=== PATIENT | female | born 1955 | race Caucasian/White ===

== ENCOUNTER 2023-05-04 16:19 | Outpatient (OUT) | payer OTHER, SELFPAY ==
--- NOTE | 2023-05-04 | MM_ITS ---
Patient: JOSY GASCA Exam Date: 05/04/2023 : 1955 Gender:F Ordering : DR Ti Blackburn . Admission #: [id number] Family : Order #: [id number] CLICK HERE TO VIEW EXAM RADIOLOGY REPORT PROCEDURE: MM TOMOSYNTHESIS SCREENING BI COMPARISON: MG MAMM SCREEN 3D CRISTOFER CAD, 04/28/2022. MG MAMM SCREEN 3D CRISTOFER CAD, 04/23/2021. MG MAMM SCREEN CRISTOFER W CAD, 07/25/2019. MG MAMM CRISTOFER SCRN W CAD DIG, 03/08/2013. INDICATIONS: SCREENING Calculator Name NCI Breast Cancer Risk Assessment Tool 5 Year Breast Cancer Risk 3.70% Lifetime Breast Cancer Risk 13.60% Personal Breast Cancer No Personal Ovarian Cancer No Treatments None Family Cancers Sister with breast cancer at age 57; Mother with leukemia cancer at age 66; Father with bladder cancer at age 75. LOCATION: [facility] BREAST COMPOSITION: Heterogeneously dense,which may obscure small masses. FINDINGS: DIAGNOSTIC CATEGORY 1--NEGATIVE. RIGHT BREAST: No significant suspicious finding. No significant change has occurred. LEFT BREAST: No significant suspicious finding. No significant change has occurred. RECOMMENDATIONS: ROUTINE MAMMOGRAM AND CLINICAL EVALUATION IN 12 MONTHS. PLEASE NOTE: A NORMAL MAMMOGRAM DOES NOT EXCLUDE THE POSSIBILITY OF BREAST CANCER. A CLINICALLY SUSPICIOUS PALPABLE LUMP SHOULD BE BIOPSIED. Dictated by: Jose Conde M.D. on 05/05/2023 at 13:02 Approved by: Jose Conde M.D. on 05/05/2023 at 13:26
== END 2023-05-04 16:20 | disposition home or self-care (01) ==
LOC: MAMMO 16:20
PROVIDERS: PCP Family Medicine; Visit Provider Family Medicine
DX: Z12.31 Encounter for screening mammogram for malignant neoplasm of breast (principal); Z80.3 Family history of malignant neoplasm of breast; Z80.6 Family history of leukemia; Z80.52 Family history of malignant neoplasm of bladder
CPT/HCPCS: 77063; 77067

== ENCOUNTER 2023-09-10 06:37 | Outpatient (OUT) | payer OTHER, SELFPAY ==
[2023-09-10 06:49] LABS: Basophils Absolute Auto 0.1 10^3/uL (0.0-0.1); Basophils Percent Auto 1.2 % (0.2-2.0); Eosinophils Absolute Auto 0.1 10^3/uL (0.0-0.7); Eosinophils Percent Auto 2.5 % (0.9-7.0); Hematocrit 38.6 % (36.0-48.0); Hemoglobin 12.5 g/dL (12.0-16.0); Lymphocytes Absolute Auto 2.6 10^3/uL (1.2-3.8); Lymphocytes Percent Auto 44.9 % (20.5-60.0); Mean Corpuscular HGB Conc 32.4 g/dL (29.9-35.2); Mean Corpuscular Hemoglobin 28.2 pg (26.7-34.0); Mean Corpuscular Volume 87.1 fL (81.0-99.0); Mean Platelet Volume 8.3 fL (9.5-13.5); Monocytes Absolute Auto 0.5 10^3/uL (0.3-0.8); Monocytes Percent Auto 8.4 % (1.7-12.0); Neutrophils Absolute Auto 2.5 10^3/uL (1.4-6.5); Platelet Count 324 10^3/uL (150-450); Red Blood Count 4.43 10^6/uL (4.20-5.40); Red Cell Distribution Width 13.8 % (11.0-15.0); White Blood Count 5.7 10^3/uL (4.0-11.0)
[2023-09-10 07:44] LABS: Estimated Average Glucose 111 mg/dL; Glycohemoglobin A1C 5.5 % (4.5-6.2)
[2023-09-10 07:49] LABS: Alanine Aminotransferase 28 U/L (14-59); Albumin Level 3.6 g/dL (3.4-5.0); Alkaline Phosphatase 71 U/L (46-116); Anion Gap 11.7; Aspartate Amino Transferase 19 U/L (15-37); BUN Creatinine Ratio 21.6; Bilirubin Direct 0.1 mg/dL (0.0-0.2); Bilirubin Total 0.4 mg/dL (0.2-1.0); Calcium 9.4 mg/dL (8.5-10.1); Carbon Dioxide 31.4 mmol/L (21.0-32.0); Chloride 101 mmol/L (98-107); Chol HDL Ratio 1.9; Cholesterol 216 mg/dL (<=200); Estimated GFR (African America >60 (>=60); Estimated GFR (Non-African Ame >60 (>=60); Globulin 3.5 g/dL; Glucose 92 mg/dL (74-106); HDL Cholesterol 112 mg/dL (40-60); Potassium 4.1 mmol/L (3.5-5.1); Sodium 140 mmol/L (136-145); Thyroid Stimulating Hormone 2.841 uIU/mL (0.358-3.740); Total Protein 7.1 g/dL (6.4-8.2); Triglycerides 43 mg/dL (<=150); VLDL CHOLESTEROL 8.6 mg/dL
== END 2023-09-10 06:38 | disposition home or self-care (01) ==
LOC: LAB 06:37
PROVIDERS: PCP Family Medicine; Visit Provider Family Medicine
DX: Z00.00 Encounter for general adult medical examination without abnormal findings (principal)
CPT/HCPCS: 36415; 80048; 80061; 80076; 83036; 84443; 85025

== ENCOUNTER 2023-10-21 06:56 | Outpatient (OUT) | payer OTHER, SELFPAY ==
--- OUTSIDE RECORDS SUMMARY | 2023-10-21 06:59 | XMS_ITS | CCD ---
Author Name Unknown Address [address] [place] [address] Organization [facility] Care Team Providers Care Culinary Worker Name Role Phone ELI WRIGHT Primary Care Physician MELINDA, DR ALVARADO Admitting Unavailable ELTAHAWY, DR ALVARADO Attending Unavailable ELTAHAWY, DR ALVARADO Consulting Unavailable NADERER, DR ELI Pillai Primary Care Unavailable ZIEBER, DR JOSE Bergman Consulting Unavailable DEXTER, DR SHAHANA Grove Primary Care Unavailable NADERER, DR ELI Pillai Admitting Unavailable NADERER, DR ELI Pillai Attending Unavailable NADERER, DR ELI Pillai Consulting Unavailable ELTAHAWY, DR ALVARADO Attending Unavailable ELTAHAWY, DR ALVARADO Admitting Unavailable ELTAHAWY, DR ALVARADO Consulting Unavailable DEXTER, DR SHAHANA Grove Primary Care Unavailable NILL, DR CARCAMO Consulting Unavailable NILL, DR CARCAMO Admitting Unavailable NADERER, DR ELI Pillai Primary Care Unavailable NILL, DR CARCAMO Attending Unavailable JUNGERMANN, WYATT Consulting Unavailable PAT, SONIA Consulting Unavailable NILL, DR CARCAMO Admitting Unavailable NADERER, DR ELI Pillai Primary Care Unavailable NILL, DR CARCAMO Attending Unavailable NADERER, DR ELI Pillai Attending Unavailable NADERER, DR ELI Pillai Consulting Unavailable NADERER, DR ELI Pillai Primary Care Unavailable NADERER, DR ELI Pillai Admitting Unavailable NADERER PROVIDER, ELI Referring Unavailab le NILL, Dona Bergman Attending Unavailable NILL, Dona Bergman Attending Unavailable NILL, Dona Bergman Attending Unavailable NILL, Dona Bergman Attending Unavailable NADERER PROVIDER, ELI Referring Unavailab le ELTAHAWY, YECENIA Attending Unavailable Allergies Allergy Classification Reported Allergen(s) Allergy Type Date of Onset Reaction(s) Facility (3 sources) nabumetone; Translations: [nabumetone] Drug Allergy 2 Weal (disorder) [facility] [place] (2 sources) Sulfonamides (Antibiotic); Translations: [sulfa drugs] Drug allergy 7 Unknown [facility] [place] (3 sources) Tetracyclines; Translations: [tetracyclines] Drug allergy 4 Eruption of skin (disorder) [facility] [place] (1 source) nabumetone Drug Allergy [facility] (1 source) Sulfonamides (Antibiotic) Drug allergy (disorder) 0 [facility] (1 source) Tetracycline Drug Allergy 1 [facility] (1 source) Sulfonamides (Antibiotic); Translations: [SULFA (SULFONAMIDE ANTIBIOTICS)] Propensity to adverse reactions to drug (disorder) 4 [facility] Repository Medications Current Medications Medication Drug Class(es) Dates Sig (Normalized) Sig (Original) Acidophilus Probiotic Blend (1 source) Start: 07-31-2022 Acidophilus Probiotic Blend Refill(s) 0 Start Date: 07/31/22 Status: Ordered aspirin 81 mg delayed release oral tablet (1 source) Platelet Aggregation Inhibitor, Nonsteroidal Anti-inflammatory Drug Start: 07-31-2022 take 1 tablet by mouth once daily aspirin 81 mg Oral EC Tab 81 mg = 1 tab(s), Oral, Daily, Refills(s) 0 Start Date: 07/31/22 Status: Ordered Calcium with Vitamin D and K oral tablet, chewable (1 source) Start: 07-31-2022 take 1 tablet by mouth once daily Calcium with Vitamin D and K oral tablet, chewable 1 tab(s), Chewed, Daily, Refill(s) 0 Start Date: 07/31/22 Status: Ordered Centrum Silver Ultra Women's (1 source) Start: 07-31-2022 take 1 tablet by mouth once daily Centrum Silver Ultra Women's 1 tab(s), Oral, Daily, Refill(s) 0 Start Date: 07/31/22 Status: Ordered lisinopril 5 mg oral tablet (1 source) Angiotensin Converting Enzyme Inhibitor Start: 07-31-2022 take 1 tablet by mouth once daily lisinopril 5 mg Tab 5 mg = 1 tab(s), Oral, Daily, Refills(s) 0 Start Date: 07/31/22 Status: Ordered omeprazole 20 mg delayed release oral capsule (1 source) Proton Pump Inhibitor Start: 07-31-2022 take 1 capsule by mouth once daily omeprazole 20 mg Cap-DR 20 mg = 1 cap(s), Oral, Daily, Refills(s) 0 Start Date: 07/31/22 Status: Ordered potassium chloride 1.33 meq oral tablet (1 source) Start: 07-31-2022 take 1 tablet by mouth once daily potassium chloride 99 mg oral tablet 99 mg = 1 tab(s), Oral, Daily, Refills(s) 0 Start Date: 07/31/22 Status: Ordered Problems Active Problems Problem Classification Problem Date Documented Da te Episodic/Chronic Aortic; peripheral; and visceral artery aneurysms (2 sources) Thoracic aortic ectasia; Translations: [Thoracic aortic ectasia] Onset: 3 Chronic Conduction disorders (4 sources) Left bundle branch block; Translations: [Left bundle-branch block, unspecified] Onset: 2 07-31-2022 Chronic Esophageal disorders (2 sources) Gastroesophageal reflux disease; Translations: [Gastro-esophageal reflux disease without esophagitis] Onset: 2 07-31-2022 Chronic Essential hypertension (6 sources) Hypertensive disorder; Translations: [Essential (primary) hypertension] Onset: 2 07-31-2022 Chronic Other aftercare (1 source) FPC (current) use of aspirin; Translations: [RESIDENTIAL CURRENT USE OF ASPIRIN] Onset: 2 Episodic Other aftercare (1 source) Other residential (current) drug therapy; Translations: [OTH RESIDENTIAL CURRENT DRUG THERAPY] Onset: 2 Episodic Other gastrointestinal disorders (1 source) Irritable bowel syndrome with diarrhea 07-31-2022 Chronic Other gastrointestinal disorders (1 source) Irritable bowel syndrome with diarrhea; Translations: [IRRITABLE BOWEL SYND W/DIARRHEA] Onset: 2 Chronic Other hereditary and degenerative nervous system conditions (1 source) Restless legs 07-31-2022 Chronic Other hereditary and degenerative nervous system conditions (1 source) Restless legs syndrome; Translations: [RESTLESS LEGS SYNDROME] Onset: 2 Chronic Other screening for suspected conditions (not mental disorders or infectious disease) (9 sources) Screening for malignant neoplasm of colon done; Translations: [Encounter for screening for malignant neoplasm of colon] Onset: 2 Episodic Lindsey-; endo-; and myocarditis; cardiomyopathy (except that caused by tuberculosis or sexually transmitted disease) (3 sources) Cardiomyopathy; Translations: [Cardiomyopathy, unspecified] Onset: 3 07-31-2022 Chronic Unclassified (1 source) Body mass index 20-24 - normal 08-05-2022 Unclassified (1 source) Patient encounter status 08-05-2022 Past or Other Problems Problem Classification Problem Date Documented Da te Episodic/Chronic Deficiency and other anemia (1 source) Anemia Onset: 03-02-2012 07-31-2022 Episodic Other lower respiratory disease (4 sources) Other forms of dyspnea; Translations: [OTHER FORMS OF DYSPNEA] Onset: 05-27-2022 Episodic Residual codes; unclassified (1 source) Family history of malignant neoplasm of breast; Translations: [FAMILY HX MALIG NEOPLASM OF BREAST] Onset: 05-03-2022 Episodic Residual codes; unclassified (1 source) Family history of leukemia; Translations: [FAMILY HISTORY OF LEUKEMIA] Onset: 05-03-2022 Episodic Residual codes; unclassified (1 source) Family history of malignant neoplasm of bladder; Translations: [FAM HX MALIGNANT NEOPLASM BLADDER] Onset: 05-03-2022 Episodic Results Test Name Value Interpretation Reference Range Facility Office Visiton 09-30-2023 Follow-up visit [id number] Prerna Phelps 1955 F Date Provider Department Center 09/30/2023 271-YECENIA FINN CARD [facility] Family History Problem Relation Age of Onset Hypertension Father Breast cancer Sister Family Status - Relation Status Age at Father Sister Level of Service:[address]55 [place] OFFICE/OUTPATIENT ESTABLISHED LOW MDM 20-29 MIN Normal [facility] Outside Colonoscopyon 2021 Outside Colonoscopy [id number]:127 Normal [facility] Reminderson 10-15-2022 Reminders - From: Nicole Nieto LPN To: GSN - Clinical; Sent: 10/15/2022 10:32:07 EST Show up: 09/14/2032 07:00:00 EST Subject: colonoscopy recall Due Date/Time: 10/14/2032 07:00:00 EST Reminder/Recall Patient is due for screening colonoscopy 10/14/2032. [facility] Pre-Certification Formon Pre-Certification Form [id number]:127 [facility] Consent for Procedure/Surger yon 08-06-2022 Consent for Procedure/Surgery [id number]:127 [facility] Ambulatory Visit Summaryon 1 Ambulatory Visit Summary PRERNA PHELPS :1955 Visit Date:08/05/2022 Ambulatory Visit Instructions Your Care Team Attending Physician - JOLENE DUMONT, Dona Bergman Primary Care Physician - KYLE DUMONT, ELI Referring Physician - ELI WRIGHT MD This Is Your Medications List Contact prescribing physician if questions or concerns aspirin (aspirin 81 mg Oral EC Tab) lactobacillus acidophilus (Acidophilus Probiotic Blend) lisinopril (lisinopril 5 mg Tab) multivitamin with minerals (Calcium with Vitamin D and K oral tablet, chewable) multivitamin with minerals (Centrum Silver Ultra Women's) omeprazole (omeprazole 20 mg Cap-DR) potassium chloride (potassium chloride 99 mg oral tablet) Procedures Performed Cardiac catheterization (08/13/2020), Cardiac catheterization (2006), Colonoscopy, Colonoscopy, Extraction of wisdom tooth, Lumpectomy of right breast, Tubal ligation. Discharge Vitals Heart Rate (Peripheral) 68 Respiratory Rate 16 Blood Pressure 138/80 Height 162.5 cm Height 64 in Weight 55.8 kg Weight 122.76 lb BMI 21.13 Medications What How Much When Instructions Unchanged aspirin (aspirin 81 mg Oral EC Tab) 1 Tablets By Mouth Every day Contact prescribing physician if questions or concerns Unchanged lactobacillus acidophilus (Acidophilus Probiotic Blend) Contact prescribing physician if questions or concerns Unchanged lisinopril (lisinopril 5 mg Tab) 1 Tablets By Mouth Every day Contact prescribing physician if questions or concerns Unchanged multivitamin with minerals (Calcium with Vitamin D and K oral tablet, chewable) 1 Tablets Chewed Every day Contact prescribing physician if questions or concerns Unchanged multivitamin with minerals (Centrum Silver Ultra Women's) 1 Tablets By Mouth Every day Contact prescribing physician if questions or concerns Unchanged omeprazole (omeprazole 20 mg Cap-DR) 1 Capsules By Mouth Every day Contact prescribing physician if questions or concerns Unchanged potassium chloride (potassium chloride 99 mg oral tablet) 1 Tablets By Mouth Every day Contact prescribing physician if questions or concerns Allergies nabumetone (Hives) sulfa drugs (Unknown) tetracyclines (Rash) Problems Ongoing - Any problem that you are currently receiving treatment for. Anemia BMI 21.0-21.9, adult Cardiomyopathy Gastroesophageal reflux disease HTN (hypertension) Irritable bowel syndrome with diarrhea Left bundle branch block RLS (restless legs syndrome) Normal [facility] Physician Referralon 022 Physician Referral [id number] .[id number]:127 Normal [facility] CBC AUTO DIFFon 07-06-2022 BASO # 0.1 103/ul Normal 0.0-0.1 [facility] Comment on above: Performed By: #### C BC #### [facility] [address] [address] [address] Robert Gould Basophils/100 WBC (Bld) 0.8 % Normal 0.2-2.0 [facility] Comment on above: Performed By: #### C BC #### [facility] [address] [address] [address] Robert Gould EO # 0.1 103/ul Normal 0.0-0.7 [facility] Comment on above: Performed By: #### C BC #### [facility] [address] [address] [address] Robert Gould Eosinophils/100 WBC (Bld) 0.9 % Normal 0.9-7.0 [facility] Comment on above: Performed By: #### C BC #### [facility] [address] [address] [address] Robert Gould Erythrocyte distribution width (RBC) [Ratio] 12.9 % Normal 11.0-15.0 [facility] Comment on above: Performed By: #### C BC #### [facility] [address] [place] [address] Dr. Robert Gould Hematocrit (Bld) [Volume fraction] 38.1 % Normal 36.0-48.0 [facility] Comment on above: Performed By: #### C BC #### [facility] [address] [place] [address] Dr. Robert Gould Hemoglobin (Bld) [Mass/Vol] 12.3 g/dL Normal 12.0-16.0 [facility] Comment on above: Performed By: #### C BC #### [facility] [address] [place] [address] Dr. Robert Gould IG # 0.01 10e3/ul Normal 0.00-0.03 [facility] Comment on above: Performed By: #### C BC #### [facility] [address] [place] [address] Dr. Robert Gould IG % 0.2 % Normal 0.0-0.5 [facility] Comment on above: Performed By: #### C BC #### [facility] [address] [place] [address] Dr. Robert Gould LYMPH # 1.7 103/ul Normal 1.2-3.8 [facility] Comment on above: Performed By: #### C BC #### [facility] [address] [place] [address] Dr. Robert Gould Lymphocytes/100 WBC (Bld) 27.4 % Normal 20.5-60.0 [facility] Comment on above: Performed By: #### C BC #### [facility] [address] [place] [address] Dr. Robert Gould MANUAL DIFF REQ NO Normal [facility] Comment on above: Performed By: #### C BC #### [facility] [address] [place] [address] Dr. Robert Gould MCH (RBC) [Entitic mass] 29.6 pg Normal 26.7-34.0 [facility] Comment on above: Performed By: #### C BC #### [facility] [address] [address] [address] Robert Gould MCHC (RBC) [Mass/Vol] 32.3 g/dL Normal 29.9-35.2 [facility] Comment on above: Performed By: #### C BC #### [facility] [address] [place] [address] Dr. Robert Gould MCV (RBC) [Entitic vol] 91.8 fL Normal 81.0-99.0 [facility] Comment on above: Performed By: #### C BC #### [facility] [address] [place] [address] Dr. Robert Gould MONO # 0.5 103/ul Normal 0.3-0.8 [facility] Comment on above: Performed By: #### C BC #### [facility] [address] [place] [address] Dr. Robert Gould Monocytes/100 WBC (Bld) 7.6 % Normal 1.7-12.0 [facility] Comment on above: Performed By: #### C BC #### [facility] [address] [place] [address] Dr. Robert Gould NEUT # 4.0 103/ul Normal 1.4-6.5 [facility] Comment on above: Performed By: #### C BC #### [facility] [address] [place] [address] Dr. Robert Gould Neutrophils/100 WBC (Bld) 63.1 % Normal 43.0-75.0 [facility] Comment on above: Performed By: #### C BC #### [facility] [address] [place] [address] Dr. Robert Gould Platelet mean volume (Bld) [Entitic vol] 9.0 fL Critically low 9.5-13.5 [facility] Comment on above: Performed By: #### C BC #### [facility] [address] [place] [address] Dr. Robert Gould PLT 331 103/ul Normal 150-450 [facility] Comment on above: Performed By: #### C BC #### [facility] [address] [address] [address] Robert Gould RBC 4.15 106/ul Critically low 4.20-5.40 [facility] Comment on above: Performed By: #### C BC #### [facility] [address] [address] [address] Robert Gould WBC 6.3 103/ul Normal 4.0-11.0 [facility] Comment on above: Performed By: #### C BC #### [facility] [address] [address] [address] Robert Gould GLYCOHEMOGLOBIN A1Con 2021 ADA RECOMMENDATION SEE BELOW Normal [facility] Comment on above: Result Comment: ADA RECOMMENDED LIMIT 4.0 - 6.0 ADA THERAPEUTIC TARGET < 7.0 ACTION SUGGESTED > 7.0 Performed By: #### A 1C #### [facility] [address] [place] [address] Dr. Robert Gould Glucose [Mass/Vol] 108 mg/dL Normal [facility] Comment on above: Performed By: #### A 1C #### [facility] [address] [place] [address] Dr. Robert Gould HbA1c (Bld) [Mass fraction] 5.4 % Normal 4.5-6.2 [facility] Comment on above: Performed By: #### A 1C #### [facility] [address] [place] [address] Dr. Robert Gould LIPID PROFILEon 07-06-2022 CHOL-HDL RATIO NORM SEE BELOW Normal [facility] Comment on above: Result Comment: 3.3 - 4.4 LOW RISK 4.4 - 7.1 AVERAGE RISK 7.1 - 11.0 MODERATE RISK >11.0 HIGH RISK Performed By: #### L IPID, LIVER, TSH, BMP #### [facility] [address] [place] [address] Dr. Robert Gould Cholesterol [Mass/Vol] 200 mg/dL Normal <=200 [facility] Comment on above: Performed By: #### L IPID, LIVER, TSH, BMP #### [facility] [address] [address] [address] Robert Gould Cholesterol in HDL [Mass/Vol] 82 mg/dL Critically high 40-60 [facility] Comment on above: Performed By: #### L IPID, LIVER, TSH, BMP #### [facility] [address] [address] [address] Robert Gould Cholesterol in LDL [Mass/Vol] 105.4 mg/dL Normal [facility] Comment on above: Performed By: #### L IPID, LIVER, TSH, BMP #### [facility] [address] [address] [address] Robert Gould Cholesterol.total/Ch olesterol in HDL [Mass ratio] 2.4 {ratio} Normal [facility] Comment on above: Performed By: #### L IPID, LIVER, TSH, BMP #### [facility] [address] [address] [address] Robert Gould HDL NORMAL > or = 60 mg/dl - LO W CARDIOVASCULAR RISK <40 mg/dl - HIGH CARDIOVASCULAR RISK Normal [facility] Comment on above: Performed By: #### L IPID, LIVER, TSH, BMP #### [facility] [address] [address] [address] Robert Gould LDL CALC NORMAL SEE BELOW Normal [facility] Comment on above: Result Comment: <100 mg/dl OPTIMAL 100 - 129 mg/dl NEAR OR ABOVE OPTIMAL 130 - 159 mg/dl BORDERLINE HIGH 160 - 189 mg/dl HIGH >190 mg/dl VERY HIGH Performed By: #### L IPID, LIVER, TSH, BMP #### [facility] [address] [address] [address] Robert Gould Triglyceride [Mass/Vol] 63 mg/dL Normal <=150 [facility] Comment on above: Performed By: #### L IPID, LIVER, TSH, BMP #### [facility] [address] [address] [address] Robert Gould VLDL CALC 12.6 mg/dL Normal [facility] Comment on above: Performed By: #### L IPID, LIVER, TSH, BMP #### [facility] [address] [address] [address] Robert Gould LIVER PROFILEon 07-06-2022 Albumin [Mass/Vol] 3.7 g/dL Normal 3.4-5.0 [facility] Comment on above: Performed By: #### L IPID, LIVER, TSH, BMP #### [facility] [address] [address] [address] Robert Gould Albumin/Globulin [Mass ratio] 1.1 {ratio} Normal [facility] Comment on above: Performed By: #### L IPID, LIVER, TSH, BMP #### [facility] [address] [address] [address] Robert Gould ALP [Catalytic activity/Vol] 65 U/L Normal 46-116 [facility] Comment on above: Performed By: #### L IPID, LIVER, TSH, BMP #### [facility] [address] [place] [address] Dr. Robert Gould ALT [Catalytic activity/Vol] 24 U/L Normal 14-59 [facility] Comment on above: Performed By: #### L IPID, LIVER, TSH, BMP #### [facility] [address] [place] [address] Dr. Robert Gould AST [Catalytic activity/Vol] 15 U/L Normal 15-37 [facility] Comment on above: Performed By: #### L IPID, LIVER, TSH, BMP #### [facility] [address] [place] [address] Dr. Robert Gould BILI, CONJUGATED 0.1 mg/dL Normal 0.0-0.2 [facility] Comment on above: Performed By: #### L IPID, LIVER, TSH, BMP #### [facility] [address] [address] [address] Robert Gould Bilirubin [Mass/Vol] 0.4 mg/dL Normal 0.2-1.0 [facility] Comment on above: Performed By: #### L IPID, LIVER, TSH, BMP #### [facility] [address] [place] [address] Dr. Robert Gould Globulin (S) [Mass/Vol] 3.3 g/dL Normal [facility] Comment on above: Performed By: #### L IPID, LIVER, TSH, BMP #### [facility] [address] [address] [address] Robert Gould Protein [Mass/Vol] 7.0 g/dL Normal 6.4-8.2 [facility] Comment on above: Performed By: #### L IPID, LIVER, TSH, BMP #### [facility] [address] [address] [address] Robert Gould PROF CHEM 8 (BAS METB)on Anion gap [Moles/Vol] 10.2 mmol/L Normal [facility] Comment on above: Performed By: #### L IPID, LIVER, TSH, BMP #### [facility] [address] [place] [address] Dr. Robert Gould Calcium [Mass/Vol] 9.6 mg/dL Normal 8.5-10.1 [facility] Comment on above: Performed By: #### L IPID, LIVER, TSH, BMP #### [facility] [address] [place] [address] Dr. Robert Gould Chloride [Moles/Vol] 104 mmol/L Normal 98-107 [facility] Comment on above: Performed By: #### L IPID, LIVER, TSH, BMP #### [facility] [address] [place] [address] Dr. Robert Gould CO2 [Moles/Vol] 29.1 mmol/L Normal 21.0-32.0 [facility] Comment on above: Performed By: #### L IPID, LIVER, TSH, BMP #### [facility] [address] [address] [address] Robert Gould Creatinine [Mass/Vol] 0.65 mg/dL Normal 0.55-1.02 [facility] Comment on above: Performed By: #### L IPID, LIVER, TSH, BMP #### [facility] [address] [address] [address] Robert Gould EGFR-AF TAIWANESE >60 Normal >=60 [facility] Comment on above: Performed By: #### L IPID, LIVER, TSH, BMP #### [facility] [address] [address] [address] Robert Gould EGFR-NON AF TAIWANESE >60 Normal >=60 [facility] Comment on above: Performed By: #### L IPID, LIVER, TSH, BMP #### [facility] [address] [address] [address] Robert Gould Glucose [Mass/Vol] 94 mg/dL Normal 74-106 [facility] Comment on above: Performed By: #### L IPID, LIVER, TSH, BMP #### [facility] [facility] [address] [address] [address] Robert Gould Potassium [Moles/Vol] 4.3 mmol/L Normal 3.5-5.1 [facility] Comment on above: Performed By: #### L IPID, LIVER, TSH, BMP #### [facility] [address] [address] [address] Robert Gould Sodium [Moles/Vol] 139 mmol/L Normal 136-145 [facility] Comment on above: Performed By: #### L IPID, LIVER, TSH, BMP #### [facility] [address] [address] [address] Robert Gould Urea nitrogen [Mass/Vol] 11.0 mg/dL Normal 7.0-18.0 [facility] Comment on above: Performed By: #### L IPID, LIVER, TSH, BMP #### [facility] [address] [address] [address] Robert Gould Urea nitrogen/Creatinine [Mass ratio] 16.9 mg/mg Normal [facility] Comment on above: Performed By: #### L IPID, LIVER, TSH, BMP #### [facility] [address] [address] [address] Robert Gould TSHon 07-06-2022 TSH 1.590 uIU/mL Normal 0.358-3.740 [facility] Comment on above: Performed By: #### L IPID, LIVER, TSH, BMP #### [facility] [address] [place], [place] [address] Dr. Robert Gould HEMOGLOBINon 05-27-2022 Hemoglobin (Bld) [Mass/Vol] 11.5 g/dL Critically low 12.0-16.0 [facility] Comment on above: Performed By: #### H GB #### [facility] [address] [address] [address] Robert Gould MG MAMM SCREEN 3D CRISTOFER CADon 04-28-2022 MG MAMM SCREEN 3D CRISTOFER CAD Patient: PRERNA PHELPS Exam Date: 04/28/2022 : 1955 Gender:F Ordering : DR ELI WRIGHT . Admission #: [id number] Family : Order #: [id number] CLICK HERE TO VIEW EXAM RADIOLOGY REPORT PROCEDURE: MAMMOGRAM SCREENING 3D BILATERAL CAD COMPARISON: MG MAMM SCREEN 3D CRISTOFER CAD, 04/23/2021. MG MAMM SCREEN CRISTOFER W CAD, 07/25/2019. INDICATIONS: Screening mammography Calculator Name NCI Breast Cancer Risk Assessment Tool 5 Year Breast Cancer Risk 3.60% Lifetime Breast Cancer Risk 14.10% Personal Breast Cancer No Personal Ovarian Cancer No Treatments None Family Cancers Sister with breast cancer at age 57; Mother with leukemia cancer at age 66; Father with bladder cancer at age 75. LOCATION: [facility] BREAST COMPOSITION: Heterogeneously dense,which may obscure small masses. FINDINGS: DIAGNOSTIC CATEGORY 1--NEGATIVE. RIGHT BREAST: No significant suspicious finding. No significant change has occurred. LEFT BREAST: No significant suspicious finding. No significant change has occurred. RECOMMENDATIONS: ROUTINE MAMMOGRAM AND CLINICAL EVALUATION IN 12 MONTHS. PLEASE NOTE: A NORMAL MAMMOGRAM DOES NOT EXCLUDE THE POSSIBILITY OF BREAST CANCER. A CLINICALLY SUSPICIOUS PALPABLE LUMP SHOULD BE BIOPSIED. Dictated by: Jose Conde M.D. on 04/28/2022 at 12:50 Approved by: Jose Conde M.D. on 04/28/2022 at 12:52 Normal [facility] PROF CHEM 8 (BAS METB)on Anion gap [Moles/Vol] 15.1 mmol/L Normal [facility] Comment on above: Performed By: #### B MP #### [facility] [address] [address] [address] Robert Gould Calcium [Mass/Vol] 9.2 mg/dL Normal 8.5-10.1 [facility] Comment on above: Performed By: #### B MP #### [facility] [address] [place] [address] Dr. Robert Gould Chloride [Moles/Vol] 103 mmol/L Normal 98-107 [facility] Comment on above: Performed By: #### B MP #### [facility] [address] [address] [address] Robert Gould CO2 [Moles/Vol] 26.0 mmol/L Normal 22.0-30.0 [facility] Comment on above: Performed By: #### B MP #### [facility] [address] [place] [address] Dr. Robert Gould Creatinine [Mass/Vol] 0.64 mg/dL Normal 0.52-1.04 [facility] Comment on above: Performed By: #### B MP #### [facility] [address] [place] [address] Dr. Robert Gould EGFR-AF TAIWANESE >60 Normal >=60 [facility] Comment on above: Performed By: #### B MP #### [facility] [address] [place] [address] Dr. Robert Gould EGFR-NON AF TAIWANESE >60 Normal >=60 [facility] Comment on above: Performed By: #### B MP #### [facility] [address] [place] [address] Dr. Robert Gould Glucose [Mass/Vol] 86 mg/dL Normal 74-106 [facility] Comment on above: Performed By: #### B MP #### [facility] [address] [address] [address] Robert Gould Potassium [Moles/Vol] 4.1 mmol/L Normal 3.4-5.0 [facility] Comment on above: Performed By: #### B MP #### [facility] [address] [place] [address] Dr. Robert Gould Sodium [Moles/Vol] 140 mmol/L Normal 137-145 [facility] Comment on above: Performed By: #### B MP #### [facility] [address] [address] [address] Robert Gould Urea nitrogen [Mass/Vol] 12.0 mg/dL Normal 7.0-18.0 [facility] Comment on above: Performed By: #### B MP #### [facility] [address] [address] [address] Robert Gould Urea nitrogen/Creatinine [Mass ratio] 18.8 mg/mg Normal [facility] Comment on above: Performed By: #### B MP #### [facility] [address] [address] [address] Robert Gould C-Reactive Proteinon 021 C-Reactive Protein 1.4 mg/dL High 0.0-1.0 [facility] Comment on above: Performed By: #### C MP, ZACK, CBC, TSH3, FE and TIBC, CRP, PTH, ESR #### [address] Complete Blood Count Auto Di ffon 07-02-2021 Basophils (Bld) [#/Vol] 0.1 10*3/uL Normal 0.0-0.2 [facility] Comment on above: Performed By: #### C MP, ZACK, CBC, TSH3, FE and TIBC, CRP, PTH, ESR #### [address] Basophils/100 WBC (Bld) 1.1 % Normal . [facility] Comment on above: Performed By: #### C MP, ZACK, CBC, TSH3, FE and TIBC, CRP, PTH, ESR #### [place] [address] [place] Eosinophils (Bld) [#/Vol] 0.3 10*3/uL Normal 0.0-0.45 [facility] Comment on above: Performed By: #### C MP, ZACK, CBC, TSH3, FE and TIBC, CRP, PTH, ESR #### [address] [place] [address] [place] Eosinophils/100 WBC (Bld) 3.7 % Normal . [facility] Comment on above: Performed By: #### C MP, ZACK, CBC, TSH3, FE and TIBC, CRP, PTH, ESR #### [address] Erythrocyte distribution width (RBC) [Ratio] 16.4 % High 11.9-15.3 [facility] Comment on above: Performed By: #### C MP, ZACK, CBC, TSH3, FE and TIBC, CRP, PTH, ESR #### [address] Hematocrit (Bld) [Volume fraction] 34.0 % Normal 34.0-46.4 [facility] Comment on above: Performed By: #### C MP, ZACK, CBC, TSH3, FE and TIBC, CRP, PTH, ESR #### [address] Hemoglobin (Bld) [Mass/Vol] 11.4 g/dL Low 11.8-15.4 [facility] Comment on above: Performed By: #### C MP, ZACK, CBC, TSH3, FE and TIBC, CRP, PTH, ESR #### [address] Lymphocytes (Bld) [#/Vol] 1.5 10*3/uL Normal 1.00-4.8 [facility] Comment on above: Performed By: #### C MP, ZACK, CBC, TSH3, FE and TIBC, CRP, PTH, ESR #### [address] Lymphocytes/100 WBC (Bld) 22.3 % Normal . [facility] Comment on above: Performed By: #### C MP, ZACK, CBC, TSH3, FE and TIBC, CRP, PTH, ESR #### [address] MCH (RBC) [Entitic mass] 26.9 pg Normal 24.7-34.3 [facility] Comment on above: Performed By: #### C MP, ZACK, CBC, TSH3, FE and TIBC, CRP, PTH, ESR #### [address] MCV (RBC) [Entitic vol] 79.8 fL Low 80-100 [facility] Comment on above: Performed By: #### C MP, ZACK, CBC, TSH3, FE and TIBC, CRP, PTH, ESR #### [address] Mean Corpuscular HGB Conc 33.7 g/dL Normal 32.0-35.0 [facility] Comment on above: Performed By: #### C MP, ZACK, CBC, TSH3, FE and TIBC, CRP, PTH, ESR #### [address] Monocytes (Bld) [#/Vol] 0.5 10*3/uL Normal 0.0-0.8 [facility] Comment on above: Performed By: #### C MP, ZACK, CBC, TSH3, FE and TIBC, CRP, PTH, ESR #### [address] Monocytes/100 WBC (Bld) 7.6 % Normal . [facility] Comment on above: Performed By: #### C MP, ZACK, CBC, TSH3, FE and TIBC, CRP, PTH, ESR #### [address] Neutrophils (Bld) [#/Vol] 4.4 10*3/uL Normal 1.8-7.7 [facility] Comment on above: Performed By: #### C MP, ZACK, CBC, TSH3, FE and TIBC, CRP, PTH, ESR #### [address] Neutrophils/100 WBC (Bld) 65.3 % Normal . [facility] Comment on above: Performed By: #### C MP, ZACK, CBC, TSH3, FE and TIBC, CRP, PTH, ESR #### [place] [address] Nucleated RBC/100 WBC (Bld) [Ratio] 0.0 % Normal 0-0.5 [facility] Comment on above: Performed By: #### C MP, ZACK, CBC, TSH3, FE and TIBC, CRP, PTH, ESR #### [address] Platelet mean volume (Bld) [Entitic vol] 6.7 fL Normal 6.3-10.7 [facility] Comment on above: Performed By: #### C MP, ZACK, CBC, TSH3, FE and TIBC, CRP, PTH, ESR #### [address] Platelets (Bld) [#/Vol] 446 10*3/uL Normal 150-450 [facility] Comment on above: Performed By: #### C MP, ZACK, CBC, TSH3, FE and TIBC, CRP, PTH, ESR #### [address] RBC (Bld) [#/Vol] 4.26 10*6/uL Normal 3.60-5.00 [facility] Comment on above: Performed By: #### C MP, ZACK, CBC, TSH3, FE and TIBC, CRP, PTH, ESR #### [address] WBC (Bld) [#/Vol] 6.8 10*3/uL Normal 4.5-11.0 [facility] Comment on above: Performed By: #### C MP, ZACK, CBC, TSH3, FE and TIBC, CRP, PTH, ESR #### [address] Comprehensive Metabolic Pane maxwell 07-02-2021 Albumin [Mass/Vol] 4.0 g/dL Normal 3.2-5.5 [facility] Comment on above: Performed By: #### C MP, ZACK, CBC, TSH3, FE and TIBC, CRP, PTH, ESR #### [address] [address] [place] Albumin/Globulin [Mass ratio] 1.5 {ratio} Normal [facility] Comment on above: Performed By: #### C MP, ZACK, CBC, TSH3, FE and TIBC, CRP, PTH, ESR #### [address] ALP [Catalytic activity/Vol] 76 U/L Normal 32-92 [facility] Comment on above: Performed By: #### C MP, ZACK, CBC, TSH3, FE and TIBC, CRP, PTH, ESR #### [address] ALT [Catalytic activity/Vol] 19 U/L Normal 10-60 [facility] Comment on above: Performed By: #### C MP, ZACK, CBC, TSH3, FE and TIBC, CRP, PTH, ESR #### [address] AST [Catalytic activity/Vol] 17 U/L Normal 10-42 [facility] Comment on above: Performed By: #### C MP, ZACK, CBC, TSH3, FE and TIBC, CRP, PTH, ESR #### [address] Bilirubin [Mass/Vol] 0.3 mg/dL Normal 0.3-1.2 [facility] Comment on above: Performed By: #### C MP, ZACK, CBC, TSH3, FE and TIBC, CRP, PTH, ESR #### [address] Calcium [Mass/Vol] 10.1 mg/dL Normal 8.2-10.2 [facility] Comment on above: Performed By: #### C MP, ZACK, CBC, TSH3, FE and TIBC, CRP, PTH, ESR #### [address] Chloride [Moles/Vol] 100 mmol/L Normal 95-114 [facility] Comment on above: Performed By: #### C MP, ZACK, CBC, TSH3, FE and TIBC, CRP, PTH, ESR #### [facility] [address] CO2 [Moles/Vol] 24.8 mmol/L Normal 22.0-30.0 [facility] Comment on above: Performed By: #### C MP, ZACK, CBC, TSH3, FE and TIBC, CRP, PTH, ESR #### [address] Creatinine [Mass/Vol] 0.64 mg/dL Normal 0.44-1.03 [facility] Comment on above: Performed By: #### C MP, ZACK, CBC, TSH3, FE and TIBC, CRP, PTH, ESR #### [address] Estimated GFR ( [place] > 60 [facility] Comment on above: Result Comment: GFR estimated reference range: According to KDOQI guidelines, <60 ml/min/1.73m2 is sufficient to diagnose a patient with chronic kidney disease. Performed By: #### C MP, ZACK, CBC, TSH3, FE and TIBC, CRP, PTH, ESR #### [address] Estimated GFR (Non- Am > 60 [facility] Comment on above: Performed By: #### C MP, ZACK, CBC, TSH3, FE and TIBC, CRP, PTH, ESR #### [address] Globulin (S) [Mass/Vol] 2.7 g/dL [facility] Comment on above: Performed By: #### C MP, ZACK, CBC, TSH3, FE and TIBC, CRP, PTH, ESR #### [address] Glucose [Mass/Vol] 103 mg/dL High 70-100 [facility] Comment on above: Result Comment: Thayne Glucose Reference Range is dependent on time and content of last meal. Glucose of more than 200 mg/dL in a nonstressed, ambulatory subject supports the diagnosis of Diabetes Mellitus. ADA recommended reference range Performed By: #### C MP, ZACK, CBC, TSH3, FE and TIBC, CRP, PTH, ESR #### [address] Potassium [Moles/Vol] 4.0 mmol/L Normal 3.5-5.1 [facility] Comment on above: Performed By: #### C MP, ZACK, CBC, TSH3, FE and TIBC, CRP, PTH, ESR #### [address] Protein [Mass/Vol] 6.7 g/dL Normal 6.1-7.9 [facility] Comment on above: Performed By: #### C MP, ZACK, CBC, TSH3, FE and TIBC, CRP, PTH, ESR #### [address] Sodium [Moles/Vol] 136 mmol/L Normal 136-146 [facility] Comment on above: Performed By: #### C MP, ZACK, CBC, TSH3, FE and TIBC, CRP, PTH, ESR #### [address] Urea nitrogen [Mass/Vol] 13 mg/dL Normal 9-23 [facility] Comment on above: Performed By: #### C MP, ZACK, CBC, TSH3, FE and TIBC, CRP, PTH, ESR #### [address] Erythrocyte Sedimentation Ra anahi 07-02-2021 ESR (Bld) [Velocity] 27 mm/h Normal 0-29 [facility] Comment on above: Result Comment: PERF ORMED BY: [place] [address] PATHOLOGIST [employer]NER ZAYRA LEONARD M.D. Performed By: #### C MP, ZACK, CBC, TSH3, FE and TIBC, CRP, PTH, ESR #### [address] Ferritinon 07-02-2021 Ferritin [Mass/Vol] 45.4 ng/mL Normal 11-306.8 [facility] Comment on above: Performed By: #### C MP, ZACK, CBC, TSH3, FE and TIBC, CRP, PTH, ESR #### [address] Iron and TIBC Profileon % Iron Saturation 6.0 % Low 20-50 [facility] Comment on above: Performed By: #### C MP, ZACK, CBC, TSH3, FE and TIBC, CRP, PTH, ESR #### [address] Iron [Mass/Vol] 27 ug/dL Low 40-150 [facility] Comment on above: Performed By: #### C MP, ZACK, CBC, TSH3, FE and TIBC, CRP, PTH, ESR #### [address] Total Iron Binding Capacity 386 ug/dL Normal 255-450 [facility] Comment on above: Performed By: #### C MP, ZACK, CBC, TSH3, FE and TIBC, CRP, PTH, ESR #### [address] Transferrin [Mass/Vol] 276 mg/dL Normal 180-380 [facility] Comment on above: Performed By: #### C MP, ZACK, CBC, TSH3, FE and TIBC, CRP, PTH, ESR #### [address] Parathyroid Hormone Intacton 07-02-2021 Parathyroid Hormone Intact 24.7 pg/mL Normal 12-88 [facility] Comment on above: Result Comment: PERF ORMED BY: [place] [address] PATHOLOGIST [employer] RUNNER ZAYRA LEONARD M.D. Performed By: #### C MP, ZACK, CBC, TSH3, FE and TIBC, CRP, PTH, ESR #### [address] Thyroid Stimulating Hormoneo n 07-02-2021 TSH Qn 1.73 m[IU]/L Normal 0.45-5.33 [facility] Comment on above: Performed By: #### C MP, ZACK, CBC, TSH3, FE and TIBC, CRP, PTH, ESR #### [facility] [id number] [facility] XR knee RT 2Von 07-02-2021 XR knee RT 2V [facility] [address] [place] [address] [place] [address] XRay Report Signed Patient: Prerna Phelps MR#: [id number] : 1955 Acct:[id number] Age/Sex: 66 / F ADM Date: 07/02/21 Loc: ICXD Room: Type: [facility] Attending Dr: Teodoro Denson MD Ordering Provider: Teodoro Denson MD Date of Service: 07/02/21 XR/XR hand BI 2V: PAIN ([id number]) XR/XR knee RT 2V: PAIN Copies to: Teodoro Denson MD Bilateral hands and right knee 07/02/2021. CLINICAL DATA: Bilateral hand and right knee pain. BILATERAL HANDS FINDINGS: 2 views of each of the right and left hands were obtained for a total of 4 images. A metallic ring overlies the mid fourth proximal phalanx on the left. No acute fracture or dislocation is identified. Minimal and symmetrical degenerative changes are seen in both hands and both wrists. No bony erosion or destruction is visualized. No significant soft tissue swelling is noted. XR/XR hand BI 2V IMPRESSION: Minimal and symmetrical degenerative changes in both hands and wrists. No acute bony abnormality. RIGHT KNEE FINDINGS: 2 views of the right knee were obtained. No acute fracture or dislocation is identified. There are mild degenerative changes including marginal osteophyte formation in the patellofemoral compartment. No bony erosion or destruction is seen. No suprapatellar effusion is visualized. IMPRESSION: Mild degenerative changes in the patellofemoral compartment. No acute bony abnormality or effusion. Impression dictated by: Tejas Serra Jr., M.D.07/02/2021 7:26 PM Dictation Location: [address] [address] Transcribed By: [facility] 07/02/211925 Dictated By: Tejas Serra Jr, MD 07/02/211916 Signed By: 07/02/211925 Normal [facility] Cardiovascular Lab Reporton 08-13-2020 Cardiovascular Lab Report [facility] Patient Name: Prerna Phelps [facility] MR #: [id number] Physician: Yecenia Finn Department of M.D. Medicine Service Date: 08/13/2020 Division of Birthdate: 1955 Cardiology Room #: [facility] Cardiovascular Services [place] [address] Cardiovascular Laboratory Report FINAL IMPRESSIONS: 1. Non-obstructive coronary arteries. 2. Normal global left ventricular systolic function by noninvasive imaging. 3. Normal right-sided heart pressures. 4. Normal pulmonary capillary wedge pressure. 5. Normal cardiac output/cardiac index. RECOMMENDATIONS: 1. Consider alternate etiologies for the patient's symptomatology, namely pulmonary, musculoskeletal, and/or gastrointestinal. 2. Aggressive cardiovascular risk factor modification. 3. Follow up with [facility] Cardiology on an as-needed basis. 4. Follow up with Dr. Shahana Dexter as scheduled. PROCEDURES: Ultrasound-guided access to the right internal jugular vein, right heart catheterization, bilateral selective coronary angiography via a left radial approach. METHODS: After risks, benefits, and alternatives were explained, written informed consent was obtained. The patient was prepped and draped in the usual sterile fashion over the right neck and left wrist. Using 1% lidocaine solution, local infiltration anesthesia was achieved. Using a modified Seldinger technique and a micropuncture kit, ultrasound guidance was used to access the right internal jugular vein. A 6-Croatian glide sheath was inserted without difficulty. A Jimenez catheter was used for right heart catheterization measuring pressures in the right atrium, right ventricle, pulmonary artery, and pulmonary capillary wedge positions. Oxygen saturations were obtained and cardiac output/cardiac index was calculated using the Ilan principle. The Jimenez catheter was removed. Local infiltration anesthesia was achieved over the left wrist. A micropuncture kit was used to access the left radial artery. A 6-Croatian glide sheath was inserted without difficulty. Difficulty advancing the Matute wire was encountered. Therefore, angiography was performed. This revealed tortuosity and a small vessel. This was traversed using a soft angled Glidewire. Bilateral selective coronary angiography was performed using 4 and JL4 catheters. After reviewing the images, it was elected to conclude the procedure. All catheters were removed. The radial sheath was removed with application of a TR band per protocol achieving optimal hemostasis. Overall, the patient tolerated the procedure well. There were no overt complications. She was to be transferred to the holding area in stable condition. FINDINGS: Hemodynamics. RA 5. RV 27/3, 5. PA 27/9 (16). PCWP 7. TPG 9. AO 101/54 (70). Cardiac output 6.46/cardiac index 3.37. AO sat 97%/PA sat 74%. LEFT VENTRICULOGRAPHY: This was not performed. Ejection fraction is normal by noninvasive imaging. CORONARY ARTERIES: Left main coronary artery: This arises from the left coronary cusp. It has a patulous origin with no significant stenosis. There was no pressure dampening and excellent reflux into the root. It appears to be originating posteriorly from the root. Left anterior descending coronary artery: This shows no significant stenosis and is angiographically nonobstructive. Left circumflex coronary artery: This is angiographically nonobstructive. Right coronary artery: This is a large vessel, giving rise to the posterior descending and posterolateral branches. It is angiographically nonobstructive. INDICATIONS: Exertional shortness of breath. Electronically Signed by: Yecenia Finn M.D. 08/16/2020 02:13 P Yecenia Finn M.D. Date Dict: 08/13/2020/10:58 Rosas/Yecenia Finn M.D. Date Trans: 08/13/2020 11:58 Rosas/anatoliy [id number] cc: Shahana Dexter M.D. [address] [place] [address] A [facility] [id number] [facility] Vital Signs Date Time Vital Sign Value Performing Clinician Funmilayo pena 08-05-2022 15:45-0400 Blood Pressure Location Dona YIP [facility] [place] 08-05-2022 15:45-0400 Diastolic blood pressure 80 mm[Hg] Dona YIP [facility] [place] 08-05-2022 15:45-0400 Heart rate 68 /min Dona JOLENE [facility] [place] 08-05-2022 15:45-0400 Respiratory rate 16 /min Dona JOLENE [facility] [place] 08-05-2022 15:45-0400 Systolic blood pressure 138 mm[Hg] Dona TOML [facility] [place] Encounters Encounter Date Encounter Type Care Provider Facility Start: 09-30-2023 End: 09-30-2023 [facility] Start: 10-14-2022 End: 10-15-[address] DONA YIP Facility: Start: 10-10-[address] DONA YIP Facilit y:[facility] Start: 10-07-2022 End: 10-08-2022 ambulatory Dona YIP Facility:[facility] Start: 08-05-2022 End: 08-06-2022 ambulatory ELI WRIGHT PROVIDER [facility] Start: 08-05-2022 End: 08-05-2022 Patient encounter procedure Dona YIP [facility] Start: 07-29-2022 ambulatory ELI WRIGHT PROVIDER F acility: [facility] Start: 07-11-2022 Encounter for genera l adult medical examination without abnormal findings DR ELI WRIGHT [facility] Start: 07-10-2022 ambulatory Dona YIP Facility : [facility] Start: 07-06-2022 End: 07-07-[address] ELI WRIGHT Facility: Start: 07-06-2022 End: 07-07-2022 Encounter for general adult medical examination without abnormal findings DR ELI WRIGHT Facility:[facility] Start: 05-27-2022 End: 05-28-[address] YECENIA FINN Facility:[facility] Start: 04-28-2022 End: 04-29-[address] JOSE CONDE Facility:[facility] Start: 02-02-2022 End: 02-03-[address] YECENIA FINN Facility:[facility] Procedures Date Procedure Procedure Detail Performing Clinician Start: 08-13-2020 Cardiac catheterization Dona SANTOSL Start: 10-25-2006 Cardiac catheterization Dona NILL Colonoscopy Dona NILL Colonoscopy Dona NILL Extraction of wisdom tooth M prasanna NILL Ligation of fallopian tube M prasanna NILL Lumpectomy of right breast M prasanna NILL Immunizations Immunization Date Immunization Notes Care Provider Fa cili 01-30-2021 COVID-19 mRNA-1273 (Moderna) [facility] 12-26-2020 COVID-19 mRNA-1273 (Moderna) [facility] Payers Date Payer Category Payer Private Health Insurance [id number] 1955 Unknown [id number] 2.16.84 [id number] 1955 Unknown [id number] 2.16.84 [id number] 1955 Unknown [id number] 2.16.84 [id number] 1955 Unknown [id number] 2.16.84 [id number] 1955 Unknown [id number] 2.16.84 [id number] 1955 Unknown [id number] 2.16.84 [id number] 1955 Unknown [id number] 2.16.8 [id number] 1955 Unknown [id number] 2.16.8 [id number] 1955 Unknown [id number] 2.16.8 [id number] 1955 Unknown [id number] 2.16.8 [id number] 1955 Unknown [id number] 2.16.8 [id number] Self-pay Self Pay [id number] Social History Date Type Detail Facility Tobacco smoking stat [facility] Unknown if ever smoked [facility] Work Phone: Start: 1955 Sex Assigned At Female F [facility] Start: 08-05-2022 Tobacco smoking status Never s moked tobacco (finding) [facility] Tobacco smoking status Never [facility] Sex Assigned At Female [facility] Functional Status Date Assessment Result Facility 08-05-2022 Functional Status N/A [facility] Progress note 09-30-2023 Note Date & Type Note Facility 09-30-2023 Note [facility] Note Chief Complaint: Patient here for 1 year follow up hypertension, LBBB, and cardiomyopathy. She had routine lab work last month. Denies SOB and palpitations. Gets chest twinges but thinks it's related to her IBS. HPI: Prerna Phelps is a 68 y.o. female Per Reji Cabral - She had normal coronary arteries and mild cardiomyopathy with a mildly reduced ejection fraction. Cardiology ROS: Review of Systems Cardiovascular: Positive for chest pain ( twinges ). All other systems reviewed and are negative. Past Medical History She has a past medical history of Anemia, Breast cancer (CMS/HCC), Cardiomyopathy (CMS/HCC), Gastrointestinal disease, GERD (gastroesophageal reflux disease), Obesity, and Sleep apnea. Surgical History She has a past surgical history that includes Cardiac catheterization; Mastectomy, partial; Tubal ligation; and Cardiac catheterization (Bilateral, 08/13/2020). Social History She reports that she has never smoked. She has never used smokeless tobacco. No history on file for alcohol use and drug use. Family History Family History Problem Relation Name Age of Onset Hypertension Father Breast cancer Sister Allergies Nabumetone, Sulfa (sulfonamide antibiotics), and Tetracyclines Medications Current Outpatient Medications: aspirin 81 mg EC tablet, in the morning., Disp: , Rfl: hydroCHLOROthiazide (HYDRODiuril) 12.5 mg tablet, 1 (one) time each day at the same time., Disp: , Rfl: hydroxychloroquine (Plaquenil) 200 mg tablet, hydroxychloroquine 200 mg tablet TAKE 1 TABLET BY MOUTH TWO TIMES A DAY WITH FOOD, Disp: , Rfl: ibuprofen 200 mg capsule, every 8 (eight) hours., Disp: , Rfl: lisinopril 5 mg tablet, lisinopril 5 mg tablet TAKE 1 TABLET BY MOUTH EVERY DAY, Disp: 90 tablet, Rfl: 3 omeprazole (PriLOSEC) [address] capsule, 1 capsule in the morning., Disp: , Rfl: polysaccharide iron complex 180 mg iron capsule, Pro Fe 180 mg iron capsule TAKE 1 CAPSULE BY MOUTH EVERY DAY, Disp: , Rfl: potassium gluconate 595 mg (99 mg) tablet, in the morning., Disp: , Rfl: rOPINIRole (Requip) 0.5 mg tablet, ropinirole 0.5 mg tablet, Disp: , Rfl: Last Recorded Vitals BP 140/86 (BP Location: Left arm, Patient Position: Sitting) Pulse 71 Ht 1.626 m (5' 4 ) Wt 59.4 kg (131 lb) SpO2 99% BMI 22.49 kg/m??? Physical Examination: GENERAL: alert and oriented x3, well developed, in no acute distress. HEAD: atraumatic, normocephalic. EYES: CECILIA, EOMI. NECK: trachea midline, no JVD present, no carotid bruits present. CARDIAC: S1, S2 present. RRR. No murmur, rubs, or gallops. RESPIRATORY: CTAB, no increased effort of breathing, no rales, rhonchi, or wheezing. ABDOMEN: soft, nontender, nondistended. EXTREMITIES: no lower extremity edema, peripheral pulses are 2+ bilaterally. No rash/skin discoloration present. NEURO: strength/sensation equal and symmetric in bilateral upper and lower extremities. PSYCH: appropriate mood, affect, and judgement. Labs: 07/06/22 BUN 11, CR 0.65- normal K+ 4.3 LFT normal Chol 200, HDL 82, Trig 63, LDL-105.4, A1C 5.4 Last lab values have been reviewed CV Testin07/23/2020 Echo Left Ventricle: The left ventricle is small in size. Global left ventricular systolic function is normal. EF range is estimated at 55 % -60 %. Left ventricular wall thickness is normal. The septum is abnormal in its motion; maybe due to bundle branch block. Unable to assess diastolic dysfunction. Right Ventricle: The right ventricle is normal in size. Normal right ventricular systolic function. Left Atrium: The left atrium is normal in size. IAS: Color flow Doppler is suggestive of a patent foramen ovale. Right Atrium: The right atrium is normal in size. Aorta: Mild dilatation of the ascending aorta. Overall Conclusions: No significant valvular abnormalities Assessment: History of nonischemic cardiomyopathy; recovered Essential hypertension Left bundle branch block Mild dilatation of the ascending aorta Possible patent foramen ovale seen on echocardiography Plan: Continue medical therapy including angiotensin-converting enzyme inhibitor Monitor blood pressure and heart rate and let us know of any significant fluctuations Will repeat an echocardiogram given mildly dilated ascending aorta on prior study dated 06/2020 Return to clinic in 1 year or sooner should problems arise Yecenia Finn MD, MPH, [facility], [facility], [facility] Interventional Cardiology Pager Email: [email or web address] Clinical Note 10-14-2022 Note Date & Type Note Facility 10-14-2022 Note OPERATIVE NOTE OPERATION DATE: 10/14/2022 PREOPERATIVE DIAGNOSIS: Colorectal screening. POSTOPERATIVE DIAGNOSIS: Normal colonoscopy to cecum. PROCEDURE: Colonoscopy to cecum. SURGEON: Dona Yip M.D. ANESTHESIA: Monitored anesthesia care. ESTIMATED BLOOD LOSS: Zero. INDICATIONS AND CONSENT: Patient is a 67-year-old female who presents colorectal screening. Indications, risks, benefits, alternatives of proceeding with colonoscopy were explained extensively to the patient, including the risks of bleeding, colon perforation or anesthetic complications. All of her questions were answered. Informed consent was obtained. PROCEDURE: Patient brought to the operating room, placed in the left lateral decubitus position. Monitored anesthesia care was provided. Rectal exam was performed which showed no masses or blood. The scope was inserted into the anal canal. Under direct visualization it was advanced. With the aid of abdominal compression, it was advanced to the cecum where cecal markings were clearly identified. Upon withdrawal of the scope, mucosal surfaces were carefully examined. There were no mass lesions or polyps. No inflammatory changes or ulcerations. No significant diverticulosis. The scope was retroflexed in the anal canal. There were noted to be some prominent rectal veins. No significant hemorrhoidal disease. Scope was then withdrawn. Patient tolerated procedure well. Follow up colonoscopy should be in 10 years for screening. CC: Patient's family physician [facility] Clinical Note 08-05-2022 Note Date & Type Note Facility 08-05-2022 Note Chief Complaint consultation for screening colonoscopy HPI Staff 67 year old female presents on consultation from Dr. Wright for screening colonoscopy. Denies abdominal or rectal pain. No rectal bleeding or change in bowel habits. Denies nausea or vomiting. No unexplained weight loss. Last colonoscopy completed greater than 10 years ago, report is not available but patient does not recall any abnormalities. No known family history of colon cancer. History of Present Illness 67yo female with h/o htn, GERD, referred for colorectal screening; denies change in bms or blood in stools; no abdominal complaints; denies asa or NSAID use, no SBE prophylaxis; last colonoscopy 10 years ago, reportedly wnl; abdominal operations significant for tubal ligation; no fmhx of GI malignancy or IBD; no tobacco use. Review of Systems PHQ Score Initial Depression Screen Score: 0 ROS - Provider Constitutional: no fever, no sweats, no weight loss. Eyes: no glasses, no blurred vision, no visual loss. ENMT: no dentures, no hoarseness, no swallowing difficulties, no hearing loss, no ear infection(s), no nose bleeds. Cardiovascular: normal blood pressure, no chest pain, regular heartbeat, no heart murmur. Respiratory: no shortness of breath, no cough, no asthma, no wheezing. Gastrointestinal: no nausea, no vomiting, no diarrhea, no constipation, no blood in stool, no change in bowel habits, no abdominal pain, no hepatitis. Genitourinary: no kidney stones, no urine infection, no dysuria. Musculoskeletal: no pain, no weakness. Skin: no changing moles, no rash, no skin lumps. Neurologic: no seizures, no epilepsy, no headache. Psychiatric: no emotional or psychiatric problem. Heme/Lymph: no bleeding problems, no anemia, no blood clots, no transfusions. Allergy/Immunologic: no swollen lymph nodes/glands, no IV drug abuse. Other: Additional ROS info: Except as noted in the above Review of Systems and in the History of Present Illness, all other systems have been reviewed and are negative or noncontributory. Physical Exam Vitals & Measurements HR: 68(Peripheral) RR: 16 BP: 138/80 HT: 64 in HT: 162.5 cm WT: 55.8 kg WT: 122.76 lb BMI: 21.13 HEENT: normal conjunctiva, sclera clear, no scleral icterus, EOM intact, PERRLA. oral mucosa moist without lesions Neck: trachea midline , no mass, symmetric, no thyromegaly or nodules. no adenopathy Respiratory: lungs CTA, respirations non labored. Cardiovascular: regular rate and rhythm, no murmur, , no pedal edema or varicosities. Gastrointestinal: soft, non distended, no tenderness, no masses, no palpable hernias, diastasis recti no, no hepatosplenomegaly. normal bs Lymphatic: no cervical adenopathy, Musculoskeletal: normalgait, digits and nails without infection, nodes, cyanosis, clubbing. Skin: no rashes, no lesions, no ulcers, no subcutaneous nodules, induration. Psychiatric/Neuro: oriented to time, place, person, judgement normal, affect appropriate for age, insight intact, no focal deficits. Tests: , review of old records completed, Discussed surgical options, risks, and possible complications with patient. Assessment/Plan 1. Screening for malignant neoplasm of colon (Z12.11: Encounter for screening for malignant neoplasm of colon) plan colonoscopy under anesthesia, informed consent obtained. Follow-up No qualifying data available Problem List/Past Medical History Ongoing Anemia BMI 21.0-21.9, adult Cardiomyopathy Gastroesophageal reflux disease HTN (hypertension) Irritable bowel syndrome with diarrhea Left bundle branch block RLS (restless legs syndrome) Screening for malignant neoplasm of colon Historical No qualifying data Procedure/Surgical History Cardiac catheterization (08/13/2020), Cardiac catheterization (2006), Colonoscopy, Colonoscopy, Extraction of wisdom tooth, Lumpectomy of right breast, Tubal ligation. Medications Acidophilus Probiotic Blend aspirin 81 mg Oral EC Tab, 81 mg= 1 tab(s), Oral, Daily Calcium with Vitamin D and K oral tablet, chewable, 1 tab(s), Chewed, Daily Centrum Silver Ultra Women's, 1 tab(s), Oral, Daily lisinopril 5 mg Tab, 5 mg= 1 tab(s), Oral, Daily omeprazole 20 mg Cap-DR, 20 mg= 1 cap(s), Oral, Daily potassium chloride 99 mg oral tablet, 99 mg= 1 tab(s), Oral, Daily Allergies nabumetone (Hives) sulfa drugs (Unknown) tetracyclines (Rash) Social History Alcohol - Denies Alcohol Use, 08/05/2022 Substance Abuse - Denies Substance Abuse, 08/05/2022 Tobacco Never (less than 100 in lifetime) Tobacco Use:. Never Smokeless Tobacco Use:., 08/05/2022 Family History Cardiac arrhythmia: Father. Diabetes mellitus type 2: Sister. Heart disease: Mother and Father. Hypertension: Sister and Brother. Leukemia: Mother. Primary malignant neoplasm of bladder: Father. Primary malignant neoplasm of female breast: Sister. [facility] Comment on above: Result Comment: Elec tronically Signed By: JOLENE DUMONT, Dona Beltran\Date and Time Signed: 08/05/22 16:30 EDT Evaluation + Plan note Note Date & Type Note Facility Evaluation + Plan note No data available for this section [facility] Evaluation note Note Date & Type Note Facility Evaluation note [facility] Discharge instructions Note Date & Type Note Facility Hospital Discharge instructions No data available for this section [facility] Progress note Note Date & Type Note Facility Progress note No data available for this section [facility] Summary Purpose Family History No Family History Records FoundNo Family History Records FoundNo Family History Records FoundNo Family History Records FoundNo Family History Records Found Advance Directives No Advanced Directives Records FoundNo Advanced Directives Records FoundNo Advanced Directives Records FoundNo Advanced Directives Records FoundNo Advanced Directives Records Found Additional Source Comments INFORMATION SOURCE (unrecogn ized section and content) DATE CREATED AUTHOR 08/16/2020 [facility] DATE CREATED AUTHOR AUTHOR'S ORGANIZ ATION 01/27/[address] [facility] DATE CREATED AUTHOR AUTHOR'S ORGANIZ ATION 10/17/2022 [facility] DATE CREATED AUTHOR AUTHOR'S ORGANIZ ATION 10/23/2022 [facility] DATE CREATED AUTHOR AUTHOR'S ORGANIZ ATION 10/03/2023 [facility] Goals (unrecognized section and content) Goals may be documented in a n alternate section No data available for this section Patient Care team informatio n (unrecognized section and content) Personnel Name: ELI WRIGHT MD Address: Address: [address] [place] [address] FOR RECORDS PERTAINING TO PATIENTS WHO ARE OR HAVE BEEN ENROLLED IN A CHEMICAL DEPENDENCY/SUBSTANCEABUSE PROGRAM, SOME INFORMATION MAY BE OMITTED. This clinical summary was aggregated from multiple sources. Caution should be exercised in using it in the provision of clinical care. This summary normalizes information from multiple sources, and as a consequence, information in this document may materially change the coding, format and clinical context of patient data. In addition, data may be omitted in some cases. CLINICAL DECISIONS SHOULD BE BASED ON THE PRIMARY CLINICAL RECORDS. [facility]. provides no warranty or guarantee of the accuracy or completeness of information in this document.
--- NOTE | 2023-10-21 07:55 | CA_ITS ---
Patient Name: JOSY GASCA MR#: [id number] : 1955 Exam Date: 10/21/2023 Ordering Doctor: DR JENNY LAWRENCE M.D. ECHOCARDIOGRAM REPORT PROCEDURE: CA ECHO DOPPLER COMPLETE INDICATIONS: Chronic systolic heart failure, Cardiomyopathy COMPARISON: None. DESCRIPTION: COMPLETE ECHOCARDIOGRAM Real-time transthoracic echocardiography with 2D, M-mode, spectral and color flow Doppler performed. QUALITY: Technical quality was good. LEFT VENTRICLE: Normal chamber size. Thickened septal wall. Global left ventricular systolic function is normal. Abnormal septal motion may be related to bundle branch block. LV EF: Estimated left ventricular ejection fraction is 55-60 %. DIASTOLIC: Diastolic function is indeterminate. ATRIAL SEPTUM: LEFT ATRIUM: Mild dilatation. RIGHT ATRIUM: Normal chamber size. RIGHT VENTRICLE: Normal chamber size. Normal right ventricular systolic function. TRICUSPID VALVE: Normal mobility and thickness. No stenosis with mild regurgitation. No evidence of pulmonary hypertension. RVSP 24 mmHg MITRAL VALVE: Normal mobility and thickness. No evidence of mitral valve stenosis. There is no mitral annular calcification. Trivial mitral regurgitation. AORTIC VALVE: Normal trileaflet appearance. No visible sclerosis. Normal leaflet mobility. No evidence of aortic valve stenosis. No aortic regurgitation. AORTIC ROOT: Normal diameter and appearance. Normal size aortic arch measuring 3.2 cm and ascending aorta measuring 3.4 cm. PULMONIC VALVE: Normal thickness and mobility. No stenosis. Trivial regurgitation. PERICARDIUM: Small mostly anterior pericardial effusion. No evidence of cardiac tamponade. IVC: Collapses with inspirations. Normal size. PLEURA: CONCLUSION: 1. Normal ventricular systolic function. LVEF is 55 to 60%. 2. No significant valvular dysfunction. 3. Normal right-sided pressures. 4. Small mostly anterior pericardial effusion. Adult Echocardiography Procedure Report Left Ventricle LVEDD (3.7 - 5.6 cm): 4.07 cm LVESD (2.2 - 4.0 cm): 2.87 cm LVIVS thickness (0.6 - 1.2 cm): 1.28 cm LVPW thickness (0.5 - 1.0 cm): 1.00 cm e': 0.08 m/s E - e': 7.34 LVOT Max Gradient: 5.10 mm[Hg] LVOT Area (cm2): 1.13 m/s Peak Velocity (LVOT): 1.13 m/s Mean Velocity (LVOT): 0.72 m/s LVOT Diameter 2.22 cm Left Ventricular Ejection Fraction: 55-60 % Left Atrium LA Volume Index (2D A2C): 37.59 ml/m2 Left Atrium Systolic Dimension: 3.35 cm Mitral Valve MV E to A Ratio: 0.85 Mitral Valve A-Wave Peak Velocity: 0.70 m/s Mitral Valve E-Wave Peak Velocity: 0.60 m/s Right Ventricle RV Internal Diastolic Dimension: 3.23 cm Aorta AO Root Diam: 3.14 cm Ascending Ao Diam: 3.36 cm Aortic Valve AoV Area (Peak Manas): 2.76 cm2, 2.76 cm2 AoV Area (VTI): 2.76 cm2, 2.76 cm2 Peak Velocity(Antegrade Flow): 1.58 m/s Peak Gradient(Antegrade Flow): 10.04 mm[Hg] Mean Velocity(Antegrade Flow): 1.06 m/s Mean Gradient(Antegrade Flow): 5.21 mm[Hg] Velocity Time Integral: 33.56 cm Tricuspid Valve Peak Velocity (Regurgitant Flow): 2.31 m/s, 2.24 m/s, 2.33 m/s Pulmonic Valve Mean Gradient: 2.86 mm[Hg], 3.14 mm[Hg] Mean Velocity: 0.78 m/s, 0.82 m/s Peak Velocity: 1.22 m/s Peak Gradient: 5.78 mm[Hg], 6.16 mm[Hg] Right Atrium Right Atrium Systolic Pressure: 41.64 ml, 41.64 ml Dictated by: Boy Barboza M.D. on 10/21/2023 at 19:04 Approved by: Boy Barboza M.D. on 10/21/2023 at 19:09
== END 2023-10-21 06:57 | disposition home or self-care (01) ==
LOC: CARD 06:56
PROVIDERS: PCP Family Medicine; Visit Provider Internal Medicine Interventional Cardiology
DX: I42.9 Cardiomyopathy, unspecified (principal); I50.22 Chronic systolic (congestive) heart failure
CPT/HCPCS: 93306

== ENCOUNTER 2024-03-09 18:09 | Emergency (ER) | payer OTHER, SELFPAY ==
[2024-03-09] VITALS (29 sets, daily range): BP systolic 123–157; BP diastolic 69–105; PULSE 69–95; TEMP 36.7; O2SAT 89–100; BMI 24.5
--- NOTE | 2024-03-09 18:22 | CT_ITS ---
The [address] [address] Patient Name: JOSY GASCA MRN: [id number] date: 1955 Sex: F Assigned Patient Location: ED.MAIN Current Patient Location: Accession/Order Number: [id number] Exam Date: 03/09/2024 18:29 Report Date: 03/09/2024 18:45 At the request of: TRACY HEREDIA Procedure: CT stroke head/brain wo con NONCONTRAST CT SCAN OF THE HEAD HISTORY: Patient TECHNIQUE: Multiple axial images are taken from the level the vertex down to the base of the skull without the use of IV contrast. Images were then reconstructed in the sagittal and coronal planes. This exam was performed according to our departmental dose-optimization program which includes use of Automated Exposure Control, adjustment of the mA and/or kV according to patient size and/or use of iterative reconstruction technique. COMPARISON: None. FINDINGS: Brain Parenchyma: There is global, diffuse atrophy with periventricular decreased white matter attenuation. No intracranial mass. No intracranial hemorrhage. Posterior fossa: Normal. Midline shift: None Extra-axial fluid collection: None Ventricles: Within expected limits of normal. Allowing for some asymmetry Mastoid air cells: Normal. Sinuses: Normal. Cranium: No depressed skull fracture. Soft tissues: Normal. Orbits: Normal. CT/CT stroke head/brain wo con IMPRESSION: 1. Chronic small vessel ischemic change. 2. Otherwise, no CT evidence for acute pathology. 3. If patient continues to have symptoms or if there remains any further clinical concern, MRI may help better delineate. Electronically authenticated by: ELHAM THOMAS Date: 03/09/2024 18:45
--- NOTE | 2024-03-09 18:31 | ED_ITS ---
HPI - Neuro Symptoms/Deficit General Chief Complaint: Neuro Symptoms/Deficit Stated Complaint: NEURO SYMPTOMS-LAST NORMAL 1700 Time Seen by Provider: 03/09/24 18:22 Source: patient and family Mode of arrival: Wheelchair Limitations: no limitations History of Present Illness HPI Narrative: This patient is here with her daughter for evaluation of neurological deficits. At approximately 5:00 today she noticed that she was having expressive aphasia and what she wanted to say she could not put into words. She was not slurring her words. She so noticed that her right arm was weak. She was carrying a bird feeder and dropped out of her arm and then she could not manipulate the arm to do motor tasks. She feels better at this stage show it lasted approximately an hour. She does not have a headache at this time. She states she has been under a great deal of stress as her took his own life in their home a couple days ago. She Does have history of hypertension. She does take aspirin 81 mg daily. She is not on any blood thinners. She has not had previous TIA or CVAs in the past. She did not notice any problems with her right leg. She had no symptoms on the left side of her body. She had no diplopia dysarthria or dysphagia. Her daughter confirms that she did have expressive speech difficulties but are better now. Related Data Home Medications ?Medication ?Instructions ?Recorded ?Confirmed aspirin 81 mg tablet,delayed 81 mg PO DAILY 03/09/24 03/09/24 release (Adult Low Dose Aspirin) lisinopril 5 mg tablet mg 03/09/24 Allergies Allergy/AdvReac Type Severity Reaction Status Date / Time No Known Drug Allergies Allergy Verified 03/09/24 18:23 Exam Narrative Exam Narrative: Awake alert Sheridan x 3 seen immediately upon arrival. GCS is 15. NIH stroke score at this time is 0. She has no carotid bruits. Heart rate and rhythm are normal. I hear no murmur. Her neck is soft and supple there is no meningeal irritation. She denies any headache at this time. Her lungs are clear with no wheeze rales or rhonchi. Motor strength in the upper and lower extremities is normal. Finger-nose is normal alternating movements are normal cognition and serial counting by threes are normal she is very bright. Constitutional Vital Signs, click to edit/add: Last Vital Signs Temp 98.0 F 03/09/24 18:19 Pulse 95 H 03/09/24 18:19 Resp 18 03/09/24 18:19 BP 157/82 H 03/09/24 18:19 Pulse Ox 100 03/09/24 18:19 O2 Del Method Room Air 03/09/24 18:19 Course Vital Signs Vital signs: Vital Signs Temperature 98.0 F 03/09/24 18:19 Pulse Rate 95 H 03/09/24 18:19 Respiratory Rate 18 03/09/24 18:19 Blood Pressure 157/82 H 03/09/24 18:19 Pulse Oximetry 100 03/09/24 18:19 Oxygen Delivery Method Room Air 03/09/24 18:19 Temperature 98.0 F 03/09/24 18:19 Pulse Rate 95 H 03/09/24 18:19 Respiratory Rate 18 03/09/24 18:19 Blood Pressure 157/82 H 03/09/24 18:19 Pulse Oximetry 100 03/09/24 18:19 Oxygen Delivery Method Room Air 03/09/24 18:19 MDM - Neuro Symptoms/Deficit MDM Narrative Medical decision making narrative: Patient presents with right arm weakness clumsiness and expressive aphasia that has now improved after approximately 1 hour. She is already on aspirin. She w ill be taken to CT imaging and then have CTA if initial study is normal. Care will be turned over to Dr. Dee. Her primary care doctor is Dr. Blackburn Discharge Plan Discharge Chief Complaint: Neuro Symptoms/Deficit Clinical Impression: Transient cerebral ischemia Prescriptions / Home Meds: No Action lisinopril 5 mg tablet aspirin [Adult Low Dose Aspirin] 81 mg tablet,delayed release (DR/EC) 81 mg PO DAILY Print Language: [place] Citizen Referrals: Ti Blackburn MD [Primary Care Provider] - 1 week
--- NOTE | 2024-03-09 18:35 | ECG_ITS ---
The [facility] Test Date: 2024-03-09 Pat Name: JOSY GASCA Department: Room: - Gender: Female [employer]: : 1955 Requested By: ELI WRIGHT Order Number: [id number] Reading MD: NILAY FARRELL Measurements Intervals [place] Rate: 81 P: 27 HI: 152 QRS: 16 QRSD: 136 T: 194 QT: 432 QTc: 469 Interpretive Statements 1100 Sinus rhythm 2550 Left bundle branch block 9150 abnormal ECG No previous ECG available for comparison Electronically Signed On 03-09-2024 20:06:11 EDT by NILAY FARRELL
--- NOTE | 2024-03-09 18:36 | CT_ITS ---
The [address] [address] Patient Name: JOSY GASCA MRN: [id number] date: 1955 Sex: F Assigned Patient Location: ER Current Patient Location: [facility] Accession/Order Number: [id number] Exam Date: 03/09/2024 19:30 Report Date: 03/09/2024 20:31 At the request of: JEAN CLAUDE GARBER Procedure: CT angio head EXAM: CT angio head, CT angio neck HISTORY: Stroke COMPARISON: Same day head CT. Technique: HEAD and NECK CTA: During rapid bolus intravenous injection of nonionic contrast material, axial images were obtained using thin collimation multidetector helical technique from the base of the neck through the [place]. This CT angiogram data was reconstructed at thin intervals with mild overlap. The axial source images, multiplanar reformations, 3D reconstructions in both maximum intensity projection display and volume rendered models were reviewed Contrast: 100 mL Omnipaque 350 Findings: Head CTA demonstrates no aneurysm or stenosis of the major intracranial arteries. Neck CTA demonstrates no stenosis of the major cervical arteries. The origins of the great vessels from the aortic arch are patent. The normal distal right internal carotid artery measures 5 mm. The normal distal left internal carotid artery measures 5 mm. No mass is noted within the visualized portions of the cervical soft tissues or lung apices. CT/CT angio head Impression: 1. Head CTA demonstrates no aneurysm or stenosis of the major intracranial arteries. 2. Neck CTA demonstrates no stenosis of the major cervical arteries. Electronically authenticated by: RADHA ANTONY Date: 03/09/2024 20:31
--- NOTE | 2024-03-09 18:37 | CT_ITS ---
The [address] [address] Patient Name: JOSY GASCA MRN: [id number] date: 1955 Sex: F Assigned Patient Location: ED.MAIN Current Patient Location: ED.MAIN Accession/Order Number: [id number] Exam Date: 03/09/2024 19:30 Report Date: 03/09/2024 20:31 At the request of: JEAN CLAUDE GARBER Procedure: CT angio neck EXAM: CT angio head, CT angio neck HISTORY: Stroke COMPARISON: Same day head CT. Technique: HEAD and NECK CTA: During rapid bolus intravenous injection of nonionic contrast material, axial images were obtained using thin collimation multidetector helical technique from the base of the neck through the [place]. This CT angiogram data was reconstructed at thin intervals with mild overlap. The axial source images, multiplanar reformations, 3D reconstructions in both maximum intensity projection display and volume rendered models were reviewed Contrast: 100 mL Omnipaque 350 Findings: Head CTA demonstrates no aneurysm or stenosis of the major intracranial arteries. Neck CTA demonstrates no stenosis of the major cervical arteries. The origins of the great vessels from the aortic arch are patent. The normal distal right internal carotid artery measures 5 mm. The normal distal left internal carotid artery measures 5 mm. No mass is noted within the visualized portions of the cervical soft tissues or lung apices. CT/CT angio neck Impression: 1. Head CTA demonstrates no aneurysm or stenosis of the major intracranial arteries. 2. Neck CTA demonstrates no stenosis of the major cervical arteries. Electronically authenticated by: RADHA ANTONY Date: 03/09/2024 20:31
--- OUTSIDE RECORDS SUMMARY | 2024-03-09 18:40 | XMS_ITS | CCD ---
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 Teacher Name Role Phone ELI WRIGHT Primary Care [...] Unavailable NADERER PROVIDER, ELI Referring Unavailab le NILLDona Attending Unavailable NILL, Dona Bergman Attending Unavailable NILL, Dona Bergman Attending Unavailable NILL, Dona Bergman Attending Unavailable NADERER PROVIDER, ELI Referring Unavailab le ELTAHAWY, YECENIA Attending Unavailable Allergies Allergy Classification Reported Allergen(s) Allergy Type Date of Onset Reaction(s) Facility (3 sources) nabumetone; Translations: [nabumetone] Drug Allergy 2 Weal (disorder) [facility] [place] (2 sources) Sulfonamides (Antibiotic); Translations: [sulfa drugs] Drug allergy 7 Unknown [facility] [place] (3 sources) Tetracyclines; Translations: [tetracyclines] Drug allergy 4 Eruption of skin (disorder) [facility] [place] (1 source) nabumetone Drug Allergy [facility] (1 source) Sulfonamides (Antibiotic) Drug allergy (disorder) 0 [facility] (1 source) Tetracycline Drug Allergy 1 [facility] (1 source) Sulfonamides (Antibiotic); Translations: [SULFA (SULFONAMIDE ANTIBIOTICS)] Propensity to adverse reactions to drug (disorder) 4 [facility] Repository Medications Current Medications Medication Drug Class(es) [...] 2 07-31-2022 Chronic Other aftercare (1 source) [facility] (current) use of aspirin; Translations: [ASSISTED CURRENT USE OF ASPIRIN] Onset: 2 Episodic Other aftercare (1 source) Other rn long term care (current) drug therapy; 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] Onset: 2 Episodic Other [...] Range Facility Office Visiton 09-30-2023 Follow-up visit [id number] Prerna Phelps 1955 F Date Provider Department Center 09/30/2023 [id number], EHAB [facility] Family History Problem Relation Age of Onset Hypertension Father Breast cancer Sister Family Status - Relation Status Age at Father Sister Level of Service:67520 SD OFFICE/OUTPATIENT ESTABLISHED LOW MDM 20-29 MIN Normal [facility] Outside Colonoscopyon 2021 Outside Colonoscopy [id number] .00CD:127 Normal [facility] Reminderson 10-15-2022 Reminders - From: Nicole Nieto LPN To: N - Clinical; Sent: 10/15/2022 10:32:07 EST Show up: 09/14/2032 07:00:00 EST Subject: colonoscopy recall Due Date/Time: 10/14/2032 07:00:00 EST Reminder/Recall Patient is due for screening colonoscopy 10/14/2032. [facility] Pre-Certification Formon Pre-Certification Form [id number] .00CD:127 [facility] Consent for Procedure/Surger yon 08-06-2022 Consent for Procedure/Surgery [id number] .00CD:127 [facility] Ambulatory Visit Summaryon 1 Ambulatory Visit Summary PRERNA PHELPS :1955 Visit Date:08/05/2022 Ambulatory Visit Instructions Your Care Team Attending Physician - JOLENE DUMONT, Dona Bergman Primary Care Physician - ELI WRIGHT MD Referring Physician - ELI WRIGHT MD This [...] branch block RLS (restless legs syndrome) Normal [facility] Physician Referralon 022 Physician Referral [id number] .00CD:127 Normal [facility] CBC AUTO DIFFon 07-06-2022 BASO # 0.1 103/ul Normal 0.0-0.1 [facility] Comment on above: Performed By: #### C BC #### [facility] [address] [place] [address] Dr. Robert Gould Basophils/100 WBC (Bld) 0.8 % Normal 0.2-2.0 [facility] Comment on above: Performed By: #### C BC #### [facility] [address] [place] [address] Dr. Robert Gould EO # 0.1 103/ul Normal 0.0-0.7 [facility] Comment on above: Performed By: #### C BC #### [facility] [address] [place] [address] Dr. Robert Gould Eosinophils/100 WBC (Bld) 0.9 % Normal 0.9-7.0 [facility] Comment on above: Performed By: #### C BC #### [facility] [address] [place] [address] Dr. Robert Gould Erythrocyte distribution width (RBC) [Ratio] 12.9 % Normal 11.0-15.0 [facility] Comment on above: Performed By: #### C BC #### [facility] [address] [place] [address] Dr. Robert Gould Hematocrit (Bld) [Volume fraction] 38.1 % Normal 36.0-48.0 [facility] Comment on above: Performed By: #### C BC #### [facility] [address] [place] [address] Dr. Robert Gould Hemoglobin (Bld) [Mass/Vol] 12.3 g/dL Normal 12.0-16.0 [facility] Comment on above: Performed By: #### C BC #### [facility] [address] [place] [address] Dr. Robert Gould IG # 0.01 10e3/ul Normal 0.00-0.03 [facility] Comment on above: Performed By: #### C BC #### [facility] [address] [place] [address] Dr. Robert Gould IG % 0.2 % Normal 0.0-0.5 [facility] Comment on above: Performed By: #### C BC #### [facility] [address] [place] [address] Dr. Robert Gould LYMPH # 1.7 103/ul Normal 1.2-3.8 [facility] Comment on above: Performed By: #### C BC #### [facility] [address] [place] [address] Dr. Robert Gould Lymphocytes/100 WBC (Bld) 27.4 % Normal 20.5-60.0 [facility] Comment on above: Performed By: #### C BC #### [facility] [address] [place] [address] Dr. Robert Gould MANUAL DIFF REQ NO Normal [facility] Comment on above: Performed By: #### C BC #### [facility] [address] [place] [address] Dr. Robert Gould MCH (RBC) [Entitic mass] 29.6 pg Normal 26.7-34.0 [facility] Comment on above: Performed By: #### C BC #### [facility] [address] [place] [address] Dr. Robert Gould MCHC (RBC) [Mass/Vol] 32.3 g/dL Normal 29.9-35.2 [facility] Comment on above: Performed By: #### C BC #### [facility] [address] [address] [address] Robert Gould MCV (RBC) [Entitic vol] 91.8 fL Normal 81.0-99.0 [facility] Comment on above: Performed By: #### C BC #### [facility] [address] [place] [address] Dr. Robert Gould MONO # 0.5 103/ul Normal 0.3-0.8 [facility] Comment on above: Performed By: #### C BC #### [facility] [address] [place] [address] Dr. Robert Gould Monocytes/100 WBC (Bld) 7.6 % Normal 1.7-12.0 [facility] Comment on above: Performed By: #### C BC #### [facility] [address] [place] [address] Dr. Robert Gould NEUT # 4.0 103/ul Normal 1.4-6.5 [facility] Comment on above: Performed By: #### C BC #### [facility] [address] [place] [address] Dr. Robert Gould Neutrophils/100 WBC (Bld) 63.1 % Normal 43.0-75.0 [facility] Comment on above: Performed By: #### C BC #### [facility] [address] [address] [address] Robert Gould Platelet mean volume (Bld) [Entitic vol] 9.0 fL Critically low 9.5-13.5 [facility] Comment on above: Performed By: #### C BC #### [facility] [address] [place] [address] Dr. Robert Gould PLT 331 103/ul Normal 150-450 [facility] Comment on above: Performed By: #### C BC #### [facility] [address] [place] [address] Dr. Robert Gould RBC 4.15 106/ul Critically low 4.20-5.40 [facility] Comment on above: Performed By: #### C BC #### [facility] [address] [place] [address] Dr. Robert Gould WBC 6.3 103/ul Normal 4.0-11.0 [facility] Comment on above: Performed By: #### C BC #### [facility] [address] [address] [address] Robert Gould GLYCOHEMOGLOBIN A1Con 2021 ADA RECOMMENDATION SEE BELOW Normal [facility] Comment on above: Result Comment: ADA RECOMMENDED LIMIT 4.0 - 6.0 ADA THERAPEUTIC TARGET < 7.0 ACTION SUGGESTED > 7.0 Performed By: #### A 1C #### [facility] [address] [place] [address] Dr. Robert Gould Glucose [Mass/Vol] 108 mg/dL Normal [facility] Comment on above: Performed By: #### A 1C #### [facility] [address] [place] [address] Dr. Robert Gould HbA1c (Bld) [Mass fraction] 5.4 % Normal 4.5-6.2 [facility] Comment on above: Performed By: #### A 1C #### [facility] [address] [place] [address] Dr. Robert Gould LIPID PROFILEon 07-06-2022 CHOL-HDL RATIO NORM SEE BELOW Normal [facility] Comment on above: Result Comment: 3.3 - 4.4 LOW RISK 4.4 - 7.1 AVERAGE RISK 7.1 - 11.0 MODERATE RISK >11.0 HIGH RISK Performed By: #### L IPID, LIVER, TSH, BMP #### [facility] [address] [place] [address] Dr. Robert Gould Cholesterol [Mass/Vol] 200 mg/dL Normal <=200 [facility] Comment on above: Performed By: #### L IPID, LIVER, TSH, BMP #### [facility] [address] [address] [address] Robert Gould Cholesterol in HDL [Mass/Vol] 82 mg/dL Critically high 40-60 [facility] Comment on above: Performed By: #### L IPID, LIVER, TSH, BMP #### [facility] [address] [address] [address] Robert Gould Cholesterol in LDL [Mass/Vol] 105.4 mg/dL Normal [facility] Comment on above: Performed By: #### L IPID, LIVER, TSH, BMP #### [facility] [address] [address] [address] Robert Gould Cholesterol.total/Ch olesterol in HDL [Mass ratio] 2.4 {ratio} Normal [facility] Comment on above: Performed By: #### L IPID, LIVER, TSH, BMP #### [facility] [address] [place] [address] Dr. Robert Gould HDL NORMAL > or = 60 mg/dl - LO W CARDIOVASCULAR RISK <40 mg/dl - HIGH CARDIOVASCULAR RISK Normal [facility] Comment on above: Performed By: #### L IPID, LIVER, TSH, BMP #### [facility] [address] [address] [address] Robert Gould LDL CALC NORMAL SEE BELOW Normal [facility] Comment on above: Result Comment: <100 mg/dl OPTIMAL 100 - 129 mg/dl NEAR OR ABOVE OPTIMAL 130 - 159 mg/dl BORDERLINE HIGH 160 - 189 mg/dl HIGH >190 mg/dl VERY HIGH Performed By: #### L IPID, LIVER, TSH, BMP #### [facility] [address] [address] [address] Robert Gould Triglyceride [Mass/Vol] 63 mg/dL Normal <=150 [facility] Comment on above: Performed By: #### L IPID, LIVER, TSH, BMP #### [facility] [address] [place] [address] Dr. Robert Gould VLDL CALC 12.6 mg/dL Normal [facility] Comment on above: Performed By: #### L IPID, LIVER, TSH, BMP #### [facility] [address] [address] [address] Robert Gould LIVER PROFILEon 07-06-2022 Albumin [Mass/Vol] 3.7 g/dL Normal 3.4-5.[address] [facility] Comment on above: Performed By: #### L IPID, LIVER, TSH, BMP #### [facility] [address] [place] [address] Dr. Robert Gould Albumin/Globulin [Mass ratio] 1.1 {ratio} Normal [facility] Comment on above: Performed By: #### L IPID, LIVER, TSH, BMP #### [facility] [address] [place] [address] Dr. Robert Gould ALP [Catalytic activity/Vol] 65 U/L Normal 46-116 [facility] Comment on above: Performed By: #### L IPID, LIVER, TSH, BMP #### [facility] [address] [place] [address] Dr. Robert Gould ALT [Catalytic activity/Vol] 24 U/L Normal 14-59 [facility] Comment on above: Performed By: #### L IPID, LIVER, TSH, BMP #### [facility] [address] [place] [address] Dr. Robert Gould AST [Catalytic activity/Vol] 15 U/L Normal 15-37 [facility] Comment on above: Performed By: #### L IPID, LIVER, TSH, BMP #### [facility] [address] [place] [address] Dr. Robert Gould BILI, CONJUGATED 0.1 mg/dL Normal 0.0-0.2 [facility] Comment on above: Performed By: #### L IPID, LIVER, TSH, BMP #### [facility] [address] [place] [address] Dr. Robert Gould Bilirubin [Mass/Vol] 0.4 mg/dL Normal 0.2-1.0 [facility] Comment on above: Performed By: #### L IPID, LIVER, TSH, BMP #### [facility] [address] [place] [address] Dr. Robert Gould Globulin (S) [Mass/Vol] 3.3 g/dL Normal [facility] Comment on above: Performed By: #### L IPID, LIVER, TSH, BMP #### [facility] [address] [address] [address] Robert Gould Protein [Mass/Vol] 7.0 g/dL Normal 6.4-8.2 [facility] Comment on above: Performed By: #### L IPID, LIVER, TSH, BMP #### [facility] [address] [place] [address] Dr. Robert Gould PROF CHEM 8 (BAS METB)on Anion gap [Moles/Vol] 10.2 mmol/L Normal [facility] Comment on above: Performed By: #### L IPID, LIVER, TSH, BMP #### [facility] [address] [place] [address] Dr. Robert Gould Calcium [Mass/Vol] 9.6 mg/dL Normal 8.5-10.1 [facility] Comment on above: Performed By: #### L IPID, LIVER, TSH, BMP #### [facility] [address] [place] [address] Dr. Robert Gould Chloride [Moles/Vol] 104 mmol/L Normal 98-107 [facility] Comment on above: Performed By: #### L IPID, LIVER, TSH, BMP #### [facility] [address] [place] [address] Dr. Robert Gould CO2 [Moles/Vol] 29.1 mmol/L Normal 21.0-32.0 [facility] Comment on above: Performed By: #### L IPID, LIVER, TSH, BMP #### [facility] [address] [place] [address] Dr. Robert Gould Creatinine [Mass/Vol] 0.65 mg/dL Normal 0.55-1.02 [facility] Comment on above: Performed By: #### L IPID, LIVER, TSH, BMP #### [facility] [address] [place] [address] Dr. Robert Gould EGFR-AF RWANDAN >60 Normal >=60 [facility] Comment on above: Performed By: #### L IPID, LIVER, TSH, BMP #### [facility] [address] [address] [address] Robert Gould EGFR-NON AF RWANDAN >60 Normal >=60 [facility] Comment on above: Performed By: #### L IPID, LIVER, TSH, BMP #### [facility] [address] [address] [address] Robert Gould Glucose [Mass/Vol] 94 mg/dL Normal 74-[address] [facility] Comment on above: Performed By: #### L IPID, LIVER, TSH, BMP #### [facility] [address] [address] [address] Robert Gould Potassium [Moles/Vol] 4.3 mmol/L Normal 3.5-5.1 [facility] Comment on above: Performed By: #### L IPID, LIVER, TSH, BMP #### [facility] [address] [place] [address] Dr. Robert Gould Sodium [Moles/Vol] 139 mmol/L Normal 136-145 [facility] Comment on above: Performed By: #### L IPID, LIVER, TSH, BMP #### [facility] [address] [address] [address] Robert Gould Urea nitrogen [Mass/Vol] 11.0 mg/dL Normal 7.0-18.0 [facility] Comment on above: Performed By: #### L IPID, LIVER, TSH, BMP #### [facility] [address] [address] [address] Robert Gould Urea nitrogen/Creatinine [Mass ratio] 16.9 mg/mg Normal [facility] Comment on above: Performed By: #### L IPID, LIVER, TSH, BMP #### [facility] [address] [address] [address] Robert Gould TSHon 07-06-2022 TSH 1.590 uIU/mL Normal 0.358-3.[address] [facility] Comment on above: Performed By: #### L IPID, LIVER, TSH, BMP #### [facility] [address] [place] [address] Dr. Robert Gould HEMOGLOBINon 05-27-2022 Hemoglobin (Bld) [Mass/Vol] 11.5 g/dL Critically low 12.0-16.0 [facility] Comment on above: Performed By: #### H GB #### [facility] [address] [address] [address] Robert Gould MG MAMM SCREEN 3D CRISTOFER CADon 04-28-2022 MG MAMM SCREEN 3D CRISTOFER CAD Patient: PRERNA PHELPS Exam Date: 04/28/2022 : 1955 Gender:F Ordering : DR ELI WRIGHT . Admission #: [id number] Family : Order #: [id number] CLICK HERE TO VIEW EXAM RADIOLOGY REPORT [...] bladder cancer at age 77. LOCATION: [facility] BREAST COMPOSITION: Heterogeneously dense,which may obscure small [...] M.D. on 04/28/2022 at 12:52 Normal [facility] PROF CHEM 8 (BAS METB)on Anion gap [Moles/Vol] 15.1 mmol/L Normal [facility] Comment on above: Performed By: #### B MP #### [facility] [address] [address] [address] Robert Gould Calcium [Mass/Vol] 9.2 mg/dL Normal 8.5-10.[address] [facility] Comment on above: Performed By: #### B MP #### [facility] [address] [address] [address] Robert Gould Chloride [Moles/Vol] 103 mmol/L Normal 98-107 [facility] Comment on above: Performed By: #### B MP #### [facility] [address] [address] [address] Robert Gould CO2 [Moles/Vol] 26.0 mmol/L Normal 22.0-30.0 [facility] Comment on above: Performed By: #### B MP #### [facility] [address] [address] [address] Robert Gould Creatinine [Mass/Vol] 0.64 mg/dL Normal 0.52-1.04 [facility] Comment on above: Performed By: #### B MP #### [facility] [address] [place] [address] Dr. Robert Gould EGFR-AF RWANDAN >60 Normal >=60 [facility] Comment on above: Performed By: #### B MP #### [facility] [address] [address] [address] Robert Gould EGFR-NON AF RWANDAN >60 Normal >=60 [facility] Comment on above: Performed By: #### B MP #### [facility] [address] [place] [address] Dr. Robert Gould Glucose [Mass/Vol] 86 mg/dL Normal 74-106 [facility] Comment on above: Performed By: #### B MP #### [facility] [address] [address] [address] Robert Gould Potassium [Moles/Vol] 4.1 mmol/L Normal 3.4-5.0 [facility] Comment on above: Performed By: #### B MP #### [facility] [address] [address] [address] Robert Gould Sodium [Moles/Vol] 140 mmol/L Normal 137-145 [facility] Comment on above: Performed By: #### B MP #### [facility] [address] [place], [place] [address] Dr. Robert Gould Urea nitrogen [Mass/Vol] 12.0 mg/dL Normal 7.0-18.0 [facility] Comment on above: Performed By: #### B MP #### [facility] [address] [address] [address] Robert Gould Urea nitrogen/Creatinine [Mass ratio] 18.8 mg/mg Normal [facility] Comment on above: Performed By: #### B MP #### [facility] [address] [address] [address] Robert Gould C-Reactive Proteinon 021 C-Reactive Protein 1.4 mg/dL High 0.0-1.0 [facility] Comment on above: Performed By: #### C MP, ZACK, CBC, TSH3, FE and TIBC, CRP, PTH, ESR #### [address] Complete Blood Count Auto Di ffon 07-02-2021 Basophils (Bld) [#/Vol] 0.1 10*3/uL Normal 0.0-0.2 [facility] Comment on above: Performed By: #### C MP, ZACK, CBC, TSH3, FE and TIBC, CRP, PTH, ESR #### [address] Basophils/100 WBC (Bld) 1.1 % Normal . [facility] Comment on above: Performed By: #### C MP, ZACK, CBC, TSH3, FE and TIBC, CRP, PTH, ESR #### [facility] [address] [place] [address] [place] Eosinophils (Bld) [#/Vol] 0.3 10*3/uL Normal 0.0-0.45 [facility] Comment on above: Performed By: #### C MP, ZACK, CBC, TSH3, FE and TIBC, CRP, PTH, ESR #### [place] [address] [place] Eosinophils/100 WBC (Bld) 3.7 % Normal . [facility] Comment on above: Performed By: #### C MP, ZACK, CBC, TSH3, FE and TIBC, CRP, PTH, ESR #### [address] Erythrocyte distribution width (RBC) [Ratio] 16.4 % High 11.9-15.3 [facility] Comment on above: Performed By: #### C MP, ZACK, CBC, TSH3, FE and TIBC, CRP, PTH, ESR #### [address] Hematocrit (Bld) [Volume fraction] 34.0 % Normal 34.0-46.4 [facility] Comment on above: Performed By: #### C MP, ZACK, CBC, TSH3, FE and TIBC, CRP, PTH, ESR #### [address] Hemoglobin (Bld) [Mass/Vol] 11.4 g/dL Low 11.8-15.4 [facility] Comment on above: Performed By: #### C MP, ZACK, CBC, TSH3, FE and TIBC, CRP, PTH, ESR #### [address] Lymphocytes (Bld) [#/Vol] 1.5 10*3/uL Normal 1.00-4.8 [facility] Comment on above: Performed By: #### C MP, ZACK, CBC, TSH3, FE and TIBC, CRP, PTH, ESR #### [address] Lymphocytes/100 WBC (Bld) 22.3 % Normal . [facility] Comment on above: Performed By: #### C MP, ZACK, CBC, TSH3, FE and TIBC, CRP, PTH, ESR #### [address] MCH (RBC) [Entitic mass] 26.9 pg Normal 24.7-34.3 [facility] Comment on above: Performed By: #### C MP, ZACK, CBC, TSH3, FE and TIBC, CRP, PTH, ESR #### [facility] [address] MCV (RBC) [Entitic vol] 79.8 fL Low 80-100 [facility] Comment on above: Performed By: #### C MP, ZACK, CBC, TSH3, FE and TIBC, CRP, PTH, ESR #### [facility] [address] Mean Corpuscular HGB Conc 33.7 g/dL Normal 32.0-35.0 [facility] Comment on above: Performed By: #### C MP, ZACK, CBC, TSH3, FE and TIBC, CRP, PTH, ESR #### [address] Monocytes (Bld) [#/Vol] 0.5 10*3/uL Normal 0.0-0.8 [facility] Comment on above: Performed By: #### C MP, ZACK, CBC, TSH3, FE and TIBC, CRP, PTH, ESR #### [address] Monocytes/100 WBC (Bld) 7.6 % Normal . [facility] Comment on above: Performed By: #### C MP, ZACK, CBC, TSH3, FE and TIBC, CRP, PTH, ESR #### [address] Neutrophils (Bld) [#/Vol] 4.4 10*3/uL Normal 1.8-7.7 [facility] Comment on above: Performed By: #### C MP, ZACK, CBC, TSH3, FE and TIBC, CRP, PTH, ESR #### [address] Neutrophils/100 WBC (Bld) 65.3 % Normal . [facility] Comment on above: Performed By: #### C MP, ZACK, CBC, TSH3, FE and TIBC, CRP, PTH, ESR #### [place] [address] [place] Nucleated RBC/100 WBC (Bld) [Ratio] 0.0 % Normal 0-0.5 [facility] Comment on above: Performed By: #### C MP, ZACK, CBC, TSH3, FE and TIBC, CRP, PTH, ESR #### [facility] [address] Platelet mean volume (Bld) [Entitic vol] 6.7 fL Normal 6.3-10.7 [facility] Comment on above: Performed By: #### C MP, ZACK, CBC, TSH3, FE and TIBC, CRP, PTH, ESR #### [facility] [address] Platelets (Bld) [#/Vol] 446 10*3/uL Normal 150-450 [facility] Comment on above: Performed By: #### C MP, ZACK, CBC, TSH3, FE and TIBC, CRP, PTH, ESR #### [address] RBC (Bld) [#/Vol] 4.26 10*6/uL Normal 3.60-5.00 [facility] Comment on above: Performed By: #### C MP, ZACK, CBC, TSH3, FE and TIBC, CRP, PTH, ESR #### [address] WBC (Bld) [#/Vol] 6.8 10*3/uL Normal 4.5-11.0 [facility] Comment on above: Performed By: #### C MP, ZACK, CBC, TSH3, FE and TIBC, CRP, PTH, ESR #### [address] Comprehensive Metabolic Pane maxwell 07-02-2021 Albumin [Mass/Vol] 4.0 g/dL Normal 3.2-5.5 [facility] Comment on above: Performed By: #### C MP, ZACK, CBC, TSH3, FE and TIBC, CRP, PTH, ESR #### [address] Albumin/Globulin [Mass ratio] 1.5 {ratio} Normal [facility] Comment on above: Performed By: #### C MP, ZACK, CBC, TSH3, FE and TIBC, CRP, PTH, ESR #### [address] ALP [Catalytic activity/Vol] 76 U/L Normal 32-92 [facility] Comment on above: Performed By: #### C MP, ZACK, CBC, TSH3, FE and TIBC, CRP, PTH, ESR #### [address] ALT [Catalytic activity/Vol] 19 U/L Normal 10-60 [facility] Comment on above: Performed By: #### C MP, ZACK, CBC, TSH3, FE and TIBC, CRP, PTH, ESR #### [address] AST [Catalytic activity/Vol] 17 U/L Normal 10-42 [facility] Comment on above: Performed By: #### C MP, ZACK, CBC, TSH3, FE and TIBC, CRP, PTH, ESR #### [address] Bilirubin [Mass/Vol] 0.3 mg/dL Normal 0.3-1.2 [facility] Comment on above: Performed By: #### C MP, ZACK, CBC, TSH3, FE and TIBC, CRP, PTH, ESR #### [address] Calcium [Mass/Vol] 10.1 mg/dL Normal 8.2-10.2 [facility] Comment on above: Performed By: #### C MP, ZACK, CBC, TSH3, FE and TIBC, CRP, PTH, ESR #### [address] Chloride [Moles/Vol] 100 mmol/L Normal 95-114 [facility] Comment on above: Performed By: #### C MP, ZACK, CBC, TSH3, FE and TIBC, CRP, PTH, ESR #### [place] [address] [place] CO2 [Moles/Vol] 24.8 mmol/L Normal 22.0-30.0 [facility] Comment on above: Performed By: #### C MP, ZACK, CBC, TSH3, FE and TIBC, CRP, PTH, ESR #### [facility] [address] Creatinine [Mass/Vol] 0.64 mg/dL Normal 0.44-1.03 [facility] Comment on above: Performed By: #### C MP, ZACK, CBC, TSH3, FE and TIBC, CRP, PTH, ESR #### [facility] [address] Estimated GFR ( Courtney > 60 [facility] Comment on above: Result Comment: GFR estimated reference range: According to KDOQI guidelines, <60 ml/min/1.73m2 is sufficient to diagnose a patient with chronic kidney disease. Performed By: #### C MP, ZACK, CBC, TSH3, FE and TIBC, CRP, PTH, ESR #### [facility] [address] Estimated GFR (Non- Am > 60 [facility] Comment on above: Performed By: #### C MP, ZACK, CBC, TSH3, FE and TIBC, CRP, PTH, ESR #### [facility] [address] Globulin (S) [Mass/Vol] 2.7 g/dL [facility] Comment on above: Performed By: #### C MP, ZACK, CBC, TSH3, FE and TIBC, CRP, PTH, ESR #### [facility] [address] Glucose [Mass/Vol] 103 mg/dL High 70-100 [facility] Comment on above: Result Comment: [place] Glucose Reference Range is dependent on time and content of last meal. Glucose of more than 200 mg/dL in a nonstressed, ambulatory subject supports the diagnosis of Diabetes Mellitus. ADA recommended reference range Performed By: #### C MP, ZACK, CBC, TSH3, FE and TIBC, CRP, PTH, ESR #### [address] Potassium [Moles/Vol] 4.0 mmol/L Normal 3.5-5.1 [facility] Comment on above: Performed By: #### C MP, ZACK, CBC, TSH3, FE and TIBC, CRP, PTH, ESR #### [address] Protein [Mass/Vol] 6.7 g/dL Normal 6.1-7.9 [facility] Comment on above: Performed By: #### C MP, ZACK, CBC, TSH3, FE and TIBC, CRP, PTH, ESR #### [address] Sodium [Moles/Vol] 136 mmol/L Normal 136-146 [facility] Comment on above: Performed By: #### C MP, ZACK, CBC, TSH3, FE and TIBC, CRP, PTH, ESR #### [address] Urea nitrogen [Mass/Vol] 13 mg/dL Normal 9-23 [facility] Comment on above: Performed By: #### C MP, ZACK, CBC, TSH3, FE and TIBC, CRP, PTH, ESR #### [address] Erythrocyte Sedimentation Ra anahi 07-02-2021 ESR (Bld) [Velocity] 27 mm/h Normal 0-29 [facility] Comment on above: Result Comment: PERF ORMED BY: [place] [address] PATHOLOGIST [employer]UAL SH[employer] INSPECTOR ZAYRA LEONARD M.D. Performed By: #### C MP, ZACK, CBC, TSH3, FE and TIBC, CRP, PTH, ESR #### [address] Ferritinon 07-02-2021 Ferritin [Mass/Vol] 45.4 ng/mL Normal 11-306.8 [facility] Comment on above: Performed By: #### C MP, ZACK, CBC, TSH3, FE and TIBC, CRP, PTH, ESR #### [facility] [address] [place] [address] Iron and TIBC Profileon % Iron Saturation 6.0 % Low 20-50 [facility] Comment on above: Performed By: #### C MP, ZACK, CBC, TSH3, FE and TIBC, CRP, PTH, ESR #### [address] Iron [Mass/Vol] 27 ug/dL Low 40-150 [facility] Comment on above: Performed By: #### C MP, ZACK, CBC, TSH3, FE and TIBC, CRP, PTH, ESR #### [address] Total Iron Binding Capacity 386 ug/dL Normal 255-450 [facility] Comment on above: Performed By: #### C MP, ZACK, CBC, TSH3, FE and TIBC, CRP, PTH, ESR #### [address] Transferrin [Mass/Vol] 276 mg/dL Normal 180-380 [facility] Comment on above: Performed By: #### C MP, ZACK, CBC, TSH3, FE and TIBC, CRP, PTH, ESR #### [address] Parathyroid Hormone Intacton 07-02-2021 Parathyroid Hormone Intact 24.7 pg/mL Normal 12-88 [facility] Comment on above: Result Comment: PERF ORMED BY: [place] [address] PATHOLOGIST [employer] SH[employer] INSPECTOR ZAYRA LEONARD M.D. Performed By: #### C MP, ZACK, CBC, TSH3, FE and TIBC, CRP, PTH, ESR #### [address] Thyroid Stimulating Hormoneo n 07-02-2021 TSH Qn 1.73 m[IU]/L Normal 0.45-5.33 [facility] Comment on above: Performed By: #### C MP, ZACK, CBC, TSH3, FE and TIBC, CRP, PTH, ESR #### [facility] [address] [place] [id number] [facility] XR knee RT 2Von 07-02-2021 XR knee RT 2V [facility] [address] [place] [address] [place] [address] XRay Report Signed Patient: Prerna Phelps MR#: [id number] : 1955 Acct:[id number] Age/Sex: 66 / F ADM Date: 07/02/21 Loc: ICXD [facility]: [facility]: Teodoro Denson MD Ordering Provider: Teodoro Denson MD Date of Service: 07/02/21 XR/XR hand BI 2V: PAIN ([id number]) XR/XR knee RT 2V: PAIN Copies to: [...] abnormality or effusion. Impression dictated by: Tejas Serar Jr., M.D.07/02/2021 7:26 PM Dictation Location: [place] [address] Transcribed By: [facility] 07/02/211925 Dictated By: Tejas Serra Jr, MD 07/02/211916 Signed By: 07/02/211925 Normal [facility] Cardiovascular Lab Reporton 10-20-2020 Cardiovascular Lab Report [facility] Patient Name: Prerna Phelps [facility] MR #: [id number] Physician: Yecenia Lawrence, Department of M.D. Medicine Service Date: 08/13/2020 Division of Birthdate: 1955 Cardiology Room #: [facility] Cardiovascular Services [place] [address] Cardiovascular Laboratory Report FINAL IMPRESSIONS: 1. Non-obstructive coronary arteries. 2. Normal global left ventricular systolic function by noninvasive imaging. 3. Normal right-sided heart pressures. 4. Normal pulmonary capillary wedge pressure. 5. Normal cardiac output/cardiac index. RECOMMENDATIONS: 1. Consider alternate etiologies for the patient's symptomatology, namely pulmonary, musculoskeletal, and/or gastrointestinal. 2. Aggressive cardiovascular risk factor modification. 3. Follow up with [facility] Cardiology on an as-needed basis. 4. Follow [...] access the right internal jugular vein. A 6-Armenian glide sheath was inserted without difficulty. A [...] to access the left radial artery. A 6-Armenian glide sheath was inserted without difficulty. Difficulty advancing the [place] wire was encountered. Therefore, angiography was performed. This revealed tortuosity and a small vessel. This was traversed using a soft angled Glidewire. Bilateral selective coronary angiography was performed using JR4 and JL4 catheters. After reviewing the images, [...] shortness of breath. Electronically Signed by: Yecenia Lawrence M.D. 08/16/2020 02:13 P Yecenia Lawrence M.D. Date Dict: 08/13/2020/10:58 Rosas/Yecenia Lawrence M.D. Date Trans: 08/13/2020 11:58 Rosas/anatoliy [id number] cc: Shahana Dexter M.D. [address] [place] [address] A [facility] [address] Normal [facility] Vital Signs Date Time Vital Sign Value Performing Clinician Funmilayo pena 08-05-2022 15:45-0400 Blood Pressure Location Dona YIP [facility] 08-05-2022 15:45-0400 Diastolic blood pressure 80 mm[Hg] Dona YIP [facility] 08-05-2022 15:45-0400 Heart rate 68 /min Dona YIP [facility] 08-05-2022 15:45-0400 Respiratory rate 16 /min Dona YIP [facility] [place] 08-05-2022 15:45-0400 Systolic blood pressure 138 mm[Hg] Dona YIP [facility] [place] Encounters Encounter Date Encounter Type Care Provider Facility Start: 09-30-2023 End: 09-30-2023 [facility] Start: 10-14-2022 End: 10-15-[address] DONA YIP Facility:[facility] Start: 10-10-[address] DONA YIP Facilit y:[facility] Start: 10-07-2022 End: 10-08-2022 ambulatory Dona YIP Facility:[facility] Start: 08-05-2022 End: 08-06-2022 ambulatory [facility] Start: 08-05-2022 End: 08-05-2022 Patient encounter procedure oDna YIP [facility] [place] Start: 07-29-2022 ambulatory [facility] Start: 07-11-2022 Encounter for genera l adult medical examination without abnormal findings DR ELI WRIGHT [facility] Start: 07-10-2022 ambulatory [facility] Start: 07-06-2022 End: 07-07-[address] ELI WRIGHT Facility:[facility] Start: 07-06-2022 End: 07-07-2022 Encounter for general adult medical examination without abnormal findings DR ELI WRIGHT Facility:[facility] Start: 05-27-2022 End: 05-28-[address] YECENIA LAWRENCE Facility:[facility] Start: 04-28-2022 End: 04-29-[address] JOSE CONDE Facility:[facility] Start: 02-02-2022 End: 02-03-[address] YECENIA LAWRENCE Facility:[facility] Procedures Date Procedure Procedure Detail Performing Clinician Start: 08-13-2020 Cardiac catheterization Dona YIP Start: 10-25-2006 Cardiac catheterization Dona SANTOSL Colonoscopy Dona NILL Colonoscopy Dona YIP Extraction of wisdom tooth Stanislav YIP Ligation of fallopian tube Stanislav YIP Lumpectomy of right breast Stanislav YIP Immunizations Immunization Date Immunization Notes Care Provider Fa cility 01-30-2021 COVID-19 mRNA-1273 (Moderna) [facility] 12-26-2020 COVID-19 mRNA-1273 (Moderna) [facility] Payers Date Payer Category Payer Private Health Insurance [id number] 1955 Unknown [id number] 2.16.84 [id number] 1955 Unknown [id number] 2.16.84 [id number] 1955 Unknown [id number] 2.16.84 [id number] 1955 Unknown [id number] 2.16.84 [id number] 1955 Unknown [id number] 2.16.84 [id number] 1955 Unknown [id number] 2.16.84 [id number] 1955 Unknown [id number] 2.16.8 [id number] 1955 Unknown [id number] 2.16.8 [id number] 1955 Unknown [id number] 2.16.8 [id number] 1955 Unknown [id number] 2.16.8 [id number] 1955 Unknown [id number] 2.16.8 [id number] Self-pay Self Pay [id number] Social History Date Type Detail Facility Tobacco smoking stat [facility] Unknown if ever smoked [facility] Work Phone: Start: 1955 Sex Assigned At Female F [facility] Start: 08-05-2022 Tobacco smoking status Never s moked tobacco (finding) [facility] Tobacco smoking status Never [facility] Sex Assigned At Female [facility] Functional Status Date Assessment Result Facility 08-05-2022 Functional Status N/A [facility] [place] Progress note 09-30-2023 Note Date & Type [...] year or sooner should problems arise Yecenia Lawrence MD, MPH, [facility], [facility], [facility] Interventional Cardiology Pager Email: [email or web address] Clinical Note 10-14-2022 Note Date & [...] for screening. CC: Patient's family physician [facility] Clinical Note 08-05-2022 Note Date & Type [...] Primary malignant neoplasm of female breast: Sister. [facility] Comment on above: Result Comment: Elec tronically Signed By: JOLENE DUMONT, Dona Bergman\.tim\Date and Time Signed: 08/05/22 16:30 EDT Evaluation + Plan note Note Date & Type Note Facility Evaluation + Plan note No data available for this section [facility] Evaluation note Note Date & Type Note Facility Evaluation [facility] Hospital Discharge instructions Note Date & Type Note Facility Hospital Discharge instructions No data available for this section [facility] Progress note Note Date & Type Note Facility Progress note No data available for this section [facility] Summary Purpose Family History No Family History Records FoundNo Family History Records FoundNo Family History Records FoundNo Family History Records FoundNo Family History Records Found Advance Directives No Advanced Directives Records FoundNo Advanced Directives Records FoundNo Advanced Directives Records FoundNo Advanced Directives Records FoundNo Advanced Directives Records Found Additional Source Comments INFORMATION SOURCE (unrecogn ized section and content) DATE CREATED AUTHOR 08/16/2020 [facility] DATE CREATED AUTHOR AUTHOR'S ORGANIZ ATION 01/27/2022 [facility] DATE CREATED AUTHOR AUTHOR'S ORGANIZ ATION 10/17/2022 [facility] DATE CREATED AUTHOR AUTHOR'S ORGANIZ ATION 10/23/2022 [facility] DATE CREATED AUTHOR AUTHOR'S ORGANIZ ATION 10/03/2023 [facility] Goals (unrecognized section and content) Goals may be documented in a n alternate section No data available for this section Patient Care team informatio n (unrecognized section and content) Personnel Name: ELI WRIGHT MD Address: Address: [address] [place] [address] FOR RECORDS PERTAINING TO PATIENTS WHO ARE [...] BE BASED ON THE PRIMARY CLINICAL RECORDS. [facility]. provides no warranty or guarantee of the accuracy or completeness of information in this document.
[2024-03-09 18:45] LABS: Basophils Percent Auto 0.6 % (0.2-2.0); Eosinophils Absolute Auto 0.1 10^3/uL (0.0-0.7); Eosinophils Percent Auto 1.2 % (0.9-7.0); Hematocrit 37.6 % (36.0-48.0); Hemoglobin 12.4 g/dL (12.0-16.0); Immature Granulocytes Abs Auto 0.01 10^3/uL (0.00-0.03); Immature Granulocytes Pct Auto 0.2 % (0.0-0.5); Lymphocytes Absolute Auto 2.1 10^3/uL (1.2-3.8); Lymphocytes Percent Auto 32.2 % (20.5-60.0); Mean Corpuscular Hemoglobin 29.5 pg (26.7-34.0); Mean Corpuscular Volume 89.3 fL (81.0-99.0); Mean Platelet Volume 8.5 fL (9.5-13.5); Monocytes Absolute Auto 0.6 10^3/uL (0.3-0.8); Monocytes Percent Auto 9.1 % (1.7-12.0); Neutrophils Absolute Auto 3.8 10^3/uL (1.4-6.5); Neutrophils Percent Auto 56.7 % (43.0-75.0); Platelet Count 294 10^3/uL (150-450); Red Blood Count 4.21 10^6/uL (4.20-5.40); Red Cell Distribution Width 13.3 % (11.0-15.0); White Blood Count 6.6 10^3/uL (4.0-11.0)
[2024-03-09 19:06] LABS: INR 1.02; Prothrombin Time 10.8 sec (9.0-11.6)
[2024-03-09 19:09] LABS: Alanine Aminotransferase 27 U/L (14-59); Albumin Globulin Ratio 1.1; Albumin Level 3.8 g/dL (3.4-5.0); Alkaline Phosphatase 90 U/L (46-116); Anion Gap 13.7; Aspartate Amino Transferase 26 U/L (15-37); BUN Creatinine Ratio 17.2; Bilirubin Total 0.4 mg/dL (0.2-1.0); Calcium 9.1 mg/dL (8.5-10.1); Carbon Dioxide 25.7 mmol/L (21.0-32.0); Chloride 104 mmol/L (98-107); Estimated GFR (African America >60 (>=60); Estimated GFR (Non-African Ame >60 (>=60); Globulin 3.4 g/dL; Glucose 120 mg/dL (74-106); Potassium 3.4 mmol/L (3.5-5.1); Sodium 140 mmol/L (136-145); Total Protein 7.2 g/dL (6.4-8.2)
[2024-03-09 19:18] LABS: Thyroid Stimulating Hormone 2.243 uIU/mL (0.358-3.740)
[2024-03-09 19:21] LABS: Troponin I High Sensitivity 664.2 pg/mL (4.0-51.3)
[2024-03-09] MEDS: CLOPIDOGREL BISULFATE 75 MG TABLET 300 MG PO (21:07)
[2024-03-09] MEDS: 0.9 % SODIUM CHLORIDE 1,000 ML 125 ML IV (21:07)
[2024-03-09 21:25] LABS: Troponin I High Sensitivity 695.9 pg/mL (4.0-51.3)
--- NOTE | 2024-03-09 22:11 | ED.NEUROSD1 ---
HPI - Neuro Symptoms/Deficit General Chief Complaint: Neuro Symptoms/Deficit Stated Complaint: NEURO SYMPTOMS-LAST NORMAL 1700 Time Seen by Provider: 03/09/24 18:22 Source: patient and family Mode of arrival: Wheelchair Limitations: no limitations History of Present Illness HPI Narrative: This 68-year-old female was signed out to me at shift change. The patient is currently grieving the loss of her who took his life earlier this week. She states she has not been eating or drinking this week. She did have [address] Simon earlier today. This was the first thing she had really eaten or had to drink in the past several days. The patient was in the garage and was carrying a bird feeder when suddenly her right arm became clumsy and she did not have control of it. She also had dysarthria at that time with some slurred speech. She called her daughter but had trouble speaking to her daughter. Her daughter took about 5 minutes to get to her house. In the meantime the patient had gone inside and was making some chicken noodle soup which she also had trouble making due to difficulty with her right hand. She was ultimately able to make the chicken noodle soup and by the time her daughter got there her symptoms were improving. She had some degree of dysarthria at that time. She was brought to the emergency department and upon arrival to the emergency department her symptoms had resolved. Her NIH stroke scale was 0 upon arrival. She does have a history of a left bundle branch block. An EKG done upon arrival was a sinus rhythm with a left bundle branch block at 80 bpm. She denies any chest pain or shortness of breath. She denies any dizziness. She does not have a headache. She has no focal weakness numbness or tingling. I repeated her NIH stroke scale and it remains 0. Her initial CT stroke was negative and she was sent for CT angio of the head and neck. Those were also reported as normal. I discussed the findings with the teleneurologist at [facility] who suggested 300 mg loading dose of Plavix and daily baby aspirin. In the meantime a cardiac workup had been ordered. The patient has a normal white count and hemoglobin. Electrolytes are normal. She does have an elevated troponin at 664 and 695. She remains hemodynamically stable in the emergency department. In light of the elevated troponin and high risk TIA she will require transfer to a higher level of care. She does see cardiology locally but declines being transferred to [place]. The case was discussed with Dr. Burciaga at [facility] and she is accepted for admission. We discussed initiation of heparin but at this time we will keep her on Plavix and aspirin. Third troponin has come down and is now 566. Related Data Home Medications ?Medication ?Instructions ?Recorded ?Confirmed aspirin 81 mg tablet,delayed 81 mg PO DAILY 03/09/24 03/09/24 release (Adult Low Dose Aspirin) lisinopril 5 mg tablet mg 03/09/24 Allergies Allergy/AdvReac Type Severity Reaction Status Date / Time No Known Drug Allergies Allergy Verified 03/09/24 18:23 Exam Constitutional Vital Signs, click to edit/add: Last Vital Signs Temp 98.0 F 03/09/24 18:19 Pulse 81 03/09/24 22:12 Resp 20 03/09/24 22:12 BP 123/83 03/09/24 22:00 Pulse Ox 98 03/09/24 22:12 O2 Del Method Room Air 03/09/24 18:19 Course Vital Signs Vital signs: Vital Signs Blood Pressure 157/82 H 03/09/24 18:15 Temperature 98.0 F 03/09/24 18:19 Pulse Rate 81 03/09/24 22:12 Respiratory Rate 20 03/09/24 22:12 Blood Pressure 123/83 03/09/24 22:00 Pulse Oximetry 98 03/09/24 22:12 Oxygen Delivery Method Room Air 03/09/24 18:19 MDM - Neuro Symptoms/Deficit Lab Data Labs: Lab Results 03/09/24 03/09/24 03/09/24 Range/Units 18:40 21:02 23:39 WBC 6.6 (4.0-11.0) 10^3/uL RBC 4.21 (4.20-5.40) 10^6/uL Hgb 12.4 (12.0-16.0) g/dL Hct 37.6 (36.0-48.0) % MCV 89.3 (81.0-99.0) fL MCH 29.5 (26.7-34.0) pg MCHC 33.0 (29.9-35.2) g/dL RDW 13.3 (11.0-15.0) % Plt Count 294 (150-450) 10^3/uL MPV 8.5 L (9.5-13.5) fL Neut % (Auto) 56.7 (43.0-75.0) % Lymph % (Auto) 32.2 (20.5-60.0) % [place] % (Auto) 9.1 (1.7-12.0) % Eos % (Auto) 1.2 (0.9-7.0) % Baso % (Auto) 0.6 (0.2-2.0) % Neut # (Auto) 3.8 (1.4-6.5) 10^3/uL Lymph # (Auto) 2.1 (1.2-3.8) 10^3/uL [place] # (Auto) 0.6 (0.3-0.8) 10^3/uL Eos # (Auto) 0.1 (0.0-0.7) 10^3/uL Baso # (Auto) 0.0 (0.0-0.1) 10^3/uL Abs Immat Gran (auto) 0.01 (0.00-0.03) 10^3/uL Imm/Tot Granulo (auto) 0.2 (0.0-0.5) % PT 10.8 (9.0-11.6) sec INR 1.02 Sodium 140 (136-145) mmol/L Potassium 3.4 L (3.5-5.1) mmol/L Chloride 104 (98-107) mmol/L Carbon Dioxide 25.7 (21.0-32.0) mmol/L Anion Gap 13.7 BUN 16.0 (7.0-18.0) mg/dL Creatinine 0.93 (0.55-1.02) mg/dL Est GFR ( Amer) >60 (>=60) Est GFR (Non-Af Amer) >60 (>=60) BUN/Creatinine Ratio 17.2 Glucose 120 H (74-106) mg/dL Calcium 9.1 (8.5-10.1) mg/dL Total Bilirubin 0.4 (0.2-1.0) mg/dL AST 26 (15-37) U/L ALT 27 (14-59) U/L Alkaline Phosphatase 90 (46-116) U/L Troponin I High Sens 664.2 H* 695.9 H* 566.8 H* (4.0-51.3) pg/mL Total Protein 7.2 (6.4-8.2) g/dL Albumin 3.8 (3.4-5.0) g/dL Globulin 3.4 g/dL Albumin/Globulin Ratio 1.1 TSH 2.243 (0.358-3.740) uIU/mL Critical Care Time Critical Care Time Critical Care Time: Yes Total Critical Care Time: 35 Attestation: . Discharge Plan Discharge Chief Complaint: Neuro Symptoms/Deficit Clinical Impression: Transient cerebral ischemia, Non-ST elevation SD (NSTEMI) Patient Disposition: [facility] Time of Disposition Decision: 22:05 Discharge Location: [facility]
[2024-03-10] VITALS: BP 114/74
[2024-03-10 00:01] VITALS: PULSE 68; O2SAT 95
[2024-03-10 00:04] LABS: Troponin I High Sensitivity 566.8 pg/mL (4.0-51.3)
[2024-03-10 00:30] VITALS: BP 118/60; PULSE 65; O2SAT 95
[2024-03-10 00:40] VITALS: PULSE 68; O2SAT 99
[2024-03-10 00:47] VITALS: PULSE 69; O2SAT 97
[2024-03-10 00:48] VITALS: BP 133/78
== END 2024-03-10 01:12 | disposition short-term general hospital (02) ==
PROVIDERS: Emergency Medicine Emergency Medical Services; Emergency Provider Emergency Medicine; PCP Family Medicine
DX: G45.9 Transient cerebral ischemic attack, unspecified (principal); I21.4 Non-ST elevation (NSTEMI) myocardial infarction; I10 Essential (primary) hypertension; Z79.899 Other long term (current) drug therapy; Z79.82 Long term (current) use of aspirin
CPT/HCPCS: 36415; 70450; 70496; 70498; 80053; 84443; 84484; 85025; 85610; 93005; 99285; Q9967

== ENCOUNTER 2024-05-15 07:29 | Outpatient (OUT) | payer OTHER, SELFPAY ==
--- NOTE | 2024-05-15 | XR_ITS ---
The [address] [address] Patient Name: JOSY GASCA MRN: [id number] date: 1955 Sex: F Assigned Patient Location: [facility] Current Patient Location: [facility] Accession/Order Number: [id number] Exam Date: 05/15/2024 07:50 Report Date: 05/15/2024 08:39 At the request of: MENA MEJIA Procedure: XR DEXA axial skeleton EXAMINATION: XR DEXA axial skeleton, 05/15/2024 7:50 AM EDT HISTORY: Screening COMPARISON: 2012 TECHNIQUE: Dual-energy X-ray absorptiometry (DEXA) bone density study performed for the axial skeleton. FINDINGS: Bone mineral density lumbar spine L1-L4 measures 1.291 g/sq cm. T score 0.9. Normal. Lowest bone mineral density right femoral trochanter measures 0.707 g/sq cm. T score -1.3. Osteopenia XR/XR DEXA axial skeleton IMPRESSION: Osteopenia. Moderate fracture risk Pharmacologic treatment recommendations * No uniform recommendation applies to all patients. Management plans must be individualized. * Consider initiating pharmacologic treatment in postmenopausal women and men >= 50 years of age who have the following: Primary fracture prevention: * T-score <= - 2.5 at the femoral neck, total hip, lumbar spine, 33% radius (some uncertainty with existing data) by DXA. * Low bone mass (osteopenia: T-score between - 1.0 and - 2.5) at the femoral neck or total hip by DXA with a 10-year hip fracture risk >= 3% or a 10-year major osteoporosis-related fracture risk >= 20% (i.e., clinical vertebral, hip, forearm, or proximal humerus) based on the [place]-adapted FRAXregistered model. Secondary fracture prevention: * Fracture of the hip or vertebra regardless of BMD [4, 5]. * Fracture of proximal humerus, pelvis, or distal forearm in persons with low bone mass (osteopenia: T-score between - 1.0 and - 2.5). The decision to treat should be individualized in persons with a fracture of the proximal humerus, pelvis, or distal forearm who do not have osteopenia or low BMD [12, 13]. Tanner MS, Tito SL, Nhan KL, Shruthi EM, Melissa KG, AJ, Lang ES. The clinician's guide to prevention and treatment of osteoporosis. Osteoporos Int. 2021;33(10):1459-0544. doi: 10.1007/h86129-335-79477-w. Epub 2021Feb 19. Erratum in: Osteoporos Int. 2021May 21;: PMID: [id number]; PMCID: [id number]. Electronically authenticated by: OBED GUNDERSON Date: 05/15/2024 08:39
--- NOTE | 2024-05-15 | MM_ITS ---
Patient Name: JOSY GASCA MR#: [id number] : 1955 Exam Date: 05/15/2024 Ordering Doctor: MENA MEJIA . RADIOLOGY REPORT PROCEDURE: MM TOMOSYNTHESIS SCREENING BI COMPARISON: MM TOMOSYNTHESIS SCREENING BI, 05/04/2023. MG MAMM SCREEN 3D CRISTOFER CAD, 04/28/2022. INDICATIONS: Screening for malignant neoplasm Calculator Name NCI Breast Cancer Risk Assessment Tool 5 Year Breast Cancer Risk 3.80% Lifetime Breast Cancer Risk 13.20% Personal Breast Cancer No Personal Ovarian Cancer No Treatments None Family Cancers Sister with breast cancer at age 57; Mother with leukemia cancer at age 66; Father with bladder cancer at age 75. LOCATION: [facility] BREAST COMPOSITION: The breasts are heterogeneously dense,which may obscure small masses. FINDINGS: DIAGNOSTIC CATEGORY 2--BENIGN FINDING. NO CHANGE FROM COMPARISON. Scattered benign-appearing calcifications are present. Scattered benign-appearing lymph nodes are present. RIGHT BREAST: No significant suspicious finding. Linear scar marker LEFT BREAST: No significant suspicious finding. RECOMMENDATIONS: ROUTINE MAMMOGRAM AND CLINICAL EVALUATION IN 12 MONTHS. PLEASE NOTE: A NORMAL MAMMOGRAM DOES NOT EXCLUDE THE POSSIBILITY OF BREAST CANCER. A CLINICALLY SUSPICIOUS PALPABLE LUMP SHOULD BE BIOPSIED. Dictated by: Trae Linares MD on 05/15/2024 at 11:54 Approved by: Trae Linares MD on 05/15/2024 at 11:55
--- OUTSIDE RECORDS SUMMARY | 2024-05-15 07:33 | XMS_ITS | CCD ---
Author Organization [facility] ion Partnership [facility] Care Team Providers Care Light Coil Winder Name Role Phone TI WRIGHT Primary Care Physician [phone] MELINDA, DR ALVARADO Admitting Unavailable ELTAHAWY, DR ALVARADO Attending Unavailable ELTAHAWY, DR ALVARADO Consulting Unavailable NADERER, DR TI Pillai Primary Care Unavailable ZIEBER, DR NIKKO Bergman Consulting Unavailable DEXTER, DR CAESAR [place] Primary Care Unavailable NADERER, DR TI Pillai Admitting Unavailable NADERER, DR TI Pillai Attending Unavailable NADERER, DR TI Pillai Consulting Unavailable ELTAHAWY, DR ALVARADO Attending Unavailable ELTAHAWY, DR ALVARADO Admitting Unavailable ELTAHAWY, DR ALVARADO Consulting Unavailable DEXTER, DR CAESAR [place] Primary Care Unavailable NILL, DR CARCAMO Consulting Unavailable NILL, DR CARCAMO Admitting Unavailable NADERER, DR TI Pillai Primary Care Unavailable NILL, DR CARCAMO Attending Unavailable JUNGERMANN, WYATT Consulting Unavailable PAT, SONIA Consulting Unavailable NILL, DR CARCAMO Admitting Unavailable NADERER, DR TI Pillai Primary Care Unavailable NILL, DR CARCAMO Attending Unavailable NADERER, DR TI Pillai Attending Unavailable NADERER, DR TI Pillai Consulting Unavailable NADERER, DR TI Pillai Primary Care Unavailable NADERER, DR TI Pillai Admitting Unavailable MD Ti Wright Primary Care Provider [phone] MD Moises Burciaga Admit Provider [phone] TROY Ramírez Other Provider Unavailable DO Mana Monet Other Provider MD Margaret Olivares Other Provider [phone] MD Bartolome Wheeler Other Provider MD Frank Thomas Other Provider MD Tavo Marx Other Provider JOHN PAUL Dhaliwal Other Provider MD Theresa Gaxiola Other Provider MD Aleja Umanzor Other Provider MD Braulio Rodriguez Other Provider [facility] Phoebe Lawson Other Provider [phone] MD Phyllis Hunt Other Provider [phone] DO Dallas Norton Other Provider DO Héctor Rainey Attending Provider [phone] YECENIA FINN Attending Unavailable YECENIA FINN Attending Unavailable Thalia Ramírez Consulting Unavailable Moises Burciaga Admitting Unavailable Ti Wright Primary Care Unavailable Héctor Rainey Attending UnavailMana Hansen Consulting Unavailable Margaret Olivares Consulting Unavailable Bartolome Wheeler Consulting Unavail able Frank Thomas Consulting Unavailable Tavo Marx Consulting Unavailab Nickie Crum Consulting Unavailable Theresa Gaxiola Consulting Unavailable Aleja Umanzor Consulting Unavailab Braulio De Leon Consulting Unavailable Phoebe Schafer Consulting Unavailable Phyllis Hunt Consulting Unavailable Dallas Norton Consulting Unavailable Stephanie Gagnon Attending Unavailable Stephanie Gagnon Attending Unavailable Stephanie Gagnon Attending Unavailable KalinStephanie portillo Attending Unavailable Stephanie Gagnon Admitting Unavailable Allergies Allergy Classification Reported Allergen(s) Allergy Type Date of Onset Reaction(s) Facility NSAIDs (1 source) nabumetone; Translations: [nabumetone] Drug Allergy [facility] Sulfonamides (antibiotic) (2 sources) Sulfonamides (Antibiotic); Translations: [sulfa drugs] Drug Allergy 7 [facility] Tetracyclines (antibiotic) (1 source) Tetracyclines; Translations: [tetracyclines] Drug Allergy [facility] (2 sources) nabumetone; Translations: [nabumetone] Drug Allergy 2 [facility] (disorder) [facility] (1 source) Sulfonamides (Antibiotic); Translations: [sulfa drugs] Drug allergy 7 Unknown [facility] (3 sources) Tetracyclines; Translations: [tetracyclines] Drug allergy 4 Eruption of skin (disorder) [facility] (1 source) nabumetone Drug Allergy [facility] Repository (1 source) Sulfonamides (Antibiotic) Drug allergy (disorder) 0 [facility] Repository (1 source) Tetracycline Drug Allergy 1 [facility] Repository (3 sources) Sulfonamides (Antibiotic); Translations: [SULFA (SULFONAMIDE ANTIBIOTICS)] Propensity to adverse reactions to drug (disorder) 4 [facility] Medications Current Medications Medication Drug Class(es) Dates Sig (Normalized) Sig (Original) Acidophilus Probiotic Blend (1 source) Start: 07-31-2022 Acidophilus Probiotic Blend Refill(s) 0 Start Date: 07/31/22 Status: Ordered aspirin 81 mg delayed release oral tablet (3 sources) Platelet Aggregation Inhibitor, Nonsteroidal Anti-inflammatory Drug Start: 03-10-2024 End: 03-10-2024 take 81 mg by mouth once daily Aspirin Active 81 MG PO Daily 0 March 10, 2024 12:00am Start: 07-31-2022 take 1 tablet by mayi th once daily aspirin 81 mg Oral EC Tab 81 mg = 1 tab(s), Oral, Daily, Refills(s) 0 Start Date: 07/31/22 Status: Ordered atorvastatin 80 mg oral tablet (1 source) HMG-CoA Reductase Inhibitor Start: 03-10-2024 take 80 mg by mouth once daily in the evening Atorvastatin Active 80 MG PO Every evening 30 30 March 10, 2024 12:00am Calcium with Vitamin D and K oral tablet, chewable (1 source) Start: 07-31-2022 take 1 tablet by mouth once daily Calcium with Vitamin D and K oral tablet, chewable 1 tab(s), Chewed, Daily, Refill(s) 0 Start Date: 07/31/22 Status: Ordered carvedilol 6.25 mg oral tablet (1 source) alpha-Adrenergic Katrina, beta-Adrenergic Katrina Start: 03-10-2024 take 6.25 mg by mouth twice daily at mealtime Carvedilol Active 6.25 MG PO Twice daily with meals 60 March 10, 2024 12:00am Centrum Silver Ultra Women's (1 source) Start: 07-31-2022 take 1 tablet by mouth once daily Centrum Silver Ultra Women's 1 tab(s), Oral, Daily, Refill(s) 0 Start Date: 07/31/22 Status: Ordered hydrOXYzine hydrochloride 10 mg oral tablet (1 source) Antihistamine Start: 03-10-2024 take 2 tablets by mouth three times daily Hydroxyzine Hcl Active 10 MG PO Three times daily 60 March 10, 2024 12:00am May take 2 tablets if needed. lisinopril 2.5 mg oral tablet (3 sources) Angiotensin Converting Enzyme Inhibitor Start: 03-10-2024 take 2.5 mg by mouth once daily Lisinopril Active 2.5 MG PO Daily March 10, 2024 12:00am Start: 03-10-2024 End: 03-10-2024 take 5 mg by mouth once daily Lisinopril Discontinued 5 MG PO Daily March 10, 2024 12:00am March 10, 2024 5:19pm Start: 07-31-2022 [facility] lisinopril 5 mg Tab 5 mg = 1 tab(s), Oral, Daily, Refills(s) 0 Start Date: 07/31/22 Status: Ordered omeprazole 20 mg delayed release oral capsule (2 sources) Proton Pump Inhibitor Start: 03-10-2024 take 20 mg by mouth once daily Omeprazole Active 20 MG PO Daily March 10, 2024 12:00am Start: 07-31-2022 take 1 capsule by mo [facility] once daily omeprazole 20 mg Cap-DR 20 mg = 1 cap(s), Oral, Daily, Refills(s) 0 Start Date: 07/31/22 Status: Ordered potassium chloride 1.33 meq oral tablet (1 source) Start: 07-31-2022 take 1 tablet by mouth once daily potassium chloride 99 mg oral tablet 99 mg = 1 tab(s), Oral, Daily, Refills(s) 0 Start Date: 07/31/22 Status: Ordered rivaroxaban 15 mg oral tablet (1 source) Factor Xa Inhibitor Start: 03-10-2024 take 1 tablet by mouth once daily Rivaroxaban (Xarelto) 15 mg Tablet Active 15 MG PO Daily March 10, 2024 12:00am spironolactone 25 mg oral tablet (1 source) Aldosterone Antagonist Start: 03-10-2024 take 12.5 mg by mouth once daily Spironolactone Active 12.5 MG PO Daily March 10, 2024 12:00am Problems Active Problems Problem Classification Problem Date Documented Da te Episodic/Chronic Acute cerebrovascular disease (5 sources) Embolic stroke; Translations: [Cerebral infarction, unspecified] Onset: 4 03-10-2024 Chronic Aortic; peripheral; and visceral artery aneurysms (2 sources) Thoracic aortic ectasia; Translations: [Thoracic aortic ectasia] Onset: 3 Chronic Conduction disorders (4 sources) Left bundle branch block; Translations: [Left bundle-branch block, unspecified] Onset: 2 07-31-2022 Chronic Congestive heart failure; nonhypertensive (3 sources) Acute systolic heart failure; Translations: [Acute systolic (congestive) heart failure] Onset: 4 03-10-2024 Chronic Esophageal disorders (2 sources) Gastroesophageal reflux disease; Translations: [Gastro-esophageal reflux disease without esophagitis] Onset: 2 07-31-2022 Chronic Essential hypertension (6 sources) Hypertensive disorder; Translations: [Essential (primary) hypertension] Onset: 2 07-31-2022 Chronic Other aftercare (1 source) ferry terminal agent (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) use of aspirin; Translations: [FDC CURRENT USE OF ASPIRIN] Onset: 2 Episodic Other aftercare (1 source) Other custodial (current) drug therapy; Translations: [OTH [facility]DC CURRENT DRUG THERAPY] Onset: 2 Episodic Other and ill-defined heart disease (1 source) Takotsubo cardiomyopathy; Translations: [Takotsubo syndrome] 03-10-2024 Chronic Other and ill-defined heart disease (4 sources) Takotsubo syndrome; Translations: [Takotsubo syndrome] Onset: 4 03-10-2024 Chronic Other gastrointestinal disorders (1 source) Irritable [...] conditions (not mental disorders or infectious disease) (12 sources) Screening for malignant neoplasm of colon done; Translations: [Encounter for screening for malignant neoplasm of colon] Onset: 2 Episodic Lindsey-; endo-; and myocarditis; cardiomyopathy (except that caused by tuberculosis or sexually transmitted disease) (3 sources) Cardiomyopathy; Translations: [Cardiomyopathy, unspecified] Onset: 3 07-31-2022 Chronic Residual codes; unclassified (1 source) Pain, unspecified; Translations: [Pain, unspecified] Onset: 4 Episodic Transient cerebral ischemia (3 sources) Transient cerebral ischemia; Translations: [Transient cerebral ischemic attack, unspecified] Onset: 4 03-10-2024 Chronic Unclassified (1 source) Body mass index 20-24 - normal 08-05-2022 Unclassified (1 source) Patient encounter status 08-05-2022 Unclassified (1 source) [facility] - TIA Onset: 4 Unclassified (2 sources) Alien limb phenomenon; 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] 03-10-2024 Past or Other Problems Problem Classification Problem [...] Results Test Name Value Interpretation Reference Range Facil ity Reminderson 04-28-2024 Reminders Reminders From: Ruddy Perez To: Ruddy Perez; Sent: 04/28/2024 09:54:13 EDT Show up: 04/28/2024 09:54:00 EDT Subject: CCM intake 05/17 at 0800 Due Date/Time: 05/16/2024 09:54:00 EDT Reminder/Recall [facility] Family Medicine Office/Clini c Noteon 04-25-2024 Family Medicine Office/Clinic Note Family Medicine Office/Clinic Note Chief Complaint Medicare Wellness Visit Subsequent Physical Exam Vitals & Measurements HR: 63(Peripheral) RR: 16 BP: 128/72 SpO2: 98% HT: 161 cm HT: 63 in WT: 68.2 kg WT: 150.04 lb BMI: 26.31 Assessment/Plan 1. Annual visit for general adult medical examination without abnormal findings (Z00.00: Encounter for general adult medical examination without abnormal findings) The patient was given a customized and personalized print out of all the current AHRQ USPSTF?s recommendations for preventative services and all current CDC recommended immunizations, relevant risk recommendations and the following patient brochures were given. Reviewed Medicare Prevention Services checklist. CDC-Falls Prevention and home safety screening reviewed. Patient denies any falls in last 12 months, voices no worry about falling. Exhibits no problems with sitting, standing or ambulation. Patient aware with keeping walk way area free of clutter to prevent tripping and/or falling. [place] Advance Directives reviewed. Patient does not have Advance Directives, education given and educational handout provided, encouraged to bring in for scanning into chart. Patient denies any problems with ADL?s and Instrumental ADL?s. Cognitive screening completed with memory and clock face drawing. No deficits noted. Immunization record reviewed, discussed Shingrix vaccine with educational handout and availability. COVID vaccines have been administered, with 1 Booster received. Allergies and medications reviewed and up to date. No concerns with taking medication as prescribed. Reviewed OTC medications, medication list up to date. Blood tests were reviewed: Discussed what tests need to be updated. Labs were ordered, will have completed prior to next PCP visit. Labs to be completed at [facility] per patient request. No concerns with bowel/ bladder. Colonoscopy last completed: 10/14/22. Patient last Mammogram 05/05/23 at [facility]-per patient online portal with [facility]. Patient declines order for screening Mammogram at this time, states she does not need an order she just calls to schedule a mammogram, patient states she plans to call to schedule one later in the month. Reviewed pain symptoms : denies pain. Reviewed all outside providers that patient follows. Last visit summary notes available in chart and/or have been requested. Patient declines depression screening at this time. Patient denies alcohol use, denies concerns. 8 minutes spent with screening and documentation. Audit score 0. Follow up scheduled with PCP, today. AWV has been scheduled, 04/30/25. Patient qualifies for Chronic Care Management- services offered and accepted. Referral sent. 2. Cardiomyopathy (I42.9: Cardiomyopathy, unspecified) Patient follows with cardiology, Dr. Finn, last office visit 02/2024, next office visit in 3 months. 3. HTN (hypertension) (I10: Essential (primary) hypertension) Patient taking medications daily as directed, BP monitored at home with <140/90 results. Patient does voice understanding with signs and symptoms to monitor for. HTN stoplight handout reviewed with importance of keeping BP <140/90 to prevent increased cardiovascular risks. DASH dietary handout reviewed with importance to lower salt intake, eat more chicken, fish and lean white meats. Follow up with PCP. 4. Hyperlipemia (E78.5: Hyperlipidemia, unspecified) Patient encouraged to eat a diet that is low in saturated fats. Stressed importance of losing weight as being overweight does produce more lipids. Monitor alcohol intake and avoid smoking. Risks may also increase with a family history of hyperlipidemia. Patient voices understanding with healthy dietary choices to reduce risk factors associated with CVA. Taking statin medication daily. Will continue to follow up with labs as directed. 5. Anxiety (F41.9: Anxiety disorder, unspecified) [id number] completed, score 0. Taking hydroxyzine as needed with effectiveness. Following up with PCP as directed with medication management. Reviewed concerns when to see your PCP: changes with worrying too much and it is interfering with your work, relationships and/or other parts of your life. Your fear, worry or anxiety is upsetting to you and difficult to control. If additional trouble with depression is noticeable contact your provider. Patient does voice understanding. 6. Overweight (E66.3: Overweight) A combination of diet and exercise can help you lose weight. Discussed weight loss benefits to dietary management and overall health with increased cardiovascular risks associated with waist measurement female>35 men>40. Reminded of importance to work on lowering current body weight with healthy dietary intake choices and portion control. Reviewed goals and patients readiness with needing to make a lifestyle change. Will work on increasing daily activity to prevent further weight gain. Will continue to monitor during office visits with progress. (more content not included)... Normal [facility] Comment on above: Result Comment: Elec tronically Signed By: Stephanie Flores\.br\Date and Time Signed: 04/25/24 08:00 EDT\.br\Electronically Co-Signed By: Janie Beck LPN\.br\Date and Time Co-Signed: 04/24/24 14:35 EDT\.br\Electronically Co-Signed By: Janie Beck LPN\.br\Date and Time Co-Signed: 04/24/24 14:39 EDT Ambulatory Visit Summaryon 0 04-24-2024 Ambulatory Visit Summary Ambulatory Visit Summary PRERNA PHELPS :1955 Visit Date:04/24/2024 Ambulatory Visit Instructions Your Diagnosis Annual visit for general adult medical examination without abnormal findings Cardiomyopathy HTN (hypertension) Hyperlipemia Anxiety Overweight Primary ovarian failure Encounter for hepatitis C screening test for low risk patient Tests Performed BD Bone Density DEXA -- Results Pending -- Please visit your patient portal for your results or contact your primary care physician. Your Care Team Attending Physician - Stephanie Flores Primary Care Physician - Stephanie Flores This Is Your Medications List aspirin (aspirin 81 mg Oral EC Tab) atorvastatin (atorvastatin 80 mg Tab) carvedilol (carvedilol 6.25 mg Tab) hydrOXYzine (hydrOXYzine hydrochloride 10 mg Tab) lisinopril (lisinopril 2.5 mg Tab) multivitamin with minerals (Centrum Silver Ultra Women's) omeprazole (omeprazole 20 mg Cap-DR) potassium chloride (potassium chloride 99 mg oral tablet) rivaroxaban (Xarelto 15 mg oral tablet) spironolactone (spironolactone 25 mg Tab) Procedures Performed Cardiac catheterization (03/10/2024), Cardiac catheterization (08/13/2020), Cardiac catheterization (2006), Colonoscopy, Colonoscopy, Extraction of wisdom tooth, Lumpectomy of right breast, Tubal ligation. Discharge Vitals Heart Rate (Peripheral) 63 Respiratory Rate 16 Blood Pressure 128/72 Height 161 cm Height 63 in Weight 68.2 kg Weight 150.04 lb BMI 26.31 What to do next Scheduled Follow-Up Appointments Wednesday 1:00 PM EDT Where: [facility] [place] Family Medicine Office/Clini c Noteon 04-24-2024 Family Medicine Office/Clinic Note Family Medicine Office/Clinic Note HPI Staff pt presents for AMW after visit History of Present Illness pt presents for follow up after Welcome to Medicare visit. Physical Exam General: alert, no acute distress ENMT: oral mucosa moist, no pharyngeal erythema or exudate Cardiovascular: regular rate and rhythm, normal peripheral perfusion Respiratory: Lungs CTA, respirations non labored Extremities: no deformity, no trauma Neurological: oriented x 4, LOC appropriate for age, CN II-XII intact, motor strength equal & normal bilaterally, speech normal Assessment/Plan 1. Hypertension (I10: Essential (primary) hypertension) BP at goal. denies needs at this time. 2. Broken heart syndrome (I51.81: Takotsubo syndrome) pt is doing well today. feels like she has moved past the angry stage of grief. she is able to do things without crying. has been keeping herself busy. Follow-up No qualifying data available Problem List/Past Medical History Ongoing Anemia Anxiety Broken heart syndrome Cardiomyopathy Gastroesophageal reflux disease HTN (hypertension) Hyperlipemia Hypertension Irritable bowel syndrome with diarrhea Left bundle branch block RLS (restless legs syndrome) Screening for malignant neoplasm of colon Historical BMI 21.0-21.9, adult Procedure/Surgical History Cardiac catheterization (03/10/2024), Cardiac catheterization (08/13/2020), Cardiac catheterization (2006), Colonoscopy, Colonoscopy, Extraction of wisdom tooth, Lumpectomy of right breast, Tubal ligation. Medications aspirin 81 mg Oral EC Tab, 81 mg= 1 tab(s), Oral, Daily atorvastatin 80 mg Tab, 80 mg= 1 tab(s), Oral, Daily carvedilol 6.25 mg Tab, 6.25 mg= 1 tab(s), Oral, BID Centrum Silver Ultra Women's, 1 tab(s), Oral, Daily hydrOXYzine hydrochloride 10 mg Tab, 10 mg= 1 tab(s), Oral, TID, PRN lisinopril 2.5 mg Tab, 2.5 mg= 1 tab(s), Oral, Daily omeprazole 20 mg Cap-DR, 20 mg= 1 cap(s), Oral, Daily potassium chloride 99 mg oral tablet, 99 mg= 1 tab(s), Oral, Daily spironolactone 25 mg Tab, See Instructions Xarelto 15 mg oral tablet, 15 mg= 1 tab(s), Oral, Daily Allergies nabumetone (Hives) sulfa drugs (Unknown) tetracyclines (Rash) Social History Alcohol - Denies Alcohol Use, 08/05/2022 Substance Abuse - Denies Substance Abuse, 08/05/2022 Tobacco - Denies Tobacco Use, 04/24/2024 Never (less than 100 in lifetime) Tobacco Use:. Never Smokeless Tobacco Use:. Household tobacco concerns: No., 03/27/2024 Family History Cardiac arrhythmia: Father. Diabetes mellitus type 2: Sister. Heart disease: Mother and Father. Hypertension: Sister and Brother. Leukemia: Mother. Primary malignant neoplasm of bladder: Father. Primary malignant neoplasm of female breast: Sister. Immunizations Vaccine Date Status SARS-CoV-2 (COVID-19) mRNA-1273 vaccine 10/22/2021 Recorded SARS-CoV-2 (COVID-19) mRNA-1273 vaccine 01/30/2021 Recorded SARS-CoV-2 (COVID-19) mRNA-1273 vaccine 12/26/2020 Recorded Normal [facility] Comment on above: Result Comment: Elec tronically Signed By: Stephanie Flores\.br\Date and Time Signed: 04/24/24 14:15 EDT Patient Correspondenceon Patient Correspondence [id number]#1. 00TIFF Normal [facility] ECG 12-Leadon 03-28-2024 ECG 12-Lead [id number]# 1.00TIFF [facility] ED Note-Physicianon 03-28-20 24 ED Note-Physician [id number]# 1.00TIFF [facility] Lab Reportson 03-28-2024 Lab Reports [id number]# 1.00TIFF [facility] RAD - CT Reporton 03-28-2024 RAD - CT Report [id number]# 1.00TIFF [facility] RAD - CT Report [id number]# 1.00TIFF [facility] RAD - CT Report [id number]#1. 00TIFF [facility] Ambulatory Visit Summaryon 0 03-27-2024 Ambulatory Visit Summary PRERNA PHELPS A[place] :1955 Visit Date:03/27/2024 Ambulatory Visit Instructions Your Diagnosis Hypertension Hyperlipemia BMI 25.0-25.9,adult Non-smoker Your Care Team Attending Physician - Stephanie Flores Primary Care Physician - Stephanie Flores This Is Your Medications List aspirin (aspirin 81 mg Oral EC Tab) atorvastatin (atorvastatin 80 mg Tab) carvedilol (carvedilol 6.25 mg Tab) hydrOXYzine (hydrOXYzine hydrochloride 10 mg Tab) lisinopril (lisinopril 2.5 mg Tab) multivitamin with minerals (Centrum Silver Ultra Women's) omeprazole (omeprazole 20 mg Cap-DR) potassium chloride (potassium chloride 99 mg oral tablet) rivaroxaban (Xarelto 15 mg oral tablet) spironolactone (spironolactone 25 mg Tab) Procedures Performed Cardiac catheterization (03/10/2024), Cardiac catheterization (08/13/2020), Cardiac catheterization (2006), Colonoscopy, Colonoscopy, Extraction of wisdom tooth, Lumpectomy of right breast, Tubal ligation. Discharge Vitals Heart Rate (Peripheral) 60 Respiratory Rate 18 Blood Pressure 140/76 Height 161.3 cm Height 64 in Weight 66.05 kg Weight 145.31 lb BMI 25.39 What to do next Scheduled Follow-Up Appointments Wednesday 1:00 PM EDT With: Where: [facility] [place] [facility] [address] [place] [address]- \.br\ Medications\.br\ What How Much When Instructions\.br\ Unchanged aspirin (aspirin 81 mg Oral EC Tab) 1 Tablets By Mouth Every day\.br\ Unchanged atorvastatin (atorvastatin 80 mg Tab) 1 Tablets By Mouth Every day\.br\ Unchanged carvedilol (carvedilol 6.25 mg Tab) 1 Tablets By Mouth 2 times a day TAKE 1 TABLET BY MOUTH TWICE DAILY with meals FOR 30 DAYS \.br\ Unchanged hydrOXYzine (hydrOXYzine hydrochloride 10 mg Tab) 1 Tablets By Mouth 3 times a day as needed for as needed for anxiety\.br\ Unchanged lisinopril (lisinopril 2.5 mg Tab) 1 Tablets By Mouth Every day\.br\ Unchanged multivitamin with minerals (Centrum Silver Ultra Women's) 1 Tablets By Mouth Every day\.br\ Unchanged omeprazole (omeprazole 20 mg Cap-DR) 1 Capsules By Mouth Every day\.br\ Unchanged potassium chloride (potassium chloride 99 mg oral tablet) 1 Tablets By Mouth Every day\.br\ Unchanged rivaroxaban (Xarelto 15 mg oral tablet) 1 Tablets By Mouth Every day TAKE 1 TABLET BY MOUTH ONCE DAILY FOR 30 DAYS \.br\ Unchanged spironolactone (spironolactone 25 mg Tab) 1 Tablets By Mouth Every day\.br\ Allergies\.br\ nabumetone (Hives)\.br\ sulfa drugs (Unknown)\.br\ tetracyclines (Rash)\.br\ Problems\.br\ Ongoing - Any problem that you are currently receiving treatment for.\.br\ Anemia\.br\ BMI 21.0-21.9, adult\.br\ Cardiomyopathy\.b r\ Gastroesophageal reflux disease\.br\ HTN (hypertension)\.b r\ Hyperlipemia\.br\ Hypertension\.br\ Irritable bowel syndrome with diarrhea\.br\ Left bundle branch block\.br\ RLS (restless legs syndrome)\.br\ Screening for malignant neoplasm of colon\.br\ Patient Survey\.br\ You may receive a survey via text or e-mail asking about your office visit. Please share your experience with us by completing your survey. We appreciate your feedback and thank you for choosing us for your care.\.br\ \.br\ [facility] Family Medicine Office/Clini c Noteon 03-27-2024 Family Medicine Office/Clinic Note HPI Staff Prerna is a 68 year old female presenting to establish care Establish Care: History: Any previous diagnosis: GERD, IBS, Left bundle branch block , HTN History of seeing any specialist: [employer] [facility] in [facility] Dr Yecenia Brown When was your last doctors visit: Last provider: Bobo Hidalgo Any recent labs: [facility] 03/09 then transferred to [facility] 03/10/24 Health Maintenance UTD: Colonoscopy: 2020 [facility] Normal Mammogram: [facility] 2022 Pelvic/Pap: several years ago Acute: Current issues/complaints: 03/09 pt was a home and lost all control of right arm thought maybe she just hadn't eating anything over the last few days due to her took his life. She went to warm some food up and couldn't figure out how to operate the microwave and then lost her speech. She went to [facility] where they did CT scan W/Wo contrast didn't find anything but cardiac enzymes were elevated. She was then Transferred to [facility] where she has several EKG's and MRI of brain where they found 2 area of stroke. Pt does monitor blood pressures at home. Pt would like to know if she should continue supplements. History of Present Illness pt presents today to establish care. Review of Systems PHQ Score Initial Depression Screen Score: 0 SCORE Physical Exam Vitals & Measurements HR: 60(Peripheral) RR: 18 BP: 140/76 SpO2: 98% HT: 64 in HT: 161.3 cm WT: 66.05 kg WT: 145.31 lb BMI: 25.39 General: alert, no acute distress ENMT: oral mucosa moist, no pharyngeal erythema or exudate Cardiovascular: regular rate and rhythm, normal peripheral perfusion Respiratory: Lungs CTA, respirations non labored Extremities: no deformity, no trauma Neurological: oriented x 4, LOC appropriate for age, CN II-XII intact, motor strength equal & normal bilaterally, speech normal Assessment/Plan 1. Broken heart syndrome (I51.81: Takotsubo syndrome) pt lost her to suicide 3 weeks ago. a few days after memorial services she started having stroke like symptoms. Was found to have 2 clots in her brain. 2. Anxiety (F41.9: Anxiety disorder, unspecified) pt is dealing with her loss. she is currently angry at this time. she went back to her home and is sleeping in a different room. she has a very good support system. denies needing daily meds at this time. 3. BMI 25.0-25.9,adult (Z68.25: Body mass index [BMI] 25.0-25.9, adult) BMI education 4. Non-smoker (Z78.9: Other specified health status) continue not smoking Follow-up No qualifying data available Problem List/Past Medical History Ongoing Anemia Anxiety BMI 21.0-21.9, adult Broken heart syndrome Cardiomyopathy Gastroesophageal reflux disease HTN (hypertension) Hyperlipemia Hypertension Irritable bowel syndrome with diarrhea Left bundle branch block RLS (restless legs syndrome) Screening for malignant neoplasm of colon Historical No qualifying data Procedure/Surgical History Cardiac catheterization (03/10/2024), Cardiac catheterization (08/13/2020), Cardiac catheterization (2006), Colonoscopy, Colonoscopy, Extraction of wisdom tooth, Lumpectomy of right breast, Tubal ligation. Medications aspirin 81 mg Oral EC Tab, 81 mg= 1 tab(s), Oral, Daily atorvastatin 80 mg Tab, 80 mg= 1 tab(s), Oral, Daily carvedilol 6.25 mg Tab, 6.25 mg= 1 tab(s), Oral, BID Centrum Silver Ultra Women's, 1 tab(s), Oral, Daily, Not taking: would like to know if she can take this medication hydrOXYzine hydrochloride 10 mg Tab, 10 mg= 1 tab(s), Oral, TID, PRN lisinopril 2.5 mg Tab, 2.5 mg= 1 tab(s), Oral, Daily omeprazole 20 mg Cap-DR, 20 mg= 1 cap(s), Oral, Daily potassium chloride 99 mg oral tablet, 99 mg= 1 tab(s), Oral, Daily, Not taking: would like to know if she should take this medication spironolactone 25 mg Tab, 25 mg= 1 tab(s), Oral, Daily Xarelto 15 mg oral tablet, 15 mg= 1 tab(s), Oral, Daily Allergies nabumetone (Hives) sulfa drugs (Unknown) tetracyclines (Rash) Social History Alcohol - Denies Alcohol Use, 08/05/2022 Substance Abuse - Denies Substance Abuse, 08/05/2022 Tobacco Never (less than 100 in lifetime) Tobacco Use:. Never Smokeless Tobacco Use:. Household tobacco concerns: No., 03/27/2024 Family History Cardiac arrhythmia: Father. Diabetes mellitus type 2: Sister. Heart disease: Mother and Father. Hypertension: Sister and Brother. Leukemia: Mother. Primary malignant neoplasm of bladder: Father. Primary malignant neoplasm of female breast: Sister. Normal [facility] Comment on above: Result Comment: Elec tronically Signed By: Stephanie Flores\.br\Date and Time Signed: 03/27/24 16:02 EDT Office Visiton 03-21-2024 Follow-up visit [id number] Prerna Phelps 1955 F Date Provider Department Center 03/21/2024 [facility] Family History Problem Relation Age of Onset Hypertension Father Breast cancer Sister Family Status - Relation Status Age at Father Sister Level of Service:21526 [place] OFFICE/OUTPATIENT ESTABLISHED MOD MDM 30 MIN Normal [facility] US carotid doppler BIon 02-22 US carotid doppler [facility] [place] [place] [address] Ultrasound Report Signed Patient: Prerna Phelps MR#: [id number] : 1955 Acct:[id number] Age/Sex: 68 / F ADM Date: 03/10/24 Loc: Room: [address] [place] [address] Type: DIS IN Attending Dr: Héctor Rainey DO Ordering Provider: Bartolome Wheeler MD Date of Service: 03/10/24 US/US carotid doppler BI: tia/stroke Copies to: DO Bartolome Johnston MD CAROTID DUPLEX INDICATION: Stroke PROCEDURE: Color-flow duplex scanning is used to interrogate the extracranial carotid arterial system, as well as both vertebral arteries. The proximal right internal carotid artery shows a highest peak systolic velocity of 63.9 cm/s with an end-diastolic velocity of 25.1 cm/s . The mid internal carotid artery measures 72.2 cm/s peak systolic with an end-diastolic velocity of 28 cm/s . The distal segment measures 69.3 cm/s peak systolic with an end diastolic velocity of 30.5 cm/s . The velocities of the right common carotid artery are 83.2 cm/s peak systolic and 23 cm/s end- diastolic proximally and 60.2 cm/s peak systolic and 22 cm/s end-diastolic distally. The peak systolic velocity ratio of the internal to the common carotid artery is 1.15 . The right external carotid artery measures 69 cm/s peak systolic. The right vertebral artery is patent at 50.2 cm/s peak systolic and with antegrade flow. The proximal left internal carotid artery shows a highest peak systolic velocity of 89.5 cm/s with an end-diastolic velocity of 28 cm/s . The mid internal carotid artery measures 79.6 cm/s peak systolic with an end-diastolic velocity of 31.8 cm/s . The distal segment measures 128 cm/s peak systolic with an end diastolic velocity of 53.8 cm/s . The velocities of the left common carotid artery are 76.7 cm/s peak systolic and 22.6 cm/s end-diastolic proximally and 96 cm/s peak systolic and 25.8 cm/s end-diastolic distally. The peak systolic velocity ratio of the internal to the common carotid artery is 1.33 . The left external carotid artery measures 64.8 cm/s peak systolic. The left vertebral artery is patent at 64.4 cm/s peak systolic with antegrade flow. US/US carotid doppler BI IMPRESSION: NO HEMODYNAMICALLY SIGNIFICANT STENOSIS OF EITHER EXTRACRANIAL INTERNAL CAROTID ARTERY. BOTH VERTEBRAL ARTERIES ARE PATENT WITH ANTEGRADE FLOW. Impression dictated by: Luis Fernando Jacob M.D.03/11/2024 11:51 AM Dictation Location: [place] [address] Tech: Munira Magana Transcribed By: BOOGIE 03/11/24 1151 Dictated By: Luis Fernando Jacob MD 03/11/24 1150 Signed By: 03/11/24 1151 Normal [facility] A1C with Estimated Average Hair purcell 03-10-2024 Glucose [Mass/Vol] 111 mg/dL Normal [facility] Comment on above: Result Comment: PERF ORMED BY: [facility] [address] [place] [address] PATHOLOGIST INDUST[employer]AL SAFETY AND HEALTH TECHNICIAN ZAYRA LEONARD M.D. Performed By: #### C KMB, PT, CK, A1C WTH eA, PTT, HS TROP #### [facility] [address] [place] [id number] [facility] Activated partial thrombopla stin time (aPTT) in platelet poor plasma by coagulation aOrdered By: Héctor Rainey on 03-10-2024 aPTT Coag (PPP) [Time] 30.4 s 25.1-36.5 [facility] Comment on above: A hematocrit value g reater than 55% may lead to inaccurate results in coagulation testing. Patients having hematocrit values >55% require a special collection tube for coagulation studies. Please contact the laboratory at [phone] for redraw instructions. Alanine aminotransferase [En zymatic activity/volume] in Serum or PlasmaOrdered By: Moises Burciaga on 03-10-2024 ALT [Catalytic activity/Vol] 15 U/L Normal 7-52 [facility] Comment on above: Order Comment: FASTI NG N Performed By: #### L IPID, CBC, MG, HS TROP, CMP ####[facility] [id number] [place] [id number] [place] Albumin [Mass/volume] in Ser um or Plasma by Bromocresol green (BCG) dye binding methoOrdered By: Moises Burciaga on 03-10-2024 Albumin BCG dye [Mass/Vol] 3.8 g/dL 3.5-5.7 [facility] Alkaline phosphatase [Enzyma tic activity/volume] in Serum or PlasmaOrdered By: Moises Burciaga on 03-10-2024 ALP [Catalytic activity/Vol] 66 U/L Normal 34-104 [facility] Comment on above: Order Comment: FASTI NG N Performed By: #### L IPID, CBC, MG, HS TROP, CMP ####[place] [id number] [address] Aspartate aminotransferase [ Enzymatic activity/volume] in Serum or PlasmaOrdered By: Moises Burciaga on 03-10-2024 AST [Catalytic activity/Vol] 19 U/L Normal 13-39 [facility] Comment on above: Order Comment: FASTI NG N Performed By: #### L IPID, CBC, MG, HS TROP, CMP ####[place] [id number] [address] Automated basophil %Ordered By: Moises Burciaga on 03-10-2024 Basophils/100 WBC (Bld) 1.0 % Normal . [facility] Comment on above: Performed By: #### L IPID, CBC, MG, HS TROP, CMP ####[address] Automated basophil countOrde red By: Moises Burciaga on 03-10-2024 Basophils (Bld) [#/Vol] 0.1 10*3/uL Normal 0.0-0.2 [facility] Comment on above: Result Comment: PERF ORMED BY: [facility] [address] [place] [place] [address] PATHOLOGIST [employer]UST[employer] SAFETY AND HEALTH TECHNICIAN ZAYRA LEONARD M.D. Performed By: #### L IPID, CBC, MG, HS TROP, CMP ####[address] Automated blood monocyte cou ntOrdered By: Moises Burciaga on 03-10-2024 Monocytes (Bld) [#/Vol] 0.6 10*3/uL Normal 0.0-0.8 [facility] Comment on above: Performed By: #### L IPID, CBC, MG, HS TROP, CMP ####[address] Automated eosinophil %Ordere d By: Moises Burciaga on 03-10-2024 Eosinophils/100 WBC (Bld) 2.1 % Normal . [facility] Comment on above: Performed By: #### L IPID, CBC, MG, HS TROP, CMP ####[address] Automated eosinophil countOr dered By: Moises Burciaga on 03-10-2024 Eosinophils (Bld) [#/Vol] 0.1 10*3/uL Normal 0.0-0.45 [facility] Comment on above: Performed By: #### L IPID, CBC, MG, HS TROP, CMP ####[address] Automated monocyte %Ordered By: Moises Burciaga on 03-10-2024 Monocytes/100 WBC (Bld) 9.8 % Normal . [facility] Comment on above: Performed By: #### L IPID, CBC, MG, HS TROP, CMP ####[address] Automated neutrophil %Ordere d By: Moises Burciaga on 03-10-2024 Neutrophils/100 WBC (Bld) 47.6 % Normal . [facility] Comment on above: Performed By: #### L IPID, CBC, MG, HS TROP, CMP ####[address] Bilirubin.total [Mass/volume ] in Serum or PlasmaOrdered By: Moises Burciaga on 03-10-2024 Bilirubin [Mass/Vol] 0.5 mg/dL Normal 0.3-1.0 [facility] Comment on above: Order Comment: FASTI NG N Performed By: #### L IPID, CBC, MG, HS TROP, CMP ####[address] Calcium [Mass/volume] in Ser um or PlasmaOrdered By: Moises Burciaga on 03-10-2024 Calcium [Mass/Vol] 9.1 mg/dL Normal 8.6-10.3 [facility] Comment on above: Order Comment: FASTI NG N Performed By: #### L IPID, CBC, MG, HS TROP, CMP ####[address] [address] [place] Carbon dioxide, total [Moles /volume] in Serum or PlasmaOrdered By: Moises Burciaga on 03-10-2024 CO2 [Moles/Vol] 26.5 mmol/L Normal 21.0-31.0 [facility] Comment on above: Order Comment: FASTI NG N Performed By: #### L IPID, CBC, MG, HS TROP, CMP ####[place] [id number] [place] Chloride [Moles/volume] in S beltran or PlasmaOrdered By: Moises Burciaga on 03-10-2024 Chloride [Moles/Vol] 108 mmol/L High 98-107 [facility] Comment on above: Order Comment: FASTI NG N Performed By: #### L IPID, CBC, MG, HS TROP, CMP ####[place] [id number] [place] Cholesterol [Mass/volume] in Serum or PlasmaOrdered By: Moises Burciaga on 03-10-2024 Cholesterol [Mass/Vol] 172 mg/dL Normal 140-200 [facility] Comment on above: Chol less than 200 m g/dl low riskChol 201-239 mg/dl borderline riskChol 240 mg/dl and greater high risk Order Comment: FASTI NG N Result Comment: Chol less than 200 mg/dl low risk Chol 201-239 mg/dl borderline risk Chol 240 mg/dl and greater high risk Performed By: #### L IPID, CBC, MG, HS TROP, CMP ####[place] [id number] [place] Cholesterol in LDL Calc [Mas s/Vol]Ordered By: Moises Burciaga on 03-10-2024 Cholesterol in LDL [Mass/Vol] 80 mg/dL 0-100 [facility] Comment on above: LDL ATP III CLASSIFI CATIONLDL less than 100 mg/dL OptimalLDL 100-129 mg/dL Near or above optimalLDL 130-159 mg/dL Borderline highLDL 160-189 mg/dL HighLDL greater than 189 mg/dL Very high Cholesterol in VLDL Calc [Ma ss/Vol]Ordered By: Moises Burciaga on 03-10-2024 Cholesterol in VLDL [Mass/Vol] 16 mg/dL [facility] Complete Blood Count Auto Di ffon 03-10-2024 Mean Corpuscular HGB Conc 33.6 g/dL Normal 32.0-35.0 [facility] Comment on above: Performed By: #### L IPID, CBC, MG, HS TROP, CMP ####[address] NRBC% 0.1 /100{WBC} Normal 0-0.5 [facility] Comment on above: Performed By: #### L IPID, CBC, MG, HS TROP, CMP ####[address] Comprehensive Metabolic Pane maxwell 03-10-2024 Albumin [Mass/Vol] 3.8 g/dL Normal 3.5-5.7 [facility] Comment on above: Order Comment: FASTI NG N Performed By: #### L IPID, CBC, MG, HS TROP, CMP ####[address] Creatinine Clr Calc Pharmacy 65.11 Normal [facility] Comment on above: Order Comment: FASTI NG N Performed By: #### L IPID, CBC, MG, HS TROP, CMP ####[address] GFR/1.73 sq M.predicted MDRD (S/P/Bld) [Vol rate/Area] mL/min/{1.73_m2} Normal [facility] Comment on above: Order Comment: FASTI NG N Performed By: #### L IPID, CBC, MG, HS TROP, CMP ####[address] Creatine kinase [Enzymatic a ctivity/volume] in Serum or PlasmaOrdered By: Héctor Rainey on 03-10-2024 CK [Catalytic activity/Vol] 102 U/L Normal 30-223 [facility] Comment on above: Performed By: #### C KMB, PT, CK, A1C WTH eA, PTT, HS TROP #### [facility] [address] [place] [address] [place] Creatine kinase.MB [Mass/vol ume] in Serum or PlasmaOrdered By: Héctor Rainey on 03-10-2024 CK.MB [Mass/Vol] 5.3 ng/mL Normal 0.6-6.3 [facility] Comment on above: Performed By: #### C KMB, PT, CK, A1C WTH eA, PTT, HS TROP ####[facility] [id number] [place] [address] [place] Creatinine Kinase MBon 03-10 CKMB Relative Index 5.1 % High 0.00-2.50 [facility] Comment on above: Performed By: #### C KMB, PT, CK, A1C WTH eA, PTT, HS TROP ####[facility] Creatinine [Mass/volume] in Serum or PlasmaOrdered By: Moises Burciaga on 03-10-2024 Creatinine [Mass/Vol] 0.70 mg/dL Normal 0.60-1.20 [facility] Comment on above: Order Comment: KAYODE LY N Performed By: #### L IPID, CBC, MG, HS TROP, CMP ####[facility] [id number] [place] [id number] [facility] ECG 12 lead ECGon 03-10-2024 ECG 12 lead ECG [facility] [address] [place] [address] [place] [address] Electrocardiograph Report Signed Patient: Prerna Phelps MR#: [id number] : 1955 Acct:[id number] Age/Sex: 68 / F ADM Date: 03/10/24 Loc: Room: [address] [place] [address] Type: ADM IN Attending Dr: Héctor Rainey DO Ordering Provider: Héctor Rainey DO Date of Service: 03/10/24 ECG/ECG 12 lead ECG: elevated troponin Copies to: Test Reason : Blood Pressure : / mmHG Vent. Rate : 085 BPM Atrial Rate : 085 BPM P-R Int : 148 ms QRS Dur : 142 ms QT Int : 456 ms P-R-T Axes : 034 -20 169 degrees QTc Int : 542 ms Normal sinus rhythm Left bundle branch block Abnormal ECG When compared with ECG of 10-MAR-2024 07:18, (Unconfirmed) No significant change was found Confirmed by NORMAN WHEELER MD, FACC ([id number]) on 03/10/2024 12:28:06 PM Referred By: Electronically Signed By:NORMAN WHEELER MD, FACC Transcribed By: MUS Signed By Bartolome Wheeler MD 03/10/24 1228 Normal [facility] ECG 12 [place] [address] Electrocardiograph Report Signed Patient: Prerna Phelps MR#: [id number] : 1955 Acct:[id number] Age/Sex: 68 / F ADM Date: 03/10/24 Loc: Room: [address] [place] [address] Type: ADM IN Attending Dr: Héctor Rainey DO Ordering Provider: Héctor Rainey DO Date of Service: 03/10/24 ECG/ECG 12 lead ECG: elevated troponin Copies to: Test Reason : Blood Pressure : / mmHG Vent. Rate : 080 BPM Atrial Rate : 080 BPM P-R Int : 146 ms QRS Dur : 144 ms QT Int : 446 ms P-R-T Axes : 040 -07 183 degrees QTc Int : 514 ms Normal sinus rhythm Left bundle branch block Abnormal ECG No previous ECGs available Confirmed by NORMAN WHEELER MD, FACC ([id number]) on 03/10/2024 12:28:02 PM Referred By: Electronically Signed By:NORMAN WHEELER MD, FACC Transcribed By: MUS Signed By Bartolome Wheeler MD 03/10/24 1228 Normal [facility] ECH echo transthoracicon ECH echo transthoracic [place] [id number] Echocardiogram Signed Patient: Prerna Phelps MR#: [id number] : 1955 Acct:[id number] Age/Sex: 68 / F ADM Date: 03/10/24 Loc: Room: [address] [place] [address] Type: ADM IN Attending Dr: Héctor Rainey DO Ordering Provider: Moises Burciaga MD Date of Service: 03/10/24 ECH/ECH echo transthoracic: Source of Emboli Copies to: MD Bartolome Kendall MD BSA: 1.7 m2 BP: 134/75 mmHg HR: 97 Reason For Study: Source of Emboli History: cardiomyopathy Interpretation Summary Ejection Fraction = 40-45%. There is apical dyskinesis. There is moderate to severe anterior wall hypokinesis. There is moderate to severe lateral wall hypokinesis. There is moderate to severe inferior wall hypokinesis. There is trace mitral regurgitation. There is trace tricuspid regurgitation. Procedure/Quality: A two-dimensional transthoracic echocardiogram with color flow, Doppler and injection of aggitated saline was performed. The study was technically good in quality. Left Ventricle: The echo findings are consistent with takotsubo cardiomyopathy. Upper septal hypertrophy (sigmoid septum), normal variant. Ejection Fraction = 40-45%. There is apical dyskinesis. There is moderate to severe anterior wall hypokinesis. There is moderate to severe lateral wall hypokinesis. There is moderate to severe inferior wall hypokinesis. No left ventricular thrombus or mass is seen. Left Atrium: The left atrium appears normal in size. Atrial septum appears to be intact and there is no evidence of flow across the atrial septum either by colorflow Doppler or by agitated saline. Right Atrium: The right atrium appears normal in size. Right Ventricle: The right ventricular size, thickness and function are normal. Aortic Valve: The aortic valve is normal in structure and function. Mitral Valve: The mitral valve is normal. There is trace mitral regurgitation. Tricuspid Valve: The tricuspid valve is normal in structure. There is trace tricuspid regurgitation. Pulmonic Valve: The pulmonic valve is not well seen, but is grossly normal. Arteries: The aortic root is normal size. Mildly dilated ascending aorta. Pericardium/Pleura: No pericardial effusion seen. There is no pleural effusion. IVC/Hepatic Veins: The inferior vena cava is normal in size, with a normal collapsibility index. Measurements with Normals IVSd: 1.3 cm (0.7-1.1 cm)LVIDd: 5.1 cm (3.7-5.4 cm) LVPWd: 0.98 cm (0.7-1.1 cm)LVIDs: 3.5 cm (2.3-3.6 cm) LA dimension: 3.7 cm (2.3-4.0 cm)Ao root diam: 3.2 cm(2.0-3.6 cm) asc Aorta Diam: 3.7 cm(2.1-3.4cm) Doppler with Normals RVSP(TR): 41.4 mmHg (18-35mmHg) LV V1 max: 89.2 cm/sec (0.7-1.7m/s)MV E max ron: 67.3 cm/sec(0.8-1.3m/s) MV A max ron: 101.2 cm/sec(0.0-0.0m/s) MV E/A: 0.67 (<1.5) MMode/2D Measurements Calculations RVDd: 2.0 cm FS: 31.7 % Ao root area: LVOT diam: 2.0 cm TAPSE: 2.5 cm EDV(Teich): 8.1 cm2 LVOT area: 3.0 cm2 RV S Ron: 122.0 ml 20.4 cm/sec ESV(Teich): 49.4 ml EF(Teich): 59.5 % __ LVLd ap4: 8.2 cm SV(MOD-sp4): LAV(MOD-sp4): LA A2 area: 18.2 cm2 EDV(MOD-sp4): 62.1 ml 51.0 ml 110.0 ml LAV(MOD-sp2): LA A4 area: 17.8 cm2 LVLs ap4: 7.3 cm 55.5 ml LA length (vol): ESV(MOD-sp4): 5.1 cm 47.9 ml LA vol: 54.5 ml EF(MOD-sp4): 56.5 % LA vol index: 31.7 ml/m2 Doppler Measurements Calculations MV dec time: MV max PG: E/E' lat: 6.5 MV dec slope: 0.20 sec 100.0 mmHg E/E' med: 10.1 330.9 cm/sec2 __ Ao V2 max: LV V1 max PG: MR max ron: TV max P.0 mmHg 179.8 cm/sec 3.2 mmHg 500.6 cm/sec Ao max PG: LV V1 mean PG: MR max P.9 mmHg 1.6 mmHg 100.8 mmHg Ao mean PG: LV V1 mean: 5.7 mmHg 57.8 cm/sec Ao V2 mean: LV V1 VTI: 18.5 cm 109.5 cm/sec Ao V2 VTI: 30.9 cm LINETTE(I,D): 1.8 cm2 LINETTE(V,D): 1.5 cm2 __ TR max ron: 301.6 cm/sec TR max P.4 mmHg RAP systole: 5.0 mmHg Transcribed By: SCV Performed At: 03/10/24 1003 Signed By: Bartolome Wheeler MD 03/10/24 1237 Normal [facility] Erythrocyte distribution wid th [Ratio] by Automated countOrdered By: Moises Burciaga on 03-10-2024 Erythrocyte distribution width (RBC) [Ratio] 13.6 % Normal 11.9-15.3 [facility] Comment on above: Performed By: #### L IPID, CBC, MG, HS TROP, CMP ####[facility] [id number] [place] [address] [facility] Erythrocytes [#/volume] in B lood by Automated countOrdered By: Moises Burciaga on 03-10-2024 RBC (Bld) [#/Vol] 4.15 10*6/uL Normal 3.60-5.00 [facility] Comment on above: Performed By: #### L IPID, CBC, MG, HS TROP, CMP ####[facility] [id number] [place] [id number] [facility] Glucose [Mass/volume] in Ser um or PlasmaOrdered By: Moises Gualberto on 03-10-2024 Glucose [Mass/Vol] 91 mg/dL Normal 70-100 [facility] Comment on above: ADA recommended refe rence rangeRandom Glucose Reference Range is dependent on time and content of last meal. Glucose of more than 200 mg/dL in a nonstressed, ambulatory subject supports the diagnosis of Diabetes Mellitus. Order Comment: FASTI NG N Result Comment: [place] om Glucose Reference Range is dependent on time and content of last meal. Glucose of more than 200 mg/dL in a nonstressed, ambulatory subject supports the diagnosis of Diabetes Mellitus. ADA recommended reference range Performed By: #### L IPID, CBC, MG, HS TROP, CMP ####[facility] [place] [id number] [facility] Glucose mean value [Mass/vol ume] in Blood Estimated from glycated hemoglobinOrdered By: Héctor Rainey on 03-10-2024 Average glucose Estimated from glycated hemoglobin (Bld) [Mass/Vol] 111 mg/dL [facility] Hematocrit [Volume Fraction] of Blood by Automated countOrdered By: Moises Burciaga on 03-10-2024 Hematocrit (Bld) [Volume fraction] 36.2 % Normal 34.0-46.4 [facility] Comment on above: Performed By: #### L IPID, CBC, MG, HS TROP, CMP ####[place] [id number] [place] [id number] [facility] Hemoglobin A1c percentageOrd ered By: Héctor Rainey on 03-10-2024 HbA1c (Bld) [Mass fraction] 5.5 % Normal 4.3-5.6 [facility] Comment on above: Increased risk for d iabetes: 5.7 - 6.4diabetes: >6.4glycemic control for adults with diabetes: <7.0 Result Comment: Incr eased risk for diabetes: 5.7 - 6.4 diabetes: >6.4 glycemic control for adults with diabetes: <7.0 Performed By: #### C KMB, PT, CK, A1C WTH eA, PTT, HS TROP #### [facility] [address] [id number] [place] Hemoglobin [Mass/volume] in BloodOrdered By: Moises Burciaga on 03-10-2024 Hemoglobin (Bld) [Mass/Vol] 12.1 g/dL Normal 11.8-15.4 [facility] Comment on above: Performed By: #### L IPID, CBC, MG, HS TROP, CMP ####[facility] [id number] [place] [id number] [facility] INR in Platelet poor plasma by Coagulation assayOrdered By: Héctor Rainey on 03-10-2024 INR Coag (PPP) [Relative time] 1.0 {INR} Normal [facility] Comment on above: INR Therapeutic Rang e A) Pre- and Peroperative OAT started two weeks before surgery. NOT HIP SURGERY: 1.5 - 2.5 HIP SURGERY: 2 - 3B) Primary and secondary prevention of venous THROMBOSIS: 2 - 3C) Active venous thrombosis, pulmonary embolismand prevention of recurrent venous thrombosis: 2 - 3D) Prevention of arterial thromboembolismincluding patients with mechanical heart valves: 3 - 4.5 Result Comment: INR Therapeutic Range A) Pre- and Peroperative OAT started two weeks before surgery. NOT HIP SURGERY: 1.5 - 2.5 HIP SURGERY: 2 - 3 B) Primary and secondary prevention of venous THROMBOSIS: 2 - 3 C) Active venous thrombosis, pulmonary embolism and prevention of recurrent venous thrombosis: 2 - 3 D) Prevention of arterial thromboembolism including patients with mechanical heart valves: 3 - 4.5 Performed By: #### C KMB, PT, CK, A1C WTH eA, PTT, HS TROP #### [facility] [address] [place] [address] [place] Leukocytes [#/volume] correc velma for nucleated erythrocytes in Blood by Automated counOrdered By: Moises Burciaga on 03-10-2024 WBC corrected for nucl RBC Auto (Bld) [#/Vol] 5.8 10*3/uL 3.8-11.6 [facility] Leukocytes [#/volume] in Blo od by Automated countOrdered By: Moises Burciaga on 03-10-2024 WBC (Bld) [#/Vol] 5.8 10*3/uL Normal 3.8-11.6 [facility] Comment on above: Performed By: #### L IPID, CBC, MG, HS TROP, CMP ####[address] Lipid Panelon 03-10-2024 LDL Cholesterol,Calculate d 80 mg/dL Normal 0-100 [facility] Comment on above: Order Comment: FASTI NG N Result Comment: LDL ATP III CLASSIFICATION LDL less than 100 mg/dL Optimal LDL 100-129 mg/dL Near or above optimal LDL 130-159 mg/dL Borderline high LDL 160-189 mg/dL High LDL greater than 189 mg/dL Very high Performed By: #### L IPID, CBC, MG, HS TROP, CMP ####[address] Triglyceride w/Reflex 80 mg/dL Normal 0-149 [facility] Comment on above: Order Comment: FASTI NG N Result Comment: TRIG ATP III CLASSIFICATION TRIG less than 150 mg/dL Normal TRIG 150-199 mg/dL Borderline high TRIG 200-500 mg/dL High TRIG greater than 500 mg/dL Very high Standard traceable to the Center for Disease Conrtrol and Prevention (CDC) test method. Performed By: #### L IPID, CBC, MG, HS TROP, CMP ####[address] VLDL CHOLESTEROL 16 mg/dL Normal [facility] Comment on above: Order Comment: FASTI NG N Performed By: #### L IPID, CBC, MG, HS TROP, CMP ####[address] Lymphocytes [#/volume] in Bl ood by Automated countOrdered By: Moises Burciaga on 03-10-2024 Lymphocytes (Bld) [#/Vol] 2.3 10*3/uL Normal 1.00-4.8 [facility] Comment on above: Performed By: #### L IPID, CBC, MG, HS TROP, CMP ####[address] Lymphocytes/100 leukocytes i n Blood by Automated countOrdered By: Moises Burciaga on 03-10-2024 Lymphocytes/100 WBC (Bld) 39.5 % Normal . [facility] Comment on above: Performed By: #### L IPID, CBC, MG, HS TROP, CMP ####[place] [id number] MCH [Entitic mass] by Automa velma countOrdered By: Moises Burciaga on 03-10-2024 MCH (RBC) [Entitic mass] 29.3 pg Normal 24.7-34.3 [facility] Comment on above: Performed By: #### L IPID, CBC, MG, HS TROP, CMP ####[address] MCHC Auto (RBC) [Mass/Vol]Or dered By: Moises Burciaga on 03-10-2024 MCHC (RBC) [Mass/Vol] 33.6 g/dL 32.0-35.0 [facility] MCV [Entitic volume] by Auto mated countOrdered By: Moises Burciaga on 03-10-2024 MCV (RBC) [Entitic vol] 87.2 fL Normal 80-100 [facility] Comment on above: Performed By: #### L IPID, CBC, MG, HS TROP, CMP ####[address] MR head/brain wo conon 03-10 MR head/brain wo con [facility] [place] [address] MRI Report Signed Patient: Prerna Phelps MR#: [id number] : 1955 Acct:[id number] Age/Sex: 68 / F ADM Date: 03/10/24 Loc: 3T Room: [address] [place] [address] Type: ADM IN Attending Dr: Héctor Rainey DO Copies to: MD Héctor Kendall DO Ordering Provider: Moises Burciaga MD Date of Service: 03/10/24 MR/MR head/brain wo con: expressive aphasia r/o CVA EXAMINATION: MRI OF THE BRAIN WITHOUT CONTRAST CLINICAL HISTORY: Sudden right hand weakness and incoordination. Garbled speech. COMPARISON: Outside CTA head and neck and CT brain 03/09/2024. TECHNIQUE: Multiecho, multiplanar imaging of the brain was performed without enhancement. FINDINGS: 2 small focal areas of restriction diffusion is seen involving the left frontoparietal region with associated T2 and T2 FLAIR abnormal signal suggestive of subacute ischemia. No evidence of blood products are seen on T2 Star imaging. Cortical atrophy with mild chronic microvascular ischemic changes are noted. Midbrain, ara, medulla and cerebellum all appear unremarkable. Interval contents appear unremarkable. Visualized paranasal sinuses appear clear. Midline structures demonstrate no acute findings. MR/MR head/brain wo con IMPRESSION: 2 SMALL AREAS OF RESTRICTED DIFFUSION ARE SEEN INVOLVING THE LEFT FRONTOPARIETAL REGION WITH ASSOCIATED ABNORMAL T2 AND T2 FLAIR SIGNAL SUGGESTIVE OF AREAS OF SUBACUTE ISCHEMIA. Impression dictated by: Augusto Paez Jr., D.OMinerva03/10/2024 4:12 PM Dictation Location: [place] [address] Transcribed By: [facility] 03/10/24 1612 Dictated By: Augusto Paez Jr, DO 03/10/24 1607 Signed By: 03/10/24 1612 Normal [facility] Magnesium [Mass/volume] in S beltran or PlasmaOrdered By: Moises Burciaga on 03-10-2024 Magnesium [Mass/Vol] 1.9 mg/dL Normal 1.9-2.7 [facility] Comment on above: Order Comment: FASTI NG N Performed By: #### L IPID, CBC, MG, HS TROP, CMP ####[facility] Mgw[address] Neutrophils [#/volume] in Bl ood by Automated countOrdered By: Moises Burciaga on 03-10-2024 Neutrophils (Bld) [#/Vol] 2.8 10*3/uL Normal 1.8-7.7 [facility] Comment on above: Performed By: #### L IPID, CBC, MG, HS TROP, CMP ####[facility] [id number] No Panel InformationOrdered By: Moises Burciaga on 03-10-2024 Estimated GFR (CKD-EPI) > 60.0 mL/Min [facility] Creatinine Clearance (Chem 65.11 [facility] Nucleated erythrocytes [Pres ence] in Blood by Automated countOrdered By: Moises Burciaga on 03-10-2024 Nucleated RBC Auto Ql (Bld) 0.1 /100{WBC} 0-0.5 [facility] Partial Thromboplastin Timeo n 03-10-2024 aPTT Coag (Bld) [Time] 30.4 s Normal 25.1-36.5 [facility] Comment on above: Result Comment: A he matocrit value greater than 55% may lead to inaccurate results in coagulation testing. Patients having hematocrit values >55% require a special collection tube for coagulation studies. Please contact the laboratory at [phone] for redraw instructions. PERFORMED BY: [place] [address] PATHOLOGIST [employer] HE[employer] TECHNICIAN ZAYRA LEONARD M.D. Performed By: #### C KMB, PT, CK, A1C WTH eA, PTT, HS TROP #### [facility] [address] [place] [address] [place] Platelet mean volume [Entiti c volume] in Blood by Automated countOrdered By: Moises Burciaga on 03-10-2024 Platelet mean volume (Bld) [Entitic vol] 6.5 fL Normal 6.3-10.7 [facility] Comment on above: Performed By: #### L IPID, CBC, MG, HS TROP, CMP ####[facility] [id number] [place] [address] [place] Platelets [#/volume] in Bloo d by Automated countOrdered By: Moises Burciaga on 03-10-2024 Platelets (Bld) [#/Vol] 306 10*3/uL Normal 150-450 [facility] Comment on above: Performed By: #### L IPID, CBC, MG, HS TROP, CMP ####[facility] [id number] [place] [address] [place] Potassium [Moles/volume] in Serum or PlasmaOrdered By: Moises Burciaga on 03-10-2024 Potassium [Moles/Vol] 3.6 mmol/L Normal 3.5-5.1 [facility] Comment on above: Order Comment: FASTI NG N Performed By: #### L IPID, CBC, MG, HS TROP, CMP ####[facility] [address] Protein [Mass/volume] in Ser um or PlasmaOrdered By: Moises Burciaga on 03-10-2024 Protein [Mass/Vol] 5.9 g/dL Low 6.4-8.9 [facility] Comment on above: Order Comment: FASTI NG N Performed By: #### L IPID, CBC, MG, HS TROP, CMP ####[place] [id number] Prothrombin time (PT)Ordered By: Héctor Rainey on 03-10-2024 PT Coag (PPP) [Time] 11.6 s Normal 9.0-12.9 [facility] Comment on above: A hematocrit value g reater than 55% may lead to inaccurate results in coagulation testing. Patients having hematocrit values >55% require a special collection tube for coagulation studies. Please contact the laboratory at [phone] for redraw instructions. Result Comment: A he matocrit value greater than 55% may lead to inaccurate results in coagulation testing. Patients having hematocrit values >55% require a special collection tube for coagulation studies. Please contact the laboratory at [phone] for redraw instructions. Performed By: #### C KMB, PT, CK, A1C WTH eA, PTT, HS TROP #### [facility] [address] Serum globulin measurement b y calculation (mass/volume)Ordered By: Moises Burciaga on 03-10-2024 Globulin (S) [Mass/Vol] 2.1 g/dL Normal [facility] Comment on above: Order Comment: FASTI NG N Performed By: #### L IPID, CBC, MG, HS TROP, CMP ####[facility] [address] Serum or plasma albumin/glob ulin mass ratioOrdered By: Moises Burciaga on 03-10-2024 Albumin/Globulin [Mass ratio] 1.8 {ratio} Normal [facility] Comment on above: Order Comment: FASTI NG N Performed By: #### L IPID, CBC, MG, HS TROP, CMP ####[facility] [address] Serum or plasma anion gap de terminationOrdered By: Moises Burciaga on 03-10-2024 Anion gap [Moles/Vol] 11.1 mmol/L Normal 6.0-15.0 [facility] Comment on above: Order Comment: FASTI NG N Performed By: #### L IPID, CBC, MG, HS TROP, CMP ####[place] [id number] Serum or plasma creatine kin ase MB (CKMB)/total creatine kinase (CK) ratio by calculaOrdered By: Héctor Rainey on 03-10-2024 CK.MB Calc [Catalytic fraction] 5.1 % 0.00-2.50 [facility] Serum or plasma high density lipoprotein (HDL) cholesterol measurementOrdered By: Moises Burciaga on 03-10-2024 Cholesterol in HDL [Mass/Vol] 76 mg/dL Normal 23-92 [facility] Comment on above: HDL CHOL ATP-III CLA SSIFICATION Cardiovascular RiskHDL > or equal to 60 mg/dL LOWHDL < 40 mg/dL HIGH Order Comment: FASTI NG N Result Comment: HDL CHOL ATP-III CLASSIFICATION Cardiovascular Risk HDL > or equal to 60 mg/dL LOW HDL < 40 mg/dL HIGH Performed By: #### L IPID, CBC, MG, HS TROP, CMP ####[place] [address] [place] [id number] [facility] Serum or plasma total choles terol/high density lipoprotein (HDL) cholesterol mass ratOrdered By: Moises Burciaga on 03-10-2024 Cholesterol.total/Cho lesterol in HDL [Mass ratio] 2.3 {ratio} Normal <5.0 [facility] Comment on above: Order Comment: FASTI NG N Result Comment: PERF ORMED BY: [facility] [address] [place] [address] PATHOLOGIST [employer] HE[employer] TECHNICIAN ZAYRA LEONARD M.D. Performed By: #### L IPID, CBC, MG, HS TROP, CMP ####[place] [address] [place] [id number] [facility] Sodium [Moles/volume] in Ser um or PlasmaOrdered By: Moises Burciaga on 03-10-2024 Sodium [Moles/Vol] 142 mmol/L Normal 136-145 [facility] Comment on above: Order Comment: FASTI NG N Performed By: #### L IPID, CBC, MG, HS TROP, CMP ####[place] [address] [place] [id number] [facility] Triglyceride [Mass/volume] i n Serum or PlasmaOrdered By: Moises Burciaga on 03-10-2024 Triglyceride [Mass/Vol] 80 mg/dL 0-149 [facility] Comment on above: TRIG ATP III CLASSIF ICATIONTRIG less than 150 mg/dL NormalTRIG 150-199 mg/dL Borderline highTRIG 200-500 mg/dL High TRIG greater than 500 mg/dL Very highStandard traceable to the Center for Disease Conrtrol and Prevention (CDC) test method. Troponin I High Sensitivityo n 03-10-2024 Troponin I High Sensitivity 286.4 pg/mL Off scale high 0.0-15.0 [facility] Comment on above: Result Comment: Crit ical Result : Called to and read back by: TRACY HINOJOSA at: 03/10/2024 13:55:50 by:GAURAV PERFORMED BY: [facility] [address] [place] [id number] PATHOLOGIST [employer] HE[employer] TECHNICIAN ZAYRA LEONARD M.D. Performed By: #### C KMB, PT, CK, A1C WTH eA, PTT, HS TROP ####[place] [address] [place] [id number] [facility] Troponin I High Sensitivity 318.9 pg/mL Off scale high 0.0-15.0 [facility] Comment on above: Result Comment: Crit ical Result : Called to and read back by: TRACY HINOJOSA at: 03/10/2024 08:29:06 by:[id number] PERFORMED BY: [place] [address] PATHOLOGIST [employer] HEALTH TECHNICIAN ZAYRA LEONARD M.D. Performed By: #### L IPID, CBC, MG, HS TROP, CMP ####[facility] [id number] Troponin I.cardiac [Mass/vol ume] in Serum or Plasma by Detection limit <= 0.01 ng/Ordered By: Héctor Rainey on 03-10-2024 Troponin I.cardiac DL <= 0.01 ng/mL [Mass/Vol] 286.4 pg/mL 0.0-15.0 [facility] Comment on above: Critical Result : Ca lled to and read back by: TRACY HINOJOSA at: 03/10/2024 13:55:50 by:GAURAV Urea nitrogen [Mass/volume] in Serum or PlasmaOrdered By: Moises Burciaga on 03-10-2024 Urea nitrogen [Mass/Vol] 9 mg/dL Normal 7-25 [facility] Comment on above: Order Comment: FASTI NG N Performed By: #### L IPID, CBC, MG, HS TROP, CMP ####[place] [address] XR chest 1V portableon 03-10 XR chest 1V portable [facility] [place] [address] XRay Report Signed Patient: Prerna Phelps MR#: [id number] : 1955 Acct:[id number] Age/Sex: 68 / F ADM Date: 03/10/24 Loc: Room: [address] [place] [address] Type: ADM IN Attending Dr: Moises Burciaga MD Copies to: MD Héctor Kendall DO Ordering Provider: Héctor Rainey DO Date of Service: 03/10/24 XR/XR chest 1V portable: Chest Pain Plain film chest Single view HISTORY: Chest pain. COMPARISON: None FINDINGS: SUPPORT DEVICES: None POSTSURGICAL CHANGES: None HEART: Within normal limits PULMONARY APOLINAR: Within normal limits MEDIASTINUM: Unremarkable LUNGS AND PLEURA: No acute lung process, pleural effusion or pneumothorax identified. BONY STRUCTURES: Intact ADDITIONAL FINDINGS None XR/XR chest 1V portable IMPRESSION: No acute process. Impression dictated by: Luis Fernando Bunch M.D.03/10/2024 7:52 AM Dictation Location: [place] [address] Transcribed By: [facility] 03/10/24 075 Dictated By: Luis Fernando Bunch DO 03/10/24 075 Signed By: 03/10/24 075 Normal [facility] Office Visiton 09-30-2023 Follow-up visit [id number] Prerna Phelps 1955 F Date Provider Department Center 09/30/2023 [facility]-YECENIA FINN [facility] Family History Problem Relation Age of Onset Hypertension Father Breast cancer Sister Family Status - Relation Status Age at Father Sister Level of Service:91730 [place] OFFICE/OUTPATIENT ESTABLISHED LOW MDM 20-29 MIN Normal [facility] CBC AUTO DIFFon 07-06-2022 BASO # 0.1 103/ul Normal 0.0-0.1 [facility] Comment on above: Performed By: #### C BC #### [facility] [address] [place] [address] Dr. Robert Singletary Basophils/100 WBC (Bld) 0.8 % Normal 0.2-2.0 [facility] Comment on above: Performed By: #### C BC #### [facility] [address] [place] [address] [address] Robert Singletary EO # 0.1 103/ul Normal 0.0-0.7 [facility] Comment on above: Performed By: #### C BC #### [facility] [address] [place] [address] [address] Robert Singletary Eosinophils/100 WBC (Bld) 0.9 % Normal 0.9-7.0 [facility] Comment on above: Performed By: #### C BC #### [facility] [address] [place] [address] Dr. Robert Singletary Erythrocyte distribution width (RBC) [Ratio] 12.9 % Normal 11.0-15.0 [facility] Comment on above: Performed By: #### C BC #### [facility] [address] [place] [address] Dr. Robert Singletary Hematocrit (Bld) [Volume fraction] 38.1 % Normal 36.0-48.0 [facility] Comment on above: Performed By: #### C BC #### [facility] [address] [place] [address] Dr. Robert Singletary Hemoglobin (Bld) [Mass/Vol] 12.3 g/dL Normal 12.0-16.0 [facility] Comment on above: Performed By: #### C BC #### [facility] [address] [place] [address] Dr. Robert Singletary IG # 0.01 10e3/ul Normal 0.00-0.03 [facility] Comment on above: Performed By: #### C BC #### [facility] [address] [place] [address] Dr. Robert Singletary IG % 0.2 % Normal 0.0-0.5 [facility] Comment on above: Performed By: #### C BC #### [facility] [address] [place] [address] Dr. Robert Singletary LYMPH # 1.7 103/ul Normal 1.2-3.8 [facility] Comment on above: Performed By: #### C BC #### [facility] [address] [place] [address] Dr. Robert Singletary Lymphocytes/100 WBC (Bld) 27.4 % Normal 20.5-60.0 [facility] Comment on above: Performed By: #### C BC #### [facility] [address] [place] [address] Dr. Robert Singletary MANUAL DIFF REQ NO Normal [facility] Comment on above: Performed By: #### C BC #### [facility] [address] [place] [address] Dr. Robert Singletary MCH (RBC) [Entitic mass] 29.6 pg Normal 26.7-34.0 [facility] Comment on above: Performed By: #### C BC #### [facility] [address] [place] [address] [address] Robert Singletary MCHC (RBC) [Mass/Vol] 32.3 g/dL Normal 29.9-35.2 [facility] Comment on above: Performed By: #### C BC #### [facility] [address] [place] [address] [address] Robert Singletary MCV (RBC) [Entitic vol] 91.8 fL Normal 81.0-99.0 [facility] Comment on above: Performed By: #### C BC #### [facility] [address] [place] [address] Dr. Robert Singletary MONO # 0.5 103/ul Normal 0.3-0.8 [facility] Comment on above: Performed By: #### C BC #### [facility] [address] [place] [address] Dr. Robert Singletary Monocytes/100 WBC (Bld) 7.6 % Normal 1.7-12.0 [facility] Comment on above: Performed By: #### C BC #### [facility] [address] [place] [address] Dr. Robert Singletary NEUT # 4.0 103/ul Normal 1.4-6.5 [facility] Comment on above: Performed By: #### C BC #### [facility] [address] [place] [address] Dr. Robert Singletary Neutrophils/100 WBC (Bld) 63.1 % Normal 43.0-75.0 [facility] Comment on above: Performed By: #### C BC #### [facility] [address] [place] [address] Dr. Robert Singletary Platelet mean volume (Bld) [Entitic vol] 9.0 fL Critically low 9.5-13.5 [facility] Comment on above: Performed By: #### C BC #### [facility] [address] [place] [address] Dr. Robert Singletary PLT 331 103/ul Normal 150-450 [facility] Comment on above: Performed By: #### C BC #### [facility] [address] [place] [address] Dr. Robert Singletary RBC 4.15 106/ul Critically low 4.20-5.40 [facility] Comment on above: Performed By: #### C BC #### [facility] [address] [place] [address] Dr. Robert Singletary WBC 6.3 103/ul Normal 4.0-11.0 [facility] Comment on above: Performed By: #### C BC #### [facility] [address] [place] [address] Dr. Robert Singletary GLYCOHEMOGLOBIN A1Con 2021 ADA RECOMMENDATION SEE BELOW Normal [facility] Comment on above: Result Comment: ADA RECOMMENDED LIMIT 4.0 - 6.0 ADA THERAPEUTIC TARGET < 7.0 ACTION SUGGESTED > 7.0 Performed By: #### A 1C #### [facility] [address] [place] [address] Dr. Robert Singletary Glucose [Mass/Vol] 108 mg/dL Normal [facility] Comment on above: Performed By: #### A 1C #### [facility] [address] [place] [address] Dr. Robert Singletary HbA1c (Bld) [Mass fraction] 5.4 % Normal 4.5-6.2 [facility] Comment on above: Performed By: #### A 1C #### [facility] [address] [place] [address] Dr. Robert Singletary LIPID PROFILEon 07-06-2022 CHOL-HDL RATIO NORM SEE BELOW Normal [facility] Comment on above: Result Comment: 3.3 - 4.4 LOW RISK 4.4 - 7.1 AVERAGE RISK 7.1 - 11.0 MODERATE RISK >11.0 HIGH RISK Performed By: #### L IPID, LIVER, TSH, BMP #### [facility] [address] [place] [address] Dr. Robert Singletary Cholesterol [Mass/Vol] 200 mg/dL Normal <=200 [facility] Comment on above: Performed By: #### L IPID, LIVER, TSH, BMP #### [facility] [address] [place], [place] [address] Dr. Robert Singletary Cholesterol in HDL [Mass/Vol] 82 mg/dL Critically high 40-60 [facility] Comment on above: Performed By: #### L IPID, LIVER, TSH, BMP #### [facility] [address] [address] [address] Robert Singletary Cholesterol in LDL [Mass/Vol] 105.4 mg/dL Normal [facility] Comment on above: Performed By: #### L IPID, LIVER, TSH, BMP #### [facility] [address] [address] [address] Robert Singletary Cholesterol.total/Cho lesterol in HDL [Mass ratio] 2.4 {ratio} Normal [facility] Comment on above: Performed By: #### L IPID, LIVER, TSH, BMP #### [facility] [address] [address] [address] Robert Singletary HDL NORMAL > or = 60 mg/dl - LO W CARDIOVASCULAR RISK <40 mg/dl - HIGH CARDIOVASCULAR RISK Normal [facility] Comment on above: Performed By: #### L IPID, LIVER, TSH, BMP #### [facility] [address] [address] [address] Robert Singletary LDL CALC NORMAL SEE BELOW Normal [facility] Comment on above: Result Comment: <100 mg/dl OPTIMAL 100 - 129 mg/dl NEAR OR ABOVE OPTIMAL 130 - 159 mg/dl BORDERLINE HIGH 160 - 189 mg/dl HIGH >190 mg/dl VERY HIGH Performed By: #### L IPID, LIVER, TSH, BMP #### [facility] [address] [place] [address] Dr. Robert Singletary Triglyceride [Mass/Vol] 63 mg/dL Normal <=150 [facility] Comment on above: Performed By: #### L IPID, LIVER, TSH, BMP #### [facility] [address] [address] [address] Robert Singletary VLDL CALC 12.6 mg/dL Normal [facility] Comment on above: Performed By: #### L IPID, LIVER, TSH, BMP #### [facility] [address] [place] [address] Dr. Robert Singletary LIVER PROFILEon 07-06-2022 Albumin [Mass/Vol] 3.7 g/dL Normal 3.4-5.0 [facility] Comment on above: Performed By: #### L IPID, LIVER, TSH, BMP #### [facility] [address] [address] [address] Robert Singletary Albumin/Globulin [Mass ratio] 1.1 {ratio} Normal [facility] Comment on above: Performed By: #### L IPID, LIVER, TSH, BMP #### [facility] [address] [address] [address] Robert Singletary ALP [Catalytic activity/Vol] 65 U/L Normal 46-116 [facility] Comment on above: Performed By: #### L IPID, LIVER, TSH, BMP #### [facility] [address] [place] [address] Dr. Robert Singletary ALT [Catalytic activity/Vol] 24 U/L Normal 14-59 [facility] Comment on above: Performed By: #### L IPID, LIVER, TSH, BMP #### [facility] [address] [place] [address] Dr. Robert Singletary AST [Catalytic activity/Vol] 15 U/L Normal 15-37 [facility] Comment on above: Performed By: #### L IPID, LIVER, TSH, BMP #### [facility] [address] [place] [address] Dr. Robert Singletary BILI, CONJUGATED 0.1 mg/dL Normal 0.0-0.2 [facility] Comment on above: Performed By: #### L IPID, LIVER, TSH, BMP #### [facility] [address] [place] [address] Dr. Robert Singletary Bilirubin [Mass/Vol] 0.4 mg/dL Normal 0.2-1.0 [facility] Comment on above: Performed By: #### L IPID, LIVER, TSH, BMP #### [facility] [address] [place] [address] Dr. Robert Singletary Globulin (S) [Mass/Vol] 3.3 g/dL Normal [facility] Comment on above: Performed By: #### L IPID, LIVER, TSH, BMP #### [facility] [address] [place] [address] Dr. Robert Singletary Protein [Mass/Vol] 7.0 g/dL Normal 6.4-8.2 [facility] Comment on above: Performed By: #### L IPID, LIVER, TSH, BMP #### [facility] [address] [place] [address] Dr. Robert Singletary PROF CHEM 8 (BAS METB)on Anion gap [Moles/Vol] 10.2 mmol/L Normal [facility] Comment on above: Performed By: #### L IPID, LIVER, TSH, BMP #### [facility] [address] [place] [address] Dr. Robert Singletary Calcium [Mass/Vol] 9.6 mg/dL Normal 8.5-10.1 [facility] Comment on above: Performed By: #### L IPID, LIVER, TSH, BMP #### [facility] [address] [place] [address] Dr. Robert Singletary Chloride [Moles/Vol] 104 mmol/L Normal 98-107 [facility] Comment on above: Performed By: #### L IPID, LIVER, TSH, BMP #### [facility] [address] [place] [address] Dr. Robert Singletary CO2 [Moles/Vol] 29.1 mmol/L Normal 21.0-32.0 [facility] Comment on above: Performed By: #### L IPID, LIVER, TSH, BMP #### [facility] [address] [place] [address] Dr. Robert Singletary Creatinine [Mass/Vol] 0.65 mg/dL Normal 0.55-1.02 [facility] Comment on above: Performed By: #### L IPID, LIVER, TSH, BMP #### [facility] [address] [place] [address] Dr. Robert Singletary EGFR-AF COSTA RICAN >60 Normal >=60 [facility] Comment on above: Performed By: #### L IPID, LIVER, TSH, BMP #### [facility] [address] [place] [address] Dr. Robert Singletary EGFR-NON AF COSTA RICAN >60 Normal >=60 [facility] Comment on above: Performed By: #### L IPID, LIVER, TSH, BMP #### [facility] [address] [place] [address] Dr. Robert Singletary Glucose [Mass/Vol] 94 mg/dL Normal 74-106 [facility] Comment on above: Performed By: #### L IPID, LIVER, TSH, BMP #### [facility] [address] [place] [address] Dr. Robert Singletary Potassium [Moles/Vol] 4.3 mmol/L Normal 3.5-5.1 [facility] Comment on above: Performed By: #### L IPID, LIVER, TSH, BMP #### [facility] [address] [place] [address] Dr. Robert Singletary Sodium [Moles/Vol] 139 mmol/L Normal 136-145 [facility] Comment on above: Performed By: #### L IPID, LIVER, TSH, BMP #### [facility] [address] [place] [address] Dr. Robert Singletary Urea nitrogen [Mass/Vol] 11.0 mg/dL Normal 7.0-18.0 [facility] Comment on above: Performed By: #### L IPID, LIVER, TSH, BMP #### [facility] [address] [place] [address] Dr. Robert Singletary Urea nitrogen/Creatinine [Mass ratio] 16.9 mg/mg Normal [facility] Comment on above: Performed By: #### L IPID, LIVER, TSH, BMP #### [facility] [address] [place] [address] Dr. Robert Singletary TSHon 07-06-2022 TSH 1.590 uIU/mL Normal 0.358-3.740 [facility] Comment on above: Performed By: #### L IPID, LIVER, TSH, BMP #### [facility] [address] [place] [address] Dr. Robert Singletary HEMOGLOBINon 05-27-2022 Hemoglobin (Bld) [Mass/Vol] 11.5 g/dL Critically low 12.0-16.0 [facility] Comment on above: Performed By: #### H GB #### [facility] [address] [address] [address] Robert Singletary MG MAMM SCREEN 3D CRISTOFER CADon 04-28-2022 MG MAMM SCREEN 3D CRISTOFER CAD Patient: PRERNA PHELPS Exam Date: 04/28/2022 : 1955 Gender:F Ordering : DR TI WRIGHT . Admission #: [id number] Family : Order #: [id number] CLICK HERE TO VIEW EXAM RADIOLOGY REPORT [...] bladder cancer at age 77. LOCATION: [facility] BREAST COMPOSITION: Heterogeneously dense,which may obscure small [...] PALPABLE LUMP SHOULD BE BIOPSIED. Dictated by: Nikko Conde M.D. on 04/28/2022 at 12:50 Approved by: Nikko Conde M.D. on 04/28/2022 at 12:52 Normal [facility] PROF CHEM 8 (BAS METB)on Anion gap [Moles/Vol] 15.1 mmol/L Normal [facility] Comment on above: Performed By: #### B MP #### [facility] [address] [address] [address] Robert Singletary Calcium [Mass/Vol] 9.2 mg/dL Normal 8.5-10.1 [facility] Comment on above: Performed By: #### B MP #### [facility] [address] [place] [address] Dr. Robert Singletary Chloride [Moles/Vol] 103 mmol/L Normal 98-107 [facility] Comment on above: Performed By: #### B MP #### [facility] [address] [place] [address] Dr. Robert Singletary CO2 [Moles/Vol] 26.0 mmol/L Normal 22.0-30.0 [facility] Comment on above: Performed By: #### B MP #### [facility] [address] [place] [address] Dr. Robert Singletary Creatinine [Mass/Vol] 0.64 mg/dL Normal 0.52-1.04 [facility] Comment on above: Performed By: #### B MP #### [facility] [address] [place] [address] Dr. Robert Singletary EGFR-AF COSTA RICAN >60 Normal >=60 [facility] Comment on above: Performed By: #### B MP #### [facility] [address] [place] [address] Dr. Robert Singletary EGFR-NON AF COSTA RICAN >60 Normal >=60 [facility] Comment on above: Performed By: #### B MP #### [facility] [address] [place] [address] Dr. Robert Singletary Glucose [Mass/Vol] 86 mg/dL Normal 74-106 [facility] Comment on above: Performed By: #### B MP #### [facility] [address] [place] [address] Dr. Robert Singletary Potassium [Moles/Vol] 4.1 mmol/L Normal 3.4-5.0 [facility] Comment on above: Performed By: #### B MP #### [facility] [address] [place] [address] Dr. Robert Singletary Sodium [Moles/Vol] 140 mmol/L Normal 137-145 [facility] Comment on above: Performed By: #### B MP #### [facility] [address] [place], [place] [address] Dr. Robert Singletary Urea nitrogen [Mass/Vol] 12.0 mg/dL Normal 7.0-18.0 [facility] Comment on above: Performed By: #### B MP #### [facility] [address] [place], [place] [address] Dr. Robert Singletary Urea nitrogen/Creatinine [Mass ratio] 18.8 mg/mg Normal [facility] Comment on above: Performed By: #### B MP #### [facility] [address] [place], [place] [address] Dr. Robert Singletary Cardiovascular Lab Reporton 08-13-2020 Cardiovascular Lab Report [facility] Patient Name: Prerna Phelps [facility] MR #: [id number] Physician: Yecenia Finn Department of M.D. Medicine Service Date: 08/13/2020 Division of Birthdate: 1955 Cardiology Room #: [facility] [address] [address] Cardiovascular Laboratory Report FINAL IMPRESSIONS: 1. Non-obstructive coronary arteries. 2. Normal global left ventricular systolic function by noninvasive imaging. 3. Normal right-sided heart pressures. 4. Normal pulmonary capillary wedge pressure. 5. Normal cardiac output/cardiac index. RECOMMENDATIONS: 1. Consider alternate etiologies for the patient's symptomatology, namely pulmonary, musculoskeletal, and/or gastrointestinal. 2. Aggressive cardiovascular risk factor modification. 3. Follow up with [facility] Cardiology on an as-needed basis. 4. Follow up with Dr. Caesar Dexter as scheduled. PROCEDURES: Ultrasound-guided access to [...] access the right internal jugular vein. A 6-Anguillan glide sheath was inserted without difficulty. A [...] to access the left radial artery. A 6-Anguillan glide sheath was inserted without difficulty. Difficulty [...] P Yecenia Finn M.D. Date Dict: 08/13/2020/10:58 A/Yecenia Finn M.D. Date Trans: 08/13/2020 11:58 A/herberto [id number] cc: Caesar Dexter M.D. [address] [place] [address] A [facility] [id number] [facility] Vital Signs Date Time Vital Sign Value Performing Clinician Debbiei jean 03-10-2024 16:00-0400 Diastolic blood pressure 75 mm[Hg] MD Ti Wright Work Phone: [facility] 03-10-2024 16:00-0400 Heart rate 78 /min MD Ti Wright Work Phone: [facility] 03-10-2024 16:00-0400 Respiratory rate 16 /min MD Ti Wright Work Phone: [facility] 03-10-2024 16:00-0400 SaO2% (BldA) [Mass fraction] 96 % MD Ti Wright Work Phone: [facility] 03-10-2024 16:00-0400 Systolic blood pressure 129 mm[Hg] MD Ti Wright Work Phone: [facility] 03-10-2024 14:00-0400 Body height 162.56 cm MD Ti Wright Work Phone: [facility] 03-10-2024 14:00-0400 Body weight 67 kg MD Ti Wright Work Phone: [facility] 03-10-2024 13:41-0400 Body temperature 97.9 [degF] MD Ti Wright Work Phone: [facility] 08-05-2022 15:45-0400 Blood Pressure Location Dona Y[facility] 08-05-2022 15:45-0400 Diastolic blood pressure 80 mm[Hg] [facility] 10-12-2022 15:45-0400 Heart rate 68 /min [facility] 08-05-2022 15:45-0400 Respiratory rate 16 /min [facility] 08-05-2022 15:45-0400 Systolic blood pressure 138 mm[Hg] Dona Y[facility] Encounters Encounter Date Encounter Type Care Provider Facility Start: 04-30-2025 ambulatory Stephanie L Kalin Facility: [facility] Start: 04-28-2024 ambulatory Stephanie L Kalin Facility: [id number] Start: 04-24-2024 End: 04-24-2024 ambulatory Stephanie L Kalin Facility:[facility] Start: 03-28-2024 ambulatory Stephanie Kalin Facility:[facility] Start: 03-27-2024 End: 03-27-2024 ambulatory Stephanie L Kalin Facility:[facility] Start: 03-21-2024 End: 03-21-2024 ambulatory AB [facility] Start: 03-13-2024 ambulatory [facility] Start: 03-10-2024 End: 03-10-2024 Evaluation and management of inpatient MD iT Wright Work Phone: [facility] [place] [facility] Work Phone: Start: 03-09-2024 End: 03-13-2024 Emergency department patient visit [facility] Start: 09-30-2023 End: 09-30-2023 ambulatory AB [facility] Start: 10-14-2022 End: 10-14-[address] DONA YIP Facility:[facility] Start: 10-10-[address] DONA YIP Facilit y:[facility] Start: 08-05-2022 End: 08-05-2022 Patient encounter procedure Dona Y[facility] Start: 09-17-2022 Encounter for genera l adult medical examination without abnormal findings DR TI WRIGHT [facility] Start: 07-06-2022 End: 07-07-[address] TI WRIGHT Facility:[facility] Start: 07-06-2022 End: 07-07-2022 Encounter for general adult medical examination without abnormal findings DR TI WRIGHT Facility:[facility] Start: 05-27-2022 End: 05-28-[address] YECENIA FINN Facility:[facility] Start: 04-28-2022 End: 04-29-[address] NIKKO CONDE Facility:[facility] Start: 02-02-2022 End: 02-03-[address] YECENIA FINN Facility:[facility] Procedures Date Procedure Procedure Detail Performing Clinician Start: 03-10-2024 [facility] Angio MD Stanislav Wright Work Phone: Start: 03-10-2024 MD Ti yanes Work Phone: Start: 03-10-2024 Plain chest X-ray MD Albert Wright Work Phone: Start: 03-10-2024 MRI of head MD Ti yanes Work Phone: Start: 08-13-2020 Cardiac catheterization Dona YIP Start: 10-25-2006 Cardiac catheterization Dona YIP Colonoscopy Dona YIP Colonoscopy Dona YIP Extraction of wisdom tooth Stanislav YIP Ligation of fallopian tube M prasanna YIP Lumpectomy of right breast M prasanna YIP Plan of Treatment Date Care Activity Detail Author Start: 03-10-2024 [facility] Start: 03-10-2024 [facility] Start: 03-10-2024 Doppler ultrasonography of bilateral carotid arteries US carotid doppler BI [facility] Start: 03-10-2024 US.doppler Carotid arteries - bilateral [facility] Start: 03-10-2024 Referral to neurologist [facility] Start: 03-10-2024 Hospital admission [facility] Start: 03-10-2024 Referral to appraisal analyst [facility] Patient Education Rivaroxaban At orvastatin Carvedilol Hydroxyzine Lisinopril Spironolactone Know your Meds [facility] Work Phone: Patient referral [facility] Work Phone: Immunizations Immunization Date Immunization Notes Care Provider Fa cility 01-30-2021 COVID-19 mRNA-1273 (Moderna) [facility] 12-26-2020 COVID-19 mRNA-1273 ([facility]) [facility] Payers Date Payer Category Payer Medicare [id number] 2024 Self-pay [id number] 2023 Medicare [id number] Private Health Insurance [id number] 1955 Unknown [id number] [id number] 1955 Unknown [id number] 2.16.84 [id number] 1955 Unknown [id number] 2.16.84 [id number] 1955 Unknown [id number] 2.16.84 [id number] 1955 Unknown [id number] 2.16.84 [id number] 1955 Unknown [id number] 2.16.84 [id number] 1955 Unknown [id number] 2.16.8 [id number] 1955 Unknown [id number] 2.16.8 [id number] 1955 Unknown [id number] 2.16.8 [id number] 1955 Unknown [id number] 2.16.8 [id number] Unknown [id number] 2.16.8 [id number] Social History Date Type Detail [facility] Work Phone: Start: 1955 Sex Assigned At Female [facility] Start: 08-05-2022 End: 03-10-2024 Tobacco smoking status Never smoked tobacco (finding) [facility] Tobacco smoking status Never [facility] Sex Assigned At Female [facility] Goals Date Patient Goal Desired Activity /State Functional Status Date Assessment Result Facility 03-10-2024 Functional status [facility] at [facility] Work Phone: 08-05-2022 Functional Status N/A [facility] Mental Status Date Assessment Result Facility 03-10-2024 Cognitive function Cognitive Sta tus Patient at [facility] Work Phone: Clinical Notes 10-14-2022 to 04-24-2024 Note Date & Type Note Facility 04-24-2024 Note Patient Education Mental and Behavioral [facility] Mindfulness-Based Stress Reduction Mindfulness-based stress reduction (MBSR) is a program that helps people learn to practice mindfulness. Mindfulness is the practice of consciously paying attention to the present moment. MBSR focuses on developing self-awareness, which lets you respond to life stress without judgment or negative feelings. It can be learned and practiced through techniques such as education, breathing exercises, meditation, and yoga. MBSR includes several mindfulness techniques in one program. MBSR works best when you understand the treatment, are willing to try new things, and can commit to spending time practicing what you learn. MBSR training may include learning about: ? How your feelings, thoughts, and reactions affect your body. ? New ways to respond to things that cause negative thoughts to start (triggers). ? How to notice your thoughts and let go of them. ? Practicing awareness of everyday things that you normally do without thinking. ? The techniques and goals of different types of meditation. What are the benefits of MBSR? MBSR can have many benefits, which include helping you to: ? Develop self-awareness. This means knowing and understanding yourself. ? Learn skills and attitudes that help you to take part in your own health care. ? Learn new ways to care for yourself. ? Be more accepting about how things are, and let things go. ? Be less judgmental and approach things with an open mind. ? Be patient with yourself and trust yourself more. MBSR has also been shown to: ? Reduce negative emotions, such as sadness, overwhelm, and worry. ? Improve memory and focus. ? Change how you sense and react to pain. ? Boost your body's ability to fight infections. ? Help you connect better with other people. ? Improve your sense of well-being. How to practice mindfulness To do a basic awareness exercise: ? Find a comfortable place to sit. ? Pay attention to the present moment. Notice your thoughts, feelings, and surroundings just as they are. ? Avoid judging yourself, your feelings, or your surroundings. Make note of any judgment that comes up and let it go. ? Your mind may wander, and that is okay. Make note of when your thoughts drift, and return your attention to the present moment. To do basic mindfulness meditation: ? Find a comfortable place to sit. This may include a stable chair or a firm floor cushion. ? Sit upright with your back straight. Let your arms fall next to your sides, with your hands resting on your legs. ? If you are sitting in a chair, rest your feet flat on the floor. ? If you are sitting on a cushion, cross your legs in front of you. ? Keep your head in a neutral position with your chin dropped slightly. Relax your jaw and rest the tip of your tongue on the roof of your mouth. Drop your gaze to the floor or close your eyes. ? Breathe normally and pay attention to your breath. Feel the air moving in and out of your nose. Feel your belly expanding and relaxing with each breath. ? Your mind may wander, and that is okay. Make note of when your thoughts drift, and return your attention to your breath. ? Avoid judging yourself, your feelings, or your surroundings. Make note of any judgment or feelings that come up, let them go, and bring your attention back to your breath. ? When you are ready, lift your gaze or open your eyes. Pay attention to how your body feels after the meditation. Follow these instructions at home: ? Find a local in-person or online MBSR program. ? Set aside some time regularly for mindfulness practice. Practice every day if you can. Even 10 minutes of practice is helpful. ? Find a mindfulness practice that works best for you. This may include one or more of the following: ? Meditation. This involves focusing your mind on a certain thought or activity. ? Breathing awareness exercises. These help you to stay present by focusing on your breath. ? Body scan. For this practice, you lie down and pay attention to each part of your body from head to toe. You can identify tension and soreness and consciously relax parts of your body. ? Yoga. Yoga involves stretching and breathing, and it can improve your ability to move and be flexible. It can also help you to test your body's limits, which can help you release stress. ? Mindful eating. This way of eating involves focusing on the taste, texture, color, and smell of each bite of food. This slows down eating and helps you feel full sooner. For this reason, it can be an important part of a weight loss plan. ? Find a podcast or recording that provides guidance for breathing awareness, body scan, or meditation exercises. You can listen to these any time when you have a free moment to rest without distractions. ? Follow your treatment plan as told by your health care provider. This may include taking regular medicines and making singletary (more content not included)... [facility] 03-21-2024 Note [facility] Cardiology Clinic Note Chief Complaint: Patient here for follow up [facility]. She had heart cath and was diagnosed with Takotsubo cardiomyopathy and CVA. Her took his own life about 2-3 weeks ago. She is now on Xarelto and carvedilol. Still has some chest heaviness , but denies SOB and palpitations. HPI: Prerna Phelps is a 68 y.o. female Discharge diagnoses. 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 Elevated troponin 5. Acute heart failure with reduced ejection fraction Hospital course: Neurology recommended aspirin 81 mg daily. Cardiology started Xarelto. Cardiology ROS: Review of Systems Cardiovascular: Positive for chest pain (heaviness). Neurological: Positive for light-headedness. All other systems reviewed and are negative. [...] Disp: , Rfl: lisinopril 5 mg tablet, TAKE 1 TABLET BY MOUTH DAILY, Disp: 90 tablet, Rfl: 3 omeprazole (PriLOSEC) [...] Disp: , Rfl: Last Recorded Vitals BP 136/74 (BP Location: Right arm, Patient Position: Sitting) Pulse 55 Ht 1.626 m (5' 4 ) Wt 64.9 kg (143 lb) SpO2 99% BMI 24.55 kg/m??? Physical Examination: GENERAL: alert and oriented [...] extremities. PSYCH: appropriate mood, affect, and judgement. CV Testin07/23/2020 Echo Left Ventricle: The left [...] aorta. Overall Conclusions: No significant valvular abnormalities Echocardiogram 03/10/2024: Ejection fraction 40 to 45%, apical dyskinesis, moderate to severe anterolateral and inferior hypokinesis. Trace valvular regurgitation. IMPRESSION 1. Normal coronary arteries 2. Severe LV dysfunction with anterolateral, apical dyskinesia consistent with Takotsubo variant RECOMMENDATIONS Medical therapy Documented By: Mana Monet DO 03/10/24 1135 Signed By: 03/10/24 1138 Assessment: History of nonischemic cardiomyopathy; recovered Recently diagnosed TakoTsubo Cardiomyopathy Cardioembolic CVA on Eliquis Essential hypertension Left bundle branch block Mild dilatation of the ascending aorta Possible patent foramen ovale seen on echocardiography Plan: Continue current medical therapy including aspirin, high intensity statin therapy, a beta-katrina, and an angiotensin-converting enzyme inhibitor. She is also on spironolactone. For heart failure with reduced ejection fraction, an SGLT2 inhibitor (more content not included)... [facility] 03-10-2024 Progress note Note Date/Time March 10, 2024 4:40pm [facility] [address] [place] [address] Hospitalist Progress Note Signed Patient: Prerna Phelps MR#: [id number] 9 : 1955 Acct:[id number] Age/Sex: 68 / F Adm Date: 4 Loc: Room: [address] [place] [address] Type: ADM IN Attending Dr: Héctor Rainey DO Copies to: ~ Date of Service: 03/10/2024 Subjective Subjective Narrative: Patient seen and examined at bedside this morning. She denies any weakness, loss of balance, word finding difficulty, or any other focal neurologic deficitsthis morning. She denies chest pain, shortness of breath, cough, fevers, chills, diarrhea, abdominal pain, nausea, vision changes, and headache. Patientstates that she has had 2 heart catheterizations in the past, one was after a left bundle branch block was discovered and a stress test was performed which showed artifact, indicating the need for cardiac cath. No coronary findings were found. Her second heart cath was in 2019, her had a heart attack with triple bypass and the patient experienced acute chest pain. No coronary findings were found at that time. She does follow with a appraisal analyst out of [place]. Patient does mention that she was having intrascapular pain yesterday afternoon which is no longer present. Patient was re-examined after her cardiac cath and states she is feeling well. She states that she feels as if she is coping with the loss of her fairly well, patient is open to considering therapy or medication if needed, however she wants to try to cope with it on her own first. She is aware of the resources available to her. Exam Physical Exam Vital Signs: Temp Pulse Resp BP Pulse Ox O2 Del Method 97.9 F 70 18 163/85 H 99 Room Air 03/10/24 13:41 03/10/24 13:41 03/10/24 13:41 03/10/24 13:41 03/10/24 13:41 03/10/24 13:41 Narrative: GENERAL APPEARANCE: Alert, AAOx3. CARDIAC: Normal S1 and S2. No S3, S4 or murmurs. LUNGS: Clear to auscultation bilaterally no wheezes, crackles, rhonchi, rales. ABDOMEN: Positive bowel sounds. Nontender to palpation EXTREMITIES: No clubbing, cyanosis or peripheral edema NEUROLOGICAL: No focal deficits. Strength 5 out of 5 bilaterally, sensation intact bilaterally, CN's II-XII intact. Speech fluid SKIN: No pallor. Normal turgor. Skin of normal texture with no lesions or eruptions or rashes. PSYCHIATRIC: Appropriate mood and mildly flat affect Objective Lab Results 03/10/24 06:53 03/10/24 06:53 Meds Allergies and Active Meds Allergies Sulfa (Sulfonamide Antibiotics) Allergy (Severe, Verified 03/10/24 07:59) Rash Active Meds: Active Medications Generic Name Dose Route Start Last Admin Trade Name Freq PRN Reason Stop Dose Admin Acetaminophen 650 mg 03/10/24 03:04 Acetaminophen 650 Mg Supp.Rect VT 03/10/25 03:03 Q6HR PRN Fever > 100.4 F Acetaminophen 650 mg 03/10/24 07:14 Acetaminophen 325 Mg Tablet PO 03/10/25 07:13 Q4H PRN Pain or fever Acetaminophen 1,000 mg 03/10/24 11:33 Acetaminophen 500 Mg Tablet PO 03/10/25 11:32 Q6H PRN Mild Pain Al Hydrox/Mg Hydrox/Simethicone 30 ml 03/10/24 11:33 Mag Hydrox/Al Hydrox/Simeth 30 Ml Udc PO 03/10/25 11:32 Q4H PRN Epigastric distress (Non-Card) Aspirin 81 mg 03/10/24 09:00 03/10/24 09:10 Aspirin 81 Mg Tablet. PO 03/10/25 08:59 81 mg DAILY [facility] Administration Atorvastatin Calcium 80 mg 03/10/24 21:00 Atorvastatin 80 Mg Tablet PO 03/10/25 20:59 QPM [facility] Carvedilol 6.25 mg 03/10/24 17:00 Carvedilol 6.25 Mg Tablet PO 03/10/25 16:59 BID.WITH.MEALS [facility] Docusate Sodium 100 mg 03/10/24 11:33 Docusate 100 Mg Capsule PO 03/10/25 11:32 QHS PRN Constipation Potassium Chloride/Dextrose/Sod Cl 1,000 mls @ 150 mls/hr 03/10/24 09:30 03/10/24 10:32 D5w-0.45 % Nacl-40 Meq Kcl IV 03/10/25 09:29 150 mls/hr .Q6H40M [facility] Administration Lisinopril 2.5 mg 03/11/24 09:00 Lisinopril 2.5 Mg Tablet PO 03/11/25 08:59 DAILY [facility] Morphine Sulfate 4 mg 03/10/24 11:33 Morphine Sulfate 4 Mg/Ml Cartridge IV-PUSH Q20M PRN Chest Pain Nitroglycerin 0.4 mg 03/10/24 11:33 Nitroglycerin 0.4 Mg Tab.Subl SUBLINGUAL 03/10/25 11:32 Q5M PRN Chest Pain Ondansetron HCl 4 mg 03/10/24 11:33 Ondansetron 4 Mg/2 Ml Vial IV-PUSH 03/10/25 11:32 Q6H PRN Nausea And Vomiting Pantoprazole Sodium 40 mg 03/10/24 09:00 03/10/24 09:10 Pantoprazole 40 Mg Tablet.Dr PO 03/10/25 08:59 40 mg DAILY [facility] Administration Potassium Chloride 40 meq 03/10/24 09:56 Potassium Chloride Er 20 Meq Tab.Er.Prt PO STAT PRN Hypokalemia Sodium Chloride 0 ml 03/10/24 09:56 Sodium Chloride 0.9 % 10 Ml Syringe IV-PUSH 03/10/25 09:55 PRN PRN Flush Spironolactone 12.5 mg 03/11/24 09:00 Spironolactone 12.5 Mg Tablet PO 03/11/25 08:59 DAILY [facility] Tramadol HCl 50 mg 03/10/24 11:33 Tramadol 50 Mg Tablet PO 09/06/24 11:32 Q6H PRN Moderate Pain Triamcinolone Acetonide 1 applic 03/10/24 11:33 Triamcinolone 0.1% Cream 15 Gm Tube TOPICAL 03/10/25 11:32 QID PRN Irritation A&P - Hospitalist Assessment/Plan (1) Embolic stroke: (2) Alien limb phenomenon: (3) Takotsubo cardiomyopathy: (4) Elevated troponin: (5) Acute HFrEF (heart failure with reduced ejection fraction): Plan 1. Acute embolic strokes, with alien limb phenomenon. 2. Elevated troponin due to: 3. Takotsubo cardiomyopathy, with: 4. Acute heart failure with reduced ejection fraction (left ventricular ejection fraction 35%. - Patient had elevated troponin, aphasia, alien limb phenomenon, and right hemiparesis likely secondary to 2 embolic strokes, fortunately her neurologic symptoms were very brief and have completely resolved. Apical dyskinesia noted on echo, consistent with takotsubo. Cardiac cath did not reveal any CAD. - Cardiology recommends reducing lisinopril dose and starting carvedilol. Start Xarelto pending Brain MRI results. - Follow-up with outpatient cardiology, needs to have repeat Echo. - Neurology recommends continuing aspirin 81mg daily and discontinuing Plavix. Start a DOAC. Pending MRI read. ++++ ++++ The patient was seen after cardiac catheterization by myself and the medical student and resident team with documentation as above. After the cardiac catheterization the patient is absolutely asymptomatic withoutany chest pain or any chest pressure. She has no shortness of breath. We discussed the cardiac catheterization findings. She seems to understand whatcardiology told her with a great deal of accuracy. I asked her if she may need any help with medications for anxiety and depression. She declines any need for medications at this time. I did encourage her strongly to get linked in with counseling services because I thinkthat would be very helpful. She did except agreement with that plan of care. A short time later the results of the MRI of the brain came back. They are as follows: FINDINGS: 2 small focal areas of restriction diffusion is seen involving the left frontoparietal region with associated T2 and T2 FLAIR abnormal signal suggestiveof subacute ischemia. No evidence of blood products are seen on T2 Star imaging.Cortical atrophy with mild chronic microvascular ischemic changes are noted. Midbrain, ara, medulla and cerebellum all appear unremarkable. Interval contents appear unremarkable. Visualized paranasal sinuses appear clear. Midlinestructures demonstrate no acute findings. MR/MR head/brain wo con IMPRESSION: 2 SMALL AREAS OF RESTRICTED DIFFUSION ARE SEEN INVOLVING THE LEFT FRONTOPARIETALREGION WITH ASSOCIATED ABNORMAL T2 AND T2 FLAIR SIGNAL SUGGESTIVE OF AREAS OF SUBACUTE ISCHEMIA. I discussed this by telephone with neurology with Dr. Lay. He is agreeable to the plan for Xarelto. I discussed results with the patient in her rooom. She expressed understanding and had no additional questions. The patient wants to be discharged tonight. I encouraged her to stay in the hospital 1 more night given that she had a cardiac catheterization in the strokeand is on new medications. But she declined this, wanting to go home even if itis later in the evening tonight. She is actually staying with her daughter because her home is not really inhabitable right now due to what happened there and how bad the bedroom's condition is. So I will morena her to be able to go home and be with family and she certainly will be emotionally and psychiatrically better to be with close family members at this time. I personally examined the patient on this day of the encounter. I reviewed the relevant history, performed the simpson elements of the physical examination, and coordinated the plan of care and I confirmed the resident's medical documentation as written. - - - Héctor Rainey DO. Internal Medicine + Hospitalist attending physician. Documented By: Héctor Rainey DO [id number] Signed By: <Electronically signed by Héctor Rainey DO> 03/10/24 [id number] Work Phone: 1(773) 785-175805-17-2024 Consult note Author Dallas Norton [facility] March 10, 2024 2:15pm Note Date/Time March 10, 2024 11:07 am [facility] [address] [place] [address] Neurology Consult Note Signed Patient: Prerna Phelps MR#: [id number] 9 : 1955 Acct:[id number] Age/Sex: 68 / F Adm Date: 4 Loc: Room: [address] [place] [address] Type: ADM IN Attending Dr: Héctor Rainey DO Copies to: DO Héctor Hunt DO Marc Naderer, MD~ HPI Consult Date: 03/10/24 Plant Production Manager: Dallas Norton DO [facility] Social History Smoking Status: Never smoker Substance Use Type: None Meds Medications and Allergies Allergies Sulfa (Sulfonamide Antibiotics) Allergy (Severe, Verified 03/10/24 07:59) Rash Home Medications aspirin 81 mg tablet,delayed release (Adult Low Dose Aspirin) 81 mg PO DAILY 03/10/24 [History Confirmed 03/10/24] lisinopril 5 mg tablet 5 mg PO DAILY 03/10/24 [History Confirmed 03/10/24] omeprazole 20 mg capsule,delayed release 20 mg PO DAILY 03/10/24 [History Confirmed 03/10/24] Exam Physical Exam Vital Signs: Temp Pulse Resp BP Pulse Ox O2 Del Method 97.7 F 76 16 134/75 96 Room Air 03/10/24 07:56 03/10/24 07:56 03/10/24 07:56 03/10/24 07:56 03/10/24 07:56 03/10/24 08:00 Results - Neuro Laboratory Findings 03/10/24 06:53 03/10/24 06:53 Diagnostic Findings Imaging/Impressions: ITS Impressions Chest X-Ray 03/10/24 07:12 IMPRESSION: No acute process. Impression dictated by: Luis Fernando Bunch M.D.03/10/2024 7:52 AM Dictation Location: [place] [address] Assessment/Plan (1) Alien limb phenomenon: (2) Transient ischemic attack: Plan CONSULT REASON: Aphasia and right-sided weakness HPI: 68-year-old woman with history of hypertension. 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 She felt like her armwas disconnected from her body and that she had no control over it. At 1 point it felt completely disconnected from her body and moved involuntarily across herchest in what sounds like, as described, alien limb phenomena. Her daughter thought her speech was unintelligible and noted significant word finding difficulty. Her daughter went to the house to get her and she was brought to the [facility] emergency department. Symptoms were said to resolve within 30 minutes of arriving to [facility]. CT head and CT angiography were reportedly unremarkable. She was loaded with Plavix and transferred to [facility] for further evaluation. She had mentioned intrascapular pain andhad elevated troponins and there was concern that this is anginal in nature, andcoronary angiography revealed Takotsubo cardiomyopathy. Of note, within this past week her of suicide. EXAMINATION: In no distress. No deformities or trauma. Limbs seem well-perfused. No significant edema. Normal work of breathing. Visualized skin is generally intact and without lesions. Affect normal. Patient is alert and generally oriented. Attention normal. Speech is fluent and nondysarthric. Pupils are equal and reactive. Ocular motility is full. No nystagmus. Facial sensation is normal. Hearing is normal. Facial strength is normal. Tongue is midline. Muscle bulk, tone, and strength are normal. No tremors. Reflexes normal throughout. Light touch is normal. Vibratory sensation is normal. No limb dysmetria or ataxia. DATA REVIEW: -Troponin 319 -Total cholesterol 172, LDL 80, HDL 76 -CT head and CT angiography from [facility] were reportedly unremarkable ASSESSMENT: Presumed transient ischemic attack involving the left cerebral hemisphere, and causing right hemiparesis, alien limb phenomena, and aphasia. MRI is pending and I am not expecting it to show any acute ischemic changes. She has active Takotsubo cardiomyopathy and the apical dyskinesia and dilation would predisposeher to cardioembolic cerebrovascular disease. I believe this to be the most likely etiology for her TIA. PLAN: 1. Aspirin 81 mg daily was a home medication and can be continued. Clopidogrelwas started yesterday. I am in favor of discontinuing her clopidogrel and starting a direct oral anticoagulant. 2. MRI brain is pending Documented By: Dallas Norton DO 03/10/24 1103 Signed By: <Electronically signed by Dallas Norton DO> 03/10/24 [address] [facility] Work Phone: 1(306) 540-304005-17-2024 Progress note Author Bartolome Wheeler [facility] March 10, 2024 12:20pm Note Date/Time March 10, 2024 12:21 pm [facility] [address] [place] [address] Cardiology Progress Note Signed Patient: Prerna Phelps MR#: [id number] 9 : 1955 Acct:[id number] Age/Sex: 68 / F Adm Date: 4 Loc: Room: [address] [place] [address] Type: ADM IN Attending Dr: Héctor Rainey DO Copies to: ~ Date of Service: 03/10/2024 Subjective Principal diagnosis: Takotsubo cardiomyopathy, TIA Interval history: Case discussed with Dr. Monet after coronary angiography. Cardiac catheterization results were favorable demonstrating no disease. Because of this we believe the troponin elevation to be on the basis of Takotsubo cardiomyopathy. Her ventriculogram was pathognomonic for this phenomenon. It is very probable that the patient's transient ischemic attack could have beenon the basis of a cardioembolic event (LV thrombus due to apical dyskinesia). No thrombus was witnessed on ventriculogram. Echocardiogram pending. I would favor, though, the addition of an antithrombotic agent either warfarin or an NOAC. Obviously a NOAC would be more convenient. I discussed this concept with neurology and they will render an opinion in this regard after brain imaging has been performed (to determine whether or not stroke is occurred, which would complicate the use of antithrombotic therapy) Exam Physical Exam Vital Signs: Temp Pulse Resp BP Pulse Ox O2 Del Method 97.7 F 76 16 134/75 96 Room Air 03/10/24 07:56 03/10/24 07:56 03/10/24 07:56 03/10/24 07:56 03/10/24 07:56 03/10/24 08:00 HEENT Head: normal to inspection Ears: hearing grossly normal bilaterally Nose: external nose normal and nares normal Face and sinus: normal facial exam Mouth: oral mucosae normal and tongue normal Eyes Conjunctivae: conjunctivae normal Sclera: sclerae normal Neck Neck: normal visual inspection Carotids: normal carotid upstroke Lymphatic: no lymphadenopathy noted Chest Chest palpation & inspection: normal inspection of the chest Resp Effort & Inspection: normal respiratory effort Auscultation: clear to auscultation bilaterally Cardio Rate: regular rate Rhythm: regular rhythm Heart Sounds: S1 normal and S2 normal GI Inspection: normal to inspection Palpation: soft Skin General: no rashes or lesions noted Neuro General: patient alert, patient awake and patient oriented x3 Cognition: normal cognition Motor: muscle tone normal throughout Sensory Exam: no sensory deficits noted Objective Labs 03/10/24 06:53 03/10/24 06:53 Labs: Laboratory Results - last 24 hr 03/10/24 03/10/24 06:53 06:53 Corrected WBC 5.8 Uncorrected WBC Count 5.8 RBC 4.15 Hgb 12.1 Hct 36.2 MCV 87.2 MCH 29.3 MCHC 33.6 RDW 13.6 Plt Count 306 MPV 6.5 Neut % (Auto) 47.6 Lymph % (Auto) 39.5 Kleberg % (Auto) 9.8 Eos % (Auto) 2.1 Baso % (Auto) 1.0 Nucleat RBC Rel Count 0.1 Neut # (Auto) 2.8 Lymph # (Auto) 2.3 Kleberg # (Auto) 0.6 Eos # (Auto) 0.1 Baso # (Auto) 0.1 PHA Creatinine Clear 65.11 Sodium 142 Potassium 3.6 Chloride 108 H Carbon Dioxide 26.5 Anion Gap 11.1 BUN 9 Creatinine 0.70 Est GFR (CKD-EPI) > 60.0 Glucose 91 Calcium 9.1 Magnesium 1.9 Cancelled Total Bilirubin 0.5 AST 19 ALT 15 Alkaline Phosphatase 66 Troponin I High Sens 318.9 H* Total Protein 5.9 L Albumin 3.8 Globulin 2.1 Albumin/Globulin Ratio 1.8 Triglycerides 80 Cholesterol 172 LDL Cholesterol, Calc 80 VLDL Cholesterol 16 HDL Cholesterol 76 Cholesterol/HDL Ratio 2.3 A&P - Cardiology (1) Elevated troponin: Assessment/Problem Details: Elevated troponins most likely in the basis of acute Takotsubo cardiomyopathy. She has no coronary disease on angiogram. Code(s): R79.89 - Other specified abnormal findings of blood chemistry (2) Transient ischemic attack: Assessment/Problem Details: With apical dyskinesia it is possible for the patient to have had a TIA on the basis of LV thrombus. Ideally antithrombotic agent should be implemented. A final decision in this regard will be provided by neurology after brain imaging has been completed. Code(s): G45.9 - Transient cerebral ischemic attack, unspecified Plan Reduce lisinopril dose. Add carvedilol. Both ordered by Dr. Monet already. Presently she is on aspirin and Plavix. If in fact she appears an acceptable candidate for anticoagulant therapy I believe monotherapy with an antiplatelet agent in combination with an antithrombotic agent would be an appropriate combination of anticoagulant and/or antithrombotic agents. Cardiovascular evaluation is basically completed. Patient could be discharged after neurology evaluation and intervention is completed as well. Documented By: Bartolome Wheeler MD [id number] Signed By: <Electronically signed by MD Bartolome Wheeler> 03/10/24 [facility] Work Phone: 1(332) 239-621705-17-2024 Consult note Author Bartolome Wheeler [facility] March 10, 2024 10:01am Note Date/Time March 10, 2024 10:01 am [facility] [address] [place] [address] Cardiology Consult Note Signed Patient: Prerna Phelps MR#: [id number] 9 : 1955 Acct:[id number] Age/Sex: 68 / F Adm Date: 4 Loc: Room: [address] [place] [address] Type: ADM IN Attending Dr: Héctor Rainey DO Copies to: DO Ti Johnston MD William Patrick McGuinn, MD~ Cardiology HPI History of Present Illness Consult Date: 03/10/24 Reason for Consult: New onset angina with troponin elevation HPI: Ms. Phelps is a 68 year old female seen for the above She is an individual who presents primarily because of acute neurologic symptomatology. Specifically, in this regard, she developed the abrupt onset ofright upper extremity weakness and clumsiness. At the same time she developed expressive aphasia. She was unable to speak or perform texting on her phone. Eventually she was able to contact her daughter who took her to the [facility] emergency room. There her neurologic symptomatology resolved but she was found to have an elevated troponin of 600. She has a baseline left bundle branch block She is not known to have coronary disease. She is treated for hypertension. She is a never smoker nondiabetic with no history of hyperlipidemia. Father hadcoronary disease. Siblings no CAD. Her neurologic symptomatology appears to resolved. It sounds like middle cerebral artery, left hemisphere. Carotid ultrasound is pending. Examination is relatively unremarkable from a neurologic standpoint and I appreciate no bruits. She has no history of atrial fibrillation. Additionally the patient's been experiencing intrascapular pain. It sounds anginal in nature. The symptomatology actually had preceded her neurologic constellation of symptomatology hence it is possible she was experiencing myocardial ischemia causing interscapular pain and the attendant elevation of troponins. Review of Systems Review of Systems All other systems reviewed & are negative unless noted below or in HPI Constitutional Constitutional: Reports system reviewed and no additional complaints, except as documented Eyes Eyes: Reports system reviewed and no additional complaints, except as documented ENT Ears, Nose, Mouth, and Throat: Reports system reviewed and no additional complaints, except as documented Cardiovascular Cardiovascular: Reports as per HPI Respiratory Respiratory: Reports system reviewed and no additional complaints, except as documented Gastrointestinal Gastrointestinal: Reports system reviewed and no additional complaints, except as documented Genitourinary Genitourinary: Reports system reviewed and no additional complaints, except as documented Musculoskeletal Musculoskeletal: Reports system reviewed and no additional complaints, except asdocumented Integumentary/Breasts Skin/Breast: Reports system reviewed and no additional complaints, except as documented Neurologic Neurologic: Reports as per HPI Psychiatric Psychiatric: Reports system reviewed and no additional complaints, except as documented Endocrine Endocrine: Reports system reviewed and no additional complaints, except as documented Hematologic/Lymphatic Hematologic/Lymphatic: Reports system reviewed and no additional complaints, except as documented Allergic/Immunologic Allergic/Immunologic: Reports system reviewed and no additional complaints, except as documented PMFSH Social History Smoking Status: Never smoker Substance Use Type: None Meds Medications and Allergies Allergies Sulfa (Sulfonamide Antibiotics) Allergy (Severe, Verified 03/10/24 07:59) Rash Home Medications aspirin 81 mg tablet,delayed release (Adult Low Dose Aspirin) 81 mg PO DAILY 03/10/24 [History Confirmed 03/10/24] lisinopril 5 mg tablet 5 mg PO DAILY 03/10/24 [History Confirmed 03/10/24] omeprazole 20 mg capsule,delayed release 20 mg PO DAILY 03/10/24 [History Confirmed 03/10/24] Exam Physical Exam Vital Signs: Temp Pulse Resp BP Pulse Ox O2 Del Method 97.7 F 76 16 134/75 96 Room Air 03/10/24 07:56 03/10/24 07:56 03/10/24 07:56 03/10/24 07:56 03/10/24 07:56 03/10/24 07:56 HEENT Head: normal to inspection Ears: hearing grossly normal bilaterally Nose: external nose normal and nares normal Face and sinus: normal facial exam Mouth: oral mucosae normal and tongue normal Eyes Conjunctivae: conjunctivae normal Sclera: sclerae normal Neck Neck: normal visual inspection Carotids: normal carotid upstroke Lymphatic: no lymphadenopathy noted Chest Chest palpation & inspection: normal inspection of the chest Resp Effort & Inspection: normal respiratory effort Auscultation: clear to auscultation bilaterally Cardio Rate: regular rate Rhythm: regular rhythm Heart Sounds: S1 normal and S2 normal GI Inspection: normal to inspection Palpation: soft Skin General: no rashes or lesions noted Neuro General: patient alert, patient awake and patient oriented x3 Cognition: normal cognition Motor: muscle tone normal throughout Sensory Exam: no sensory deficits noted Results - Cardiology Labs 03/10/24 06:53 03/10/24 06:53 Lab results: Cardiac Enzymes 03/10/24 Range/Units 06:53 AST 19 (13-39) U/L Lipids 03/10/24 Range/Units 06:53 Triglycerides 80 (0-149) mg/dL Cholesterol 172 (140-200) mg/dL HDL Cholesterol 76 (23-92) mg/dL Cholesterol/HDL Ratio 2.3 (<5.0) CBC 03/10/24 Range/Units 06:53 RBC 4.15 (3.60-5.00) X10E6/uL Hgb 12.1 (11.8-15.4) g/dL Hct 36.2 (34.0-46.4) % Plt Count 306 (150-450) x10E3/uL Neut # (Auto) 2.8 (1.8-7.7) x10E3/uL Lymph # (Auto) 2.3 (1.00-4.8) x10E3/uL Kleberg # (Auto) 0.6 (0.0-0.8) x10E3/uL Eos # (Auto) 0.1 (0.0-0.45) x10E3/uL Baso # (Auto) 0.1 (0.0-0.2) x10E3/uL Comprehensive Metabolic Panel 03/10/24 Range/Units 06:53 Sodium 142 (136-145) mmol/L Potassium 3.6 (3.5-5.1) mmol/L Chloride 108 H (98-107) mmol/L Carbon Dioxide 26.5 (21.0-31.0) mmol/L BUN 9 (7-25) mg/dL Creatinine 0.70 (0.60-1.20) mg/dL Glucose 91 (70-100) mg/dL Calcium 9.1 (8.6-10.3) mg/dL AST 19 (13-39) U/L ALT 15 (7-52) U/L Alkaline Phosphatase 66 (34-104) U/L Total Protein 5.9 L (6.4-8.9) gm/dL Albumin 3.8 (3.5-5.7) gm/dL Intake and Output 03/09/24 03/10/24 03/10/24 23:59 07:59 15:59 Other: # Unmeasured Voids 1 # Bowel Movements 0 Weight 67 kg Date of Last Bowel Movement 03/09/24 Patient Weight 03/10/24 23:59 Weight 67 kg A&P - Cardiology (1) Transient ischemic attack: Assessment/Problem Details: Patient presentation was predominantly for TIA. Right upper extremity and also expressive aphasia. Resolved. No obvious carotid disease but I believe carotidultrasonography should be undertaken and this will be ordered. Antiplatelet therapy implemented and I concur with this intervention. No evidence of atrial fibrillation or any findings that would suggest cardioembolic phenomenon. Code(s): G45.9 - Transient cerebral ischemic attack, unspecified (2) Elevated troponin: Assessment/Problem Details: Elevated troponins also intrascapular pain. Sounds anginal in nature. It is very possible that the patient's stress sores, not mentioned in this consult, have triggered anginal symptomatology and the troponin elevation. Code(s): R79.89 - Other specified abnormal findings of blood chemistry Plan I recommend coronary angiography. Contacted Dr. Monet in this regard. Patient is n.p.o. and will perform that this morning I also believe carotid ultrasonography should be performed. Also to exclude Takotsubo syndrome an echocardiogram is also ordered. Documented By: Bartolome Wheeler MD [id number] Signed By: <Electronically signed by MD Bartolome Wheeler> 03/10/24 1000 [facility] Work Phone: 1(602) 672-650305-17-2024 [facility] History and physical note Author Moises Burciaga [facility] March 10, 2024 7:17am Note Date/Time March 10, 2024 7:17a m [facility] [address] [place] [address] Hospitalist H&P Signed Patient: Prerna Phelps MR#: [id number] 9 : 1955 Acct:[id number] Age/Sex: 68 / F Adm Date: 4 Loc: 3T Room: [address] [place] [address] Type: ADM IN Attending Dr: Moises Burciaga MD Copies to: MD Ti Kendall MD~ [facility] DATE OF EXAMINATION: 03/10/24 CHIEF COMPLAINT: right hand weakness, expressive aphasia HISTORY OF PRESENT ILLNESS: 68 year old woman with history of HTN presenting with right hand weakness and expressive aphasia Per the patient around 1600 on date of presentation she was working in her garage and noted she was unable to pick things up with her right hand. she wentinside and noted she had difficulty using a spoon and fork to eat soup. she then contacted her daughter who noted that her speech was unintelligible and shewas having difficulty finding words. daughter rushed to her house to get her, she was still having troubel with word finding and was brought to [facility] for evaluation. NIHSS was initially 1- symptoms resolved within 30 minutes of arrival there. CTH and CTA were unremarkable. she was loaded with plavix and transferred here for further evaluation no recurrence of symptyoms. pt has not had any recent chest pain dyspnea or lightheadedness. she has been under much emotional distress as her committed suicide earlier this week. ROS: 10 systems reviewed and negative except as noted in the [facility] Social History Smoking Status: Never smoker Substance Use Type: None Meds Medications and Allergies Home Medications aspirin 81 mg tablet,delayed release (Adult Low Dose Aspirin) 81 mg PO DAILY 03/10/24 [History Confirmed 03/10/24] lisinopril 5 mg tablet 5 mg PO DAILY 03/10/24 [History Confirmed 03/10/24] omeprazole 20 mg capsule,delayed release 20 mg PO DAILY 03/10/24 [History Confirmed 03/10/24] Exam Physical Exam Vital Signs: Temp Pulse Resp BP Pulse Ox O2 Del Method 97.7 F 74 16 138/82 99 Room Air 03/10/24 04:00 03/10/24 04:00 03/10/24 04:00 03/10/24 04:00 03/10/24 04:00 03/10/24 04:00 Const General: cooperative, no acute distress and well developed HEENT Head: normal to inspection Ears: external ears normal Nose: external nose normal Face and sinus: normal facial exam Mouth: oral mucosae normal Throat: posterior oropharynx normal Eyes General: appearance normal, both eyes and all related structures Visual Engel: normal visual engel by confrontation Sclera: sclerae normal Pupils: PERRL and accommodation normal Neck Neck: normal visual inspection, no lymphadenopathy and supple Thyroid: thyroid normal Lymphatic: no lymphadenopathy noted Chest Chest palpation & inspection: normal inspection of the chest Resp Effort & Inspection: normal respiratory effort, able to speak in complete sentences and symmetric chest movement Auscultation: clear to auscultation bilaterally Cardio Palpation: normal PMI Rate: regular rate Rhythm: regular rhythm Heart Sounds: S1 normal and S2 normal GI Inspection: normal to inspection Palpation: soft Auscultation: normal bowel sounds General: bladder normal to palpation Bimanual Exam- Vagina & Uterus: bladder normal to palpation Musc Cervical Spine: cervical ROM normal Thoracic/Lumbar Spine: thoracic and lumbar spine normal to inspection Skin General: no rashes or lesions noted and turgor normal Neuro General: patient alert, patient awake and patient oriented x3 Speech: speech normal Extrem General: normal to inspection and full ROM Psych Appearance: grossly normal Mental Status: mental status grossly normal Affect: normal affect Speech and Movement: speech and movement normal Attitude: cooperative Assessment & Plan Assessment/Plan (1) Transient ischemic attack: (2) Elevated troponin: Plan TIA- high risk, ABCD2 score of 5 admit to medicine serial neurologic checks continue plavix- loaded at [facility] MRI brain consider neurology consult if abnormal elevated troponin- no chest pain or ECG change - ??takosubo? - echo, cardiology consult - repeat troponin pending FULL CODE IP vs OBS Justification Based on differential dx, clinical care plan, and risk of adverse events, if untreated, in my clinical judgement this patient requires an acute care setting as: OBSERVATION because of an expectation of an under 2 midnight stay. Estimated length of stay (# of days): 2 NIH Scale Assessment Type Type Of Assessment: Other/ Reassessment NIH Stroke Scale Level Of Consiousness: Alert, Keenly Responsive LOC Questions: Answers Both Correctly LOC Commands: Obeys Both Correctly Best Gaze: Normal Visual: No Visual Field Loss Facial Palsy: Normal Symmetrical Movement Motor Arm - Left: No Drift Motor Arm - Right: No Drift Motor Leg - Left: No Drift Motor Leg - Right: No Drift Limb Ataxia: Absent Sensory: Normal Best Language Comperehension: No Aphasia Dysarthria: Normal Articulation Extinction/Inattention: No Neglect NIH Score: 0 Documented By: Moises Burciaga MD 03/10/24 0710 Signed By: <Electronically signed by Moises Burciaga MD> 03/10/24 0717 [facility] Work Phone: 1(334) 632-720512-07-2023 [facility] Chief Complaint: Patient [...] should problems arise Yecenia Finn MD, MPH, [facility], [facility], [facility] Interventional Cardiology Pager Email: [email or web address] NoteOPERATIVE NOTE OPERATION DATE: 10/14/2022 PREOPERATIVE DIAGNOSIS: Colorectal [...] 10 years for screening. CC: Patient's family physicianThe [facility]Dis[facility] summary Author Héctor Rainey [facility] March 10, 2024 9:20pm Note Date/Time March 10, 2024 5:20p [facility] EN[facility] [address] [place] [address] Discharge Summary Signed Patient: Prerna Phelps MR#: [id number] 9 : 1955 Acct:[id number] Age/Sex: 68 / F Adm Date: 4 Loc: Room: [address] [place] [address]: Héctor Rainey DO Copies to: DO Ti Alonzo MD~ Providers Date of Discharge: 03/10/24 Discharging Provider: Héctor Rainey Primary Care Provider: Ti Wright Consults: 03/10/24 03:04 Consult to Cardiology Routine Comment: Consulting Provider: [facility] Reason For Exam: elevated troponin, LBBB Has Provider Been Notified: Yes Date of Notification: 03/10/24 Time of Notification: 04:53 03/10/24 07:12 Consult to Neurology Routine Comment: Consulting Provider: Dallas Norton Reason For Exam: aphasia and right sided weakness Has Provider Been Notified: Yes Date of Notification: 03/10/24 Time of Notification: 07:55 Discharge Diagnosis (1) Embolic stroke: (2) Alien limb phenomenon: (3) Takotsubo cardiomyopathy: (4) Elevated troponin: (5) Acute HFrEF (heart failure with reduced ejection fraction): Final Diagnosis Final Discharge Diagnosis: Acute embolic stroke, with 2 small areas of restricted diffusion seen involving the left frontoparietal region. Stroke symptoms at home with right hemiparesis, alien limb phenomenon, and aphasia, which resolved rapidly. Alien limb phenomenon. Acute Takotsubo's cardiomyopathy. Acute heart failure with reduced ejection fraction (left ventricular ejection fraction 35%.) Severe left ventricle dysfunction on cardiac catheterization with anterolateral pleural, apical kinesis. Clear coronary arteries with no coronary artery atherosclerosis on cardiac catheterization. Summary Hospital Course Hospital course: This is a 68-year-old woman who presented to an outside hospital with symptoms of a stroke. At that hospital she had elevated troponins in the 600 range. Lately she has been undergoing a very stressful situation. Her has recently . She has been working on planning his which is just a couple days from now. In the outpatient basis she suddenly developed an abrupt onset of right upper extremity weakness and clumsiness. At the same time she developed expressive aphasia. She was unable to speak or perform texting on her phone. She was ableto contact her daughter who can tell that her speech was not normal. [facility] took [facility] emergency [facility]. There is CTA of the head neck arterial system and noncontrast CT scan of the head were unrevealing. Her neurologic symptomatology was improving but she had consistently elevated troponins of 200 and a left bundle branch block. She was transferred [facility] to be evaluated by cardiology and neurology. She was taken for cardiac catheterization where she has entirely clear coronary arteries but was found to have focal ballooning syndrome. Her left ventricular ejection fraction on cardiac catheterization was 35%. On transthoracic echocardiogram her left jugular extraction is 4045% but there was apical dyskinesis, moderate to severe anterior wall hypokinesis, moderate to severe lateral wall hypokinesis, moderate to severe inferior wall hypokinesis, trace mitral regurgitation, and trace of tricuspid regurgitation. She was seen by neurology. Both cardiology and neurology proposed that a cardio-embolic phenomenon could be the etiology of the stroke. MRI of the brainwas done which did demonstrate 2 small areas of restricted diffusion involving the left frontoparietal region with associated abnormal T2 and T2 FLAIR signal suggestive of areas of ischemia. Neurology recommended continuing the aspirin 81 mg daily that she has about starting her on anticoagulation. Cardiology started her on Xarelto. The prescription was sent to the hospitalist retail pharmacy so she can get the first month free with a coupon. The patient will need to do some work with her insurance to find out which form of DOAC will be most affordable for her. She plans to retire soon and will transition from commercial insurance to Medicare. With her neurologic symptoms entirely gone she was eager to leave the hospital. I advised that she stay 1 more night to get accustomed to new medications including the anticoagulation but she is now living in the home of her daughter and wanted to go home to be in more friendly surroundings at nighttime. She did request medication to help her with anxiety. I counseled her that I would not advise that she was strong medication such as benzodiazepines like Ativan or Xanax at this time. She could consider BuSpar or Atarax. I also strongly recommended that she get into counseling. I did send a small supply ofAtarax to help her in the near future if she has problems with panic and anxiety. I did tell her that in the future she may benefit from SSRI or SNRI ifshe is having difficulty coping. She seems to have a strong relationship with her appraisal analyst (Dr. Brown outof the [facility]) and she can see him near her home in [facility] [place] [facility] that she will follow-up closely with him to get follow-up echocardiogram tofollow her left ventricular ejection fraction over time. Condition Condition at Discharge: Stable Status at Discharge Functional status at discharge: independent ambulation Overall status at discharge: patient is progressing back to baseline Time Spent with Patient Time spent providing/coordinating discharge services (# min): 39 Surgeries and Procedures Operation Date: 03/10/24 11:00 Actual Procedures p [facility] Angio - W Fredi Monet, DO Discharge Plan Discharge Plan Patient Disposition: Home Activity: Ambulate as Tolerated Comment: See cardiac cath discharge instructions for activity restrictions Diet: Low-Sodium Additional Instructions: DISCHARGE INSTRUCTIONS FOR CARDIAC EXPLORATION MANAGER PROCEDURE: Heart Cath The following instructions have been prepared to help you care for yourself, or be cared for upon your return home. 1. You were given conscious sedation. Do not operate a vehicle, power tools, make important decisions, or drink alcohol for 24 hours. You might be drowsy orlight headed. Return to the Emergency Room if you have trouble breathing, walking or nausea and vomiting. 2. FOR BLEEDING: Apply continuous pressure to the site and call 911. 3. Operative Site Care: Keep the dressing clean and dry. You may change the dressing only if soiled or wet. You may remove the dressing the following morning. You may wash over the puncture site in the shower. If the puncture siteis at the wrist no soaking for 3 days. Some bruising or slight swelling may be present. -Signs of infection are redness, warmth, swelling, getting more sore, colored drainage, fever or chills. -Should the arm or leg become cold, numb, blue or white, call the appraisal analyst immediately. 4. ACTIVITY: You are advised to go directly home from the hospital. Restrict your activities for the rest of the day. Resume light or normal activities tomorrow. Do not engage in any activity that will stress the puncture site. Avoid heavy lifting (over 15 lbs.), straining or bending at the catheter site for 48 hours after discharge. If the puncture site is at the wrist do not manipulate wrist for 24 hours and no lifting more than 3 lbs for 3 days. 5. DIET:You may eat your regular diet when you desire. 6. MEDICATIONS: Resume your daily prescription schedule. Prescriptions may be sent with you if needed. Use as directed. When taking pain medications, you may experience dizziness or drowsiness. Do not drink alcohol or drive when taking pain medications. 7. If you should experience episodes of angina e.g. chest discomfort, heaviness, tightness, pressure, burning, with or without radiation to the neck, jaws, arms, or back- Use 1 Nitrostat under your tongue every 5-10 minutes, and up to 3 tablets. If no relief- Call 911 and go to the nearest Emergency Room. -Notify the office for recurrent angina, chest pain or other concerns. You may NOT drive yourself home! Follow the medication instructions provided on your discharge. If the dosages and instructions on this sheet differ from the dosage and instructions on the bottle, follow the instructions on the bottle. [facility] is not responsible for incorrect prescription information provided by thepatient during their visit. Do not stop your medications without consulting your health care provider. Please take the list with you to your next doctor's appointment. Instructions: Rivaroxaban, Atorvastatin, Carvedilol, Hydroxyzine, Lisinopril, Spironolactone, Know your Meds Stand Alone Forms: Work/School Release Form Prescriptions: New Xarelto 15 mg Tablet 15 mg PO DAILY 30 Days Qty: 30 12RF atorvastatin 80 mg Tablet 80 mg PO QPM 30 Days Qty: 30 12RF carvedilol 6.25 mg Tablet 6.25 mg PO BID.WITH.MEALS 30 Days Qty: 60 12RF spironolactone 25 mg Tablet 12.5 mg PO DAILY 30 Days Qty: 15 12RF lisinopril 2.5 mg Tablet 2.5 mg PO DAILY 30 Days Qty: 30 12RF aspirin 81 mg Tablet,Delayed Release (Dr/Ec) 81 mg PO DAILY Qty: 0 0RF hydroxyzine HCl 10 mg tablet 10 mg PO TID PRN (Reason: anxiety) Qty: 60 1RF Rx Instructions: May take 2 tablets if needed. Continued omeprazole 20 mg capsule,delayed release(DR/EC) 20 mg PO DAILY Discontinued lisinopril 5 mg tablet 5 mg PO DAILY aspirin [Adult Low Dose Aspirin] 81 mg tablet,delayed release (DR/EC) 81 mg PO DAILY Follow Up: [facility] [Outside] (WE WILL CALL YOU WEDNESDAY WITH A FOLLOW UP ) Ti Wright MD [Primary Care Provider] - (Office is currently closed. Call office on Wednesday to schedule follow-up with your Primary Care Provider in 7-10 days. ) Exam Physical Exam Vital Signs: Temp Pulse Resp BP Pulse Ox O2 Del Method 97.9 F 78 16 129/75 96 Room Air 03/10/24 13:41 03/10/24 16:00 03/10/24 16:00 03/10/24 16:00 03/10/24 16:00 03/10/24 16:00 Diagnostic Studies Completed and Pending Studies Pending studies at discharge: 03/10/24 09:56 US carotid doppler BI Stat 03/11/24 05:00 EKG [ECG 12 lead ECG] IN AM BMP [Basic Metabolic Panel] [CHEM] IN AM CBC [Complete Blood Count Auto Diff] IN AM Labs on day of discharge: 03/10/24 12:54: PT 11.6, INR 1.0, APTT 30.4, Total Creatine Kinase 102, CK-MB (CK-2) 5.3, CK-MB (CK-2) Rel Index 5.1 H, Troponin I High Sens 286.4 H* 03/10/24 06:53: Magnesium Cancelled, Total Bilirubin 0.5, AST 19, ALT 15, Alkaline Phosphatase 66, Troponin I High Sens 318.9 H*, Total Protein 5.9 L, Albumin 3.8, Globulin 2.1, Albumin/Globulin Ratio 1.8, Triglycerides 80, Cholesterol 172, LDL Cholesterol, Calc 80, VLDL Cholesterol 16, HDL Cholesterol 76, Cholesterol/HDL Ratio 2.3 03/10/24 06:53: Corrected WBC 5.8, Uncorrected WBC Count 5.8, RBC 4.15, Hgb 12.1, Hct 36.2, MCV 87.2, MCH 29.3, MCHC 33.6, RDW 13.6, Plt Count 306, MPV 6.5,Neut % (Auto) 47.6, Lymph % (Auto) 39.5, Kleberg % (Auto) 9.8, Eos % (Auto) 2.1, Baso % (Auto) 1.0, Nucleat RBC Rel Count 0.1, Neut # (Auto) 2.8, Lymph # (Auto) 2.3, Kleberg # (Auto) 0.6, Eos # (Auto) 0.1, Baso # (Auto) 0.1, PHA Creatinine Clear 65.11, Sodium 142, Potassium 3.6, Chloride 108 H, Carbon Dioxide 26.5, Anion Gap 11.1, BUN 9, Creatinine 0.70, Est GFR (CKD-EPI) > 60.0, Glucose 91, Estimat Average Glucose 111, Hemoglobin A1c 5.5, Calcium 9.1, Magnesium 1.9 Documented By: Héctor Rainey, [id number] Signed By: <Electronically signed by Héctor Rainey, DO> 03/10/24 2120 [facility] Work Phone: Evaluation + Plan note No data available for this section General Surgery [facility] Evaluation noteNo assessment information available [facility] Time Work Phone: Evaluation note* Diagnosis Onset Date Resolution Status Acute HFrEF (heart failure w ith reduced ejection fraction) acute Alien limb phenomenon acute Elevated troponin acute Embolic stroke acute Takotsubo cardiomyopathy acu te Transient ischemic attack ac [place] [facility] Work Phone: Hospital Discharge instructions No data available for this section General [facility] Discharge instructions Additional Instructions DISCHARGE INSTRUCTIONS FOR CARDIAC EXPLORATION MANAGER PROCEDURE: Heart Cath The following instructions have been prepared to help you care for yourself, or be cared for upon your return home. 1. You were given conscious sedation. Do not operate a vehicle, power tools, make important decisions, or drink alcohol for 24 hours. You might be drowsy or light headed. Return to the Emergency Room if you have trouble breathing, walking or nausea and vomiting. 2. FOR BLEEDING: Apply continuous pressure to the site and call 911. 3. Operative Site Care: Keep the dressing clean and dry. You may change the dressing only if soiled or wet. You may remove the dressing the following morning. You may wash over the puncture site in the shower. If the puncture site is at the wrist no soaking for 3 days. Some bruising or slight swelling may be present. -Signs of infection are redness, warmth, swelling, getting more sore, colored drainage, fever or chills. -Should the arm or leg become cold, numb, blue or white, call the appraisal analyst immediately. 4. ACTIVITY: You are advised to go directly home from the hospital. Restrict your activities for the rest of the day. Resume light or normal activities tomorrow. Do not engage in any activity that will stress the puncture site. Avoid heavy lifting (over 15 lbs.), straining or bending at the catheter site for 48 hours after discharge. If the puncture site is at the wrist do not manipulate wrist for 24 hours and no lifting more than 3 lbs for 3 days. 5. DIET:You may eat your regular diet when you desire. 6. MEDICATIONS: Resume your daily prescription schedule. Prescriptions may be sent with you if needed. Use as directed. When taking pain medications, you may experience dizziness or drowsiness. Do not drink alcohol or drive when taking pain medications. 7. If you should experience episodes of angina e.g. chest discomfort, heaviness, tightness, pressure, burning, with or without radiation to the neck, jaws, arms, or back- Use 1 Nitrostat under your tongue every 5-10 minutes, and up to 3 tablets. If no relief- Call 911 and go to the nearest Emergency Room. -Notify the office for recurrent angina, chest pain or other concerns. You may NOT drive yourself home! Follow the medication instructions provided on your discharge. If the dosages and instructions on this sheet differ from the dosage and instructions on the bottle, follow the instructions on the bottle. [facility] is not responsible for incorrect prescription information provided by the patient during their visit. Do not stop your medications without consulting your health care provider. Please take the list with you to your next doctor's appointment.[facility] Work Phone: Progress note No data available for this section General Surgery [facility] Summary Purpose Family History No Family History Records FoundNo Family History Records FoundNo Family History Records FoundNo Family History Records FoundNo Family History Records FoundNo Family History Records Found Advance Directives No Advanced Directives Records Found Advance Directive Response Recorded Date/ Time Advance Directives No December 26 2:18pm Chief Complaint and Reason for Visit Chief Complaint Neuro Symptoms Reason for Visit Acute HFrEF (heart f ailure with reduced ejection fraction) Alien limb phenomenon Elevated troponin Embolic stroke Takotsubo cardiomyopathy Transient ischemic attack Additional Source Comments INFORMATION SOURCE (unrecogn ized section and content) DATE CREATED AUTHOR 08/16/2020 [facility] DATE CREATED AUTHOR AUTHOR'S ORGANIZ ATION 10/17/2022 [facility] DATE CREATED AUTHOR AUTHOR'S ORGANIZ ATION 03/14/2024 [facility] DATE CREATED AUTHOR AUTHOR'S ORGANIZ ATION 03/21/2024 [facility] DATE CREATED AUTHOR AUTHOR'S ORGANIZ ATION 04/22/2024 [facility] DATE CREATED AUTHOR AUTHOR'S ORGANIZ ATION 04/29/2024 [facility] Goals (unrecognized section and content) Goals may be documented in a n alternate section No data available for this section Patient Care team informatio n (unrecognized section and content) Team Status: Active Member Role Status Dates Ti Wright MD Primary Care Provider Active Team Status: Inactive Member Role Status Dates Ti Wright MD Primary Care Provider Active S tart: March 10, 2024 End: March 10, 2024 Moises Burciaga MD Admit Provider Active S tart: March 10, 2024 End: March 10, 2024 Thalia Ramírez RN Other Provider Active Star t: March 10, 2024 End: March 10, 2024 Mana Monet DO Other Provider Active Start : March 10, 2024 End: March 10, 2024 Margraet Olivares MD Other Provider Active Start: March 10, 2024 End: March 10, 2024 Bartolome Wheeler MD Other Provider Active Start: March 10, 2024 End: March 10, 2024 Frank Thomas MD Other Provider Active St art: March 10, 2024 End: March 10, 2024 Tavo Marx MD Other Provider Active Start: March 10, 2024 End: March 10, 2024 Nickie Dhaliwal APRN Other Provider Active Start : March 10, 2024 End: March 10, 2024 Theresa Gaxiola MD Other Provider Active Start: Stanislav rivera 2023 End: March 10, 2024 Aleja Umanzor MD Other Provider Active Start: March 10, 2024 End: March 10, 2024 Braulio Rodriguez MD Other Provider Active Start: Stanislav rivera 2023 End: March 10, 2024 Phoebe Schafer , [facility]- Other Provider Active Sta rt: March 10, 2024 End: March 10, 2024 Phyllis Hunt MD Other Provider Active Start: March 10, 2024 End: March 10, 2024 Dallas Norton DO Other Provider Active Start: March 10, 2024 End: March 10, 2024 Héctor Rainey DO Attending Provider Active Start: March 10, 2024 End: March 10, 2024 FOR RECORDS PERTAINING TO PATIENTS WHO ARE [...] BE BASED ON THE PRIMARY CLINICAL RECORDS. [employer] provides no warranty or guarantee of the accuracy or completeness of information in this document.
== END 2024-05-15 07:30 | disposition home or self-care (01) ==
LOC: MAMMO 07:29
PROVIDERS: PCP Family Medicine; Visit Provider Nurse Practitioner
DX: Z00.00 Encounter for general adult medical examination without abnormal findings (principal); Z12.31 Encounter for screening mammogram for malignant neoplasm of breast; E28.39 Other primary ovarian failure; Z11.59 Encounter for screening for other viral diseases; Z80.3 Family history of malignant neoplasm of breast; Z80.6 Family history of leukemia; Z80.52 Family history of malignant neoplasm of bladder; M85.80 Other specified disorders of bone density and structure, unspecified site
CPT/HCPCS: 77063; 77067; 77080

== ENCOUNTER 2024-06-08 06:54 | Outpatient (OUT) | payer OTHER, SELFPAY ==
--- OUTSIDE RECORDS SUMMARY | 2024-06-08 06:57 | XMS_ITS | CCD ---
Author Organization [facility] ion Partnership [facility] Care Team Providers Care Ball Mill Operator Name Role Phone TI WRIGHT Primary Care Physician MELINDA, DR ALVARADO [...] Unavailable MD Ti Wright Primary Care Provider MD Moises Burciaga Admit Provider TROY Ramírez Other Provider Unavailable DO Mana Monet Other Provider [phone] MD Margaret Olivares Other Provider MD Bartolome Wheeler Other Provider [phone] MD Frank Thomas Other Provider MD Tavo Marx Other Provider JOHN PAUL Dhaliwal Other Provider [phone] MD Theresa Gaxiola Other Provider MD Aleja Umanzor Other Provider MD Braulio Rodriguez Other Provider [facility] Phoebe Lawson Other Provider [phone] MD Phyllis Hunt Other Provider [phone] DO Dallas Norton Other Provider DO Héctor Rainey Attending Provider [phone] YECENIA FINN Attending Unavailable YECENIA FINN Attending Unavailable Thalia Ramírez Consulting Unavailable Moises Burciaga Admitting Unavailable Ti Wright Primary Care Unavailable Héctor Rainey Attending Unavailabl Mana Barclay Consulting Unavailable Margaret Olivares Consulting Unavailable Bartolome Wheeler Consulting Unavail able Frank Thomas Consulting Unavailable Tavo Marx Consulting Unavailab Nickie Crum Consulting Unavailable Theresa Gaxiola Consulting Unavailable Aleja Umanzor Consulting Unavailab Braulio De Leon Consulting Unavailable Phoebe Schafer Consulting Unavailable Phyllis Hunt Consulting Unavailable Dallas Norton Consulting Unavailable Kalni, WORM FARMER Stephanie L Attending Unavailable Kalin, WORM FARMER Stephanie L Admitting Unavailable Kalin, WORM FARMER Stephanie L Attending Unavailable Kalin, WORM FARMER Stephanie L Attending Unavailable Kalin, WORM FARMER Stephanie L Attending Unavailable Kalin, WORM FARMER Stephanie L Attending Unavailable Allergies Allergy Classification Reported Allergen(s) Allergy Type Date of Onset Reaction(s) Facility Sulfonamides (antibiotic) (1 source) Sulfonamides (Antibiotic) Drug Allergy 4 [facility] (3 sources) nabumetone; Translations: [nabumetone] Drug Allergy 2 [facility] (disorder) [facility] [place] (2 sources) Sulfonamides (Antibiotic); Translations: [sulfa drugs] Drug allergy 7 Unknown [facility] [place] (4 sources) Tetracyclines; Translations: [tetracyclines] Drug allergy 4 Eruption of skin (disorder) [facility] [place] (1 source) nabumetone Drug Allergy [facility] (1 source) Sulfonamides (Antibiotic) Drug allergy (disorder) 0 [facility] (1 source) Tetracycline Drug Allergy 1 [facility] (3 sources) Sulfonamides (Antibiotic); Translations: [SULFA [...] Atorvastatin Active 80 MG PO Every evening March 10, 2024 12:00am Calcium with Vitamin [...] Active 10 MG PO Three times daily March 10, 2024 12:00am May take 2 [...] 5:19pm Start: 07-31-20[address] [facility] once daily lisinopril 5 mg Tab 5 mg = 1 tab(s), Oral, Daily, Refills(s) 0 Start Date: 07/31/22 Status: Ordered omeprazole 20 mg delayed release oral capsule (2 sources) Proton Pump Inhibitor Start: 03-10-2024 take 20 mg by mouth once daily Omeprazole Active 20 MG PO Daily March 10, 2024 12:00am Start: 07-31-2022 take 1 capsule by [facility] once daily omeprazole 20 mg Cap-DR 20 [...] 2 07-31-2022 Chronic Other aftercare (1 source) intermediate (current) use of aspirin; Translations: [DETENTION CURRENT USE OF ASPIRIN] Onset: 2 Episodic Other aftercare (1 source) Other retirement (current) drug therapy; Translations: [OTH DETENTION CURRENT DRUG THERAPY] Onset: 2 Episodic Other [...] Test Name Value Interpretation Reference Range Facil [facility] Population Health 05-17-20 Population Health Population Health Case Information Case Priority: None Programs: -- Referral Source: Gear Hobber Referral Reason: Disease management Case Type: Chronic Care Management Risk Score: -- Case Status: New (April 28, 2024) Date Assigned: April 28, 2024 Assigned By: Ruddy Perez Date Enrolled: -- Assigned Primary Personnel: Ruddy Perez Assigned Secondary Personnel: -- Case Physician: Stephanie Flores Problems Ongoing Anemia Anxiety BMI 26.0-26.9,adult Broken heart syndrome Cardiomyopathy Gastroesophageal reflux disease HTN (hypertension) Hyperlipemia Hypertension Irritable bowel syndrome with diarrhea Left bundle branch block RLS (restless legs syndrome) Screening for malignant neoplasm of colon Historical BMI 21.0-21.9, adult Procedure/Surgical History Cardiac catheterization (03/10/2024), Cardiac catheterization (08/13/2020), Cardiac catheterization (2006), Colonoscopy, Colonoscopy, Extraction of wisdom tooth, Lumpectomy of right breast, Tubal ligation. Home Medications aspirin 81 mg Oral EC Tab, 81 mg= 1 tab(s), Oral, Daily atorvastatin 80 mg Tab, 80 mg= 1 tab(s), Oral, Daily calcium-vitamin D, 650 mg- 12.5 mcg, Chewed, BID carvedilol 6.25 mg Tab, 6.25 mg= 1 tab(s), Oral, BID Centrum Silver Ultra Women's, 2 tab(s), Oral, Daily Hair Skin and Nails, 1 tab(s), Oral, Daily hydrOXYzine hydrochloride 10 mg Tab, 10 mg= 1 tab(s), Oral, TID, PRN lisinopril 2.5 mg Tab, 2.5 mg= 1 tab(s), Oral, Daily Misc Medication, 1 capsule, Oral, Daily omeprazole 20 mg Cap-DR, 20 mg= 1 cap(s), Oral, Daily potassium chloride 99 mg oral tablet, 99 mg= 1 tab(s), Oral, Daily spironolactone 25 mg Tab, 1/2 tab (12.5mg), Oral, Daily Turmeric, 500 mg, Chewed, Daily Vitamin D3, 25 mcg, Oral, Daily Xarelto 15 mg oral tablet, [...] Primary malignant neoplasm of female breast: Sister. Screenings and Assessments 05/17/24 10:54:00 Result Name Value Comment CCM Program Enrollment Verbally agreed to receive CCM services CCM Written Consent Written consent in progress CCM Verbal Consent By Self 05/17/24 08:00:00 Result Name Value Comment HIPPA Verified Type of Contact Telephone Information Given by Self CM Preferred Spoken Language Yemeni CM Preferred Written Language Latvian Preferred Communication Mode Verbal Ability to Read/Write Able to read, Able to write Fashion Consultant Selling Called No Preferred Salutation MrsMinerva Preferred Method of Contact Cell Cell Best Time to Visit or Contact No preference Best Day to Visit or Contact Wednesday, Wednesday, Wednesday Appointment Reminders Phone, Patient portal, Other secured messaging Preferred Mailing Address [address] [place] [phone] Able to Read Latvian Able to read Latvian Learning Style Pref Patient Demonstration Teaching Method Demonstration Barriers to Learning Difficulty concentrating sometimes has a hard time concentrating, but 'I expect that to get better' Cognitive Deficit No Response to Current Year Correct Response to Current Month Correct Response to Current Time Correct Count Backward 20 to 1 Correct State Months in Reverse Order Correct Repeat Memory Phrase Correct [facility] Test Score Indication None or no significant cognitive impairment Lives In Multilevel home Number in Household 1 Sleeping Arrangement Own bed, in room alone Support System Family member(s), Friend(s), Cultural/Spiritual community 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 Normal [facility] Population Health Population Health Problems Ongoing Anemia Anxiety BMI 26.0-26.9,adult Broken heart syndrome Cardiomyopathy Gastroesophageal reflux disease HTN (hypertension) Hyperlipemia Hypertension Irritable bowel syndrome with diarrhea Left bundle branch block RLS (restless legs syndrome) Screening for malignant neoplasm of colon Historical BMI 21.0-21.9, adult Procedure/Surgical History Cardiac catheterization (03/10/2024), Cardiac catheterization (08/13/2020), Cardiac catheterization (2006), Colonoscopy, Colonoscopy, Extraction of wisdom tooth, Lumpectomy of right breast, Tubal ligation. Medication List aspirin 81 mg Oral EC Tab, 81 mg= 1 tab(s), Oral, Daily atorvastatin 80 mg Tab, 80 mg= 1 tab(s), Oral, Daily calcium-vitamin D, 650 mg- 12.5 mcg, Chewed, BID carvedilol 6.25 mg Tab, 6.25 mg= 1 tab(s), Oral, BID Centrum Silver Ultra Women's, 2 tab(s), Oral, Daily Hair Skin and Nails, 1 tab(s), Oral, Daily hydrOXYzine hydrochloride 10 mg Tab, 10 mg= 1 tab(s), Oral, TID, PRN lisinopril 2.5 mg Tab, 2.5 mg= 1 tab(s), Oral, Daily Misc Medication, 1 capsule, Oral, Daily omeprazole 20 mg Cap-DR, 20 mg= 1 cap(s), Oral, Daily potassium chloride 99 mg oral tablet, 99 mg= 1 tab(s), Oral, Daily spironolactone 25 mg Tab, 1/2 tab (12.5mg), Oral, Daily Turmeric, 500 mg, Chewed, Daily Vitamin D3, 25 mcg, Oral, Daily Xarelto 15 mg oral tablet, 15 mg= 1 tab(s), Oral, Daily Allergies nabumetone (Hives) sulfa drugs (Unknown) tetracyclines (Rash) Goals and Interventions Care Plan Goal: Maintain therapeutic Blood Pressure and prevent complications Start Date: 2023 Target: - - Status: Not met Barriers: - - Comments: - - Intervention Frequency Status Software Quality Analyst Review educational material - - Not done - - Keep follow up visits as scheduled with PCP and Senior Field Service Engineer - - Not done - - Monitor BP regulary and learn when to report results to provider - - Not done - - Avoid foods high in sodium such as; pickles, chips, olives, take out, processed foods, soda - - Not done - - Take Medications as Prescribed - - Not done - - Goal: Manage symptoms of GERD and prevent complications Start Date: 2023 Target: - - Status: Not met Barriers: - - Comments: - - Intervention Frequency Status Software Quality Analyst Review educational material - - Not done - - Learn Best Ways to Take Medications as Prescribed - - Not done - - Maintain healthy weight - - Not done - - Avoid eating food prior to bed (2-3 hours) and avoid lying down shortly after eating through out the - - Not done - - Avoid foods known to trigger GERD symptoms and avoid excessive caffeine and alcohol - - Not done - - Elevate head of bed during sleep to prevent night time reflux - - - - - - Goal: Help patient achieve sustainable wgt loss/ wgt management, improve overall health, and prevent comp. Start Date: 2023 Target: - - Status: Not met Barriers: - - Comments: - - Intervention Frequency Status Software Quality Analyst Consult with office clin asst for new ideas and recommendations to imporve eating habits - - Not done - - Use food tracking jeanie to stay accountable and on track - - Not done - - Change up snacks and meals on a regular basis; so not to get tired of the same thing - - Not done - - Engage in 30 mins of physical or aerobic exercise at least 3 days/week, increase as mitch. - - Not done - - Goal: Prevent further progression of osteopenia and strengthen existing bone tissue Start Date: 2023 Target: - - Status: Not met Barriers: - - Comments: - - Intervention Frequency Status Software Quality Analyst Take supplements as recommended per PCP - - Not done - - Avoid excessive caffeine intake - - Not done - - Stay active and engage in low impact strengthing exercises to maintain muscles and balance - - Not done - - Consume foods rich in calcium and vit D such as: beans, milk, cheese, fish. - - Not done - - Complete repeat DEXA scan per PCP/ Medicare reccomendations - - Not done - - Goal: Prevent complications of cardiomyopathy Start Date: 2023 Target: - - Status: Not met Barriers: - - Comments: - - Intervention Frequency Status Software Quality Analyst Review educational material - - Not done - - Keep follow up appointmnents and repeat testing as scheduled - - Not done - - Learn signs and symptoms of CM to report to provider - - Not done - - Maintain healthy diet and avoid excess sodium intak, avoid foods high in sodium - - Not done - - Monitor weight and for signs of fluid retention - - Not done - - Take medications as prescribed - - - - - - [facility] Gastroesophageal Reflux Disease, Adult Gastroesophageal reflux (MARITZA) happens when acid from the stomach flows up into the tube that connects the mouth and the stomach (esophagus). Normally, food travels down the esophagus and stays in the stomach to be digested. However, when a person has MARITZA, food and stomach acid sometimes move back up into the esophagus. If this becomes a more serious problem, the person may be diagnosed with a disease called gastroesophageal reflux disease (GERD). GERD occurs when the reflux: ? Happens often. ? Causes frequent or severe symptoms. ? Causes problems such as damage to the esophagus. When stomach acid comes in contact with the esophagus, the acid may cause inflammation in the esophagus. Over time, GERD may create small holes (ulcers) in the lining of the esophagus. What are the causes? This condition is caused by a problem with the muscle between the esophagus and the stomach (lower esophageal sphincter, or LES). Normally, the LES muscle closes after food passes through the esophagus to the stomach. When the LES is weakened or abnormal, it does not close properly, and that allows food and stomach acid to go back up into the esophagus. The LES can be weakened by certain dietary substances, medicines, and medical conditions, including: ? Tobacco use. ? . ? Having a hiatal hernia. ? Alcohol use. ? Certain foods and beverages, such as coffee, chocolate, onions, and peppermint. What increases the risk? You are more likely to develop this condition if you: ? Have an increased body weight. ? Have a connective tissue disorder. ? Take NSAIDs, such as ibuprofen. What are the signs or symptoms? Symptoms of this condition include: ? Heartburn. ? Difficult or painful swallowing and the feeling of having a lump in the throat. ? A bitter taste in the mouth. ? Bad breath and having a large amount of saliva. ? Having an upset or bloated stomach and belching. ? Chest pain. Different conditions can cause chest pain. Make sure you see your health care provider if you experience chest pain. ? Shortness of breath or wheezing. ? Ongoing (chronic) cough or a nighttime cough. ? Wearing away of tooth enamel. ? Weight loss. How is this diagnosed? This condition may be diagnosed based on a medical history and a physical exam. To determine if you have mild or severe GERD, your health care provider may also monitor how you respond to treatment. You may also have tests, including: ? A test to examine your stomach and esophagus with a small camera (endoscopy). ? A test that measures the acidity level in your esophagus. ? A test that measures how much pressure is on your esophagus. ? A barium swallow or modified barium swallow test to show the shape, size, and functioning of your esophagus. How is this treated? Treatment for this condition may vary depending on how severe your symptoms are. Your health care provider may recommend: ? Changes to your diet. ? Medicine. ? Surgery. The goal of treatment is to help relieve your symptoms and to prevent complications. Follow these instructions at home: Eating and drinking ? Follow a diet as recommended by your health care provider. This may involve avoiding foods and drinks such as: ? Coffee and tea, with or without caffeine. ? Drinks that contain alcohol. ? Energy drinks and sports drinks. ? Carbonated drinks or sodas. ? Chocolate and cocoa. ? Peppermint and mint flavorings. ? Garlic and onions. ? Horseradish. ? Spicy and acidic foods, including peppers, chili powder, zhang powder, vinegar, hot sauces, and barbecue sauce. ? Backus fruit juices and citrus fruits, such as oranges, alverto, and limes. ? Tomato-based foods, such as red sauce, chili, salsa, and pizza with red sauce. ? Fried and fatty foods, such as donuts, estonian fries, potato chips, and high-fat dressings. ? High-fat meats, such as hot dogs and fatty cuts of red and white meats, such as rib eye steak, sausage, ham, and hook. ? High-fat dairy items, such as whole milk, butter, and cream cheese. ? Eat small, frequent meals instead of large meals. ? Avoid drinking large amounts of liquid with your meals. ? Avoid eating meals during the 2?3 hours before bedtime. ? Avoid lying down right after you eat. ? Do not exercise right after you eat. Lifestyle ? Do not use any products that contain nicotine or tobacco. These products include cigarettes, chewing tobacco, and vaping devices, such as e-cigarettes. If you need help quitting, ask your health care provider. ? Try to reduce your stress by using methods such as yoga or meditation. If you need help reducing stress, ask your health care provider. ? If you are overweight, reduce your weight to an amount that is healthy for you. Ask your health care provider for guidance abo (more content not included)... Normal [facility] Reminderson 04-28-2024 Reminders Reminders From: Ruddy Perez To: Ruddy Perez; Sent: 04/28/2024 09:54:13 EDT Show up: 04/28/2024 09:54:00 EDT Subject: CCM intake 05/17 at 0800 Due Date/Time: 05/16/2024 09:54:00 EDT Reminder/Recall Normal [facility] Family Medicine Office/Clini c Noteon 04-25-2024 Family [...] of clutter to prevent tripping and/or falling. [place] Advance Directives reviewed. Patient does not have [...] visit. Labs to be completed at [facility] per patient request. No concerns with bowel/ bladder. Colonoscopy last completed: 10/14/22. Patient last Mammogram 05/05/23 at [facility]-per patient online portal with [facility]. Patient declines order for screening Mammogram [...] with progress. (more content not included)... Normal [facility] Comment on above: Result Comment: Elec [...] Follow-Up Appointments Wednesday 1:00 PM EDT Where: [facility] Normal [facility] Family Medicine Office/Clini c Noteon 04-24-2024 Family [...] SARS-CoV-2 (COVID-19) mRNA-1273 vaccine 12/26/2020 Recorded Normal [facility] Comment on above: Result Comment: Elec tronically Signed By: Stephanie Flores\.br\Date and Time Signed: 04/24/24 14:15 EDT Patient Correspondenceon Patient Correspondence [id number]#1. 00TIFF Normal [facility] ECG 12-Leadon 03-28-2024 ECG 12-Lead [id number]# 1.00TIFF [facility] ED Note-Physicianon 03-28-20 ED Note-Physician [id number]# 1.00TIFF Normal [facility] Lab Reportson 03-28-2024 Lab Reports [id number]# 1.00TIFF [facility] RAD - CT Reporton 03-28-2024 RAD - CT Report [id number]# 1.00TIFF Normal [facility] RAD - CT Report [id number]# 1.00TIFF [facility] RAD - CT Report [id number]#1. 00TIFF [facility] Ambulatory Visit Summaryon 0 03-27-2024 Ambulatory Visit [...] Appointments Wednesday 1:00 PM EDT With: Where: [facility] Normal [address] [place], [place] [id number]- \.br\ Medications\.br\ What How Much When Instructions\.br\ [...] choosing us for your care.\.br\ \.br\ [facility] Family Medicine Office/Clini c Noteon 03-27-2024 Family Medicine Office/Clinic Note HPI Staff Prerna is a 68 year old female presenting to [facility] care Establish Care: History: Any previous diagnosis: GERD, IBS, Left bundle branch block , HTN History of seeing any specialist: Senior Field Service Engineer [facility] in [place] [facility] [address] Yecenia Brown When was your last doctors visit: Last provider: Bobo Hidalgo Any recent labs: [facility] 03/09 then transferred to [facility] 03/10/24 Health Maintenance UTD: Colonoscopy: 2020 [facility] Normal Mammogram: [facility] 2022 Pelvic/Pap: several years ago Acute: Current issues/complaints: 03/09 pt was a home and lost all control of right arm thought maybe she just hadn't eating anything over the last few days due to her took his life. She went to warm some food up and couldn't figure out how to operate the microwave and then lost her speech. She went to [facility] where they did CT scan W/Wo contrast didn't find anything but cardiac enzymes were elevated. She was then Transferred to [facility] where she has several EKG's [...] malignant neoplasm of female breast: Sister. Normal [facility] Comment on above: Result Comment: Elec tronically Signed By: Stephanie Flores\.br\Date and Time Signed: 03/27/24 16:02 EDT Office Visiton 03-21-2024 Follow-up visit [id number] Prerna Phelps 1955 F Date Provider Department Center 03/21/2024 [facility] Family History Problem Relation Age of Onset Hypertension Father Breast cancer Sister Family Status - Relation Status Age at Father Sister Level of Service:05495 MO OFFICE/OUTPATIENT ESTABLISHED MOD MDM 30 MIN Normal [facility] US carotid doppler BIon 02-22 US carotid doppler BI [facility] [place] [address] [place] [address] Ultrasound Report Signed Patient: Prerna Phelps MR#: [id number] : 1955 Acct:[id number] Age/Sex: 68 / F ADM Date: 03/10/24 Loc: Room: [address] [place] [address] Type: DIS IN Attending Dr: Héctor Rainey [...] Fernando Jacob M.D.03/11/2024 11:51 AM [facility] Tech: Munira Magana Transcribed By: BOOGIE 03/11/24 1151 Dictated By: Luis Fernando Jacob MD 03/11/24 1150 Signed By: 03/11/24 1151 Normal [facility] A1C with Estimated Average Hair purcell 03-10-2024 Glucose [Mass/Vol] 111 mg/dL Normal [facility] Comment on above: Result Comment: PERF ORMED BY: [place] [address] PATHOLOGIST THEATER USHER ZAYRA LEONARD M.D. Performed By: #### C KMB, PT, CK, A1C WTH eA, PTT, HS TROP #### [address] Activated partial thrombopla stin time (aPTT) in platelet poor plasma by coagulation aOrdered By: Héctor Rainey on 03-10-2024 aPTT Coag (PPP) [Time] 30.4 s 25.1-36.5 [facility] Comment on above: A hematocrit value g reater than 55% may lead to inaccurate results in coagulation testing. Patients having hematocrit values >55% require a special collection tube for coagulation studies. Please contact the laboratory at [phone] for redraw instructions. Alanine aminotransferase [En zymatic activity/volume] in Serum or PlasmaOrdered By: Moises Burciaga on 03-10-2024 ALT [Catalytic activity/Vol] 15 U/L Normal 7-52 [facility] Comment on above: Order Comment: FASTI NG N Performed By: #### L IPID, CBC, MG, HS TROP, CMP ####[place] [id number] [address] Albumin [Mass/volume] in Ser um or Plasma by Bromocresol green (BCG) dye binding methoOrdered By: Moises Burciaga on 03-10-2024 Albumin BCG dye [Mass/Vol] 3.8 g/dL 3.5-5.7 [facility] Alkaline phosphatase [Enzyma tic activity/volume] in Serum or PlasmaOrdered By: Moises Burciaga on 03-10-2024 ALP [Catalytic activity/Vol] 66 U/L Normal 34-104 [facility] Comment on above: Order Comment: FASTI NG N Performed By: #### L IPID, CBC, MG, HS TROP, CMP ####[address] Aspartate aminotransferase [ Enzymatic activity/volume] in Serum or PlasmaOrdered By: Moises Burciaga on 03-10-2024 AST [Catalytic activity/Vol] 19 U/L Normal 13-39 [facility] Comment on above: Order Comment: FASTI NG N Performed By: #### L IPID, CBC, MG, HS TROP, CMP ####[address] Automated basophil %Ordered By: Moises Burciaga on 03-10-2024 Basophils/100 WBC (Bld) 1.0 % Normal . [facility] Comment on above: Performed By: #### L IPID, CBC, MG, HS TROP, CMP ####[address] Automated basophil countOrde red By: Moises Burciaga on 03-10-2024 Basophils (Bld) [#/Vol] 0.1 10*3/uL Normal 0.0-0.2 [facility] Comment on above: Result Comment: PERF ORMED BY: [facility] [address] [place] [address] PATHOLOGIST THEATER USHER ZAYRA LEONARD M.D. Performed By: #### L IPID, CBC, MG, HS TROP, CMP ####[address] [address] [place] Automated blood monocyte cou ntOrdered By: Moises Burciaga on 03-10-2024 Monocytes (Bld) [#/Vol] 0.6 10*3/uL Normal 0.0-0.8 [facility] Comment on above: Performed By: #### L IPID, CBC, MG, HS TROP, CMP ####[address] Automated eosinophil %Ordere d By: Moises Burciaga on 03-10-2024 Eosinophils/100 WBC (Bld) 2.1 % Normal . [facility] Comment on above: Performed By: #### L IPID, CBC, MG, HS TROP, CMP ####[address] Automated eosinophil countOr dered By: Moises Burciaga on 03-10-2024 Eosinophils (Bld) [#/Vol] 0.1 10*3/uL Normal 0.0-0.45 [facility] Comment on above: Performed By: #### L IPID, CBC, MG, HS TROP, CMP ####[address] Automated monocyte %Ordered By: Moises Burciaga on 03-10-2024 Monocytes/100 WBC (Bld) 9.8 % Normal . [facility] Comment on above: Performed By: #### L IPID, CBC, MG, HS TROP, CMP ####[address] Automated neutrophil %Ordere d By: Moises Burciaga on 03-10-2024 Neutrophils/100 WBC (Bld) 47.6 % Normal . [facility] Comment on above: Performed By: #### L IPID, CBC, MG, HS TROP, CMP ####[address] Bilirubin.total [Mass/volume ] in Serum or PlasmaOrdered By: Moises Burciaga on 03-10-2024 Bilirubin [Mass/Vol] 0.5 mg/dL Normal 0.3-1.0 [facility] Comment on above: Order Comment: FASTI NG N Performed By: #### L IPID, CBC, MG, HS TROP, CMP ####[place] [id number] [place] [id number] [place] Calcium [Mass/volume] in Ser um or PlasmaOrdered By: Moises Burciaga on 03-10-2024 Calcium [Mass/Vol] 9.1 mg/dL Normal 8.6-10.3 [facility] Comment on above: Order Comment: FASTI NG N Performed By: #### L IPID, CBC, MG, HS TROP, CMP ####[place] [id number] [facility] Carbon dioxide, total [Moles /volume] in Serum or PlasmaOrdered By: Moises Burciaga on 03-10-2024 CO2 [Moles/Vol] 26.5 mmol/L Normal 21.0-31.0 [facility] [place] Comment on above: Order Comment: FASTI NG N Performed By: #### L IPID, CBC, MG, HS TROP, CMP ####[place] [id number] [place] Chloride [Moles/volume] in S beltran or PlasmaOrdered By: Moises Burciaga on 03-10-2024 Chloride [Moles/Vol] 108 mmol/L High 98-107 [facility] Comment on above: Order Comment: FASTI NG N Performed By: #### L IPID, CBC, MG, HS TROP, CMP ####[place] [id number] [place] Cholesterol [Mass/volume] in Serum or PlasmaOrdered By: Moises Burciaga on 03-10-2024 Cholesterol [Mass/Vol] 172 mg/dL Normal 140-200 [facility] Comment on above: Chol less than 200 m g/dl low riskChol 201-239 mg/dl borderline riskChol 240 mg/dl and greater high risk Order Comment: FASTI NG N Result Comment: Chol less than 200 mg/dl low risk Chol 201-239 mg/dl borderline risk Chol 240 mg/dl and greater high risk Performed By: #### L IPID, CBC, MG, HS TROP, CMP ####[place] [id number] Cholesterol in LDL Calc [Mas s/Vol]Ordered By: Moises Burciaga on 03-10-2024 Cholesterol in LDL [Mass/Vol] 80 mg/dL 0-100 [facility] Comment on above: LDL ATP III CLASSIFI CATIONLDL less than 100 mg/dL OptimalLDL 100-129 mg/dL Near or above optimalLDL 130-159 mg/dL Borderline highLDL 160-189 mg/dL HighLDL greater than 189 mg/dL Very high Cholesterol in VLDL Calc [Ma ss/Vol]Ordered By: Moises Burciaga on 03-10-2024 Cholesterol in VLDL [Mass/Vol] 16 mg/dL [facility] Complete Blood Count Auto Di ffon 03-10-2024 Mean Corpuscular HGB Conc 33.6 g/dL Normal 32.0-35.0 [facility] Comment on above: Performed By: #### L IPID, CBC, MG, HS TROP, CMP ####[address] NRBC% 0.1 /100{WBC} Normal 0-0.5 [facility] Comment on above: Performed By: #### L IPID, CBC, MG, HS TROP, CMP ####[address] Comprehensive Metabolic Pane maxwell 03-10-2024 Albumin [Mass/Vol] 3.8 g/dL Normal 3.5-5.7 [facility] Comment on above: Order Comment: FASTI NG N Performed By: #### L IPID, CBC, MG, HS TROP, CMP ####[address] Creatinine Clr Calc Pharmacy 65.11 Normal [facility] Comment on above: Order Comment: FASTI NG N Performed By: #### L IPID, CBC, MG, HS TROP, CMP ####[address] GFR/1.73 sq M.predicted MDRD (S/P/Bld) [Vol rate/Area] mL/min/{1.73_m2} Normal [facility] Comment on above: Order Comment: FASTI NG N Performed By: #### L IPID, CBC, MG, HS TROP, CMP ####[facility] [place] [id number] [place] Creatine kinase [Enzymatic a ctivity/volume] in Serum or PlasmaOrdered By: Héctor Rainey on 03-10-2024 CK [Catalytic activity/Vol] 102 U/L Normal 30-223 [facility] Comment on above: Performed By: #### C KMB, PT, CK, A1C WTH eA, PTT, HS TROP #### [facility] [address] Creatine kinase.MB [Mass/vol ume] in Serum or PlasmaOrdered By: Héctor Rainey on 03-10-2024 CK.MB [Mass/Vol] 5.3 ng/mL Normal 0.6-6.3 [facility] [place] Comment on above: Performed By: #### C KMB, PT, CK, A1C WTH eA, PTT, HS TROP ####[facility] [place] [id number] [place] Creatinine Kinase MBon 03-10 CKMB Relative Index 5.1 % High 0.00-2.50 [facility] Comment on above: Performed By: #### C KMB, PT, CK, A1C WTH eA, PTT, HS TROP ####[facility] [place] [id number] [place] Creatinine [Mass/volume] in Serum or PlasmaOrdered By: Moises Burciaga on 03-10-2024 Creatinine [Mass/Vol] 0.70 mg/dL Normal 0.60-1.20 [facility] Comment on above: Order Comment: FASTI NG N Performed By: #### L IPID, CBC, MG, HS TROP, CMP ####[facility] [place] [id number] [place] ECG 12 lead ECGon 03-10-2024 ECG 12 lead ECG [facility] [address] [place] [address] Electrocardiograph Report Signed Patient: Prerna Phelps MR#: [id number] : 1955 Acct:[id number] Age/Sex: 68 / F ADM Date: 03/10/24 Loc: Room: [address] [place] [address] Type: ADM IN Attending Dr: Héctor Rainey [...] No significant change was found Confirmed by LIAM DUMONT FACNORMAN Schmitz ([id number]) on 03/10/2024 12:28:06 PM Referred By: Electronically Signed By:NORMAN WHEELER MD, FACC Transcribed By: MUS Signed By Bartolome Wheeler MD 03/10/24 1228 Normal [facility] ECG 12 lead ECG [facility] [place] [address] Electrocardiograph Report Signed Patient: Prerna Phelps MR#: [id number] : 1955 Acct:[id number] Age/Sex: 68 / F ADM Date: 03/10/24 Loc: Room: [address] [place] [address] Type: ADM IN Attending Dr: Héctor Rainey [...] ECG No previous ECGs available Confirmed by LIAM DUMONT [facility] ([id number]) on 03/10/2024 12:28:02 PM Referred By: Electronically Signed By:NORMAN WHEELER MD [facility] Transcribed By: MUS Signed By Bartolome Wheeler MD 03/10/24 1228 Normal [facility] echo transthoracicon [facility] echo transthoracic [facility] [place] [address] Echocardiogram Signed Patient: Prerna Phelps MR#: [id number] : 1955 Acct:[id number] Age/Sex: 68 / F ADM Date: 03/10/24 Loc: Room: [address] [place] [address] Type: ADM IN Attending Dr: Héctor Rainey DO Ordering Provider: Moises Burciaga MD Date of Service: 03/10/24 [facility] echo transthoracic: Source of Emboli Copies to: [...] Bartolome Wheeler MD 03/10/24 1237 Normal [facility] Erythrocyte distribution wid th [Ratio] by Automated countOrdered By: Moises Burciaga on 03-10-2024 Erythrocyte distribution width (RBC) [Ratio] 13.6 % Normal 11.9-15.3 [facility] Comment on above: Performed By: #### L IPID, CBC, MG, HS TROP, CMP ####[facility] [place] [address] [facility] Erythrocytes [#/volume] in B lood by Automated countOrdered By: Moises Burciaga on 03-10-2024 RBC (Bld) [#/Vol] 4.15 10*6/uL Normal 3.60-5.00 [facility] Comment on above: Performed By: #### L IPID, CBC, MG, HS TROP, CMP ####[place] [id number] [place] [id number] [facility] Glucose [Mass/volume] in Ser um or PlasmaOrdered By: Moises Burciaga on 03-10-2024 Glucose [Mass/Vol] 91 mg/dL Normal 70-100 [facility] Comment on above: ADA recommended refe rence rangeRandom Glucose Reference Range is dependent on time and content of last meal. Glucose of more than 200 mg/dL in a nonstressed, ambulatory subject supports the diagnosis of Diabetes Mellitus. Order Comment: FASTI NG N Result Comment: [place] om Glucose Reference Range is dependent on time and content of last meal. Glucose of more than 200 mg/dL in a nonstressed, ambulatory subject supports the diagnosis of Diabetes Mellitus. ADA recommended reference range Performed By: #### L IPID, CBC, MG, HS TROP, CMP ####[place] [id number] [facility] Glucose mean value [Mass/vol ume] in Blood Estimated from glycated hemoglobinOrdered By: Héctor Rainey on 03-10-2024 Average glucose Estimated from glycated hemoglobin (Bld) [Mass/Vol] 111 mg/dL [facility] Hematocrit [Volume Fraction] of Blood by Automated countOrdered By: Moises Burciaga on 03-10-2024 Hematocrit (Bld) [Volume fraction] 36.2 % Normal 34.0-46.4 [facility] Comment on above: Performed By: #### L IPID, CBC, MG, HS TROP, CMP ####[place] [address] [place] [address] [facility] Hemoglobin A1c percentageOrd ered By: Héctor Rainey on 03-10-2024 HbA1c (Bld) [Mass fraction] 5.5 % Normal 4.3-5.6 [facility] Comment on above: Increased risk for d iabetes: 5.7 - 6.4diabetes: >6.4glycemic control for adults with diabetes: <7.0 Result Comment: Incr eased risk for diabetes: 5.7 - 6.4 diabetes: >6.4 glycemic control for adults with diabetes: <7.0 Performed By: #### C KMB, PT, CK, A1C WTH eA, PTT, HS TROP #### [facility] [address] Hemoglobin [Mass/volume] in BloodOrdered By: Moises Burciaga on 03-10-2024 Hemoglobin (Bld) [Mass/Vol] 12.1 g/dL Normal 11.8-15.4 [facility] Comment on above: Performed By: #### L IPID, CBC, MG, HS TROP, CMP ####[facility] [id number] INR in Platelet poor plasma by Coagulation assayOrdered By: Héctor Rainey on 03-10-2024 INR Coag (PPP) [Relative time] 1.0 {INR} Normal [facility] Comment on above: INR Therapeutic Rang e [...] A1C WTH eA, PTT, HS TROP #### [facility] [address] Leukocytes [#/volume] correc velma for nucleated erythrocytes in Blood by Automated counOrdered By: Moises Burciaga on 03-10-2024 WBC corrected for nucl RBC Auto (Bld) [#/Vol] 5.8 10*3/uL 3.8-11.6 [facility] Leukocytes [#/volume] in Blo od by Automated countOrdered By: Moises Burciaga on 03-10-2024 WBC (Bld) [#/Vol] 5.8 10*3/uL Normal 3.8-11.6 [facility] Comment on above: Performed By: #### L IPID, CBC, MG, HS TROP, CMP ####[facility] Lipid Panelon 03-10-2024 LDL Cholesterol,Calculate d 80 mg/dL Normal 0-100 [facility] Comment on above: Order Comment: FASTI NG N Result Comment: LDL ATP III CLASSIFICATION LDL less than 100 mg/dL Optimal LDL 100-129 mg/dL Near or above optimal LDL 130-159 mg/dL Borderline high LDL 160-189 mg/dL High LDL greater than 189 mg/dL Very high Performed By: #### L IPID, CBC, MG, HS TROP, CMP ####[address] Triglyceride w/Reflex 80 mg/dL Normal 0-149 [facility] Comment on above: Order Comment: FASTI NG N Result Comment: TRIG ATP III CLASSIFICATION TRIG less than 150 mg/dL Normal TRIG 150-199 mg/dL Borderline high TRIG 200-500 mg/dL High TRIG greater than 500 mg/dL Very high Standard traceable to the Center for Disease Conrtrol and Prevention (CDC) test method. Performed By: #### L IPID, CBC, MG, HS TROP, CMP ####[facility] [place] [address] VLDL CHOLESTEROL 16 mg/dL Normal [facility] Comment on above: Order Comment: FASTI NG N Performed By: #### L IPID, CBC, MG, HS TROP, CMP ####[facility] Lymphocytes [#/volume] in Bl ood by Automated countOrdered By: Moises Burciaga on 03-10-2024 Lymphocytes (Bld) [#/Vol] 2.3 10*3/uL Normal 1.00-4.8 [facility] Comment on above: Performed By: #### L IPID, CBC, MG, HS TROP, CMP ####[address] Lymphocytes/100 leukocytes i n Blood by Automated countOrdered By: Moises Burciaga on 03-10-2024 Lymphocytes/100 WBC (Bld) 39.5 % Normal . [facility] Comment on above: Performed By: #### L IPID, CBC, MG, HS TROP, CMP ####[address] MCH [Entitic mass] by Automa velma countOrdered By: Moises Burciaga on 03-10-2024 MCH (RBC) [Entitic mass] 29.3 pg Normal 24.7-34.3 [facility] Comment on above: Performed By: #### L IPID, CBC, MG, HS TROP, CMP ####[address] MCHC Auto (RBC) [Mass/Vol]Or dered By: Moises Burciaga on 03-10-2024 MCHC (RBC) [Mass/Vol] 33.6 g/dL 32.0-35.0 [facility] MCV [Entitic volume] by Auto mated countOrdered By: Moises Burciaga on 03-10-2024 MCV (RBC) [Entitic vol] 87.2 fL Normal 80-100 [facility] Comment on above: Performed By: #### L IPID, CBC, MG, HS TROP, CMP ####[address] MR head/brain wo conon 03-10 MR head/brain wo con [facility] [address] [place] [address] MRI Report Signed Patient: Prerna Phelps MR#: [id number] : 1955 Acct:[id number] Age/Sex: 68 / F ADM Date: 03/10/24 Loc: 3T Room: [address] [place] [address] Type: ADM IN Attending Dr: Héctor Rainey [...] ISCHEMIA. Impression dictated by: Augusto Paez Jr., DMinervaOMinerva03/10/2024 4:12 PM Dictation Location: [place] [address] Transcribed By: [facility] 03/10/24 1612 Dictated By: Augusto Paez Jr, DO 03/10/24 1607 Signed By: 03/10/24 1612 Normal [facility] Magnesium [Mass/volume] in S beltran or PlasmaOrdered By: Moises Burciaga on 03-10-2024 Magnesium [Mass/Vol] 1.9 mg/dL Normal 1.9-2.7 [facility] Comment on above: Order Comment: FASTI NG N Performed By: #### L IPID, CBC, MG, HS TROP, CMP ####[facility] [id number] Neutrophils [#/volume] in Bl ood by Automated countOrdered By: Moises Gualberto on 03-10-2024 Neutrophils (Bld) [#/Vol] 2.8 10*3/uL Normal 1.8-7.7 [facility] Comment on above: Performed By: #### L IPID, CBC, MG, HS TROP, CMP ####[facility] No Panel InformationOrdered By: Moises Burciaga on 03-10-2024 Estimated GFR (CKD-EPI) > 60.0 mL/Min [facility] Creatinine Clearance (Chem 65.11 [facility] Nucleated erythrocytes [Pres ence] in Blood by Automated countOrdered By: Moises Burciaga on 03-10-2024 Nucleated RBC Auto Ql (Bld) 0.1 /100{WBC} 0-0.5 [facility] Partial Thromboplastin Timeo n 03-10-2024 aPTT Coag (Bld) [Time] 30.4 s Normal 25.1-36.5 [facility] Comment on above: Result Comment: A he matocrit value greater than 55% may lead to inaccurate results in coagulation testing. Patients having hematocrit values >55% require a special collection tube for coagulation studies. Please contact the laboratory at [phone] for redraw instructions. PERFORMED BY: [facility] [address] [place] [address] PATHOLOGIST THEATER USHER ZAYRA LEONARD M.D. Performed By: #### C KMB, PT, CK, A1C WTH eA, PTT, HS TROP #### [facility] [address] Platelet mean volume [Entiti c volume] in Blood by Automated countOrdered By: Moises Burciaga on 03-10-2024 Platelet mean volume (Bld) [Entitic vol] 6.5 fL Normal 6.3-10.7 [facility] Comment on above: Performed By: #### L IPID, CBC, MG, HS TROP, CMP ####[facility] Platelets [#/volume] in Bloo d by Automated countOrdered By: Moises Burciaga on 03-10-2024 Platelets (Bld) [#/Vol] 306 10*3/uL Normal 150-450 [facility] Comment on above: Performed By: #### L IPID, CBC, MG, HS TROP, CMP ####[facility] [place] [id number] [facility] Potassium [Moles/volume] in Serum or PlasmaOrdered By: Moises Gualberto on 03-10-2024 Potassium [Moles/Vol] 3.6 mmol/L Normal 3.5-5.1 [facility] Comment on above: Order Comment: FASTI NG N Performed By: #### L IPID, CBC, MG, HS TROP, CMP ####[place] [address] [place] [id number] [facility] Protein [Mass/volume] in Ser um or PlasmaOrdered By: Moises Burciaga on 03-10-2024 Protein [Mass/Vol] 5.9 g/dL Low 6.4-8.9 [facility] Comment on above: Order Comment: FASTI NG N Performed By: #### L IPID, CBC, MG, HS TROP, CMP ####[place] [address] [place] [id number] [facility] Prothrombin time (PT)Ordered By: Héctor Rainey on 03-10-2024 PT Coag (PPP) [Time] 11.6 s Normal 9.0-12.9 [facility] Comment on above: A hematocrit value g reater than 55% may lead to inaccurate results in coagulation testing. Patients having hematocrit values >55% require a special collection tube for coagulation studies. Please contact the laboratory at [phone] for redraw instructions. Result Comment: A he matocrit value greater than 55% may lead to inaccurate results in coagulation testing. Patients having hematocrit values >55% require a special collection tube for coagulation studies. Please contact the laboratory at [phone] for redraw instructions. Performed By: #### C KMB, PT, CK, A1C WTH eA, PTT, HS TROP #### [facility] [address] Serum globulin measurement b y calculation (mass/volume)Ordered By: Moises Burciaga on 03-10-2024 Globulin (S) [Mass/Vol] 2.1 g/dL [facility] Comment on above: Order Comment: FASTI NG N Performed By: #### L IPID, CBC, MG, HS TROP, CMP ####[facility] Serum or plasma albumin/glob ulin mass ratioOrdered By: Moises Burciaga on 03-10-2024 Albumin/Globulin [Mass ratio] 1.8 {ratio} [facility] Comment on above: Order Comment: FASTI NG N Performed By: #### L IPID, CBC, MG, HS TROP, CMP ####[facility] Serum or plasma anion gap de terminationOrdered By: Moises Burciaga on 03-10-2024 Anion gap [Moles/Vol] 11.1 mmol/L Normal 6.0-15.0 [facility] Comment on above: Order Comment: FASTI NG N Performed By: #### L IPID, CBC, MG, HS TROP, CMP ####[address] Serum or plasma creatine kin ase MB (CKMB)/total creatine kinase (CK) ratio by calculaOrdered By: Héctor Rainey on 03-10-2024 CK.MB Calc [Catalytic fraction] 5.1 % 0.00-2.50 [facility] Serum or plasma high density lipoprotein (HDL) cholesterol measurementOrdered By: Moises Burciaga on 03-10-2024 Cholesterol in HDL [Mass/Vol] 76 mg/dL Normal 23-92 [facility] Comment on above: HDL CHOL ATP-III CLA SSIFICATION Cardiovascular RiskHDL > or equal to 60 mg/dL LOWHDL < 40 mg/dL HIGH Order Comment: FASTI NG N Result Comment: HDL CHOL ATP-III CLASSIFICATION Cardiovascular Risk HDL > or equal to 60 mg/dL LOW HDL < 40 mg/dL HIGH Performed By: #### L IPID, CBC, MG, HS TROP, CMP ####[facility] [id number] [place] [id number] [facility] Serum or plasma total choles terol/high density lipoprotein (HDL) cholesterol mass ratOrdered By: Moises Burciaga on 03-10-2024 Cholesterol.total/Cho lesterol in HDL [Mass ratio] 2.3 {ratio} Normal <5.0 [facility] Comment on above: Order Comment: FASTI NG N Result Comment: PERF ORMED BY: [facility] [address] [place] [address] PATHOLOGIST THEATER USHER ZAYRA LEONARD M.D. Performed By: #### L IPID, CBC, MG, HS TROP, CMP ####[place] [address] Sodium [Moles/volume] in Ser um or PlasmaOrdered By: Moises Burciaga on 03-10-2024 Sodium [Moles/Vol] 142 mmol/L Normal 136-145 [facility] Comment on above: Order Comment: FASTI NG N Performed By: #### L IPID, CBC, MG, HS TROP, CMP ####[place] [id number] [facility] Triglyceride [Mass/volume] i n Serum or PlasmaOrdered By: Moises Burciaga on 03-10-2024 Triglyceride [Mass/Vol] 80 mg/dL 0-149 [facility] Comment on above: TRIG ATP III CLASSIF ICATIONTRIG less than 150 mg/dL NormalTRIG 150-199 mg/dL Borderline highTRIG 200-500 mg/dL High TRIG greater than 500 mg/dL Very highStandard traceable to the Center for Disease Conrtrol and Prevention (CDC) test method. Troponin I High Sensitivityo n 03-10-2024 Troponin I High Sensitivity 286.4 pg/mL Off scale high 0.0-15.0 [facility] Comment on above: Result Comment: Crit ical Result : Called to and read back by: TRACY HINOJOSA at: 03/10/2024 13:55:50 by:GAURAV PERFORMED BY: [facility] [address] [facility] [place] [address] PATHOLOGIST THEATER USHER ZAYRA LEONARD M.D. Performed By: #### C KMB, PT, CK, A1C WTH eA, PTT, HS TROP ####[place] [address] Troponin I High Sensitivity 318.9 pg/mL Off scale high 0.0-15.0 [facility] Comment on above: Result Comment: Crit ical Result : Called to and read back by: TRACY HINOJOSA at: 03/10/2024 08:29:06 by:[id number] PERFORMED BY: [place] [address] PATHOLOGIST THEATER USHER ZAYRA LEONARD M.D. Performed By: #### L IPID, CBC, MG, HS TROP, CMP ####[address] [address] [facility] Troponin I.cardiac [Mass/vol ume] in Serum or Plasma by Detection limit <= 0.01 ng/Ordered By: Héctor Rainey on 03-10-2024 Troponin I.cardiac DL <= 0.01 ng/mL [Mass/Vol] 286.4 pg/mL 0.0-15.0 [facility] Comment on above: Critical Result : Ca lled to and read back by: TRACY HINOJOSA at: 03/10/2024 13:55:50 by:GAURAV Urea nitrogen [Mass/volume] in Serum or PlasmaOrdered By: Moises Burciaga on 03-10-2024 Urea nitrogen [Mass/Vol] 9 mg/dL Normal 7-25 [facility] Comment on above: Order Comment: FASTI NG N Performed By: #### L IPID, CBC, MG, HS TROP, CMP ####[place] [id number] [facility] XR chest 1V portableon 03-10 XR chest 1V portable [facility] [address] [place] [place] [id number] XRay Report Signed Patient: Prerna Phelps MR#: [id number] : 1955 Acct:[id number] Age/Sex: 68 / F ADM Date: 03/10/24 Loc: Room: [address] [place] [address] Type: ADM IN Attending Dr: Moises Burciaga [...] Fernando Bunch M.D.03/10/2024 7:52 AM Dictation Location: [place] [address] Transcribed By: [facility] 03/10/24 0752 Dictated By: Luis Fernando Bunch DO 03/10/24 0751 Signed By: 03/10/24 0752 Normal [facility] Office Visiton 09-30-2023 Follow-up visit [id number] Prerna Phelps 1955 F Date Provider Department Center 09/30/2023 271-YECENIA FINN [facility] Family History Problem Relation Age of Onset Hypertension Father Breast cancer Sister Family Status - Relation Status Age at Father Sister Level of Service:41107 MO OFFICE/OUTPATIENT ESTABLISHED LOW MDM 20-29 MIN Normal [facility] CBC AUTO DIFFon 07-06-2022 BASO # 0.1 103/ul Normal 0.0-0.1 [facility] Comment on above: Performed By: #### C BC #### [facility] [address] [address] [address] Robert Singletary Basophils/100 WBC (Bld) 0.8 % Normal 0.2-2.0 [facility] Comment on above: Performed By: #### C BC #### [facility] [address] [address] [address] Robert Singletary EO # 0.1 103/ul Normal 0.0-0.7 [facility] Comment on above: Performed By: #### C BC #### [facility] [address] [place] [address] Dr. Robert Singletary Eosinophils/100 WBC (Bld) 0.9 % Normal 0.9-7.0 [facility] Comment on above: Performed By: #### C BC #### [facility] [address] [place] [address] Dr. Robert Singletary Erythrocyte distribution width (RBC) [Ratio] 12.9 % Normal 11.0-15.0 [facility] Comment on above: Performed By: #### C BC #### [facility] [address] [place] [address] Dr. Robert Singletary Hematocrit (Bld) [Volume fraction] 38.1 % Normal 36.0-48.0 [facility] Comment on above: Performed By: #### C BC #### [facility] [address] [place] [address] Dr. Robert Singletary Hemoglobin (Bld) [Mass/Vol] 12.3 g/dL Normal 12.0-16.0 [facility] Comment on above: Performed By: #### C BC #### [facility] [address] [place] [address] Dr. Robert Singletary IG # 0.01 10e3/ul Normal 0.00-0.03 [facility] Comment on above: Performed By: #### C BC #### [facility] [address] [place] [address] Dr. Robert Singletary IG % 0.2 % Normal 0.0-0.5 [facility] Comment on above: Performed By: #### C BC #### [facility] [address] [place] [address] Dr. Robert Singletary LYMPH # 1.7 103/ul Normal 1.2-3.8 [facility] Comment on above: Performed By: #### C BC #### [facility] [address] [place] [address] Dr. Robert Singletary Lymphocytes/100 WBC (Bld) 27.4 % Normal 20.5-60.0 [facility] Comment on above: Performed By: #### C BC #### [facility] [address] [place] [address] Dr. Robert Singletary MANUAL DIFF REQ NO Normal [facility] Comment on above: Performed By: #### C BC #### [facility] [address] [place] [address] Dr. Robert Singletary MCH (RBC) [Entitic mass] 29.6 pg Normal 26.7-34.0 [facility] Comment on above: Performed By: #### C BC #### [facility] [address] [place] [address] Dr. Robert Singletary MCHC (RBC) [Mass/Vol] 32.3 g/dL Normal 29.9-35.2 [facility] Comment on above: Performed By: #### C BC #### [facility] [address] [place] [address] Dr. Robert Singletary MCV (RBC) [Entitic vol] 91.8 fL Normal 81.0-99.0 [facility] Comment on above: Performed By: #### C BC #### [facility] [address] [place] [address] Dr. Robert Singletary MONO # 0.5 103/ul Normal 0.3-0.8 [facility] Comment on above: Performed By: #### C BC #### [facility] [address] [place] [address] Dr. Robert Singletary Monocytes/100 WBC (Bld) 7.6 % Normal 1.7-12.0 [facility] Comment on above: Performed By: #### C BC #### [facility] [address] [place] [address] Dr. Robert Singletary NEUT # 4.0 103/ul Normal 1.4-6.5 [facility] Comment on above: Performed By: #### C BC #### [facility] [address] [place] [address] Dr. Robert Singletary Neutrophils/100 WBC (Bld) 63.1 % Normal 43.0-75.0 [facility] Comment on above: Performed By: #### C BC #### [facility] [address] [address] [address] Robert Singletary Platelet mean volume (Bld) [Entitic vol] 9.0 fL Critically low 9.5-13.5 [facility] Comment on above: Performed By: #### C BC #### [facility] [address] [place] [address] Dr. Robert Singletary PLT 331 103/ul Normal 150-450 [facility] Comment on above: Performed By: #### C BC #### [facility] [address] [address] [address] Robert Singletary RBC 4.15 106/ul Critically low 4.20-5.40 [facility] Comment on above: Performed By: #### C BC #### [facility] [address] [place] [address] Dr. Robert Singletary WBC 6.3 103/ul Normal 4.0-11.0 [facility] Comment on above: Performed By: #### C BC #### [facility] [address] [place] [address] Dr. Robert Singletary GLYCOHEMOGLOBIN A1Con 2021 ADA RECOMMENDATION SEE BELOW Normal [facility] Comment on above: Result Comment: ADA RECOMMENDED LIMIT 4.0 - 6.0 ADA THERAPEUTIC TARGET < 7.0 ACTION SUGGESTED > 7.0 Performed By: #### A 1C #### [facility] [address] [place] [address] Dr. Robert Singletary Glucose [Mass/Vol] 108 mg/dL Normal [facility] Comment on above: Performed By: #### A 1C #### [facility] [address] [place] [address] Dr. Robert Singletary HbA1c (Bld) [Mass fraction] 5.4 % Normal 4.5-6.2 [facility] Comment on above: Performed By: #### A 1C #### [facility] [address] [place] [address] Dr. Robert Singletary LIPID PROFILEon 07-06-2022 CHOL-HDL RATIO NORM SEE BELOW Normal [facility] Comment on above: Result Comment: 3.3 - 4.4 LOW RISK 4.4 - 7.1 AVERAGE RISK 7.1 - 11.0 MODERATE RISK >11.0 HIGH RISK Performed By: #### L IPID, LIVER, TSH, BMP #### [facility] [address] [address] [address] Robert Singletary Cholesterol [Mass/Vol] 200 mg/dL Normal <=200 [facility] Comment on above: Performed By: #### L IPID, LIVER, TSH, BMP #### [facility] [address] [address] [address] Robert Singletary Cholesterol in HDL [Mass/Vol] 82 mg/dL Critically high 40-60 [facility] Comment on above: Performed By: #### L IPID, LIVER, TSH, BMP #### [facility] [address] [place] [address] Dr. Robert Singletary Cholesterol in LDL [Mass/Vol] 105.4 mg/dL Normal [facility] Comment on above: Performed By: #### L IPID, LIVER, TSH, BMP #### [facility] [address] [address] [address] Robert Singletary Cholesterol.total/Cho lesterol in HDL [Mass ratio] 2.4 {ratio} Normal [facility] Comment on above: Performed By: #### L IPID, LIVER, TSH, BMP #### [facility] [address] [place] [address] Dr. Robert Singletary HDL NORMAL > or = 60 mg/dl - LO W CARDIOVASCULAR RISK <40 mg/dl - HIGH CARDIOVASCULAR RISK Normal [facility] Comment on above: Performed By: #### L IPID, LIVER, TSH, BMP #### [facility] [address] [place] [address] Dr. Robert Singletary LDL CALC NORMAL SEE BELOW Normal [facility] Comment on above: Result Comment: <100 mg/dl OPTIMAL 100 - 129 mg/dl NEAR OR ABOVE OPTIMAL 130 - 159 mg/dl BORDERLINE HIGH 160 - 189 mg/dl HIGH >190 mg/dl VERY HIGH Performed By: #### L IPID, LIVER, TSH, BMP #### [facility] [address] [place] [address] Dr. Robert Singletary Triglyceride [Mass/Vol] 63 mg/dL Normal <=150 [facility] Comment on above: Performed By: #### L IPID, LIVER, TSH, BMP #### [facility] [address] [address] [address] Robert Singletary VLDL CALC 12.6 mg/dL Normal [facility] Comment on above: Performed By: #### L IPID, LIVER, TSH, BMP #### [facility] [address] [address] [address] Robert Singletary LIVER PROFILEon 07-06-2022 Albumin [Mass/Vol] 3.7 g/dL Normal 3.4-5.0 [facility] Comment on above: Performed By: #### L IPID, LIVER, TSH, BMP #### [facility] [address] [place] [address] Dr. Robert Singletary Albumin/Globulin [Mass ratio] 1.1 {ratio} Normal [facility] Comment on above: Performed By: #### L IPID, LIVER, TSH, BMP #### [facility] [address] [address] [address] Robert Singletary ALP [Catalytic activity/Vol] 65 U/L Normal 46-116 [facility] Comment on above: Performed By: #### L IPID, LIVER, TSH, BMP #### [facility] [address] [place] [address] Dr. Robert Singletary ALT [Catalytic activity/Vol] 24 U/L Normal 14-59 [facility] Comment on above: Performed By: #### L IPID, LIVER, TSH, BMP #### [facility] [address] [place] [address] Dr. Robert Singletary AST [Catalytic activity/Vol] 15 U/L Normal 15-37 [facility] Comment on above: Performed By: #### L IPID, LIVER, TSH, BMP #### [facility] [address] [address] [address] Robert Singletary BILI, CONJUGATED 0.1 mg/dL Normal 0.0-0.2 [facility] Comment on above: Performed By: #### L IPID, LIVER, TSH, BMP #### [facility] [address] [place] [address] Dr. Robert Singletary Bilirubin [Mass/Vol] 0.4 mg/dL Normal 0.2-1.0 [facility] Comment on above: Performed By: #### L IPID, LIVER, TSH, BMP #### [facility] [address] [place] [address] Dr. Robert Singletary Globulin (S) [Mass/Vol] 3.3 g/dL Normal [facility] Comment on above: Performed By: #### L IPID, LIVER, TSH, BMP #### [facility] [address] [place] [address] Dr. Robert Singletary Protein [Mass/Vol] 7.0 g/dL Normal 6.4-8.2 [facility] Comment on above: Performed By: #### L IPID, LIVER, TSH, BMP #### [facility] [address] [place] [address] Dr. Robert Singletary PROF CHEM 8 (BAS METB)on Anion gap [Moles/Vol] 10.2 mmol/L Normal [facility] Comment on above: Performed By: #### L IPID, LIVER, TSH, BMP #### [facility] [address] [place] [address] Dr. Robert Singletary Calcium [Mass/Vol] 9.6 mg/dL Normal 8.5-10.1 [facility] Comment on above: Performed By: #### L IPID, LIVER, TSH, BMP #### [facility] [address] [place] [address] Dr. Robert Singletary Chloride [Moles/Vol] 104 mmol/L Normal 98-107 [facility] Comment on above: Performed By: #### L IPID, LIVER, TSH, BMP #### [facility] [address] [place] [address] Dr. Robert Singletary CO2 [Moles/Vol] 29.1 mmol/L Normal 21.0-32.0 [facility] Comment on above: Performed By: #### L IPID, LIVER, TSH, BMP #### [facility] [address] [address] [address] Robert Singletary Creatinine [Mass/Vol] 0.65 mg/dL Normal 0.55-1.02 [facility] Comment on above: Performed By: #### L IPID, LIVER, TSH, BMP #### [facility] [address] [address] [address] Robert Singletary EGFR-AF GEORGIAN >60 Normal >=60 [facility] Comment on above: Performed By: #### L IPID, LIVER, TSH, BMP #### [facility] [address] [address] [address] Robert Singletary EGFR-NON AF GEORGIAN >60 Normal >=60 [facility] Comment on above: Performed By: #### L IPID, LIVER, TSH, BMP #### [facility] [address] [address] [address] Robert Singletary Glucose [Mass/Vol] 94 mg/dL Normal 74-106 [facility] Comment on above: Performed By: #### L IPID, LIVER, TSH, BMP #### [facility] [address] [address] [address] Robert Singletary Potassium [Moles/Vol] 4.3 mmol/L Normal 3.5-5.1 [facility] Comment on above: Performed By: #### L IPID, LIVER, TSH, BMP #### [facility] [address] [address] [address] Robert Singletary Sodium [Moles/Vol] 139 mmol/L Normal 136-145 [facility] Comment on above: Performed By: #### L IPID, LIVER, TSH, BMP #### [facility] [address] [address] [address] Robert Singletary Urea nitrogen [Mass/Vol] 11.0 mg/dL Normal 7.0-18.0 [facility] Comment on above: Performed By: #### L IPID, LIVER, TSH, BMP #### [facility] [address] [address] [address] Robert Singletary Urea nitrogen/Creatinine [Mass ratio] 16.9 mg/mg Normal [facility] Comment on above: Performed By: #### L IPID, LIVER, TSH, BMP #### [facility] [address] [address] [address] Robert Singletary TSHon 07-06-2022 TSH 1.590 uIU/mL Normal 0.358-3.740 [facility] Comment on above: Performed By: #### L IPID, LIVER, TSH, BMP #### [facility] [address] [address] [address] Robert Singletary HEMOGLOBINon 05-27-2022 Hemoglobin (Bld) [Mass/Vol] 11.5 g/dL Critically low 12.0-16.0 [facility] Comment on above: Performed By: #### H GB #### [facility] [address] [address] [address] Robert Singletary MG MAMM SCREEN 3D CRISTOFER CADon 04-28-2022 MG MAMM SCREEN 3D CRISTOFER CAD Patient: PRERNA PHELPS Exam Date: 04/28/2022 : 1955 Gender:F Ordering : DR TI WRIGHT . Admission #: [id number] Family : Order #: [id number] CLICK HERE TO VIEW EXAM RADIOLOGY REPORT [...] bladder cancer at age 77. LOCATION: [facility] BREAST COMPOSITION: Heterogeneously dense,which may obscure [...] M.D. on 04/28/2022 at 12:52 Normal [facility] PROF CHEM 8 (BAS METB)on Anion gap [Moles/Vol] 15.1 mmol/L Normal [facility] Comment on above: Performed By: #### B MP #### [facility] [address] [place] [address] Dr. Robert Singletary Calcium [Mass/Vol] 9.2 mg/dL Normal 8.5-10.1 [facility] Comment on above: Performed By: #### B MP #### [facility] [address] [place] [address] Dr. Robert Singletary Chloride [Moles/Vol] 103 mmol/L Normal 98-107 [facility] Comment on above: Performed By: #### B MP #### [facility] [address] [address] [address] Robert Singletary CO2 [Moles/Vol] 26.0 mmol/L Normal 22.0-30.0 [facility] Comment on above: Performed By: #### B MP #### [facility] [address] [place] [address] Dr. Robert Singletary Creatinine [Mass/Vol] 0.64 mg/dL Normal 0.52-1.04 [facility] Comment on above: Performed By: #### B MP #### [facility] [address] [address] [address] Robert Singletary EGFR-AF GEORGIAN >60 Normal >=60 [facility] Comment on above: Performed By: #### B MP #### [facility] [address] [address] [address] Robert Singletary EGFR-NON AF GEORGIAN >60 Normal >=60 [facility] Comment on above: Performed By: #### B MP #### [facility] [address] [place] [address] Dr. Robert Singletary Glucose [Mass/Vol] 86 mg/dL Normal 74-106 [facility] Comment on above: Performed By: #### B MP #### [facility] [address] [place], [place] [address] Dr. Robert Singletary Potassium [Moles/Vol] 4.1 mmol/L Normal 3.4-5.0 [facility] Comment on above: Performed By: #### B MP #### [facility] [address] [place], [place] [address] Dr. Robert Singletary Sodium [Moles/Vol] 140 mmol/L Normal 137-145 [facility] Comment on above: Performed By: #### B MP #### [facility] [address] [place], [place] [address] Dr. Robert Singletary Urea nitrogen [Mass/Vol] 12.0 mg/dL Normal 7.0-18.0 [facility] Comment on above: Performed By: #### B MP #### [facility] [address] [place], [place] [address] Dr. Robert Singletary Urea nitrogen/Creatinine [Mass ratio] 18.8 mg/mg Normal [facility] Comment on above: Performed By: #### B MP #### [facility] [address] [place], [place] [address] Dr. Robert Singletary Cardiovascular Lab Reporton 08-13-2020 Cardiovascular Lab Report [facility] Patient Name: Prerna Phelps [facility] MR #: [id number] Physician: Yecenia Finn, Department of M.D. Medicine Service Date: 08/13/2020 Division of Birthdate: 1955 Cardiology Room #: Adult Cardiovascular Services [address] [address] Cardiovascular Laboratory Report FINAL IMPRESSIONS: 1. Non-obstructive coronary arteries. 2. Normal global left ventricular systolic function by noninvasive imaging. 3. Normal right-sided heart pressures. 4. Normal pulmonary capillary wedge pressure. 5. Normal cardiac output/cardiac index. RECOMMENDATIONS: 1. Consider alternate etiologies for the patient's symptomatology, namely pulmonary, musculoskeletal, and/or gastrointestinal. 2. Aggressive cardiovascular risk factor modification. 3. Follow up with [facility] Cardiology on an as-needed basis. 4. Follow [...] access the right internal jugular vein. A 6-Slovak glide sheath was inserted without difficulty. A [...] to access the left radial artery. A 6-Slovak glide sheath was inserted without difficulty. Difficulty [...] Rosas/Yecenia Finn M.D. Date Trans: 08/13/2020 11:58 A/anatoliy [id number] cc: Caesar Dexter M.D. [address] [place] [id number] [facility] Vital Signs Date Time Vital Sign Value Performing Clinician Faci lity 03-10-2024 16:00-0400 Diastolic blood pressure 75 mm[Hg] MD Ti Wright Work Phone: [facility] 03-10-2024 16:00-0400 Heart rate 78 /min MD Ti Wright Work Phone: [facility] 03-10-2024 16:00-0400 Respiratory rate 16 /min MD Ti Wright Work Phone: [facility] 03-10-2024 16:00-0400 SaO2% (BldA) [Mass fraction] 96 % MD Ti Wright Work Phone: [facility] 03-10-2024 16:00-0400 Systolic blood pressure 129 mm[Hg] MD Ti Wright Work Phone: [facility] 03-10-2024 14:00-0400 Body height 162.56 cm MD Ti Wright Work Phone: [facility] 03-10-2024 14:00-0400 Body weight 67 kg MD Ti Wright Work Phone: [facility] 03-10-2024 13:41-0400 Body temperature 97.9 [degF] MD Ti Wright Work Phone: [facility] 08-05-2022 15:45-0400 Blood Pressure Location Dona JOLENE [facility] [place] 08-05-2022 15:45-0400 Diastolic blood pressure 80 mm[Hg] Dona JOLENE [facility] [place] 08-05-2022 15:45-0400 Heart rate 68 /min Dona JOLENE [facility] [place] 08-05-2022 15:45-0400 Respiratory rate 16 /min Dona JOLENE [facility] [place] 08-05-2022 15:45-0400 Systolic blood pressure 138 mm[Hg] Dona YIP [facility] [place] Encounters Encounter Date Encounter Type Care Provider Facility Start: 05-17-2024 End: 05-17-2024 ambulatory W[employer] FARMER Stephanie L Kalin Facility:[facility] [place] Start: 04-28-2024 ambulatory W[employer] FARMER Stephanie L Kalin Facil ity:CD:[id number] Start: 04-24-2024 End: 04-24-2024 ambulatory WORM FARMER Stephanie L Kalin Facility:[facility] Start: 03-28-2024 ambulatory WORM FARMER Stephanie Kalin Facilit y:[facility] [place] Start: 03-27-2024 End: 03-27-2024 ambulatory [facility] FARMER [facility] Start: 03-21-2024 End: 03-21-2024 ambulatory [facility] Start: 03-13-2024 ambulatory [facility] Start: 03-10-2024 End: 03-10-2024 Evaluation and management of inpatient MD Ti Wright Work Phone: [facility] Work Phone: Start: 03-09-2024 End: 03-13-2024 Emergency department patient visit [facility] Start: 09-30-2023 End: 09-30-2023 [facility] Start: 10-14-2022 End: 10-14-[address] DONA YIP Facility:[facility] Start: 10-10-[address] DONA YIP Facilit y:[facility] Start: 08-05-2022 End: 08-05-2022 Patient encounter procedure Dona YIP [facility] [place] Start: 07-11-2022 Encounter for genera l adult medical examination without abnormal findings DR TI WRIGHT [facility] Start: 07-06-2022 End: 07-07-[address] TI [...] YIP Lumpectomy of right breast Stanislav YIP Plan of Treatment Date Care Activity Detail Author Start: 04-30-2025 ambulatory Ambulatory Facility:[facility] Start: 03-10-2024 [facility] Start: 03-10-2024 [facility] Start: 03-10-2024 Doppler ultrasonography of bilateral carotid arteries US carotid doppler BI [facility] Start: 03-10-2024 US.doppler Carotid arteries - bilateral [facility] Start: 03-10-2024 Referral to neurologist [facility] Start: 03-10-2024 Hospital admission [facility] Start: 03-10-2024 Referral to composition professor [facility] Patient Education Rivaroxaban At orvastatin Carvedilol Hydroxyzine Lisinopril Spironolactone Know your Meds [facility] Work Phone: Patient referral [facility] Work Phone: Immunizations Immunization Date Immunization Notes Care Provider Fa cility 01-30-2021 COVID-19 mRNA-1273 (Moderna) [facility] 12-26-2020 COVID-19 mRNA-1273 (Moderna) [facility] Payers Date Payer Category Payer Medicare [id number] 2024 Self-pay [id number] 2023 Medicare [id number] Private Health Insurance [id number] 1955 Unknown [id number] 2.16.84 [id number] 1955 Unknown [id number] 2.16.84 [id number] 1955 Unknown [id number] 2.16.84 [id number] 1955 Unknown [id number] 2.16.84 [id number] 1955 Unknown [id number] 2.16.84 [id number] 1955 Unknown [id number] 2.16.84 [id number] 1955 Unknown [id number] 2.16.8 [id number] 1955 Unknown [id number] 2.16.8 [id number] 1955 Unknown [id number] 2.16.8 [id number] 1955 Unknown [id number] 2.16.8 [id number] 1955 Unknown [id number] 2.16.8 [id number] Unknown [id number] 2.16.8 [id number] Social History Date Type Detail Facility Tobacco smoking stat [facility] Unknown if ever smoked [facility] Work Phone: Start: 1955 Sex Assigned At Female F [facility] Start: 08-05-2022 End: 03-10-2024 Tobacco smoking status Never smoked tobacco (finding) [facility] Tobacco smoking status Never [facility] [place] Sex Assigned At Female [facility] [place] Goals Date Patient Goal Desired Activity /State Functional Status Date Assessment Result Facility 03-10-2024 Functional status Patient at Baseline [facility] Work Phone: 08-05-2022 Functional Status N/A [facility] lawanda [place] Mental Status Date Assessment Result Facility 03-10-2024 Cognitive function Cognitive Sta tus Patient at Baseline [facility] Work Phone: Clinical Notes 10-14-2022 to 04-24-2024 [...] and making singletary (more content not included)... [facility] 03-21-2024 Note [facility] Cardiology Clinic Note Chief Complaint: Patient here for follow up [facility]. She had heart cath and [...] an SGLT2 inhibitor (more content not included)... [facility] 03-10-2024 Progress note Note Date/Time March 10, 2024 4:40pm [facility] [address] [place] [address] Hospitalist Progress Note Signed Patient: Prerna Phelps MR#: [id number] 9 : 1955 Acct:[id number] Age/Sex: 68 / F Adm Date: 4 Loc: Room: [address] [place] [address] Type: ADM IN Attending Dr: Héctor Rainey [...] that time. She does follow with a composition professor out of [place]. Patient does mention that she was having [...] mg 03/10/24 03:04 Acetaminophen 650 Mg Supp.Rect MO 03/10/25 03:03 Q6HR PRN Fever > 100.4 F Acetaminophen 650 mg 03/10/24 07:14 Acetaminophen 325 Mg Tablet PO 03/10/25 07:13 Q4H PRN Pain or fever Acetaminophen 1,000 mg 05/17/24 11:33 Acetaminophen 500 Mg Tablet PO 03/10/25 11:32 Q6H PRN Mild Pain Al Hydrox/Mg Hydrox/Simethicone 30 ml 03/10/24 11:33 Mag Hydrox/Al Hydrox/Simeth 30 Ml Udc PO 03/10/25 11:32 Q4H PRN Epigastric distress (Non-Card) Aspirin 81 mg 03/10/24 09:00 03/10/24 09:10 Aspirin 81 Mg Tablet. PO 03/10/25 08:59 81 mg DAILY TRACY Administration Atorvastatin Calcium 80 mg 03/10/24 21:00 Atorvastatin 80 Mg Tablet PO 03/10/25 20:59 QPM TRACY Carvedilol 6.25 mg 03/10/24 17:00 Carvedilol 6.25 Mg Tablet PO 03/10/25 16:59 BID.WITH.MEALS TRACY Docusate Sodium 100 mg 03/10/24 11:33 Docusate [...] 03/10/24 09:00 03/10/24 09:10 Pantoprazole 40 Mg Tablet. PO 03/10/25 08:59 40 mg DAILY TRACY [...] attending physician. Documented By: Héctor Rainey DO [id number] Signed By: <Electronically signed by Héctor Rainey DO> 03/10/24 2310 [facility] Work Phone: 1(630) 494-522305-17-2024 Consult note Author Dallas Norton [facility] March 10, 2024 2:15pm Note Date/Time March 10, 2024 11:07 am [facility] [address] [place] [address] Neurology Consult Note Signed Patient: Prerna Phelps MR#: [id number] 9 : 1955 Acct:[id number] Age/Sex: 68 / F Adm Date: 4 Loc: 3T Room: [address] [place] [address] Type: ADM IN Attending Dr: Héctor Rainey DO Copies to: DO Héctor Hunt DO Marc Naderer, MD~ HPI Consult Date: 03/10/24 Sequins Winder: Dallas Norton DO [facility] Social History Smoking Status: Never smoker Substance [...] Fernando Bunch M.D.03/10/2024 7:52 AM Dictation Location: [place] [address] Assessment/Plan (1) Alien limb phenomenon: (2) Transient ischemic attack: Plan CONSULT REASON: Aphasia and right-sided weakness HPI: 68-year-old woman with history of hypertension. Yesterday around 4 PM she was working in her garage and noticed she was unable to flower buncher or picker things with her right hand and then [...] her and she was brought to the [place] emergency department. Symptoms were said to resolve within 30 minutes of arriving to [place]. CT head and CT angiography were reportedly unremarkable. She was loaded with Plavix and transferred to [facility] for further evaluation. She had mentioned intrascapular [...] 76 -CT head and CT angiography from [facility] were reportedly unremarkable ASSESSMENT: Presumed transient ischemic [...] <Electronically signed by Dallas Norton DO> 03/10/24 2691 [facility] Work Phone: 1(399) 741-968705-17-2024 Progress note Author Bartolome Wheeler [facility] March 10, 2024 12:20pm Note Date/Time March 10, 2024 12:21 pm [facility] [address] [place] [address] Cardiology Progress Note Signed Patient: Prerna Phelps MR#: [id number] 9 : 1955 Acct:[id number] Age/Sex: 68 / F Adm Date: 4 Loc: Room: [address] [place] [address] Type: ADM IN Attending Dr: Héctor Rainey [...] % (Auto) 47.6 Lymph % (Auto) 39.5 [place] % (Auto) 9.8 Eos % (Auto) 2.1 Baso % (Auto) 1.0 Nucleat RBC Rel Count 0.1 Neut # (Auto) 2.8 Lymph # (Auto) 2.3 [place] # (Auto) 0.6 Eos # (Auto) 0.1 [...] dose. Add carvedilol. Both ordered by Dr. Chiki huertas. Presently she is on aspirin and Plavix. [...] <Electronically signed by MD Bartolome Wheeler> 03/10/24 1220 [facility] Work Phone: 1(814) 729-925905-17-2024 Consult note Author Bartolome Wheeler [facility] March 10, 2024 10:01am Note Date/Time March 10, 2024 10:01 am [facility] [address] [place] [address] Cardiology Consult Note Signed Patient: Prerna Phelps MR#: [id number] 9 : 1955 Acct:[id number] Age/Sex: 68 / F Adm Date: 4 Loc: Room: [address] [place] [address] Type: ADM IN Attending Dr: Héctor Rainey [...] her daughter who took her to the [place] emergency room. There her neurologic symptomatology resolved [...] and no additional complaints, except as documented [facility] Social History Smoking Status: Never smoker Substance [...] x10E3/uL Lymph # (Auto) 2.3 (1.00-4.8) x10E3/uL [place] # (Auto) 0.6 (0.0-0.8) x10E3/uL Eos # [...] <Electronically signed by MD Bartolome Wheeler> 03/10/24 1006 [facility] Work Phone: 1(740) 718-761705-17-2024 Procedure [facility]05-17-2024 History and physical note Author Moises Burciaga [facility] March 10, 2024 7:17am Note Date/Time March 10, 2024 7:17a m [facility] [address] [place] [address] Hospitalist H&P Signed Patient: Prerna Phelps MR#: [id number] 9 : 1955 Acct:[id number] Age/Sex: 68 / F Adm Date: 4 Loc: Room: [address] [place] [address] Type: ADM IN Attending Dr: Moises Burciaga MD Copies to: MD Ti Kendall MD~ HPI DATE OF EXAMINATION: 03/10/24 CHIEF COMPLAINT: right [...] with word finding and was brought to [place] ED for evaluation. NIHSS was initially 1- [...] and negative except as noted in the HPI [facility] Social History Smoking Status: Never smoker Substance [...] serial neurologic checks continue plavix- loaded at [facility] consider neurology consult if abnormal [...] signed by Moises Burciaga MD> 03/10/24 0717 [facility] Work Phone: 1(399) 242-856212-07-2023 [facility] Chief Complaint: Patient [...] should problems arise Yecenia Finn MD, MPH, [facility], [facility], [facility] Interventional Cardiology Pager Email: [email or web address] NoteOPERATIVE NOTE OPERATION DATE: 10/14/2022 PREOPERATIVE DIAGNOSIS: [...] 10 years for screening. CC: [facility]imaDischarge summary Author Héctor Rainey [facility] March 10, 2024 9:20pm Note Date/Time March 10, 2024 5:20p m [facility] [address] [place] [address] Discharge Summary Signed Patient: Prerna Phelps MR#: [id number] 9 : 1955 Acct:[id number] Age/Sex: 68 / F Adm Date: 4 Loc: Room: [address] [place] [address]: Héctor Rainey DO Copies to: DO Ti Alonzo MD~ Providers Date of Discharge: 03/10/24 Discharging Provider: Héctor Rainey Primary Care Provider: Ti Wright Consults: 03/10/24 03:04 Consult to Cardiology Routine Comment: Consulting Provider: [facility] Reason For Exam: elevated troponin, LBBB Has [...] not normal. They took her to the [facility] emergency room. There is CTA of the head neck arterial system and noncontrast CT scan of the head were unrevealing. Her neurologic symptomatology was improving but she had consistently elevated troponins of 200 and a left bundle branch block. She was transferred to [facility] to be evaluated by cardiology and neurology. [...] she may benefit from SSRI or SNRI ifchuckie is having difficulty coping. She seems to have a strong relationship with her composition professor (Dr. 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 4. ACTIVITY: You are advised to [...] bottle, follow the instructions on the bottle. [facility] is not responsible for incorrect prescription information [...] % (Auto) 47.6, Lymph % (Auto) 39.5, [place] % (Auto) 9.8, Eos % (Auto) 2.1, Baso % (Auto) 1.0, Nucleat RBC Rel Count 0.1, Neut # (Auto) 2.8, Lymph # (Auto) 2.3, [place] # (Auto) 0.6, Eos # (Auto) 0.1, Baso # (Auto) 0.1, PHA Creatinine Clear 65.11, Sodium 142, Potassium 3.6, Chloride 108 H, Carbon Dioxide 26.5, Anion Gap 11.1, BUN 9, Creatinine 0.70, Est GFR (CKD-EPI) > 60.0, Glucose 91, Estimat Average Glucose 111, Hemoglobin A1c 5.5, Calcium 9.1, Magnesium 1.9 Documented By: Héctor Rainey DO [id number] Signed By: <Electronically signed by Héctor Rainey, > 03/10/240 [facility] Work Phone: Evaluation + Plan note No data available for this section General Surgery [place] Evaluation noteNo assessment information available [facility] Work Phone: Evaluation note* Diagnosis Onset Date Resolution Status Acute HFrEF (heart failure w ith reduced ejection fraction) acute Alien limb phenomenon acute Elevated troponin acute Embolic stroke acute Takotsubo cardiomyopathy acu te Transient ischemic attack ac janae [facility] Work Phone: Hospital Discharge instructions No data available for this section General Surgery [place] [facility] Discharge instructions Additional Instructions DISCHARGE INSTRUCTIONS FOR 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 4. ACTIVITY: You are advised to [...] bottle, follow the instructions on the bottle. [facility] is not responsible for incorrect prescription information provided by the patient during their visit. Do not stop your medications without consulting your health care provider. Please take the list with you to your next doctor's appointment.[facility] Work Phone: Progress note No data available for this section General Surgery [place] Summary Purpose Family History No Family History [...] section and content) DATE CREATED AUTHOR 08/16/2020 [facility] DATE CREATED AUTHOR AUTHOR'S ORGANIZ ATION 10/17/2022 [facility] [place] [facility] DATE CREATED AUTHOR AUTHOR'S ORGANIZ ATION 03/14/2024 [facility] DATE CREATED AUTHOR AUTHOR'S ORGANIZ ATION 03/21/2024 [facility] DATE CREATED AUTHOR AUTHOR'S ORGANIZ ATION 04/22/2024 [facility] DATE CREATED AUTHOR AUTHOR'S ORGANIZ ATION 05/19/2024 [place] Goals (unrecognized section and content) Goals may [...] March 10, 2024 End: March 10, 2024 W Fredi Monet DO Other Provider Active Start : March 10, 2024 End: March 10, 2024 Margaret Olivares MD Other Provider Active Start: March 10, 2024 End: March 10, 2024 Bartloome Wheeler MD Other Provider Active Start: March [...] End: March 10, 2024 Phoebe Schafer , WORM FARMER- Other Provider Active Sta rt: March 10, [...] BE BASED ON THE PRIMARY CLINICAL RECORDS. [facility] [employer] provides no warranty or guarantee of the accuracy or completeness of information in this document.
--- NOTE | 2024-06-08 07:00 | CA_ITS ---
Patient Name: JOSY GASCA MR#: [id number] : 1955 Exam Date: 06/08/2024 Ordering Doctor: DR JENNY LAWRENCE M.D. ECHOCARDIOGRAM REPORT PROCEDURE: CA ECHO DOPPLER COMPLETE INDICATIONS: Takotsubo cardiomyopathy COMPARISON: None. DESCRIPTION: COMPLETE ECHOCARDIOGRAM Real-time transthoracic echocardiography with 2D, M-mode, spectral and color flow Doppler performed. QUALITY: Technical quality was good. LEFT VENTRICLE: Normal chamber size. Borderline left ventricular hypertrophy. Global left ventricular systolic function is normal. LV EF: Visual estimation of left ventricular ejection fraction is 65%. DIASTOLIC: Normal diastolic function. ATRIAL SEPTUM: LEFT ATRIUM: Moderate dilatation. RIGHT ATRIUM: Mild dilatation. RIGHT VENTRICLE: Normal chamber size. Normal right ventricular systolic function. TRICUSPID VALVE: Normal mobility and thickness. No stenosis with trivial regurgitation. No evidence of pulmonary hypertension. RVSP 28 mmHg MITRAL VALVE: Normal mobility and thickness. No evidence of mitral valve stenosis. There is no mitral annular calcification. Mild mitral regurgitation. AORTIC VALVE: Normal trileaflet appearance. No visible sclerosis. Normal leaflet mobility. No evidence of aortic valve stenosis. Trivial aortic regurgitation. AORTIC ROOT: Normal diameter and appearance. PULMONIC VALVE: Normal thickness and mobility. No stenosis. Trivial regurgitation. PERICARDIUM: No evidence of pericardial effusion. IVC: Collapses with inspirations. Normal size. PLEURA: CONCLUSION: 1. Normal ventricular function. LVEF is estimated at 65%. 2. No significant valvular dysfunction. 3. Mild to moderate biatrial dilatation. 4. Normal diastolic function. 5. Normal right-sided pressures. 6. No pericardial effusion. Adult Echocardiography Procedure Report Left Ventricle LVEDD (3.7 - 5.6 cm): 5.03 cm LVESD (2.2 - 4.0 cm): 3.18 cm LVIVS thickness (0.6 - 1.2 cm): 0.95 cm LVPW thickness (0.5 - 1.0 cm): 0.78 cm e': 0.11 m/s E - e': 5.80 LVOT Max Gradient: 5.15 mm[Hg] LVOT Area (cm2): 1.13 m/s Peak Velocity (LVOT): 1.13 m/s Mean Velocity (LVOT): 0.76 m/s LVOT Diameter 2.16 cm Left Ventricular Ejection Fraction: 65 % Left Atrium LA Volume Index (2D A2C): 50.01 ml/m2 Left Atrium Systolic Dimension: 4.21 cm Mitral Valve MV E to A Ratio: 0.92, 1.05 Mitral Valve A-Wave Peak Velocity: 0.67 m/s Mitral Valve E-Wave Peak Velocity: 0.66 m/s Right Ventricle RV Internal Diastolic Dimension: 3.39 cm Aorta AO Root Diam: 3.41 cm Ascending Ao Diam: 3.13 cm Aortic Valve AoV Area (Peak Manas): 2.49 cm2, 2.49 cm2 AoV Area (VTI): 2.47 cm2, 2.47 cm2 Peak Velocity(Antegrade Flow): 1.67 m/s Peak Gradient(Antegrade Flow): 11.22 mm[Hg] Mean Velocity(Antegrade Flow): 1.13 m/s Mean Gradient(Antegrade Flow): 5.86 mm[Hg] Velocity Time Integral: 38.81 cm Tricuspid Valve Peak Velocity (Regurgitant Flow): 2.33 m/s, 2.48 m/s, 2.43 m/s Pulmonic Valve Mean Gradient: 3.25 mm[Hg], 2.19 mm[Hg] Mean Velocity: 0.84 m/s, 0.67 m/s Peak Velocity: 1.24 m/s Peak Gradient: 7.47 mm[Hg], 4.96 mm[Hg] Right Atrium Right Atrium Systolic Pressure: 77.98 ml, 77.98 ml Dictated by: Boy Barboza M.D. on 06/08/2024 at 19:07 Approved by: Boy Barboza M.D. on 06/08/2024 at 19:10
== END 2024-06-08 06:55 | disposition home or self-care (01) ==
PROVIDERS: PCP Nurse Practitioner; Visit Provider Internal Medicine Interventional Cardiology
DX: I51.81 Takotsubo syndrome (principal)
CPT/HCPCS: 93306; 93356

== ENCOUNTER 2024-09-01 08:42 | Outpatient (OUT) | payer OTHER, SELFPAY ==
--- OUTSIDE RECORDS SUMMARY | 2024-09-01 08:57 | XMS_ITS | CCD ---
Author Organization [facility] ion Partnership [facility] Care Team Providers Care Hatchery Manager Name Role Phone TI WRIGHT Primary Care [...] Unavailable MD Ti Wright Primary Care Provider [phone] MD Moises Burciaga Admit Provider TROY Ramírez Other Provider Unavailable DO Mana Monet Other Provider MD Margaret Olivares Other Provider [phone] MD Bartolome Wheeler Other Provider [phone] MD Frank Thomas Other Provider MD Tavo Marx Other Provider JOHN PAUL Dhaliwal Other Provider [phone] MD Theresa Gaxiola Other Provider MD Aleja Umanzor Other Provider MD Braulio Rodriguez Other Provider [facility] Phoebe Lawson Other Provider [phone] MD Phyllis Hunt Other Provider [phone] DO Dallas Norton Other Provider DO Héctor Rainey Attending Provider Thalia Ramírez Consulting Unavailable Moises Burciaga Admitting [...] Hunt Consulting Unavailable Dallas Norton Consulting Unavailable [facility] Attending Unavailable [facility] Attending Unavailable [facility] Attending Unavailable Kalin Stephanie L Attending Unavailable Kalin, Stephanie L Attending Unavailable Kalin Stephanie L Admitting Unavailable Kalin, Stephanie L Attending Unavailable Kalin, Stephanie L Attending Unavailable Kalin, Stephanie L Attending Unavailable Kalin, Stephanie L Attending Unavailable Kalin, Stephanie L Attending Unavailable Allergies Allergy Classification Reported Allergen(s) Allergy Type Date of Onset Reaction(s) Facility Sulfonamides (antibiotic) (1 source) Sulfonamides (Antibiotic) Drug Allergy 4 [facility] (3 sources) nabumetone; Translations: [nabumetone] Drug Allergy 2 [facility] (disorder) [facility] [place] (2 sources) Sulfonamides (Antibiotic); Translations: [sulfa drugs] Drug allergy 7 Unknown [facility] [place] (4 sources) Tetracyclines; Translations: [tetracyclines] Drug allergy 4 Eruption of skin (disorder) [facility] [place] (1 source) nabumetone Drug Allergy [facility] (1 source) Sulfonamides (Antibiotic) Drug allergy (disorder) 0 [facility] (1 source) Tetracycline Drug Allergy 1 [facility] (3 sources) Sulfonamides (Antibiotic); Translations: [...] Active 80 MG PO Every evening 30 March 10, 2024 12:00am Calcium with [...] 5:19pm Start: 07-31-2022 take 1 tablet by [facility] once daily lisinopril 5 mg Tab 5 mg = 1 tab(s), Oral, Daily, Refills(s) 0 Start Date: 07/31/22 Status: Ordered omeprazole 20 mg delayed release oral capsule (2 sources) Proton Pump Inhibitor Start: 03-10-2024 take 20 mg by mouth once daily Omeprazole Active 20 MG PO Daily March 10, 2024 12:00am Start: 07-31-2022 take 1 capsule by mo 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 07-17-20 [facility] Case Information Case Priority: None Programs: -- Referral Source: Manager Clinical Services Referral Reason: Disease management Case Type: Chronic Care Management Risk Score: -- Case Status: Active (May 18, 2024) Date Assigned: April 28, 2024 Assigned By: Ruddy Perez Date Enrolled: May 18, 2024 Assigned Primary Personnel: Ruddy Perez Assigned Secondary Personnel: -- Case Physician: Stephanie Flores Problems Ongoing Anemia Anxiety BMI 26.0-26.9,adult Broken heart syndrome Cardiomyopathy Gastroesophageal reflux disease HTN (hypertension) Hyperlipemia Hypertension Irritable bowel syndrome with diarrhea Left bundle branch block Osteopenia RLS (restless legs syndrome) Screening for malignant neoplasm of colon Historical BMI 21.0-21.9, adult Procedure/Surgical History Cardiac catheterization (03/10/2024), Cardiac catheterization (08/13/2020), Cardiac catheterization (2006), Colonoscopy, Colonoscopy, Extraction of wisdom tooth, Lumpectomy of right breast, Tubal ligation. Home Medications calcium-vitamin D, 650 mg- 12.5 mcg, Chewed, BID carvedilol 6.25 mg Tab, 6.25 mg= 1 tab(s), Oral, BID Centrum Silver Ultra Women's, 2 tab(s), Oral, Daily hydrOXYzine hydrochloride 10 mg Tab, 10 mg= 1 tab(s), Oral, TID, PRN lisinopril 2.5 mg Tab, 2.5 mg= 1 tab(s), Oral, Daily omeprazole 20 mg Cap-DR, 20 mg= 1 cap(s), Oral, Daily potassium chloride 99 mg oral tablet, 99 mg= 1 tab(s), Oral, Daily Turmeric, 500 mg, Chewed, Daily [...] lifetime) Tobacco Use:. Never Smokeless Tobacco Use:. Cigarettes, Household tobacco concerns: No., 06/27/2024 Family History Cardiac arrhythmia: Father. Diabetes mellitus type 2: Sister. Heart disease: Mother and Father. Hypertension: Sister and Brother. Leukemia: Mother. Primary malignant neoplasm of bladder: Father. Primary malignant neoplasm of female breast: Sister. Screenings and Assessments 06/13/24 13:46:00 Result Name Value Comment CCM Written Consent Written consent obtained 05/17/24 10:54:00 Result Name Value Comment CCM Program Enrollment Verbally agreed to receive CCM services CCM Verbal Consent By Self 05/17/24 08:00:00 Result Name Value Comment HIPPA Verified Type of Contact Telephone Information Given by Self CM Preferred Spoken Language Mexican CM Preferred Written Language Georgian Preferred Communication Mode Verbal Ability to Read/Write Able to read, Able to write Fire Sprinkler Apparatus Inspector Called No Preferred Salutation Mrs. Preferred Method of Contact Cell Cell Best Time to Visit or Contact No preference Best Day to Visit or Contact Wednesday, Wednesday, Wednesday Appointment Reminders Phone, Patient portal, Other secured messaging Preferred Mailing Address [address] [place] [address] [phone] Able to Read Georgian Able to read Georgian Learning Style Pref Patient Demonstration Teaching Method [...] System Family member(s), Friend(s), Cultural/Spiritual community Primary Fashion Show Director of Home Medication Self Medication Adherence Method Other medication adherence support sets up own pill binder Current DME at Home No Currently Receiving Skilled Services No Skilled Service Needs Anticipated No Hours of Uninterrupted Sleep 6 hour(s) Symptoms of Sleep Apnea Age greater than 50, Hypertension Reports Feeling Rested After Sleep Yes Naps/Sleep Periods No Barriers to Care None Home Barriers None Employment Status Employed Financial Issues None Sources of Income Pension, Salary patient, Savings, Social Securit (more content not included)... Normal [facility] Ambulatory Visit Summaryon 0 06-27-2024 Ambulatory Visit Summary Ambulatory Visit Summary PRERNA PHELPS :1955 Visit Date:06/27/2024 Ambulatory Visit Instructions Your Diagnosis Non-smoker BMI 27.0-27.9,adult Over weight These Are Your Goals Maintain therapeutic Blood Pressure and prevent complications - Not met Interventions: Avoid foods high in sodium such as; pickles, chips, olives, take out, processed foods, soda - Progressing Keep follow up visits as scheduled with PCP and Senior Software Developer - Progressing Monitor BP regulary and learn when to report results to provider Review educational material - Done Take Medications as Prescribed - Progressing Manage symptoms of GERD and prevent complications - Not met Interventions: Avoid eating food prior to bed (2-3 hours) and avoid lying down shortly after eating through out the - Not done Avoid foods known to trigger GERD symptoms and avoid excessive caffeine and alcohol - Not done Elevate head of bed during sleep to prevent night time reflux - Not done Learn Best Ways to Take Medications as Prescribed - Progressing Maintain healthy weight - Progressing Review educational material - Done Help patient achieve sustainable wgt loss/ wgt management, improve overall health, and prevent comp. - Not met Interventions: Change up snacks and meals on a regular basis; so not to get tired of the same thing - Not done Consult with buttonhole tacker for new ideas and recommendations to improve eating habits - Not done Engage in 30 mins of physical or aerobic exercise at least 3 days/week, increase as mitch. - Not done Use food tracking jeanie to stay accountable and on track - Not done Prevent further progression of osteopenia and strengthen existing bone tissue - Not met Interventions: Avoid excessive caffeine intake - Not done Complete repeat DEXA scan per PCP/ Medicare reccomendations - Not done Consume foods rich in calcium and vit D such as: beans, milk, cheese, fish. - Not done Stay active and engage in low impact strengthing exercises to maintain muscles and balance - Not done Take supplements as recommended per PCP - Not done Prevent complications of cardiomyopathy - Not met Interventions: Keep follow up appointmnents and repeat testing as scheduled Learn signs and symptoms of CM to report to provider - Progressing Maintain healthy diet and avoid excess sodium intak, avoid foods high in sodium - Not done Monitor weight and for signs of fluid retention - Progressing Review educational material - Done Take medications as prescribed - Progressing Your Care Team Attending Physician - Stephanie Flores Primary Care Physician - Stephanie Flores This Is Your Medications List Turmeric calcium-vitamin D carvedilol (carvedilol 6.25 mg Tab) cholecalciferol (Vitamin D3) hydrOXYzine (hydrOXYzine hydrochloride 10 mg Tab) lisinopril (lisinopril 2.5 mg Tab) multivitamin with minerals (Centrum Silver Ultra Women's) omeprazole (omeprazole 20 mg Cap-DR) potassium chloride (potassium chloride 99 mg oral tablet) rivaroxaban (Xarelto 15 mg oral tablet) Procedures Performed Cardiac catheterization (03/10/2024), Cardiac catheterization (08/13/2020), Cardiac catheterization (2006), Colonoscopy, Colonoscopy, Extraction of wisdom tooth, Lumpectomy of right breast, Tubal ligation. Discharge Vitals Temperature (Temporal Artery) 37.0 ?C Heart Rate (Peripheral) 68 Respiratory Rate 18 Blood Pressure 170/90 Height 161.0 cm Height 63 in Weight 70.6 kg Weight 155.32 lb BMI 27.24 What to do next Scheduled Follow-Up Appointments Wednesday 1:00 PM EDT Where: [place] [id number] Medications What How Much When Instructions Unchanged calcium-vitamin D 650 mg- 12.5 mcg Chewed 2 times a day Unchanged carvedilol (carvedilol 6.25 mg Tab) 1 Tablets By Mouth 2 times a day TAKE 1 TABLET BY MOUTH TWICE DAILY with meals FOR 30 DAYS Unchanged cholecalciferol (Vitamin D3) 25 Microgram By Mouth Every day Unchanged hydrOXYzine (hydrOXYzine hydrochloride 10 mg Tab) 1 Tablets By Mouth 3 times a day as needed for as needed for anxiety Unchanged lisinopril (lisinopril 2.5 mg Tab) 1 Tablets By Mouth Every day Unchanged multivitamin with minerals (Centrum Silver Ultra Women's) 2 Tablets By Mouth Every day Unchanged omeprazole (omeprazole 20 mg Cap-DR) 1 Capsules By Mouth Every day Unchanged potassium chloride (potassium chloride 99 mg oral tablet) 1 Tablets By Mouth Every day Unchanged rivaroxaban (Xarelto 15 mg oral tablet) 1 Tablets By Mouth Every day TAKE 1 TABLET BY MOUTH ONCE DAILY FOR 30 DAYS Unchanged Turmeric 500 Milligram Chewed Every day Allergies nabumetone (Hives) sulfa drugs (Unknown) tetracyclines (Rash) Problems Ongoing - Any problem that you are currently receiving treatment for. Anemia Anxiety BMI 26.0-26.9,adult Broken heart syndrome C (more content not included)... Normal [facility] Medicine Office/Clini c Noteon 06-27-2024 Family Medicine Office/Clinic Note Family Medicine Office/Clinic Note HPI Staff Prerna is a 69 year old female presenting with discussing Dexa scan done @ [facility] on 05/15 and best Calcium and Vitamin D supplement Wants to make sure The calcium chews are good History of Present Illness pt presents today for follow up on dexa scan results Review of Systems PHQ Score Initial Depression Screen Score: 0 SCORE Physical Exam Vitals & Measurements T: 37.0 ?C(Temporal Artery) HR: 68(Peripheral) RR: 18 BP: 170/90 SpO2: 97% HT: 63 in HT: 161.0 cm WT: 70.6 kg WT: 155.32 lb BMI: 27.24 General: alert, no acute distress ENMT: oral mucosa moist, no pharyngeal erythema or exudate Cardiovascular: regular rate and rhythm, normal peripheral perfusion Respiratory: Lungs CTA, respirations non labored Extremities: no deformity, no trauma Neurological: oriented x 4, LOC appropriate for age, CN II-XII intact, motor strength equal & normal bilaterally, speech normal Assessment/Plan 1. Osteopenia (M85.80: Other specified disorders of bone density and structure, unspecified site) pt brought in the gummies that she is taking. it ends up being 1300 mg of calcium and 1,00IU of Vitamin d daily. discussed that this is plenty enough to be taking. pt is not interested in fosamax. all questions answered. RTC as needed 2. Anxiety (F41.9: Anxiety disorder, unspecified) pt is emotional during visit. she recently received her autopsy results. looks like he was in multi-organ failure when he decided to take his own life with a gun to his head. she was hoping to get some closure to his . pt is involved in grief counseling weekly. she is moving through phases of grief appropriately. still taking it one day at a time. emotional support provided. 3. Non-smoker (Z78.9: Other specified health status) continue not smoking 4. BMI 27.0-27.9,adult (Z68.27: Body mass index [BMI] 27.0-27.9, adult) BMI education given 5. Over weight (E66.3: Overweight) see above Follow-up No qualifying data available Problem List/Past Medical History Ongoing Anemia Anxiety BMI 26.0-26.9,adult Broken heart syndrome Cardiomyopathy Gastroesophageal reflux disease HTN (hypertension) Hyperlipemia Hypertension Irritable bowel syndrome with diarrhea Left bundle branch block Osteopenia RLS (restless legs syndrome) Screening for malignant neoplasm of colon Historical BMI 21.0-21.9, adult Procedure/Surgical History Cardiac catheterization (03/10/2024), Cardiac catheterization (08/13/2020), Cardiac catheterization (2006), Colonoscopy, Colonoscopy, Extraction of wisdom tooth, Lumpectomy of right breast, Tubal ligation. Medications calcium-vitamin D, 650 mg- 12.5 mcg, Chewed, BID carvedilol 6.25 mg Tab, 6.25 mg= 1 tab(s), Oral, BID Centrum Silver Ultra Women's, 2 tab(s), Oral, Daily hydrOXYzine hydrochloride 10 mg Tab, 10 mg= 1 tab(s), Oral, TID, PRN lisinopril 2.5 mg Tab, 2.5 mg= 1 tab(s), Oral, Daily omeprazole 20 mg Cap-DR, 20 mg= 1 cap(s), Oral, Daily potassium chloride 99 mg oral tablet, 99 mg= 1 tab(s), Oral, Daily Turmeric, 500 mg, Chewed, Daily [...] lifetime) Tobacco Use:. Never Smokeless Tobacco Use:. Cigarettes, Household tobacco concerns: No., 06/27/2024 Family History Cardiac arrhythmia: Father. Diabetes mellitus type 2: Sister. Heart disease: Mother and Father. Hypertension: Sister and Brother. Leukemia: Mother. Primary malignant neoplasm of bladder: Father. Primary malignant neoplasm of female breast: Sister. Immunizations Vaccine Date Status SARS-CoV-2 (COVID-19) mRNA-1273 vaccine 10/22/2021 Recorded SARS-CoV-2 (COVID-19) mRNA-1273 vaccine 01/30/2021 Recorded SARS-CoV-2 (COVID-19) mRNA-1273 vaccine 12/26/2020 Recorded Normal [facility] Comment on above: Result Comment: Elec tronically Signed By: Stephanie Flores\.br\Date and Time Signed: 06/27/24 14:42 EDT Office Visiton 06-27-2024 Follow-up visit [id number] Prerna Phelps 1955 F Date Provider Department Center 06/27/2024 271-YECENIA FINN CARD [place] [facility] Family History Problem Relation Age of Onset Hypertension Father Breast cancer Sister Family Status - Relation Status Age at Father Sister Level of Service:53518 DC OFFICE/OUTPATIENT ESTABLISHED MOD MDM 30 MIN Normal [facility] Population Health 06-14-20 [facility] Case Information Case Priority: None Programs: -- Referral Source: Manager Clinical Services Referral Reason: Disease management Case Type: Chronic Care Management Risk Score: -- Case Status: Active (May 18, 2024) Date Assigned: April 28, 2024 Assigned By: Ruddy Perez Date Enrolled: May 18, 2024 Assigned Primary Personnel: Ruddy Perez Assigned Secondary [...] of female breast: Sister. Screenings and Assessments 06/13/24 13:46:00 Result Name Value Comment [facility] Written Consent Written consent obtained 05/17/24 10:54:00 Result Name Value Comment [facility] Program Enrollment Verbally agreed to receive [facility] services [facility] Verbal Consent By Self 05/17/24 08:00:00 Result Name Value Comment HIPPA Verified Type of Contact Telephone Information Given by Self CM Preferred Spoken Language Mexican CM Preferred Written Language Georgian Preferred Communication Mode Verbal Ability to Read/Write Able to read, Able to write Fire Sprinkler Apparatus Inspector Called No Preferred Salutation Preferred Method of Contact Cell Cell Best Time to Visit or Contact No preference Best Day to Visit or Contact Wednesday, Wednesday, Wednesday Appointment Reminders Phone, Patient portal, Other secured messaging Preferred Mailing Address [address] [place] [address] [phone] Able to Read Georgian Able to read Georgian Learning Style Pref Patient Demonstration Teaching Method [...] System Family member(s), Friend(s), Cultural/Spiritual community Primary Fashion Show Director of Home Medication Self Medication Adherence Method Other medication adherence support sets up own pill binder Current DME at Home No Currently Receiving Skilled Services No Skilled Service Needs Anticipated No Hours of Uninterrupted Sleep 6 hour(s) Symptoms of Sleep Apnea Age greater than 50, Hypertension Reports Feeling Rested After Sleep Yes Naps/Slee (more content not included)... Normal [facility] 05-17-20 [facility] Case Information Case Priority: None Programs: -- Referral Source: Manager Clinical Services Referral Reason: Disease management Case Type: Chronic [...] CCM Program Enrollment Verbally agreed to receive [facility] services CCM Written Consent Written consent in progress CCM Verbal Consent By Self 05/17/24 08:00:00 Result Name Value Comment HIPPA Verified Type of Contact Telephone Information Given by Self CM Preferred Spoken Language Mexican CM Preferred Written Language Georgian Preferred Communication Mode Verbal Ability to Read/Write Able to read, Able to write Fire Sprinkler Apparatus Inspector Called No Preferred Salutation Preferred Method of Contact Cell Cell Best Time to Visit or Contact No preference Best Day to Visit or Contact Wednesday, Wednesday, Wednesday Appointment Reminders Phone, Patient portal, Other secured messaging Preferred Mailing Address [address] [place] [address] [phone] Able to Read Georgian Able to read Georgian Learning Style Pref Patient Demonstration Teaching Method [...] System Family member(s), Friend(s), Cultural/Spiritual community Primary Fashion Show Director of Home Medication Self Medication Adherence Method [...] Home Barrier (more content not included)... Normal [facility] Population Health Population Health Problems Ongoing [...] - Comments: - - Intervention Frequency Status Reconcilement Clerk Review educational material - - Not done - - Keep follow up visits as scheduled with PCP and Senior Software Developer - - Not done - - Monitor [...] - Comments: - - Intervention Frequency Status Reconcilement Clerk Review educational material - - Not done [...] - Comments: - - Intervention Frequency Status Reconcilement Clerk Consult with buttonhole tacker for new ideas and recommendations to imporve [...] - Comments: - - Intervention Frequency Status Reconcilement Clerk Take supplements as recommended per PCP - [...] - Comments: - - Intervention Frequency Status Reconcilement Clerk Review educational material - - Not done [...] - - - - - - Normal [facility] ED [facility] 05-12-2024 [facility] Gastroenterology Gastroesophageal Reflux Disease, Adult Gastroesophageal reflux [...] vinegar, hot sauces, and barbecue sauce. ? [place] fruit juices and citrus fruits, such as oranges, alverto, and limes. ? Tomato-based foods, such as red sauce, chili, salsa, and pizza with red sauce. ? Fried and fatty foods, such as donuts, spanish fries, potato chips, and high-fat dressings. ? [...] guidance abo (more content not included)... Normal [facility] Reminderson 04-28-2024 Reminders Reminders From: Ruddy Perez To: Ruddy Perez; Sent: 04/28/2024 09:54:13 EDT Show up: 04/28/2024 09:54:00 EDT Subject: CCM intake 05/17 at 0800 Due Date/Time: 05/16/2024 09:54:00 EDT Reminder/Recall Normal [facility] Family Medicine Office/Clini c Noteon 04-25-2024 [...] of clutter to prevent tripping and/or falling. [place] Advance Directives reviewed. Patient does not have [...] visit. Labs to be completed at [facility] per patient request. No concerns with bowel/ bladder. Colonoscopy last completed: 10/14/22. Patient last Mammogram 05/05/23 at [facility]-per patient online portal with [facility]. Patient declines order for screening Mammogram [...] with progress. (more content not included)... Normal [facility] Comment on above: Result Comment: Elec tronically Signed By: Stephanie Flores\.br\Date and Time Signed: 04/25/24 08:00 EDT\.br\Electronically Co-Signed By: Janie Beck LPN\.br\Date and Time Co-Signed: 04/24/24 14:35 EDT\.br\Electronically Co-Signed By: Janie Beck LPN\.br\Date and Time Co-Signed: 04/24/24 14:39 EDT Ambulatory Visit Summaryon 0 04-24-2024 Ambulatory Visit Summary Ambulatory Visit Summary PRERNA PHELPS Ainsley :1955 Visit Date:04/24/2024 Ambulatory Visit Instructions Your [...] Follow-Up Appointments Wednesday 1:00 PM EDT Where: [facility] Medicine [place] Normal [facility] Medicine Office/Clini c Noteon 04-24-2024 Family Medicine [...] SARS-CoV-2 (COVID-19) mRNA-1273 vaccine 12/26/2020 Recorded Normal [facility] Comment on above: Result Comment: Elec tronically Signed By: Stephanie Flores\artie\Date and Time Signed: 04/24/24 14:15 EDT Patient Correspondenceon Patient Correspondence [id number]#1. 00TIFF Normal [facility] ECG 12-Leadon 03-28-2024 ECG 12-Lead [id number]# 1.00TIFF Normal [facility] ED Note-Physicianon 03-28-20 ED Note-Physician [id number]# 1.00TIFF Normal [facility] Lab Reportson 03-28-2024 Lab Reports [id number]# 1.00TIFF Normal [facility] RAD - CT Reporton 03-28-2024 RAD - CT Report [id number]# 1.00TIFF Normal [facility] RAD - CT Report [id number]# 1.00TIFF Normal [facility] RAD - CT Report [id number]#1. 00TIFF [facility] Ambulatory Visit Summaryon 0 03-27-2024 Ambulatory Visit Summary ELOPRERNA :1955 Visit Date:03/27/2024 Ambulatory Visit Instructions Your [...] Appointments Wednesday 1:00 PM EDT With: Where: [facility] Normal [address] [place] [address]- \.br\ Medications\.br\ What How Much When Instructions\.br\ [...] for choosing us for your care.\.br\ \.br\ [facility] [facility] Family Medicine Office/Clini c Noteon 03-27-2024 Family Medicine Office/Clinic Note HPI Staff Prerna is a 68 year old female presenting to establish care Establish Care: History: Any previous diagnosis: GERD, IBS, Left bundle branch block , HTN History of seeing any specialist: [facility] [place] [facility] in [facility] Dr Yecenia Brown When was your last doctors visit: Last provider: Bobo Hidalgo Any recent labs: [facility] 03/09 then transferred to [facility] 03/10/24 Health Maintenance UTD: Colonoscopy: 2020 [facility] Normal Mammogram: [facility] 2022 Pelvic/Pap: several years ago Acute: Current issues/complaints: 03/09 pt was a home and lost all control of right arm thought maybe she just hadn't eating anything over the last few days due to her took his life. She went to warm some food up and couldn't figure out how to operate the microwave and then lost her speech. She went to [facility] where they did CT scan W/Wo contrast didn't find anything but cardiac enzymes were elevated. She was then Transferred to [facility] where she has several EKG's and MRI [...] malignant neoplasm of female breast: Sister. Normal [facility] Comment on above: Result Comment: Elec tronically Signed By: Stephanie Flores\.br\Date and Time Signed: 03/27/24 16:02 EDT Office Visiton 03-21-2024 Follow-up visit [id number] Prerna Phelps 1955 F Date Provider Department Center 03/21/2024 [facility]YECENIA [facility] Family History Problem Relation Age of Onset Hypertension Father Breast cancer Sister Family Status - Relation Status Age at Father Sister Level of Service:90641 DC OFFICE/OUTPATIENT ESTABLISHED MOD MDM 30 MIN Normal [facility] US carotid doppler BIon 02-22 US carotid doppler BI [place] [address] Ultrasound Report Signed Patient: Prerna Phelps MR#: [id number] : 1955 Acct:[id number] Age/Sex: 68 / F ADM Date: 03/10/24 Loc: Room: [address] [place] [address] Type: DIS IN Attending Dr: Héctor Rainey [...] Fernando Jacob M.D.03/11/2024 11:51 AM Dictation Location: [facility] Tech: Munira Izzy Transcribed By: BOOGIE 03/11/24 1151 Dictated By: Luis Fernando Jacob MD 03/11/24 1150 Signed By: 03/11/24 1151 Normal [facility] A1C with Estimated Average [facility] 03-10-2024 Glucose [Mass/Vol] 111 mg/dL Normal [facility] Comment on above: Result Comment: PERF ORMED BY: [facility] [address] [place] [address] PATHOLOGIST BELLY DUMP DRIVER ZAYRA LEONARD M.D. Performed By: #### C KMB, PT, CK, A1C WTH eA, PTT, HS TROP #### [facility] [address] Activated partial thrombopla stin time (aPTT) in platelet poor plasma by coagulation aOrdered By: Héctor Rainey on 03-10-2024 aPTT Coag (PPP) [Time] 30.4 s 25.1-36.5 Comment on above: A hematocrit value g reater than 55% may lead to inaccurate results in coagulation testing. Patients having hematocrit values >55% require a special collection tube for coagulation studies. Please contact the laboratory at [phone] for redraw instructions. Alanine aminotransferase [En zymatic activity/volume] in Serum or PlasmaOrdered By: Moises Burciaga on 03-10-2024 ALT [Catalytic activity/Vol] 15 U/L Normal 7-52 Comment on above: Order Comment: FASTI NG N Performed By: #### L IPID, CBC, MG, HS TROP, CMP ####[facility] [place] [address] [place] Albumin [Mass/volume] in Ser um or Plasma by Bromocresol green (BCG) dye binding methoOrdered By: Moises Burciaga on 03-10-2024 Albumin BCG dye [Mass/Vol] 3.8 g/dL 3.5-5.7 Alkaline phosphatase [Enzyma tic activity/volume] in Serum or PlasmaOrdered By: Moises Burciaga on 03-10-2024 ALP [Catalytic activity/Vol] 66 U/L Normal 34-104 Comment on above: Order Comment: FASTI NG N Performed By: #### L IPID, CBC, MG, HS TROP, CMP ####[facility] [place] [id number] [facility] Aspartate aminotransferase [ Enzymatic activity/volume] in Serum or PlasmaOrdered By: Moises Burciaga on 03-10-2024 AST [Catalytic activity/Vol] 19 U/L Normal 13-39 Comment on above: Order Comment: FASTI NG N Performed By: #### L IPID, CBC, MG, HS TROP, CMP ####[address] Automated basophil %Ordered By: Moises Burciaga on 03-10-2024 Basophils/100 WBC (Bld) 1.0 % Normal . Comment on above: Performed By: #### L IPID, CBC, MG, HS TROP, CMP ####[address] Automated basophil countOrde red By: Moises Burciaga on 03-10-2024 Basophils (Bld) [#/Vol] 0.1 10*3/uL Normal 0.0-0.2 Comment on above: Result Comment: PERF ORMED BY: [facility] [address] [facility] [place] [address] PATHOLOGIST [employer] DRIVER ZAYRA LEONARD M.D. Performed By: #### L IPID, CBC, MG, HS TROP, CMP ####[address] Automated blood monocyte cou ntOrdered By: Moises Burciaga on 03-10-2024 Monocytes (Bld) [#/Vol] 0.6 10*3/uL Normal 0.0-0.8 Comment on above: Performed By: #### L IPID, CBC, MG, HS TROP, CMP ####[address] Automated eosinophil %Ordere d By: Moises Burciaga on 03-10-2024 Eosinophils/100 WBC (Bld) 2.1 % Normal . Comment on above: Performed By: #### L IPID, CBC, MG, HS TROP, CMP ####[address] Automated eosinophil countOr dered By: Moises Burciaga on 03-10-2024 Eosinophils (Bld) [#/Vol] 0.1 10*3/uL Normal 0.0-0.45 Comment on above: Performed By: #### L IPID, CBC, MG, HS TROP, CMP ####[address] Automated monocyte %Ordered By: Moises Burciaga on 03-10-2024 Monocytes/100 WBC (Bld) 9.8 % Normal . Comment on above: Performed By: #### L IPID, CBC, MG, HS TROP, CMP ####[address] Automated neutrophil %Ordere d By: Moises Burciaga on 03-10-2024 Neutrophils/100 WBC (Bld) 47.6 % Normal . Comment on above: Performed By: #### L IPID, CBC, MG, HS TROP, CMP ####[address] Bilirubin.total [Mass/volume ] in Serum or PlasmaOrdered By: Moises Burciaga on 03-10-2024 Bilirubin [Mass/Vol] 0.5 mg/dL Normal 0.3-1.0 [facility] Comment on above: Order Comment: FASTI NG N Performed By: #### L IPID, CBC, MG, HS TROP, CMP ####[address] Calcium [Mass/volume] in Ser um or PlasmaOrdered By: Moises Burciaga on 03-10-2024 Calcium [Mass/Vol] 9.1 mg/dL Normal 8.6-10.3 [facility] Comment on above: Order Comment: FASTI NG N Performed By: #### L IPID, CBC, MG, HS TROP, CMP ####[address] Carbon dioxide, total [Moles /volume] in Serum or PlasmaOrdered By: Moises Burciaga on 03-10-2024 CO2 [Moles/Vol] 26.5 mmol/L Normal 21.0-31.0 [facility] Comment on above: Order Comment: FASTI NG N Performed By: #### L IPID, CBC, MG, HS TROP, CMP ####[facility] [id number] [place] [id number] [place] Chloride [Moles/volume] in S beltran or PlasmaOrdered By: Moises Burciaga on 03-10-2024 Chloride [Moles/Vol] 108 mmol/L High 98-107 [facility] Comment on above: Order Comment: FASTI NG N Performed By: #### L IPID, CBC, MG, HS TROP, CMP ####[facility] [id number] [place] [id number] [facility] Cholesterol [Mass/volume] in Serum or PlasmaOrdered By: Moises Burciaga on 03-10-2024 Cholesterol [Mass/Vol] 172 mg/dL Normal 140-200 Comment on above: Chol less than 200 m g/dl low riskChol 201-239 mg/dl borderline riskChol 240 mg/dl and greater high risk Order Comment: FASTI NG N Result Comment: Chol less than 200 mg/dl low risk Chol 201-239 mg/dl borderline risk Chol 240 mg/dl and greater high risk Performed By: #### L IPID, CBC, MG, HS TROP, CMP ####[facility] [id number] [place] [id number] [facility] Cholesterol in LDL Calc [Mas s/Vol]Ordered By: Moises Burciaga on 03-10-2024 Cholesterol in LDL [Mass/Vol] 80 mg/dL 0-100 Comment on above: LDL ATP III CLASSIFI CATIONLDL less than 100 mg/dL OptimalLDL 100-129 mg/dL Near or above optimalLDL 130-159 mg/dL Borderline highLDL 160-189 mg/dL HighLDL greater than 189 mg/dL Very high Cholesterol in VLDL Calc [Ma ss/Vol]Ordered By: Moises Burciaga on 03-10-2024 Cholesterol in VLDL [Mass/Vol] 16 mg/dL Complete Blood Count Auto Di ffon 03-10-2024 Mean Corpuscular HGB Conc 33.6 g/dL Normal 32.0-35.0 [facility] Comment on above: Performed By: #### L IPID, CBC, MG, HS TROP, CMP ####[facility] NRBC% 0.1 /100{WBC} Normal 0-0.5 [facility] Comment on above: Performed By: #### L IPID, CBC, MG, HS TROP, CMP ####[facility] [address] Comprehensive Metabolic Pane maxwell 03-10-2024 Albumin [Mass/Vol] 3.8 g/dL Normal 3.5-5.7 [facility] Comment on above: Order Comment: FASTI NG N Performed By: #### L IPID, CBC, MG, HS TROP, CMP ####[place] [address] [address] Creatinine Clr Calc Pharmacy 65.11 Normal [facility] Comment on above: Order Comment: FASTI NG N Performed By: #### L IPID, CBC, MG, HS TROP, CMP ####[place] [address] GFR/1.73 sq M.predicted MDRD (S/P/Bld) [Vol rate/Area] mL/min/{1.73_m2} Normal [facility] Comment on above: Order Comment: FASTI NG N Performed By: #### L IPID, CBC, MG, HS TROP, CMP ####[place] [address] Creatine kinase [Enzymatic a ctivity/volume] in Serum or PlasmaOrdered By: Héctor Rainey on 03-10-2024 CK [Catalytic activity/Vol] 102 U/L Normal 30-223 Comment on above: Performed By: #### C KMB, PT, CK, A1C WTH eA, PTT, HS TROP #### [facility] [address] Creatine kinase.MB [Mass/vol ume] in Serum or PlasmaOrdered By: Héctor Rainey on 03-10-2024 CK.MB [Mass/Vol] 5.3 ng/mL Normal 0.6-6.3 [facility] Comment on above: Performed By: #### C KMB, PT, CK, A1C WTH eA, PTT, HS TROP ####[place] [address] [place] [address] [place] Creatinine Kinase MBon 03-10 CKMB Relative Index 5.1 % High 0.00-2.50 [facility] Comment on above: Performed By: #### C KMB, PT, CK, A1C WTH eA, PTT, HS TROP ####[place] [address] [place] [address] [facility] Creatinine [Mass/volume] in Serum or PlasmaOrdered By: Moises Burciaga on 03-10-2024 Creatinine [Mass/Vol] 0.70 mg/dL Normal 0.60-1.20 [facility] Comment on above: Order Comment: FASTI NG N Performed By: #### L IPID, CBC, MG, HS TROP, CMP ####[place] [address] [place] [address] [facility] ECG 12 lead ECGon 03-10-2024 ECG 12 lead ECG [facility] [place] [address] [place] [address] Electrocardiograph Report Signed Patient: Prerna Phelps MR#: [id number] : 1955 Acct:[id number] Age/Sex: 68 / F ADM Date: 03/10/24 Loc: Room: [address] [place] [address] Type: ADM IN Attending Dr: Héctor Rainey [...] Bartolome Wheeler MD 03/10/24 1228 Normal [facility] ECG 12 lead ECG [place] [address] Electrocardiograph Report Signed Patient: Prerna Phelps MR#: [id number] : 1955 Acct:[id number] Age/Sex: 68 / F ADM Date: 03/10/24 Loc: Room: [address] [place] [address] Type: ADM IN Attending Dr: Héctor Rainey [...] Bartolome Wheeler MD 03/10/24 1228 Normal [facility] ECH echo transthoracicon ECH echo transthoracic [facility] Main [place] [id number] Echocardiogram Signed Patient: Prerna Phelps MR#: [id number] : 1955 Acct:[id number] Age/Sex: 68 / F ADM Date: 03/10/24 Loc: Room: [address] [place] [address] Type: ADM IN Attending Dr: Héctor Rainey [...] Bartolome Wheeler MD 03/10/24 1237 Normal [facility] Erythrocyte distribution wid th [Ratio] by Automated countOrdered By: Moises Burciaga on 03-10-2024 Erythrocyte distribution width (RBC) [Ratio] 13.6 % Normal 11.9-15.3 Comment on above: Performed By: #### L IPID, CBC, MG, HS TROP, CMP ####[facility] [id number] Erythrocytes [#/volume] in B lood by Automated countOrdered By: Moises Burciaga on 03-10-2024 RBC (Bld) [#/Vol] 4.15 10*6/uL Normal 3.60-5.00 [facility] Comment on above: Performed By: #### L IPID, CBC, MG, HS TROP, CMP ####[facility] [id number] [place] [id number] [facility] Glucose [Mass/volume] in Ser um or PlasmaOrdered By: Moises Burciaga on 03-10-2024 Glucose [Mass/Vol] 91 mg/dL Normal 70-100 [facility] Comment on above: ADA recommended refe rence rangeRandom Glucose Reference Range is dependent on time and content of last meal. Glucose of more than 200 mg/dL in a nonstressed, ambulatory subject supports the diagnosis of Diabetes Mellitus. Order Comment: FASTI NG N Result Comment: [place] Glucose Reference Range is dependent on time and content of last meal. Glucose of more than 200 mg/dL in a nonstressed, ambulatory subject supports the diagnosis of Diabetes Mellitus. ADA recommended reference range Performed By: #### L IPID, CBC, MG, HS TROP, CMP ####[facility] Glucose mean value [Mass/vol ume] in Blood Estimated from glycated hemoglobinOrdered By: Héctor Rainey on 03-10-2024 Average glucose Estimated from glycated hemoglobin (Bld) [Mass/Vol] 111 mg/dL Hematocrit [Volume Fraction] of Blood by Automated countOrdered By: Moises Burciaga on 03-10-2024 Hematocrit (Bld) [Volume fraction] 36.2 % Normal 34.0-46.4 Comment on above: Performed By: #### L IPID, CBC, MG, HS TROP, CMP ####[place] [address] Hemoglobin A1c percentageOrd ered By: Héctor Rainey on 03-10-2024 HbA1c (Bld) [Mass fraction] 5.5 % Normal 4.3-5.6 Comment on above: Increased risk for d iabetes: 5.7 - 6.4diabetes: >6.4glycemic control for adults with diabetes: <7.0 Result Comment: Incr eased risk for diabetes: 5.7 - 6.4 diabetes: >6.4 glycemic control for adults with diabetes: <7.0 Performed By: #### C KMB, PT, CK, A1C WTH eA, PTT, HS TROP #### [facility] [address] [place] [address] [place] Hemoglobin [Mass/volume] in BloodOrdered By: Moises Burciaga on 03-10-2024 Hemoglobin (Bld) [Mass/Vol] 12.1 g/dL Normal 11.8-15.4 Comment on above: Performed By: #### L IPID, CBC, MG, HS TROP, CMP ####[facility] Jep[address] INR in Platelet poor plasma by Coagulation assayOrdered By: Héctor Rainey on 03-10-2024 INR Coag (PPP) [Relative time] 1.0 {INR} Normal Comment on above: INR Therapeutic Rang e [...] A1C WTH eA, PTT, HS TROP #### [facility] [address] Leukocytes [#/volume] correc velma for nucleated erythrocytes in Blood by Automated counOrdered By: Moises Burciaga on 03-10-2024 WBC corrected for nucl RBC Auto (Bld) [#/Vol] 5.8 10*3/uL 3.8-11.6 Leukocytes [#/volume] in Blo od by Automated countOrdered By: Moises Burciaga on 03-10-2024 WBC (Bld) [#/Vol] 5.8 10*3/uL Normal 3.8-11.6 [facility] Comment on above: Performed By: #### L IPID, CBC, MG, HS TROP, CMP ####[facility] [id number] [address] Lipid Panelon 03-10-2024 LDL Cholesterol,Calculate d 80 mg/dL Normal 0-100 [facility] Comment on above: Order Comment: FASTI NG N Result Comment: LDL ATP III CLASSIFICATION LDL less than 100 mg/dL Optimal LDL 100-129 mg/dL Near or above optimal LDL 130-159 mg/dL Borderline high LDL 160-189 mg/dL High LDL greater than 189 mg/dL Very high Performed By: #### L IPID, CBC, MG, HS TROP, CMP ####[address] Triglyceride w/Reflex 80 mg/dL Normal 0-149 [facility] Comment on above: Order Comment: FASTI NG N Result Comment: TRIG ATP III CLASSIFICATION TRIG less than 150 mg/dL Normal TRIG 150-199 mg/dL Borderline high TRIG 200-500 mg/dL High TRIG greater than 500 mg/dL Very high Standard traceable to the Center for Disease Conrtrol and Prevention (CDC) test method. Performed By: #### L IPID, CBC, MG, HS TROP, CMP ####[address] VLDL CHOLESTEROL 16 mg/dL Normal [facility] Comment on above: Order Comment: FASTI NG N Performed By: #### L IPID, CBC, MG, HS TROP, CMP ####[address] Lymphocytes [#/volume] in Bl ood by Automated countOrdered By: Moises Burciaga on 03-10-2024 Lymphocytes (Bld) [#/Vol] 2.3 10*3/uL Normal 1.00-4.8 Comment on above: Performed By: #### L IPID, CBC, MG, HS TROP, CMP ####[place] [id number] [place] Lymphocytes/100 leukocytes i n Blood by Automated countOrdered By: Moises Burciaga on 03-10-2024 Lymphocytes/100 WBC (Bld) 39.5 % Normal . Comment on above: Performed By: #### L IPID, CBC, MG, HS TROP, CMP ####[place] [id number] [facility] MCH [Entitic mass] by Automa velma countOrdered By: Moises Burciaga on 03-10-2024 MCH (RBC) [Entitic mass] 29.3 pg Normal 24.7-34.3 Comment on above: Performed By: #### L IPID, CBC, MG, HS TROP, CMP ####[facility] [id number] MCHC Auto (RBC) [Mass/Vol]Or dered By: Moises Burciaga on 03-10-2024 MCHC (RBC) [Mass/Vol] 33.6 g/dL 32.0-35.0 [facility] MCV [Entitic volume] by Auto mated countOrdered By: Moises Burciaga on 03-10-2024 MCV (RBC) [Entitic vol] 87.2 fL Normal 80-100 Comment on above: Performed By: #### L IPID, CBC, MG, HS TROP, CMP ####[facility] MR head/brain wo conon 03-10 MR head/brain wo con [place] [address] MRI Report Signed Patient: Prerna Phelps MR#: [id number] : 1955 Acct:[id number] Age/Sex: 68 / F ADM Date: 03/10/24 Loc: 3T Room: [address] [place] [address] Type: ADM IN Attending Dr: Héctor Rainey [...] Paez Jr., D.OMinerva03/10/2024 4:12 PM Dictation Location: [place] [address] Transcribed By: [facility] 03/10/24 1612 Dictated By: Augusto Paez Jr, DO 03/10/24 1607 Signed By: 03/10/24 1612 Normal [facility] Magnesium [Mass/volume] in S beltran or PlasmaOrdered By: Moises Burciaga on 03-10-2024 Magnesium [Mass/Vol] 1.9 mg/dL Normal 1.9-2.7 [facility] Comment on above: Order Comment: FASTI NG N Performed By: #### L IPID, CBC, MG, HS TROP, CMP ####[facility] [id number] Neutrophils [#/volume] in Bl ood by Automated countOrdered By: Moises Burciaga on 03-10-2024 Neutrophils (Bld) [#/Vol] 2.8 10*3/uL Normal 1.8-7.7 Comment on above: Performed By: #### L IPID, CBC, MG, HS TROP, CMP ####[facility] [id number] No Panel InformationOrdered By: Moises Burciaga on 03-10-2024 Estimated GFR (CKD-EPI) > 60.0 mL/Min Pharmacy Creatinine Clearance (Chem 65.11 Nucleated erythrocytes [Pres ence] in Blood by Automated countOrdered By: Moises Burciaga on 03-10-2024 Nucleated RBC Auto Ql (Bld) 0.1 /100{WBC} 0-0.5 Partial Thromboplastin Timeo n 03-10-2024 aPTT Coag (Bld) [Time] 30.4 s Normal 25.1-36.5 [facility] Comment on above: Result Comment: A he matocrit value greater than 55% may lead to inaccurate results in coagulation testing. Patients having hematocrit values >55% require a special collection tube for coagulation studies. Please contact the laboratory at [phone] for redraw instructions. PERFORMED BY: [facility] [address] [place] [id number] PATHOLOGIST BELLY DUMP DRIVER ZAYRA LEONARD M.D. Performed By: #### C KMB, PT, CK, A1C WTH eA, PTT, HS TROP #### [facility] [address] [place] [id number] [place] Platelet mean volume [Entiti c volume] in Blood by Automated countOrdered By: Moises Burciaga on 03-10-2024 Platelet mean volume (Bld) [Entitic vol] 6.5 fL Normal 6.3-10.7 Comment on above: Performed By: #### L IPID, CBC, MG, HS TROP, CMP ####[place] [address] [place] [id number] [place] Platelets [#/volume] in Bloo d by Automated countOrdered By: Moises Burciaga on 03-10-2024 Platelets (Bld) [#/Vol] 306 10*3/uL Normal 150-450 Comment on above: Performed By: #### L IPID, CBC, MG, HS TROP, CMP ####[facility] [place] [id number] [place] Potassium [Moles/volume] in Serum or PlasmaOrdered By: Moises Burciaga on 03-10-2024 Potassium [Moles/Vol] 3.6 mmol/L Normal 3.5-5.1 [facility] Comment on above: Order Comment: FASTI NG N Performed By: #### L IPID, CBC, MG, HS TROP, CMP ####[place] [address] [place] [id number] [place] Protein [Mass/volume] in Ser um or PlasmaOrdered By: Moises Burciaga on 03-10-2024 Protein [Mass/Vol] 5.9 g/dL Low 6.4-8.9 [facility] Comment on above: Order Comment: FASTI NG N Performed By: #### L IPID, CBC, MG, HS TROP, CMP ####[facility] [id number] Prothrombin time (PT)Ordered By: Héctor Rainey on 03-10-2024 PT Coag (PPP) [Time] 11.6 s Normal 9.0-12.9 [facility] Comment on above: A hematocrit value g reater than 55% may lead to inaccurate results in coagulation testing. Patients having hematocrit values >55% require a special collection tube for coagulation studies. Please contact the laboratory at [phone] for redraw instructions. Result Comment: A he matocrit value greater than 55% may lead to inaccurate results in coagulation testing. Patients having hematocrit values >55% require a special collection tube for coagulation studies. Please contact the laboratory at [phone] for redraw instructions. Performed By: #### C KMB, PT, CK, A1C WTH eA, PTT, HS TROP #### [facility] [address] Serum globulin measurement b y calculation (mass/volume)Ordered By: Moises Burciaga on 03-10-2024 Globulin (S) [Mass/Vol] 2.1 g/dL [facility] Comment on above: Order Comment: FASTI NG N Performed By: #### L IPID, CBC, MG, HS TROP, CMP ####[facility] Serum or plasma albumin/glob ulin mass ratioOrdered By: Moises Burciaga on 03-10-2024 Albumin/Globulin [Mass ratio] 1.8 {ratio} [facility] Comment on above: Order Comment: FASTI NG N Performed By: #### L IPID, CBC, MG, HS TROP, CMP ####[facility] Dex1961 [address] Serum or plasma anion gap de terminationOrdered By: Moises Burciaga on 03-10-2024 Anion gap [Moles/Vol] 11.1 mmol/L Normal 6.0-15.0 [facility] Comment on above: Order Comment: KAYODE Sauer Performed By: #### L IPID, CBC, MG, HS TROP, CMP ####[facility] [id number] [address] Serum or plasma creatine kin ase MB (CKMB)/total creatine kinase (CK) ratio by calculaOrdered By: Héctor Rainey on 03-10-2024 CK.MB Calc [Catalytic fraction] 5.1 % 0.00-2.50 Serum or plasma high density lipoprotein (HDL) cholesterol measurementOrdered By: Moises Burciaga on 03-10-2024 Cholesterol in HDL [Mass/Vol] 76 mg/dL Normal 23-92 Comment on above: HDL CHOL ATP-III CLA SSIFICATION Cardiovascular RiskHDL > or equal to 60 mg/dL LOWHDL < 40 mg/dL HIGH Order Comment: KAYODE Sauer Result Comment: HDL CHOL ATP-III CLASSIFICATION Cardiovascular Risk HDL > or equal to 60 mg/dL LOW HDL < 40 mg/dL HIGH Performed By: #### L IPID, CBC, MG, HS TROP, CMP ####[facility] [id number] [place] [address] Serum or plasma total choles terol/high density lipoprotein (HDL) cholesterol mass ratOrdered By: Moises Burciaga on 03-10-2024 Cholesterol.total/Cho lesterol in HDL [Mass ratio] 2.3 {ratio} Normal <5.0 Comment on above: Order Comment: KAYODE Sauer Result Comment: PERF ORMED BY: [facility] [address] [place] [address] PATHOLOGIST [employer]LLY [employer]MP DRIVER ZAYRA LEONARD M.D. Performed By: #### L IPID, CBC, MG, HS TROP, CMP ####[address] Sodium [Moles/volume] in Ser um or PlasmaOrdered By: Moises Burciaga on 05-17-2024 Sodium [Moles/Vol] 142 mmol/L Normal 136-145 [facility] Comment on above: Order Comment: FASTI NG N Performed By: #### L IPID, CBC, MG, HS TROP, CMP ####[place] [id number] [place] [id number] [facility] Triglyceride [Mass/volume] i n Serum or PlasmaOrdered By: Moises Burciaga on 03-10-2024 Triglyceride [Mass/Vol] 80 mg/dL 0-149 Comment on above: TRIG ATP III CLASSIF ICATIONTRIG less than 150 mg/dL NormalTRIG 150-199 mg/dL Borderline highTRIG 200-500 mg/dL High TRIG greater than 500 mg/dL Very highStandard traceable to the Center for Disease Conrtrol and Prevention (CDC) test method. Troponin I High Sensitivityo n 03-10-2024 Troponin I High Sensitivity 286.4 pg/mL Off scale high 0.0-15.0 [facility] Comment on above: Result Comment: Crit ical Result : Called to and read back by: TRACY HINOJOSA at: 03/10/2024 13:55:50 by:GAURAV PERFORMED BY: [address] [place] [address] PATHOLOGIST BELLY DUMP DRIVER ZAYRA LEONARD M.D. Performed By: #### C KMB, PT, CK, A1C WTH eA, PTT, HS TROP ####[place] [id number] [facility] Troponin I High Sensitivity 318.9 pg/mL Off scale high 0.0-15.0 [facility] Comment on above: Result Comment: Crit ical Result : Called to and read back by: TRACY HINOJOSA at: 03/10/2024 08:29:06 by:[id number] PERFORMED BY: [address] [place] [address] PATHOLOGIST BELLY DUMP DRIVER ZAYRA LEONARD M.D. Performed By: #### L IPID, CBC, MG, HS TROP, CMP ####[place] [id number] [facility] Troponin I.cardiac [Mass/vol ume] in Serum or Plasma by Detection limit <= 0.01 ng/Ordered By: Héctor Rainey on 03-10-2024 Troponin I.cardiac DL <= 0.01 ng/mL [Mass/Vol] 286.4 pg/mL 0.0-15.0 Comment on above: Critical Result : Ca lled to and read back by: TRACY HINOJOSA at: 03/10/2024 13:55:50 by:GAURAV Urea nitrogen [Mass/volume] in Serum or PlasmaOrdered By: Moises Burciaga on 03-10-2024 Urea nitrogen [Mass/Vol] 9 mg/dL Normal 7-25 Comment on above: Order Comment: FASTI NG N Performed By: #### L IPID, CBC, MG, HS TROP, CMP ####[facility] [id number] XR chest 1V portableon 03-10 XR chest 1V portable [facility] [address] [place] [address] XRay Report Signed Patient: Prrena Phelps MR#: [id number] : 1955 Acct:[id number] Age/Sex: 68 / F ADM Date: 03/10/24 Loc: Room: [address] [place] [address] Type: ADM IN Attending Dr: Moises Burciaga [...] Fernando Bunch M.D.03/10/2024 7:52 AM Dictation Location: [place] [address] Transcribed By: BOOGIE 03/10/24 075 Dictated By: Luis Fernando Bunch DO 03/10/24 075 Signed By: 03/10/24 075 Normal [facility] Office Visiton 09-30-2023 Follow-up visit [id number] Prerna Phelps 1955 F Date Provider Department Center 09/30/2023 [facility] [place] [facility] Family History Problem Relation Age of Onset Hypertension Father Breast cancer Sister Family Status - Relation Status Age at Father Sister Level of Service:95697 DC OFFICE/OUTPATIENT ESTABLISHED LOW MDM 20-29 MIN Normal [facility] CBC AUTO DIFFon 07-06-2022 BASO # 0.1 103/ul Normal 0.0-0.1 [facility] Comment on above: Performed By: #### C BC #### [facility] [address] [address] [address] Robert Singletary Basophils/100 WBC (Bld) 0.8 % Normal 0.2-2.0 [facility] Comment on above: Performed By: #### C BC #### [facility] [address] [address] [address] Robert Singletary EO # 0.1 103/ul Normal 0.0-0.7 [facility] Comment on above: Performed By: #### C BC #### [facility] [address] [address] [address] Robert Singletary Eosinophils/100 WBC (Bld) 0.9 % Normal 0.9-7.0 [facility] Comment on above: Performed By: #### C BC #### [facility] [address] [address] [address] Robert Singletary Erythrocyte distribution width (RBC) [Ratio] 12.9 % Normal 11.0-15.0 [facility] Comment on above: Performed By: #### C BC #### [facility] [address] [address] [address] Robert Singletary Hematocrit (Bld) [Volume fraction] 38.1 % Normal 36.0-48.0 [facility] Comment on above: Performed By: #### C BC #### [facility] [address] [place] [address] Dr. Robert Singletary Hemoglobin (Bld) [Mass/Vol] 12.3 g/dL Normal 12.0-16.0 [facility] Comment on above: Performed By: #### C BC #### [facility] [address] [place] [address] Dr. Robert Singletary IG # 0.01 10e3/ul Normal 0.00-0.03 [facility] Comment on above: Performed By: #### C BC #### [facility] [address] [place] [address] Dr. Robert Singletary IG % 0.2 % Normal 0.0-0.5 [facility] Comment on above: Performed By: #### C BC #### [facility] [address] [place] [address] Dr. Robert Singletary LYMPH # 1.7 103/ul Normal 1.2-3.8 [facility] Comment on above: Performed By: #### C BC #### [facility] [address] [place] [address] Dr. Robert Singletary Lymphocytes/100 WBC (Bld) 27.4 % Normal 20.5-60.0 [facility] Comment on above: Performed By: #### C BC #### [facility] [address] [place] [address] Dr. Robert Singletary MANUAL DIFF REQ NO Normal [facility] Comment on above: Performed By: #### C BC #### [facility] [address] [place] [address] Dr. Robert Singletary MCH (RBC) [Entitic mass] 29.6 pg Normal 26.7-34.0 [facility] Comment on above: Performed By: #### C BC #### [facility] [address] [place] [address] Dr. Robert Singletary MCHC (RBC) [Mass/Vol] 32.3 g/dL Normal 29.9-35.2 [facility] Comment on above: Performed By: #### C BC #### [facility] [address] [place] [address] Dr. Robert Singletary MCV (RBC) [Entitic vol] 91.8 fL Normal 81.0-99.0 [facility] Comment on above: Performed By: #### C BC #### [facility] [address] [place] [address] Dr. Robert Singletary MONO # 0.5 103/ul Normal 0.3-0.8 [facility] Comment on above: Performed By: #### C BC #### [facility] [address] [place] [address] Dr. Robert Singletary Monocytes/100 WBC (Bld) 7.6 % Normal 1.7-12.0 [facility] Comment on above: Performed By: #### C BC #### [facility] [address] [place] [address] Dr. Robert Singletary NEUT # 4.0 103/ul Normal 1.4-6.5 [facility] Comment on above: Performed By: #### C BC #### [facility] [address] [place] [address] Dr. Robert Singletary Neutrophils/100 WBC (Bld) 63.1 % Normal 43.0-75.0 [facility] Comment on above: Performed By: #### C BC #### [facility] [address] [place] [address] Dr. Robert Singletary Platelet mean volume (Bld) [Entitic vol] 9.0 fL Critically low 9.5-13.5 [facility] Comment on above: Performed By: #### C BC #### [facility] [address] [place] [address] Dr. Robert Singletary PLT 331 103/ul Normal 150-450 [facility] Comment on above: Performed By: #### C BC #### [facility] [address] [place] [address] Dr. Robert Singletary RBC 4.15 106/ul Critically low 4.20-5.40 [facility] Comment on above: Performed By: #### C BC #### [facility] [address] [place] [address] Dr. Robert Singletary WBC 6.3 103/ul Normal 4.0-11.0 [facility] Comment on above: Performed By: #### C BC #### [facility] [address] [address] [address] Robert Singletary GLYCOHEMOGLOBIN A1Con 2021 ADA RECOMMENDATION SEE BELOW Normal [facility] Comment on above: Result Comment: ADA RECOMMENDED LIMIT 4.0 - 6.0 ADA THERAPEUTIC TARGET < 7.0 ACTION SUGGESTED > 7.0 Performed By: #### A 1C #### [facility] [address] [address] [address] Robert Singletary Glucose [Mass/Vol] 108 mg/dL Normal [facility] Comment on above: Performed By: #### A 1C #### [facility] [address] [address] [address] Robert Singletary HbA1c (Bld) [Mass fraction] 5.4 % Normal 4.5-6.2 [facility] Comment on above: Performed By: #### A 1C #### [facility] [address] [address] [address] Robert Singletary LIPID PROFILEon 07-06-2022 CHOL-HDL RATIO NORM SEE BELOW Normal [facility] Comment on above: Result Comment: 3.3 - 4.4 LOW RISK 4.4 - 7.1 AVERAGE RISK 7.1 - 11.0 MODERATE RISK >11.0 HIGH RISK Performed By: #### L IPID, LIVER, TSH, BMP #### [facility] [address] [address] [address] Robert Singletary Cholesterol [Mass/Vol] 200 mg/dL Normal <=200 [facility] Comment on above: Performed By: #### L IPID, LIVER, TSH, BMP #### [facility] [address] [address] [address] Robert Singletary Cholesterol in HDL [Mass/Vol] 82 mg/dL Critically high 40-60 [facility] Comment on above: Performed By: #### L IPID, LIVER, TSH, BMP #### [facility] [address] [address] [address] Robert Singletary Cholesterol in LDL [Mass/Vol] 105.4 mg/dL Normal [facility] Comment on above: Performed By: #### L IPID, LIVER, TSH, BMP #### [facility] [address] [address] [address] Robert Singletary Cholesterol.total/Cho lesterol in HDL [Mass ratio] 2.4 {ratio} Normal [facility] Comment on above: Performed By: #### L IPID, LIVER, TSH, BMP #### [facility] [address] [address] [address] Robert Singletary HDL NORMAL > or = 60 mg/dl - LO W CARDIOVASCULAR RISK <40 mg/dl - HIGH CARDIOVASCULAR RISK Normal [facility] Comment on above: Performed By: #### L IPID, LIVER, TSH, BMP #### [facility] [address] [place] [address] Dr. Robert Singletary LDL CALC NORMAL SEE BELOW Normal [facility] Comment on above: Result Comment: <100 mg/dl OPTIMAL 100 - 129 mg/dl NEAR OR ABOVE OPTIMAL 130 - 159 mg/dl BORDERLINE HIGH 160 - 189 mg/dl HIGH >190 mg/dl VERY HIGH Performed By: #### L IPID, LIVER, TSH, BMP #### [facility] [address] [place] [address] Dr. Robert Singletary Triglyceride [Mass/Vol] 63 mg/dL Normal <=150 [facility] Comment on above: Performed By: #### L IPID, LIVER, TSH, BMP #### [facility] [address] [address] [address] Robert Singletary VLDL CALC 12.6 mg/dL Normal [facility] Comment on above: Performed By: #### L IPID, LIVER, TSH, BMP #### [facility] [address] [address] [address] Robert Singletary LIVER PROFILEon 07-06-2022 Albumin [Mass/Vol] 3.7 g/dL Normal 3.4-5.0 [facility] Comment on above: Performed By: #### L IPID, LIVER, TSH, BMP #### [facility] [address] [place] [address] Dr. Robert Singletary Albumin/Globulin [Mass ratio] 1.1 {ratio} Normal [facility] Comment on above: Performed By: #### L IPID, LIVER, TSH, BMP #### [facility] [address] [place] [address] Dr. Robert Singletary ALP [Catalytic activity/Vol] 65 U/L Normal 46-116 [facility] Comment on above: Performed By: #### L IPID, LIVER, TSH, BMP #### [facility] [address] [place] [address] Dr. Robert Singletary ALT [Catalytic activity/Vol] 24 U/L Normal 14-59 [facility] Comment on above: Performed By: #### L IPID, LIVER, TSH, BMP #### [facility] [address] [place] [address] Dr. Robert Singletary AST [Catalytic activity/Vol] 15 U/L Normal 15-37 [facility] Comment on above: Performed By: #### L IPID, LIVER, TSH, BMP #### [facility] [address] [place] [address] Dr. Robert Singletary BILI, CONJUGATED 0.1 mg/dL Normal 0.0-0.2 [facility] Comment on above: Performed By: #### L IPID, LIVER, TSH, BMP #### [facility] [address] [place] [address] Dr. Robert Singletary Bilirubin [Mass/Vol] 0.4 mg/dL Normal 0.2-1.0 [facility] Comment on above: Performed By: #### L IPID, LIVER, TSH, BMP #### [facility] [address] [place] [address] Dr. Robert Singletary Globulin (S) [Mass/Vol] 3.3 g/dL Normal [facility] Comment on above: Performed By: #### L IPID, LIVER, TSH, BMP #### [facility] [address] [place] [address] Dr. Robert Singletary Protein [Mass/Vol] 7.0 g/dL Normal 6.4-8.2 [facility] Comment on above: Performed By: #### L IPID, LIVER, TSH, BMP #### [facility] [address] [place] [address] Dr. Robert Singletary PROF CHEM 8 (BAS METB)on Anion gap [Moles/Vol] 10.2 mmol/L Normal [facility] Comment on above: Performed By: #### L IPID, LIVER, TSH, BMP #### [facility] [address] [place] [address] Dr. Robert Singletary Calcium [Mass/Vol] 9.6 mg/dL Normal 8.5-10.1 [facility] Comment on above: Performed By: #### L IPID, LIVER, TSH, BMP #### [facility] [address] [place] [address] Dr. Robert Singletary Chloride [Moles/Vol] 104 mmol/L Normal 98-107 [facility] Comment on above: Performed By: #### L IPID, LIVER, TSH, BMP #### [facility] [address] [place] [address] Dr. Robert Singletary CO2 [Moles/Vol] 29.1 mmol/L Normal 21.0-32.0 [facility] Comment on above: Performed By: #### L IPID, LIVER, TSH, BMP #### [facility] [address] [place] [address] Dr. Robert Singletary Creatinine [Mass/Vol] 0.65 mg/dL Normal 0.55-1.02 [facility] Comment on above: Performed By: #### L IPID, LIVER, TSH, BMP #### [facility] [address] [place] [address] Dr. Robert Singletary EGFR-AF SURINAMESE >60 Normal >=60 [facility] Comment on above: Performed By: #### L IPID, LIVER, TSH, BMP #### [facility] [address] [place] [address] Dr. Robert Singletary EGFR-NON AF SURINAMESE >60 Normal >=60 [facility] Comment on above: Performed By: #### L IPID, LIVER, TSH, BMP #### [facility] [address] [place] [address] Dr. Robert Singletary Glucose [Mass/Vol] 94 mg/dL Normal 74-106 [facility] Comment on above: Performed By: #### L IPID, LIVER, TSH, BMP #### [facility] [address] [address] [address] Robert Singletary Potassium [Moles/Vol] 4.3 mmol/L Normal 3.5-5.1 [facility] Comment on above: Performed By: #### L IPID, LIVER, TSH, BMP #### [facility] [address] [place] [address] Dr. Robert Singletary Sodium [Moles/Vol] 139 mmol/L Normal 136-145 [facility] Comment on above: Performed By: #### L IPID, LIVER, TSH, BMP #### [facility] [address] [place] [address] Dr. Robert Singletary Urea nitrogen [Mass/Vol] 11.0 mg/dL Normal 7.0-18.0 [facility] Comment on above: Performed By: #### L IPID, LIVER, TSH, BMP #### [facility] [address] [place] [address] Dr. Robert Singletary Urea nitrogen/Creatinine [Mass ratio] 16.9 mg/mg Normal [facility] Comment on above: Performed By: #### L IPID, LIVER, TSH, BMP #### [facility] [address] [place] [address] Dr. Robert Singletary TSHon 07-06-2022 TSH 1.590 uIU/mL Normal 0.358-3.740 [facility] Comment on above: Performed By: #### L IPID, LIVER, TSH, BMP #### [facility] [address] [place] [address] Dr. Robert Singletary HEMOGLOBINon 05-27-2022 Hemoglobin (Bld) [Mass/Vol] 11.5 g/dL Critically low 12.0-16.0 [facility] Comment on above: Performed By: #### H GB #### [facility] [address] [place] [address] Dr. Robert Singletary MG MAMM SCREEN 3D CRISTOFER CADon 04-28-2022 MG MAMM SCREEN 3D CRISTOFER CAD Patient: PRERNA PHELPS Exam Date: 04/28/2022 : 1955 Gender:F Ordering : DR TI WRIGHT . Admission #: [id number] Family : Order #: [id number] CLICK HERE TO VIEW EXAM RADIOLOGY REPORT [...] bladder cancer at age 77. LOCATION: [facility] BREAST COMPOSITION: Heterogeneously dense,which may obscure [...] M.D. on 04/28/2022 at 12:52 Normal [facility] PROF CHEM 8 (BAS METB)on Anion gap [Moles/Vol] 15.1 mmol/L Normal [facility] Comment on above: Performed By: #### B MP #### [facility] [address] [address] [address] Robert Singletary Calcium [Mass/Vol] 9.2 mg/dL Normal 8.5-10.1 [facility] Comment on above: Performed By: #### B MP #### [facility] [address] [address] [address] Robert Singletary Chloride [Moles/Vol] 103 mmol/L Normal 98-107 [facility] Comment on above: Performed By: #### B MP #### [facility] [address] [address] [address] Robert Singletary CO2 [Moles/Vol] 26.0 mmol/L Normal 22.0-30.0 [facility] Comment on above: Performed By: #### B MP #### [facility] [address] [address] [address] Robert Singletary Creatinine [Mass/Vol] 0.64 mg/dL Normal 0.52-1.04 [facility] Comment on above: Performed By: #### B MP #### [facility] [address] [place] [address] Dr. Robert Singletary EGFR-AF SURINAMESE >60 Normal >=60 [facility] Comment on above: Performed By: #### B MP #### [facility] [address] [place] [address] Dr. Robert Singletary EGFR-NON AF SURINAMESE >60 Normal >=60 [facility] Comment on above: Performed By: #### B MP #### [facility] [address] [place] [address] Dr. Robert Singletary Glucose [Mass/Vol] 86 mg/dL Normal 74-106 [facility] Comment on above: Performed By: #### B MP #### [facility] [address] [place] [address] Dr. Robert Singletary Potassium [Moles/Vol] 4.1 mmol/L Normal 3.4-5.0 [facility] Comment on above: Performed By: #### B MP #### [facility] [address] [place] [address] Dr. Robert Singletary Sodium [Moles/Vol] 140 mmol/L Normal 137-145 [facility] Comment on above: Performed By: #### B MP #### [facility] [address] [place] [address] Dr. Robert Singletary Urea nitrogen [Mass/Vol] 12.0 mg/dL Normal 7.0-18.0 [facility] Comment on above: Performed By: #### B MP #### [facility] [address] [place] [address] Dr. Robert Singletary Urea nitrogen/Creatinine [Mass ratio] 18.8 mg/mg Normal [facility] Comment on above: Performed By: #### B #### [facility] [address] [place], [place] [address] Dr. Robert Singletary Cardiovascular Lab Reporton 08-13-2020 Cardiovascular Lab Report [facility] Patient Name: Prerna Phelps [facility] MR #: [id number] Physician: Yecenia Finn, Department of M.D. Medicine Service Date: 08/13/2020 Division of Birthdate: 1955 Cardiology Room #: Adult Cardiovascular Services [facility] [address] [facility]. [place] [address] Cardiovascular Laboratory Report FINAL IMPRESSIONS: 1. Non-obstructive coronary arteries. 2. Normal global left ventricular systolic function by noninvasive imaging. 3. Normal right-sided heart pressures. 4. Normal pulmonary capillary wedge pressure. 5. Normal cardiac output/cardiac index. RECOMMENDATIONS: 1. Consider alternate etiologies for the patient's symptomatology, namely pulmonary, musculoskeletal, and/or gastrointestinal. 2. Aggressive cardiovascular risk factor modification. 3. Follow up with [facility] Cardiology on an as-needed basis. 4. [...] access the right internal jugular vein. A 6-Rwandan glide sheath was inserted without difficulty. A [...] to access the left radial artery. A 6-Rwandan glide sheath was inserted without difficulty. Difficulty [...] Finn M.D. Date Trans: 08/13/2020 11:58 Rosas/anatoliy [id number] cc: Caesar Dexter M.D. [address] [place] [id number] Dexter [facility] Vital Signs Date Time Vital Sign Value Performing Clinician Faci lity 03-10-2024 16:00-0400 Diastolic blood pressure 75 mm[Hg] MD Ti Wright Work Phone: 03-10-2024 16:00-0400 Heart rate 78 /min MD Ti Wright Work Phone: 03-10-2024 16:00-0400 Respiratory rate 16 /min MD Ti Wright Work Phone: 03-10-2024 16:00-0400 SaO2% (BldA) [Mass fraction] 96 % MD Ti Wright Work Phone: 03-10-2024 16:00-0400 Systolic blood pressure 129 mm[Hg] MD Ti Wright Work Phone: 03-10-2024 14:00-0400 Body height 162.56 cm MD Ti Wright Work Phone: 03-10-2024 14:00-0400 Body weight 67 kg MD Ti Wright Work Phone: 03-10-2024 13:41-0400 Body temperature 97.9 [degF] MD Ti Wright Work Phone: 08-05-2022 15:45-0400 Blood Pressure Location [facility] [place] 08-05-2022 15:45-0400 Diastolic blood pressure 80 mm[Hg] [facility] [place] 08-05-2022 15:45-0400 Heart rate 68 /min Dona Y[facility] [place] 08-05-2022 15:45-0400 Respiratory rate 16 /min Dona [facility] [place] 08-05-2022 15:45-0400 Systolic blood pressure 138 mm[Hg] [facility] [place] Encounters Encounter Date Encounter Type Care Provider Facility Start: 06-27-2024 End: 06-27-2024 ambulatory Stephanie L Kalin Facility:[facility] [place] Start: 06-27-2024 End: 06-27-2024 ambulatory AB [facility] Start: 06-14-2024 End: 06-21-2024 ambulatory Stephanie L Kalin Facility:[facility] [place] Start: 05-17-2024 End: 05-17-2024 ambulatory Stephanie L Kalin Facility:[facility] [place] Start: 04-28-2024 ambulatory Stephanie L Kalin Facility: [id number] Start: 04-24-2024 End: 04-24-2024 ambulatory Stephanie L Kalin Facility:[facility] Start: 03-28-2024 ambulatory Stephanie Kalin Facility:[facility] Start: 03-27-2024 End: 03-27-2024 ambulatory Stephanie L Kalin Facility:[facility] Start: 03-21-2024 End: 03-21-2024 ambulatory [facility] Start: 03-13-2024 ambulatory [facility] Start: 03-10-2024 End: 03-10-2024 Evaluation and management of inpatient MD Ti Wright Work Phone: [facility] Work Phone: Start: 03-09-2024 End: 03-13-2024 Emergency department patient visit [facility] Start: 09-30-2023 End: 09-30-2023 ambulatory [facility] Start: 10-14-2022 End: 10-14-[address] DONA YIP Facility:[facility] Start: 10-10-[address] DONA YIP Facilit y:[facility] Start: 08-05-2022 End: 08-05-2022 Patient encounter procedure [facility] Start: 07-11-2022 Encounter for genera l adult medical examination without abnormal findings DR TI WRIGHT [facility] Start: 07-06-2022 End: 07-07-[address] TI [...] Colonoscopy Dona YIP Extraction of wisdom tooth M ichhang NILL Ligation of fallopian tube M ichhang NILL Lumpectomy of right breast M prasanna NILLulu Plan of Treatment Date Care Activity Detail Author Start: 04-30-2025 ambulatory Ambulatory Facility:[facility] Start: 03-10-2024 Start: 03-10-2024 Start: 03-10-2024 Doppler ultrasonography of bilateral carotid arteries US carotid doppler BI Start: 03-10-2024 US.doppler Carotid arteries - bilateral Start: 03-10-2024 Referral to neurologist [facility] Start: 03-10-2024 Hospital admission Start: 03-10-2024 Referral to 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 retail 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 [facility] Patient Education Rivaroxaban At orvastatin Carvedilol Hydroxyzine Lisinopril Spironolactone Know your Meds [facility] Work Phone: Patient referral [facility] Work Phone: Immunizations Immunization Date Immunization Notes Care Provider Fa cility 01-30-2021 COVID-19 mRNA-1273 ([employer]) 12-26-2020 COVID-19 mRNA-1273 [facility] Payers Date Payer Category Payer Medicare [id number] 2024 Self-pay [id number] 2023 Unknown [id number] 1959 Private Health Insurance [id number] 1955 Unknown [id number] 1955 Unknown [id number] [id number] [id number] 1955 Unknown [id number] 2.16.84 0.1.504345.3.579.2.593 1955 Unknown [id number] 2.16.84 0.1.359255.3.579.2.593 1955 Unknown [id number] 2.16.84 0.1.613766.3.579.2.593 1955 Unknown [id number] 2.16.84 0.1.874709.3.579.2.593 1955 Unknown [id number] 2.16.8 40.1.761116.3.579.2.727 1955 Unknown [id number] 2.16.8 40.1.551814.3.579.2.727 1955 Unknown [id number] 2.16.8 40.1.153485.3.579.2.727 1955 Unknown [id number] 2.16.8 40.1.262359.3.579.2.727 1955 Unknown [id number] 2.16.8 40.1.331627.3.579.2.727 1955 Unknown [id number] 2.16.8 40.1.302196.3.579.2.727 1955 Unknown [id number] 2.16.8 40.1.524872.3.579.2.727 Unknown [id number] 2.16.8 40.1.547204.3.579.2.531 Social History Date Type Detail Facility [facility] Work Phone: Start: 1955 Sex Assigned At Female F [facility] Start: 08-05-2022 End: 03-10-2024 Tobacco smoking status Never smoked tobacco (finding) [facility] [place] Tobacco smoking status Never Gener al [facility] [place] Sex Assigned At Female [facility] [place] Goals Date Patient Goal Desired Activity /State Functional Status Date Assessment Result Facility 03-10-2024 Functional status Patient at Baseline [facility] Work Phone: 08-05-2022 Functional Status N/A [facility] Mental Status Date Assessment Result Facility 03-10-2024 Cognitive function Cognitive Sta tus Patient at Baseline [facility] Work Phone: Clinical Notes 10-14-2022 to 06-27-2024 Note Date & Type Note Facility 06-27-2024 Note [facility] Cardiology Clinic Note Chief Complaint: Patient here for follow up [facility]. She had heart cath and was diagnosed with Takotsubo cardiomyopathy and CVA. Her took his own life about 2-3 weeks ago. She is now on Xarelto and carvedilol. Still has some chest heaviness , but denies SOB and palpitations. HPI: Prerna Phelps is a 69 y.o. female Discharge diagnoses. 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 Elevated troponin 5. Acute heart failure with reduced ejection fraction Hospital course: Neurology recommended aspirin 81 mg daily. Cardiology started Xarelto. Cardiology ROS: Lightheadedness Past Medical History She has a past [...] tablet, in the morning., Disp: , Rfl: atorvastatin (Lipitor) 80 mg tablet, Take 80 mg by mouth at bedtime., Disp: , Rfl: carvedilol (Coreg) 6.25 mg tablet, Take 6.25 mg by mouth with breakfast and with evening meal., Disp: , Rfl: lisinopril 5 mg tablet, TAKE 1 TABLET BY MOUTH DAILY (Patient taking differently: Take 2.5 mg by mouth in the morning. TAKE 1 TABLET BY MOUTH DAILY), Disp: 90 tablet, Rfl: 3 omeprazole (PriLOSEC) [address] capsule, 1 capsule in the morning., Disp: , Rfl: potassium gluconate 595 mg (99 mg) tablet, in the morning., Disp: , Rfl: spironolactone (Aldactone) 25 mg tablet, Take 12.5 mg by mouth in the morning., Disp: , Rfl: Xarelto 15 mg tablet, Take 15 mg by mouth daily with evening meal., Disp: , Rfl: hydroCHLOROthiazide (HYDRODiuril) 12.5 mg tablet, Take 12.5 mg by mouth if needed., Disp: , Rfl: hydroxychloroquine (Plaquenil) 200 mg tablet, hydroxychloroquine 200 mg tablet TAKE 1 TABLET BY MOUTH TWO TIMES A DAY WITH FOOD, Disp: , Rfl: hydrOXYzine HCL (Atarax) 10 mg tablet, Take 10 mg by mouth every 8 (eight) hours if needed., Disp: , Rfl: ibuprofen 200 mg capsule, every 8 (eight) hours., Disp: , Rfl: polysaccharide iron complex 180 mg iron capsule, Pro Fe 180 mg iron capsule TAKE 1 CAPSULE BY MOUTH EVERY DAY, Disp: , Rfl: rOPINIRole (Requip) 0.5 mg tablet, ropinirole 0.5 mg tablet, Disp: , Rfl: Last Recorded Vitals BP 133/68 (BP Location: Right arm, Patient Position: Sitting) Pulse 62 Ht 1.626 m (5' 4 ) Wt 69.9 kg (154 lb) SpO2 97% BMI 26.43 kg/m??? Physical Examination: GENERAL: alert and oriented [...] variant RECOMMENDATIONS Medical therapy Documented By: Mana Monet, 03/10/24 1135 Signed By: 03/10/24 1138 Echocardiogram 06/08/2024: Normal left ventricular systolic function with an EF of 65% No significant valvular dysfu (more content not included)... [facility] 04-24-2024 Note Patient Education Mental and Behavioral [...] and making singletary (more content not included)... [facility] 03-21-2024 Note [facility] Cardiology Clinic Note Chief Complaint: Patient here for follow up [facility]. She had heart cath and was diagnosed [...] an SGLT2 inhibitor (more content not included)... [facility] 03-10-2024 Progress note Note Date/Time March 10, 2024 4:40pm [facility] [address] [place] [address] Hospitalist Progress Note Signed Patient: Prerna Phelps MR#: [id number] 9 : 1955 Acct:[id number] Age/Sex: 68 / F Adm Date: 4 Loc: Room: [address] [place] [address] Type: ADM IN Attending Dr: Héctor Rainey [...] that time. She does follow with a 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 retail pet out of [place]. Patient does mention that she was having [...] mg 03/10/24 03:04 Acetaminophen 650 Mg Supp.Rect DC 03/10/25 03:03 Q6HR PRN Fever > 100.4 [...] <Electronically signed by Héctor Rainey DO> 03/10/24 1725 [facility] Work Phone: 1(367) 352-219405-17-2024 Consult note Author Dallas Norton March 10, 2024 2:15pm Note Date/Time March 10, 2024 11:07 am [facility] [address] [place] [address] Neurology Consult Note Signed Patient: Prerna Phelps MR#: [id number] 9 : 1955 Acct:[id number] Age/Sex: 68 / F Adm Date: 4 Loc: Room: [address] [place] [address] Type: ADM IN Attending Dr: Héctor Rainey DO Copies to: DO Héctor Hunt DO Marc Naderer, MD~ HPI Consult Date: 03/10/24 Blog Writer: Dallas Norton DO [facility] Social History Smoking Status: Never smoker Substance [...] Fernando Bunch M.D.03/10/2024 7:52 AM Dictation Location: [facility] Assessment/Plan (1) Alien limb phenomenon: (2) Transient ischemic attack: Plan CONSULT REASON: Aphasia and right-sided weakness HPI: 68-year-old woman with history of hypertension. Yesterday around 4 PM she was working in her garage and noticed she was unable to picker feeder things with her right hand and then [...] her and she was brought to the [place] emergency department. Symptoms were said to resolve within 30 minutes of arriving to [place]. CT head and CT angiography were reportedly unremarkable. She was loaded with Plavix and transferred to for further evaluation. She had mentioned intrascapular [...] 76 -CT head and CT angiography from [facility] were reportedly unremarkable ASSESSMENT: Presumed transient [...] <Electronically signed by Dallas Norton DO> 03/10/24 1415 [facility] Work Phone: 1(953) 820-728905-17-2024 Progress note Author Bartolome Wheeler March 10, 2024 12:20pm Note Date/Time March 10, 2024 12:21 pm [facility] [address] [place] [address] Cardiology Progress Note Signed Patient: Prerna Phelps MR#: [id number] 9 : 1955 Acct:[id number] Age/Sex: 68 / F Adm Date: 4 Loc: Room: [address] [place] [address] Type: ADM IN Attending Dr: Héctor Rainey [...] % (Auto) 47.6 Lymph % (Auto) 39.5 [place] % (Auto) 9.8 Eos % (Auto) 2.1 Baso % (Auto) 1.0 Nucleat RBC Rel Count 0.1 Neut # (Auto) 2.8 Lymph # (Auto) 2.3 [place] # (Auto) 0.6 Eos # (Auto) 0.1 [...] signed by MD Bartolome Wheeler> 03/10/24 1220 [facility] Work Phone: 1(155) 194-637005-17-2024 Consult note Author Bartolome Wheeler March 10, 2024 10:01am Note Date/Time March 10, 2024 10:01 am [facility] [address] [place] [address] Cardiology Consult Note Signed Patient: Prerna Phelps MR#: [id number] 9 : 1955 Acct:[id number] Age/Sex: 68 / F Adm Date: 4 Loc: Room: [address] [place] [address] Type: ADM IN Attending Dr: Héctor Rainey [...] her daughter who took her to the [place] emergency room. There her neurologic symptomatology resolved [...] additional complaints, except as documented [facility] Social History Smoking Status: Never smoker Substance [...] x10E3/uL Lymph # (Auto) 2.3 (1.00-4.8) x10E3/uL [place] # (Auto) 0.6 (0.0-0.8) x10E3/uL Eos # [...] <Electronically signed by MD Bartolome Wheeler> 03/10/24 1001 [facility] Work Phone: 1(689) 115-853005-17-2024 Procedure note05-17-2024 History and physical note Author Moises Burciaga March 10, 2024 7:17am Note Date/Time March 10, 2024 7:17a m [facility] [address] [place] [address] Hospitalist H&P Signed Patient: Prerna Phelps MR#: [id number] 9 : 1955 Acct:[id number] Age/Sex: 68 / F Adm Date: 4 Loc: Room: [address] [place] [address] Type: ADM IN Attending Dr: Moises Burciaga [...] with word finding and was brought to [place] ED for evaluation. NIHSS was initially 1- [...] and negative except as noted in the [facility] Social History Smoking Status: Never smoker [...] serial neurologic checks continue plavix- loaded at [facility] consider neurology consult if abnormal [...] signed by Moises Burciaga MD> 03/10/24 0717 [facility] Work Phone: 1(941) 178-193912-07-[facility] Chief Complaint: [...] should problems arise Yecenia Finn MD, MPH, LOCATED WITHIN [facility], [facility], [facility] Interventional Cardiology Pager Email: [email or web address] NoteOPERATIVE NOTE OPERATION DATE: 10/14/2022 PREOPERATIVE [...] years for screening. CC: [facility] Author Héctor Rainey March 10, 2024 9:20pm Note Date/Time March 10, 2024 5:20p m [facility] [address] [place] [address] Discharge Summary Signed Patient: Prerna Phelps MR#: [id number] 9 : 1955 Acct:[id number] Age/Sex: 68 / F Adm Date: 4 Loc: Room: [address] [place] [address]: Héctor Rainey DO Copies to: DO Ti Alonzo MD~ Providers Date of Discharge: 03/10/24 Discharging Provider: Héctor Rainey Primary Care Provider: Ti Wright Consults: 03/10/24 03:04 Consult to Cardiology Routine Comment: Consulting Provider: [facility] Reason For Exam: elevated troponin, [...] not normal. They took her to the [facility] emergency room. There is CTA of the head neck arterial system and noncontrast CT scan of the head were unrevealing. Her neurologic symptomatology was improving but she had consistently elevated troponins of 200 and a left bundle branch block. She was transferred to to be evaluated by cardiology and neurology. [...] to have a strong relationship with her 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 retail pet (Dr. Brown outof the [facility]) and she can see him near her home in [place] that she will follow-up closely with him [...] LHC [facility] Angio - W Fredi Monet DO Discharge Plan Discharge Plan Patient Disposition: Home Activity: Ambulate as Tolerated Comment: See cardiac cath discharge instructions for activity restrictions Diet: Low-Sodium Additional Instructions: DISCHARGE INSTRUCTIONS FOR CARDIAC COOK DINNER PROCEDURE: Heart Cath The following instructions have [...] cold, numb, blue or white, call the 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 retail pet immediately. 4. ACTIVITY: You are advised to [...] bottle, follow the instructions on the bottle. is not responsible for incorrect prescription information [...] (DR/EC) 81 mg PO DAILY Follow Up: [facility] [Outside] (WE WILL CALL YOU WEDNESDAY WITH [...] % (Auto) 47.6, Lymph % (Auto) 39.5, [place] % (Auto) 9.8, Eos % (Auto) 2.1, Baso % (Auto) 1.0, Nucleat RBC Rel Count 0.1, Neut # (Auto) 2.8, Lymph # (Auto) 2.3, [place] # (Auto) 0.6, Eos # (Auto) 0.1, Baso # (Auto) 0.1, PHA Creatinine Clear 65.11, Sodium 142, Potassium 3.6, Chloride 108 H, Carbon Dioxide 26.5, Anion Gap 11.1, BUN 9, Creatinine 0.70, Est GFR (CKD-EPI) > 60.0, Glucose 91, Estimat Average Glucose 111, Hemoglobin A1c 5.5, Calcium 9.1, Magnesium 1.9 Documented By: Héctor Rainey DO 1719 Signed By: <Electronically signed by Héctor Rainey DO> 03/10/242119 [facility] Work Phone: Evaluation + Plan note No data available for this section General Surgery [place] Evaluation noteNo assessment information available [facility] Work Phone: Evaluation note* Diagnosis Onset Date Resolution Status Acute HFrEF (heart failure w ith reduced ejection fraction) acute Alien limb phenomenon acute Elevated troponin acute Embolic stroke acute Takotsubo cardiomyopathy acu te Transient ischemic attack ac janae [facility] Work Phone: Hospital Discharge instructions No data available for this section General [facility] Discharge instructions Additional Instructions DISCHARGE INSTRUCTIONS FOR CARDIAC COOK DINNER PROCEDURE: Heart Cath The following instructions have [...] cold, numb, blue or white, call the 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 retail pet immediately. 4. ACTIVITY: You are advised to [...] bottle, follow the instructions on the bottle. is not responsible for incorrect prescription information provided by the patient during their visit. Do not stop your medications without consulting your health care provider. Please take the list with you to your next doctor's appointment.[facility] Work Phone: Progress note No data available for this section General Surgery [place] Summary Purpose Family History No Family History [...] and content) DATE CREATED AUTHOR 08/16/2020 [facility] DATE CREATED AUTHOR AUTHOR'S ORGANIZ ATION 10/17/2022 [facility] DATE CREATED AUTHOR AUTHOR'S ORGANIZ ATION 03/14/2024 [facility] DATE CREATED AUTHOR AUTHOR'S ORGANIZ ATION 04/22/2024 [facility] DATE CREATED AUTHOR AUTHOR'S ORGANIZ ATION 06/27/2024 [facility] DATE CREATED AUTHOR AUTHOR'S ORGANIZ ATION 07/18/2024 [facility] Goals (unrecognized section and content) Goals [...] Theresa Gaxiola MD Other Provider Active Start: ay 2023 End: March 10, 2024 Aleja Umanzor MD Other Provider Active Start: March 10, 2024 End: March 10, 2024 Braulio Rodriguez MD Other Provider Active Start: M ay 2023 End: March 10, 2024 Phoebe Schafer , [facility]- Other Provider Active Sta rt: March 10, [...] BE BASED ON THE PRIMARY CLINICAL RECORDS. [facility]. provides no warranty or guarantee of the accuracy or completeness of information in this document.
--- NOTE | 2024-09-01 09:00 | CA_ITS ---
Patient Name: JOSY GASCA MR#: [id number] : 1955 Exam Date: 09/01/2024 Ordering Doctor: DR JENNY LAWRENCE M.D. ECHOCARDIOGRAM REPORT PROCEDURE: CA ECHO LIMITED INDICATIONS: Patent foramen ovale COMPARISON: None. DESCRIPTION: Limited ECHOCARDIOGRAM Real-time transthoracic echocardiography with 2D and M-mode performed. QUALITY: Technical quality was good. Limited Echocardigram per physician order. LEFT VENTRICLE: Normal chamber size. Normal left ventricular wall thickness. LV EF: Left ventricular ejection fraction at lower limit of normal, EF 50%.No wall motion abnormalities DIASTOLIC: ATRIAL SEPTUM: Intact atrial septum. Agitated saline contrast does not reveal an intra-cardiac shunt. LEFT ATRIUM: Severe dilatation. RIGHT ATRIUM: Normal chamber size. RIGHT VENTRICLE: Normal chamber size. TRICUSPID VALVE: Normal mobility and thickness. MITRAL VALVE: Normal mobility and thickness. There is no mitral annular calcification. AORTIC VALVE: Normal trileaflet appearance. No visible sclerosis. Normal leaflet mobility. AORTIC ROOT: Normal diameter and appearance. PULMONIC VALVE: Normal thickness and mobility. PERICARDIUM: No evidence of pericardial effusion. IVC: Collapes with inspirations. IVC is normal in size. PLEURA: CONCLUSION: Normal chamber size. Normal left ventricular wall thickness. Left ventricular ejection fraction at lower limit of normal, EF 50%.No wall motion abnormalities Intact atrial septum. Agitated saline contrast does not reveal an intra-cardiac shunt Severe left atrial dilatation. Adult Echocardiography Procedure Report Left Ventricle LVEDD (3.7 - 5.6 cm): 4.91 cm LVESD (2.2 - 4.0 cm): 3.78 cm LVIVS thickness (0.6 - 1.2 cm): 0.98 cm LVPW thickness (0.5 - 1.0 cm): 1.00 cm e': E - e': LVOT Max Gradient: LVOT Area (cm2): Peak Velocity (LVOT): Mean Velocity (LVOT): LVOT Diameter 2.16 cm Left Ventricular Ejection Fraction: Left Atrium LA Volume Index (2D A2C): 49.57 ml/m2 Left Atrium Systolic Dimension: 3.94 cm Mitral Valve MV E to A Ratio: MV Max Gradient: MV Mean Gradient: Mitral Valve A-Wave Peak Velocity: Mitral Valve E-Wave Peak Velocity: Cardiovascular Orifice Area: Right Ventricle RV Internal Diastolic Dimension: Aorta AO Root Diam: 3.64 cm Ascending Ao Diam: Aortic Valve AoV Area (Peak Manas): AoV Area (VTI): Deceleration [facility]: Pressure Half-Time: Peak Velocity(Antegrade Flow): Peak Gradient(Antegrade Flow): Mean Velocity(Antegrade Flow): Mean Gradient(Antegrade Flow): Velocity Time Integral: Tricuspid Valve Peak Velocity (Regurgitant Flow): Peak Velocity: Pulmonic Valve Mean Gradient: Mean Velocity: Peak Velocity: Peak Gradient: Right Atrium Right Atrium Systolic Pressure: 40.56 ml, 40.56 ml Dictated by: Tiffany Diop MD on 09/01/2024 at 21:09 Approved by: Tiffany Diop MD on 09/01/2024 at 21:15
== END 2024-09-01 08:43 | disposition home or self-care (01) ==
LOC: CARD 08:42
PROVIDERS: PCP Nurse Practitioner; Visit Provider Internal Medicine Interventional Cardiology
DX: Q21.12 Patent foramen ovale (principal)
CPT/HCPCS: 93308

== ENCOUNTER 2025-01-12 10:16 | Outpatient (OUT) | payer MEDICARE, SELFPAY ==
[2025-01-12 10:36] LABS: Basophils Percent Auto 0.7 % (0.2-2.0); Eosinophils Absolute Auto 0.1 10^3/uL (0.0-0.7); Eosinophils Percent Auto 2.1 % (0.9-7.0); Hematocrit 38.1 % (36.0-48.0); Hemoglobin 12.9 g/dL (12.0-16.0); Immature Granulocytes Abs Auto 0.01 10^3/uL (0.00-0.03); Immature Granulocytes Pct Auto 0.2 % (0.0-0.5); Lymphocytes Absolute Auto 1.8 10^3/uL (1.2-3.8); Lymphocytes Percent Auto 28.5 % (20.5-60.0); Mean Corpuscular HGB Conc 33.9 g/dL (29.9-35.2); Mean Corpuscular Hemoglobin 29.3 pg (26.7-34.0); Mean Corpuscular Volume 86.6 fL (81.0-99.0); Mean Platelet Volume 8.3 fL (9.5-13.5); Monocytes Absolute Auto 0.5 10^3/uL (0.3-0.8); Monocytes Percent Auto 7.8 % (1.7-12.0); Neutrophils Absolute Auto 3.7 10^3/uL (1.4-6.5); Neutrophils Percent Auto 60.7 % (43.0-75.0); Platelet Count 287 10^3/uL (150-450); Red Cell Distribution Width 13.7 % (11.0-15.0); White Blood Count 6.1 10^3/uL (4.0-11.0)
[2025-01-12 11:49] LABS: Anion Gap 10.7; BUN Creatinine Ratio 22.4; Calcium 9.4 mg/dL (8.5-10.1); Carbon Dioxide 26.6 mmol/L (21.0-32.0); Chloride 102 mmol/L (98-107); Chol HDL Ratio 2.4; Cholesterol 192 mg/dL (<=200); Estimated GFR (African America >60 (>=60 mL/min/1.73m^2); Estimated GFR (Non-African Ame >60 (>=60 mL/min/1.73m^2); Glucose 95 mg/dL (74-106); HDL Cholesterol 80 mg/dL (40-60); Potassium 4.3 mmol/L (3.5-5.1); Sodium 135 mmol/L (136-145); Triglycerides 83 mg/dL (<=150); VLDL CHOLESTEROL 16.6 mg/dL
== END 2025-01-12 10:17 | disposition home or self-care (01) ==
LOC: LAB 10:19
PROVIDERS: PCP Nurse Practitioner
DX: E78.2 Mixed hyperlipidemia (principal); I50.32 Chronic diastolic (congestive) heart failure
CPT/HCPCS: 36415; 80048; 80061; 85025

== ENCOUNTER 2025-05-23 07:23 | Outpatient (OUT) | payer MEDICARE, SELFPAY ==
--- OUTSIDE RECORDS SUMMARY | 2025-05-21 23:59 | XMS_ITS | Continuity of Care Document ---
Author Organization [facility] Address [address] [place] [address] Care Team Providers Care Cartoon Artist Name Role Phone Stephanie Gagnon Primary Care Physician [phone] Encounter FT_AMBFIN [id number] Date(s): 05/18/25 - 05/21/[address] [address]- Encounter Diagnosis BMI 28.0-28.9,adult(Discharge Diagnosis) - 05/21/25 Hypertension(Discharge Diagnosis) - 05/21/25 Swelling of lower extremity(Discharge Diagnosis) - 05/21/25 Irritable bowel syndrome with diarrhea(Discharge Diagnosis) - 05/21/25 Attending Physician: Stephanie Flores Encounter Type: Off-Site Allergies, Adverse Reactions, Alerts Substance Criticality Severity Reaction Reaction Severity Status nabumetone Hives Active tetracyclines Rash Active Petroleum Jelly Swelling Rash Active sulfa drugs Unknown Active Assessment and Plan Future Appointments Appointment Date:10/01/2025 08:20:00 AM Scheduled Provider:Stephanie Flores Location:[facility] Appointment Type:FM Open Appointment Date:05/13/2026 01:00:00 PM Scheduled Provider: Location:[facility] Appointment Type:FM Medicare Wellness Subsequent Immunizations Given and Recorded Vaccine Date Status Refusal Reason SARS-CoV-2 (COVID-19) mRNA-1273 vaccine 10/22/21 R ecorded SARS-CoV-2 (COVID-19) mRNA-1273 vaccine 01/30/21 R ecorded SARS-CoV-2 (COVID-19) mRNA-1273 vaccine 12/26/20 R ecorded Medications biotin 1000 mcg oral tablet 1,000 mcg = 1 tab(s), Oral, Daily, # 30 tab(s), Refills(s) 0 Start Date: 04/02/25 Status: Ordered Quantity: 30.0 Unit: tab(s) Repeat number: 1 Calcium 600+D oral tablet tab(s), Oral, BID, Refill(s) 0 Start Date: 04/02/25 Status: Ordered Repeat number: 1 carvedilol 6.25 mg Tab 6.25 mg = 1 tab(s), Oral, BID, TAKE 1 TABLET BY MOUTH TWICE DAILY with meals FOR 30 DAYS Start Date: 03/27/24 Status: Ordered Repeat number: 1 Centrum Silver Oral, Daily, Refill(s) 0 Start Date: 04/02/25 Status: Ordered Repeat number: 1 hydrOXYzine hydrochloride 10 mg Tab 10 mg = 1 tab(s), Oral, TID, PRN as needed for anxiety, Refills(s) 0 Start Date: 03/27/24 Status: Ordered Repeat number: 1 lisinopril 2.5 mg Tab 2.5 mg = 1 tab(s), Oral, Daily, Refills(s) 0 Start Date: 03/27/24 Status: Ordered Repeat number: 1 loperamide 2 mg Cap 2 mg = 1 cap(s), Oral, q4hr, PRN for loose stool, # 60 cap(s), Refills(s) 0, Pharmacy: [id number], 161, cm, 10/06/24 8:21:00 EST, Height/Length Dosing, 73, kg, 10/06/24 8:21:00 EST, Weight Dosing Start Date: 10/06/24 Status: Ordered Quantity: 60.0 Unit: cap(s) Repeat number: 1 Indications: Overweight; Essential (primary) hypertension; Body mass index [BMI] 28.0-28.9, adult; Thoracic aortic ectasia; Other specified health status; melatonin 5 mg oral tablet 5 mg = 1 tab(s), Oral, Once a day (at bedtime), PRN for insomnia, # 60 tab(s), Refills(s) 0 Start Date: 05/07/25 Status: Ordered Quantity: 60.0 Unit: tab(s) Repeat number: 1 omeprazole 20 mg Cap-DR 20 mg = 1 cap(s), Oral, Daily, Refills(s) 0 Start Date: 07/31/22 Status: Ordered Repeat number: 1 potassium chloride 99 mg oral tablet 99 mg = 1 tab(s), Oral, Daily, # 100 tab(s), Refills(s) 0 Start Date: 04/02/25 Status: Ordered Quantity: 100.0 Unit: tab(s) Repeat number: 1 Probiotic 10 Ultra Strength Oral, Daily, Refill(s) 0 Start Date: 04/02/25 Status: Ordered Repeat number: 1 spironolactone 25 mg Tab See Instructions, TAKE 1/2 TABLET BY MOUTH EVERY DAY, # 45 tab(s), Refills(s) 3, Pharmacy: [id number], 161, cm, 10/06/24 8:21:00 EST, Height/Length Dosing, 73, kg, 10/06/24 8:21:00 EST, Weight Dosing Start Date: 10/06/24 Status: Ordered Quantity: 45.0 Unit: tab(s) Repeat number: 4 turmeric 500 mg oral capsule mg cap(s), Oral, Daily, Refills(s) 0 Start Date: 05/07/25 Status: Ordered Repeat number: 1 Tylenol 8 Hour Caplet 650 mg oral tablet, extended release mg tab(s), Oral, q8hr, Refills(s) 0 Start Date: 05/07/25 Status: Ordered Repeat number: 1 Vitamin D International_Unit, Oral, qWeek, Refills(s) 0 Start Date: 04/02/25 Status: Ordered Repeat number: 1 Xarelto 15 mg oral tablet 15 mg = 1 tab(s), Oral, Daily, TAKE 1 TABLET BY MOUTH ONCE DAILY FOR 30 DAYS Start Date: 03/27/24 Status: Ordered Repeat number: 1 Problem List Condition Confirmation Course Effective Dates Status Health Status Informant Anemia Confirmed 03/02/12 Active Anxiety Confirmed Active Mild ascending aorta dilatation 1 Confirmed Active BMI 21.0-21.9, adult Confirmed Resolved Overweight (BMI 25.0-29.9) Confirmed Active Cardiomyopathy Confirmed Active Skin texture changes Confirmed Active Gastroesophageal reflux disease Confirmed 03/02/12 Active Hyperlipemia Confirmed Active Hypertension Confirmed Active Irritable bowel syndrome with diarrhea Confirmed Active Left bundle branch block Confirmed 04/04/12 Active Osteopenia Confirmed Active BMI 26.0-26.9,adult Confirmed Resolved BMI 28.0-28.9,adult Confirmed Active Screening for malignant neoplasm of colon Confirmed Active RLS (restless legs syndrome) Confirmed Active Swelling of lower extremity Confirmed Active Broken heart syndrome Confirmed Active 1noted in 06/27/2024 Cardiology Consult Note page 4. added per OP CDI policy. Procedures Procedure Date Related Diagnosis Body Site Status Cardiac catheterization 03/10/24 C ompleted Cardiac catheterization 08/13/20 C ompleted Cardiac catheterization 2006 C ompleted Colonoscopy Completed Colonoscopy Completed Extraction of wisdom tooth Completed Lumpectomy of right breast Completed Tubal ligation Completed Social History Social History Type Response Smoking Status Never (less than 100 in lifetime);Never; Concerns about tobacco use in household: No; Smoking Cessation Yes 1 entered on: 05/07/25 Sex Female Sex Representation Female (finding) 1denies use. Goals Prevent complications of cardiomyopathy Start Da te:05/17/24 End Date: Status:Met Progression:Not Met Prevent further progression of osteopenia and strengthen existing bone tissue Start Date:05/17/24 End Date: Status:Met Progression:Not Met Help patient achieve sustain able wgt loss/ wgt management, improve overall health, and prevent comp. Start Date:05/17/24 End Date: Status:Met Progression:Not Met Manage symptoms of GERD and prevent complication s Start Date:05/17/24 End Date: Status:Met Progression:Not Met Maintain therapeutic Blood P ressure and prevent complications Start Date:05/17/24 End Date: Status:Met Progression:Not Met Patient Care team information Care Team Personnel Name: Ruddy Perez Position: FT Parts Counterperson - Self Assign Member Role: Avionics Systems Integration Specialist Name: Yudy Tucker Member Role: Compressor Station Engineer Chief Telecom: Name: MELINDA DUMONT, JENNY Position: FT Senior Human Resources Representative Member Role: Senior Human Resources Representative Address: [address] [place] [address] [place] [address] [place] [address] Telecom: Name: Stephanie Flores Position: FT Ambulatory - Primary Care - [facility]ULY Member Role: Primary Care Physician Address: [address] [place] [address]- Telecom: Care Team Related Persons Name: Jennifer GASCA Name: JENNIFER GASCA Name: JENNIFER GASCA Name: VERO GASCA Insurance Providers Guarantor name: JOSY Schmitz GASCA Paddle8 Plan Information #: 1 Payer: NA Payer Identifier: [id number] Member Number: [id number] Group Number: [id number] Subscriber Identifier: [id number] Relationship to Subscriber: Self Coverage Type: MEDICARE Coverage Verification Date: NA Telecom: NA Address: Health Plan Information #: 2 Payer: NA Payer Identifier: [id number] Member Number: NA Group Number: [id number] Subscriber Identifier: [id number] Relationship to Subscriber: Self Coverage Type: MEDICARE Coverage Verification Date: NA Telecom: NA Address:
--- NOTE | 2025-05-23 07:25 | MM_ITS ---
Patient Name: JOSY GASCA MR#: [id number] : 1955 Exam Date: 05/23/2025 Ordering Doctor: MENA MEJIA . RADIOLOGY REPORT PROCEDURE: MM TOMOSYNTHESIS SCREENING BI COMPARISON: MM TOMOSYNTHESIS SCREENING BI, 05/15/2024. MM TOMOSYNTHESIS SCREENING BI, 05/04/2023. MG MAMM SCREEN 3D CRISTOFER CAD, 04/28/2022. MG MAMM CRISTOFER SCRN W CAD DIG, 03/08/2013. INDICATIONS: screening for malignant neoplasm of breast Calculator Name [facility] Breast Cancer Risk Assessment Tool 5 Year Breast Cancer Risk 3.80% Lifetime Breast Cancer Risk 12.70% Personal Breast Cancer No Personal Ovarian Cancer No Treatments None Family Cancers Sister with breast cancer at age 57; Mother with leukemia cancer at age 66; Father with bladder cancer at age 75. LOCATION: [facility] BREAST COMPOSITION: There are scattered areas of fibroglandular density. FINDINGS: DIAGNOSTIC CATEGORY 1--NEGATIVE. RIGHT BREAST: No significant suspicious finding. LEFT BREAST: No significant suspicious finding. RECOMMENDATIONS: ROUTINE MAMMOGRAM AND CLINICAL EVALUATION IN 12 MONTHS. PLEASE NOTE: A NORMAL MAMMOGRAM DOES NOT EXCLUDE THE POSSIBILITY OF BREAST CANCER. A CLINICALLY SUSPICIOUS PALPABLE LUMP SHOULD BE BIOPSIED. Dictated by: Augusto Paez DO on 05/23/2025 at 16:03 Approved by: Augusto Paez DO on 05/23/2025 at 16:05
--- OUTSIDE RECORDS SUMMARY | 2025-05-23 07:25 | XMS_ITS | Clinical Summary ---
Author Organization [facility] Address [address] [place] [address] Care Team Providers Care Handwriting Expert Name Role Phone Ambrocio Uriostegui MD Primary Care Provider [phone] Allergies Active Allergy Reactions Criticality Noted Date Comments Nabumetone Other 09/29/2022 Sulfa (Sulfonamide Antibiotics) Hives,Other,Unknown 10/12/2014 Tetracyclines Other,Unknown 10/12/2014 Medications aspirin 81 mg EC tablet in the morning. Acti ve ibuprofen 200 mg capsule every 8 (eight) hours. Active polysaccharide iron complex 180 mg iron capsule Pro Fe 180 mg iron capsule TAKE 1 CAPSULE BY MOUTH EVERY DAY Active omeprazole (PriLOSEC) [address] capsule 1 capsule in the morning. Active potassium gluconate 595 mg (99 mg) tablet in the morning. Active lisinopril 5 mg tabletIndication s:Benign hypertensive heart disease with heart failure (CMS/HCC) TAKE 1 TABLET BY MOUTH DAILY 90 tablet 3 4 Active Additional Information Patient taking differently: 2.5 mg oral Daily, TAKE 1 TABLET BY MOUTH DAILY, Reported on 03/21/2024 atorvastatin (Lipitor) 80 mg tablet Take 80 mg by mouth at bedtime. 4 Active hydrOXYzine HCL (Atarax) 10 mg tablet Take 10 mg by mouth every 8 (eight) hours if needed. 4 Active spironolactone (Aldactone) 25 mg tablet Take 12.5 mg by mouth in the morning. 4 Active carvedilol (Coreg) 6.25 mg tabletIndication s:Paroxysmal atrial fibrillation (CMS/HCC) Take 1 tablet (6.25 mg) by mouth with breakfast and with evening meal. 180 tablet 3 5 Active lisinopril 2.5 mg tabletIndication s:Benign hypertensive heart disease without congestive heart failure Take 1 tablet (2.5 mg) by mouth once daily as directed. 90 tablet 3 5 03/26/20 Active rivaroxaban (Xarelto) 15 mg tabletIndication s:Paroxysmal atrial fibrillation (CMS/HCC) Take 1 tablet (15 mg) by mouth daily with evening meal. 90 tablet 3 5 Active Active Problems Problem Noted Date Diagnosed Date Ascending aorta dilatation 01/12/2025 Overview (01/12/2025): noted in 06/27/2024 Cardiology Consult Note page 4. added per OP CDI policy. Osteopenia 01/12/2025 Swelling of lower extremity 01/12/2025 Anxiety 2024 BMI 26.0-26.9,adult 2024 Hyperlipemia 2024 Acute HFrEF (heart failure with reduced ejection fraction) 03/21/2024 Elevated troponin 03/21/2024 Embolic stroke 03/21/2024 Transient ischemic attack 03/21/2024 BMI 21.0-21.9, adult 09/30/2023 09/30/2023 RLS (restless legs syndrome) 09/30/202304/2023 Screening for malignant neoplasm of colon 202209/30/2023 Chest pain 09/29/2022 Elbow joint pain 09/29/2022 Conduction disorder of the heart 04/04/2012 Left bundle branch block 04/04/2012 Assessment & Plan (09/30/2022 10:32 AM EST): Stable, no acute concerns or symptoms today Primary cardiomyopathy 04/04/2012 Assessment & Plan (09/30/2022 10:33 AM EST): EF Recovered on echo 06/2020 No exacerbation and pt is euvolemic, no concerning symptoms today Continue ASA, lisinopril Anemia 03/02/2012 Edema 03/02/2012 Essential hypertension 03/02/2012 Assessment & Plan (09/30/2022 10:32 AM EST): Hypertension is well controlled B/p 126/70 Renal function normal- f/u with PCP for annual labs Continue lisinopril 5 mg daily Gastroesophageal reflux disease 03/02/2012 Irritable bowel syndrome 03/02/2012 Obesity 03/02/2012 Encounters Date Type Department Care Team Description 03/26/2025 Refill [facility] [address] [place] [facility] [place] [address] Shannon Ansari MA Paroxysmal atrial fibrillation (CMS/HCC); Benign hypertensive heart disease without congestive heart failure 03/26/2025 Orders Only [facility] [address] [place] [facility] [place] [address] Shannon Ansari MA from Last 3 Months Family History Medical History Relation Name Comments Hypertension Father Breast cancer Sister Relation Name Status Comments Father Sister Social History Tobacco Use Types Packs/Day Years Used Date Smoking Tobacco: Never Smokeless Tobacco: Never Tobacco Cessation:Counseling Given: Not Answered [place] Safety & Environment Answer Date Rec orded Fear of Current or Ex-Partner Not on file Emotionally Abused Not on file 12/16/2023 Physically Abused Not on file 12/16/2023 Sexually Abused Not on file 12/16/2023 Physically or Sexually Abused Not on file Comments Unknown Sex and Gender Information Value Date Recorded Sex Assigned at Not on file Legal Sex Female 10:23 PM EDT Gender Identity Not on file Sexual Orientation Not on file Last Filed Vital Signs Vital Sign Reading Time Taken Comments Blood Pressure 144/82 01/12/2025 9:26 AM EDT Pulse 61 01/12/2025 9:26 AM EDT Temperature - - Respiratory Rate - - Oxygen Saturation 99% 01/12/2025 9:26 AM EDT Inhaled Oxygen Concentration - - Weight 69.9 kg (154 lb) 01/12/2025 9:26 AM EDT Height 162.6 cm (5' 4 ) 01/12/2025 9:26 AM EDT Body Mass Index 26.43 01/12/2025 9:26 AM EDT Plan of Treatment Health Maintenance Due Date Last Done Comments CT Colonography 1955 Colonoscopy 1955 Colorectal Cancer Screening 1955 FIT-DNA 1957 FIT 1957 FOBT 1955 Medicare Annual Wellness (AWV) 1955 Sigmoidoscopy 1955 Depression Screening 1969 Pneumococcal Vaccine: 50+ Years (1 of 2 - PCV) 1976 Adult Tetanus 1979 Mammogram 1997 Zoster Vaccines (1 of 2) 2007 Fall Risk Screening 2022 COVID-19 Vaccine (2023-2 5 season) 2024 10/22/2021, 01/30/2021, 12/26/2020 Influenza Vaccine (#1) 2025 HIB Vaccines Aged Out No longer eligi ble based on patient's age to complete this topic HPV Vaccines Aged Out No longer eligi ble based on patient's age to complete this topic IPV Vaccines Aged Out No longer eligi ble based on patient's age to complete this topic Meningococcal B Vaccine Aged Out No l onger eligible based on patient's age to complete this topic Meningococcal Vaccine Aged Out No maxwell yumiko eligible based on patient's age to complete this topic Rotavirus Vaccines Aged Out No longer eligible based on patient's age to complete this topic Insurance [employer] MEDICARE Advance Directives Documents on File Type Date Recorded Patient Seed Packer Expl anation Advance Directives and Living Will 01/12/2025 9:26 AM Insurance MMO 01/11/2025 Care Teams Handwriting Expert Relationship Specialty Start Date End Date Ambrocio Uriostegui MD [address] [place] [address] PCP - General Family Medicine 06/27/24
--- OUTSIDE RECORDS SUMMARY | 2025-05-23 07:25 | XMS_ITS | Encounter Summary ---
Author Organization [facility] Address [address] [place] [address] Care Team Providers Care Vice President Of Software Development Name Role Phone Ti Blackburn MD Primary Care Provider [phone] Encounter Details Date Type Department Care Team (Late st Contact Info) Description 05/15/2024 Clinisync Result Encounter [facility] External Department Unsolicited Provider, Generic External Data Social History Tobacco Use Types Packs/Day Years Used Date Smoking Tobacco: Never Assessed Comments Unknown Sex and Gender Information Value Date Recorded Sex Assigned at Not on file Legal Sex Female 6:37 PM EDT Gender Identity Not on file Sexual Orientation Not on file documented as of this encounter Plan of Treatment Not on file documented as of this encounter Procedures Procedure Name Priority Date/Time Associated Diagnosis Comments XR DEXA AXIAL SKELETON 05/15/2024 8:39 AM EDT documented in this encounter Results * XR DEXA AXIAL SKELETON (05/15/2024 8:39 AM EDT) Anatomical Region Laterality Modality Other 05/15/2024 8:39 AM EDT Narrative 05/15/2024 8:42 AM EDT The [address] [address] XRay Report Signed Patient: PRERNA GASCA MR#: [id number] : 1955 Acct:[id number] Age/Sex: 68 / F ADM Date: 05/15/24 Loc: [facility] Attending Dr: MENA MEJIA Ordering Physician: MENA MEJIA Date of Service: 05/15/24 Procedure(s): XR DEXA axial skeleton Accession Number(s): [id number] cc: Ti Blackburn M.D.; MENA MEJIA [address] [address] Patient Name: PRERNA GASCA MRN: [id number] date: 1955 Sex: F Assigned Patient Location: [facility] Current Patient Location: [facility] Accession/Order Number: [id number] Exam Date: 05/15/2024 07:50 Report Date: 05/15/2024 08:39 At the request of: MENA MEJIA Procedure: XR DEXA axial skeleton EXAMINATION: XR DEXA axial skeleton, 05/15/2024 7:50 AM EDT HISTORY: Screening COMPARISON: 2012 TECHNIQUE: Dual-energy X-ray absorptiometry (DEXA) bone density study performed for the axial skeleton. FINDINGS: Bone mineral density lumbar spine L1-L4 measures 1.291 g/sq cm. T score 0.9. Normal. Lowest bone mineral density right femoral trochanter measures 0.707 g/sq cm. T score -1.3. Osteopenia XR/XR DEXA axial skeleton IMPRESSION: Osteopenia. Moderate fracture risk Pharmacologic treatment recommendations * No uniform recommendation applies to all patients. Management plans must be individualized. * Consider initiating pharmacologic treatment in postmenopausal women and men >= 50 years of age who have the following: Primary fracture prevention: * T-score <= - 2.5 at the femoral neck, total hip, lumbar spine, 33% radius (some uncertainty with existing data) by DXA. * Low bone mass (osteopenia: T-score between - 1.0 and - 2.5) at the femoral neck or total hip by DXA with a 10-year hip fracture risk >= 3% or a 10-year major osteoporosis-related fracture risk >= 20% (i.e., clinical vertebral, hip, forearm, or proximal humerus) based on the US-adapted FRAXregistered model. Secondary fracture prevention: * Fracture of the hip or vertebra regardless of BMD [4, 5]. * Fracture of proximal humerus, pelvis, or distal forearm in persons with low bone mass (osteopenia: T-score between - 1.0 and - 2.5). The decision to treat should be individualized in persons with a fracture of the proximal humerus, pelvis, or distal forearm who do not have osteopenia or low BMD [12, 13]. Tanner MS, Tito SL, Nhan KL, Shruthi EM, Melissa KG, AJ, Lang ES. The clinician's guide to prevention and treatment of osteoporosis. Osteoporos Int. 2021;33(10):9496-3027. doi: 10.1007/i38448-755-53860-g. Epub 2021Feb 19. Erratum in: Osteoporos Int. 2021May 21;: PMID: 68601798; PMCID: [id number]. Electronically authenticated by: OBED GUNDERSON Date: 05/15/2024 08:39 Dictated By: Obed Gunderson M.D. Signed By: 05/15/2442 DD/ TD/TT: Chief Operator Hydroformer: Procedure Note Radiology, Radiologist, MD - 05/15/2024 [place] [address] XRay Report Signed Patient: MARLY GASCA#: [id number] : 1955cct:[id number] Age/Sex: 68 / FADM Date: 05/15/24 Loc: [facility] Attending Dr: MENA MEJIA Ordering Physician: MENA MEJIA Date of Service: 05/15/24 Procedure(s): XR DEXA axial skeleton Accession Number(s): [id number] cc: Ti Blackburn M.D.; MENA MEJIA [address] [address] Patient Name: PRERNA GASCA MRN: [facility]:[id number] date: 1955 Sex: F Assigned Patient Location: [facility] Current Patient Location: [facility] Accession/Order Number: [id number] Exam Date: 05/15/2024 07:50 Report Date: 05/15/2024 08:39 At the request of: MENA MEJIA Procedure: XR DEXA axial skeleton EXAMINATION: XR DEXA axial skeleton, 05/15/2024 7:50 AM EDT HISTORY: Screening COMPARISON: 2012 TECHNIQUE: Dual-energy X-ray absorptiometry (DEXA) bone density study performed for the axial skeleton. FINDINGS: Bone mineral density lumbar spine L1-L4 measures 1.291 g/sq cm. T score0.9. Normal. Lowest bone mineral density right femoral trochanter measures 0.707 g/sqcm. T score -1.3. Osteopenia XR/XR DEXA axial skeleton IMPRESSION: Osteopenia. Moderate fracture risk Pharmacologic treatment recommendations * No uniform recommendation applies to all patients. Management plans mustbe individualized. * Consider initiating pharmacologic treatment in postmenopausal women andmen >= 50 years of age who have the following: Primary fracture prevention: * T-score <= - 2.5 at the femoral neck, total hip, lumbar spine, 33%radius (some uncertainty with existing data) by DXA. * Low bone mass (osteopenia: T-score between - 1.0 and - 2.5) at thefemoral neck or total hip by DXA with a 10-year hip fracture risk >= 3% or h90-dlqh major osteoporosis-related fracture risk >= 20% (i.e., clinical vertebral, hip, forearm, or proximal humerus) based on the US-adapted FRAXregisteredmodel. Secondary fracture prevention: * Fracture of the hip or vertebra regardless of BMD [4, 5]. * Fracture of proximal humerus, pelvis, or distal forearm in persons withlow bone mass (osteopenia: T-score between - 1.0 and - 2.5). The decision totreat should be individualized in persons with a fracture of the proximalhumerus, pelvis, or distal forearm who do not have osteopenia or low BMD [12, 13]. Tanner MS, Tito SL, Nhan KL, Shruthi EM, Melissa KG, AJ,Lang ES. The clinician's guide to prevention and treatment of osteoporosis.Osteoporos Int. 2021;33(10):5418-3889. doi: 10.1007/a48095-551-93570-d. Epub . Erratum in: Osteoporos Int. 2021May 21;: PMID: 16395370; PMCID: [id number]. Electronically authenticated by: OBED GUNDERSON Date: 05/15/2024 08:39 Dictated By: Obed Gunderson M.D. Signed By:05/15/2442 DD/ 8 TD/TT: Chief Operator Hydroformer: us Generic External Data Provider [facility] Final Result documented in this encounter Visit Diagnoses Not on filedocumented in this encounter Care Teams Vice President Of Software Development Relationship Specialty Start Date End Date Ti Blackburn MD [address] [place] [address] PCP - General Family Medicine 03/14/24 documented as of this encounter
--- OUTSIDE RECORDS SUMMARY | 2025-05-23 07:25 | XMS_ITS | Clinical Summary ---
Author Organization [facility] Address [id number] [address] [id number] Care Team Providers Care Baseball Pitcher Name Role Phone Unavailable Primary Care Provider Unavailabl e Allergies Active Allergy Reactions Criticality Noted Date Comments Sulfa (Sulfonamide Antibiotics) 03/2017 Tetracyclines 01/28/2017 Medications lisinopril (PRINIVIL,ZESTR IL) 10 mg tablet Take 10 mg by mouth daily. Active MULTIVIT-MIN/IR ON/FOLIC/LUTEIN (CENTRUM SILVER WOMEN ORAL) Take by mouth. Act sheryl ibuprofen (ADVIL,MOTRIN) 200 mg tablet Take 200 mg by mouth every 6 (six) hours as needed for pain. Active hydrocortisone (HYTONE) 2.5 % cream Apply 1 application topically daily. Active black cohosh 20 mg tabletIndicatio ns:remifemin per pt Take by mouth Indications: remifemin per pt. Active potassium 99 mg tablet Take 99 mg by mouth daily. Active omeprazole (PriLOSEC OTC) 20 mg EC tablet Take 20 mg by mouth daily. Active loperamide (IMODIUM A-D) 2 mg tablet Take 2 mg by mouth 4 (four) times a day as needed for diarrhea. Active biotin (BIOTIN) 5 mg capsule Take 5 mg by mouth daily. Active Family History Medical History Relation Name Comments Cancer Father LEUKEMIA Heart disease Father Cancer Mother BLADDER Depression Sister Hypertension Sister Thyroid disease Sister Relation Name Status Comments Father Alive Mother Sister Social History Tobacco Use Types Packs/Day Years Used Date Smoking Tobacco: Never Alcohol Use Standard Drinks/Week Comments Yes 7 (1 standard drink = 0.6 oz pur e alcohol) Childcare Answer Date Recorded Childcare Unknown 04/05/2019 Employment Answer Date Recorded Employment Unknown 04/05/2019 Purpose - Life Answer Date Recorded Purpose and direction in life Unknown Comments Unknown Sex and Gender Information Value Date Recorded Sex Assigned at Not on file Legal Sex Female 11:33 AM EDT Gender Identity Not on file Sexual Orientation Not on file Last Filed Vital Signs Vital Sign Reading Time Taken Comments Blood Pressure 132/72 11/12/2016 11:09 AM EST Pulse 84 11/12/2016 11:09 AM EST Temperature - - Respiratory Rate - - Oxygen Saturation - - Inhaled Oxygen Concentration - - Weight 83.5 kg (184 lb) 11/12/2016 11:09 AM EST Height 162.6 cm (5' 4 ) 11/12/2016 11:09 AM EST Body Mass Index 31.58 11/12/2016 11:09 AM EST Plan of Treatment Health Maintenance Due Date Last Done Comments Depression Screening 1969 Tobacco Screening 1969 Adult BMI Screening 1975 DTaP,Tdap and Td Vaccines (1 - Tdap) 1976 Zoster (Shingles) Vaccine (1 of 2) 2007 Fall Risk Screening 2022 COVID-19 Vaccine (4 - 2023-2 5 season) 2024 10/22/2021, 01/30/2021, 12/26/2020 Influenza Vaccine 06/25/2025 Medical Devices Not on file
--- OUTSIDE RECORDS SUMMARY | 2025-05-23 07:25 | XMS_ITS | Encounter Summary ---
Author Organization [facility] Address [address] [place] [address] Phone Care Team Providers Care Lining Folder Name Role Phone Ti Blackburn MD Primary Care Provider + Encounter Details Date Type Department Care Team (Late st Contact Info) Description 03/10/2024 Scanned Document [facility] [address] [place] [id number] Scanning, Generic Provider Social History Tobacco Use Types Packs/Day Years Used Date Smoking Tobacco: Never Assessed Comments Unknown Sex and Gender Information Value Date Recorded Sex Assigned at Not on file Legal Sex Female 10:30 AM EDT Gender Identity Not on file Sexual Orientation Not on file documented as of this encounter Plan of Treatment Scheduled Orders Name Type Priority Associated Diagnoses Orde r Schedule Ultrasound- OnBase Scan Imaging O rdered: 03/10/2024 documented as of this encounter Procedures Procedure Name Priority Date/Time Associated Diagnosis Comments CARDIAC CATHETERIZATION PROCEDURE - ONBASE SCAN 03/10/2024 OUTSIDE IMAGING SCAN 03/10/2024 ECHOCARDIOGRAM 03/10/2024 documented in this encounter Results * Echocardiogram (03/10/2024) Narrative 03/10/2024 Ordered by an unspecified provider. us Generic Provider Scanning CV ECHO PROCEDURES Fin al Result * Cardiac Catheterization - Onbase Scan (03/10/2024) Narrative 03/10/2024 Ordered by an unspecified provider. us Generic Provider Scanning CV CARDIAC CATH PROCED URES Final Result * OUTSIDE IMAGING SCAN (03/10/2024) Anatomical Region Laterality Modality Other Narrative 03/10/2024 Ordered by an unspecified provider. us Generic Provider Scanning OUTSIDE SCAN Final Result documented in this encounter Visit Diagnoses Not on filedocumented in this encounter Care Teams Lining Folder Relationship Specialty Start Date End Date Ti Blackburn MD [facility] [place] [place] [address] PCP - General Family Medicine 03/10/24 documented as of this encounter
--- OUTSIDE RECORDS SUMMARY | 2025-05-23 07:25 | XMS_ITS | Encounter Summary ---
Author Organization [facility] Address [address] [place] [address] Care Team Providers Care Linux Server Administrator Name Role Phone Ti Blackburn MD Primary Care Provider [phone] Encounter Details Date Type Department Care Team [...] Procedure Name Priority Date/Time Associated Diagnosis Comments MM TOMOSYNTHESIS SCREENING BI 05/15/2024 11:55 AM EDT documented in this encounter Results * MM TOMOSYNTHESIS SCREENING BI (05/15/2024 11:55 AM EDT) Anatomical Region Laterality Modality Other 05/15/2024 11:5 5 AM EDT Narrative 05/15/2024 11:56 AM EDT The [address] [address] Mammography Report Signed Patient: PRERNA GASCA MR#: [id number] : 1955 Acct:[id number] Age/Sex: 68 / F ADM Date: 05/15/24 Loc: MAMMO Attending Dr: MENA MEJIA Ordering Physician: MENA MEJIA Results: Date of Service: 05/15/24 Follow Up: Procedure(s): MM tomosynthesis screening BI Accession Number(s): [id number] cc: Ti Blackburn M.D.; MENA MEJIA Patient Name: PRERNA GASCA MR#: [id number] : 1955 Exam Date: 05/15/2024 Ordering Doctor: MENA MEJIA . RADIOLOGY REPORT PROCEDURE: MM TOMOSYNTHESIS SCREENING BI COMPARISON: MM TOMOSYNTHESIS SCREENING BI, 05/04/2023. MG MAMM SCREEN 3D CRISTOFER CAD, 04/28/2022. INDICATIONS: Screening for malignant neoplasm Calculator Name NCI Breast Cancer Risk Assessment Tool 5 Year Breast Cancer Risk 3.80% Lifetime Breast Cancer Risk 13.20% Personal Breast Cancer No Personal Ovarian Cancer No Treatments None Family Cancers Sister with breast cancer at age 57; Mother with leukemia cancer at age 66; Father with bladder cancer at age 75. LOCATION: [facility] BREAST COMPOSITION: The breasts are heterogeneously dense,which may obscure small masses. FINDINGS: DIAGNOSTIC CATEGORY 2--BENIGN FINDING. NO CHANGE FROM COMPARISON. Scattered benign-appearing calcifications are present. Scattered benign-appearing lymph nodes are present. RIGHT BREAST: No significant suspicious finding. Linear scar marker LEFT BREAST: No significant suspicious finding. RECOMMENDATIONS: ROUTINE MAMMOGRAM AND CLINICAL EVALUATION IN 12 MONTHS. PLEASE NOTE: A NORMAL MAMMOGRAM DOES NOT EXCLUDE THE POSSIBILITY OF BREAST CANCER. A CLINICALLY SUSPICIOUS PALPABLE LUMP SHOULD BE BIOPSIED. Dictated by: Trae Linares MD on 05/15/2024 at 11:54 Approved by: Trae Linares MD on 05/15/2024 at 11:55 Dictated By: Trae Linares M.D. Signed By: 05/15/24 1156 DD/ 1155 TD/TT: Chemical Sprayer: Procedure Note Radiology, Radiologist, - 05/15/2024 [place] [address] Mammography Report Signed Patient: PRERNA GASCAMR#: [id number] : 7Acct:[id number] Age/Sex: 68 / FADM Date: 05/15/24 Loc: MAMMO Attending Dr: MENA MEJIA Ordering Physician: MENA MEJIAesults: Date of Service: 05/15/24Follow Up: Procedure(s): MM tomosynthesis screening BI Accession Number(s): [id number] cc: Ti Blackburn M.D.; MENA MEJIA Patient Name: PRERNA GASCA MR#: [id number] : 1955 Exam Date: 05/15/2024 Ordering Doctor: MENA MEJIA . RADIOLOGY REPORT PROCEDURE: MM TOMOSYNTHESIS SCREENING BI COMPARISON: MM TOMOSYNTHESIS SCREENING BI, 05/04/2023. MG MAMM TEAPYR0H CRISTOFER CAD, 04/28/2022. INDICATIONS: Screening for malignant neoplasm Calculator Name NCI Breast Cancer Risk Assessment Tool 5 Year Breast Cancer Risk 3.80% Lifetime Breast Cancer Risk 13.20% Personal Breast Cancer No Personal Ovarian Cancer No Treatments None Family Cancers Sister with breast cancer at age 57; Mother withleukemia cancer at age 66; Father with bladder cancer at age 75. LOCATION: [facility] BREAST COMPOSITION: The breasts are heterogeneously dense,which may obscure small masses. FINDINGS: DIAGNOSTIC CATEGORY 2--BENIGN FINDING. NO CHANGE FROM COMPARISON. Scattered benign-appearing calcifications are present. Scattered benign-appearing lymph nodes are present. RIGHT BREAST: No significant suspicious finding. Linear scar marker LEFT BREAST: No significant suspicious finding. RECOMMENDATIONS: ROUTINE MAMMOGRAM AND CLINICAL EVALUATION IN 12 MONTHS. PLEASE NOTE: A NORMAL MAMMOGRAM DOES NOT EXCLUDE THE POSSIBILITY OFBREAST CANCER. A CLINICALLY SUSPICIOUS PALPABLE LUMP SHOULD BE BIOPSIED. Dictated by: Trae Linares MD on 05/15/2024 at 11:54 Approved by: Trae Linares MD on 05/15/2024 at 11:55 Dictated By: Trae Linares M.D. Signed By:05/15/24 1156 DD/ 1155 TD/TT: Chemical Sprayer: Generic External Data Provider [facility] Final Result documented in this encounter Visit Diagnoses Not on filedocumented in this encounter Care Teams Linux Server Administrator Relationship Specialty Start Date End Date Ti Blackburn MD [address] [place] [address] PCP - General Family Medicine 03/14/24 documented as of this encounter
--- OUTSIDE RECORDS SUMMARY | 2025-05-23 07:25 | XMS_ITS | Encounter Summary ---
Author Organization [facility] Address [address] [place] [address] Care Team Providers Care Nurse Quality Name Role Phone Ti Blackburn MD Primary Care Provider [phone] Ti Blackburn MD Primary Care Provider [phone] Encounter Details Date Type Department Care Team (Late st Contact Info) Description 10/21/2023 Clinisync Result Encounter [facility] External Department Unsolicited [...] Procedure Name Priority Date/Time Associated Diagnosis Comments CA ECHO DOPPLER COMPLETE 10/21/2023 7:09 PM EST documented in this encounter Results * CA ECHO DOPPLER COMPLETE (10/21/2023 7:09 PM EST) Anatomical Region Laterality Modality Other 10/21/2023 7:09 PM EST Narrative 10/21/2023 7:10 PM EST The [address] [address] Cardiology Report Signed Patient: PRERNA GASCA MR#: [id number] : 1955 Acct:[id number] Age/Sex: 68 / F ADM Date: 10/21/23 Loc: CARD Attending Dr: Jenny Lawrence M.D. Ordering Physician: Jenny Lawrence M.D. Date of Service: 10/21/23 Procedure(s): CA echo doppler complete Accession Number(s): [id number] cc: Jenny Lawrence M.D.; Ti Blackburn M.D. Patient Name: PRERNA GASCA MR#: [id number] : 1955 Exam Date: 10/21/2023 Ordering Doctor: DR JENNY LAWRENCE M.D. ECHOCARDIOGRAM REPORT PROCEDURE: CA ECHO DOPPLER COMPLETE INDICATIONS: Chronic systolic heart failure, Cardiomyopathy COMPARISON: None. DESCRIPTION: COMPLETE ECHOCARDIOGRAM Real-time transthoracic echocardiography with 2D, M-mode, spectral and color flow Doppler performed. QUALITY: Technical quality was good. LEFT VENTRICLE: Normal chamber size. Thickened septal wall. Global left ventricular systolic function is normal. Abnormal septal motion may be related to bundle branch block. LV EF: Estimated left ventricular ejection fraction is 55-60 %. DIASTOLIC: Diastolic function is indeterminate. ATRIAL SEPTUM: LEFT ATRIUM: Mild dilatation. RIGHT ATRIUM: Normal chamber size. RIGHT VENTRICLE: Normal chamber size. Normal right ventricular systolic function. TRICUSPID VALVE: Normal mobility and thickness. No stenosis with mild regurgitation. No evidence of pulmonary hypertension. RVSP 24 mmHg MITRAL VALVE: Normal mobility and thickness. No evidence of mitral valve stenosis. There is no mitral annular calcification. Trivial mitral regurgitation. AORTIC VALVE: Normal trileaflet appearance. No visible sclerosis. Normal leaflet mobility. No evidence of aortic valve stenosis. No aortic regurgitation. AORTIC ROOT: Normal diameter and appearance. Normal size aortic arch measuring 3.2 cm and ascending aorta measuring 3.4 cm. PULMONIC VALVE: Normal thickness and mobility. No stenosis. Trivial regurgitation. PERICARDIUM: Small mostly anterior pericardial effusion. No evidence of cardiac tamponade. IVC: Collapses with inspirations. Normal size. PLEURA: CONCLUSION: 1. Normal ventricular systolic function. LVEF is 55 to 60%. 2. No significant valvular dysfunction. 3. Normal right-sided pressures. 4. Small mostly anterior pericardial effusion. Adult Echocardiography Procedure Report Left Ventricle LVEDD (3.7 - 5.6 cm): 4.07 cm LVESD (2.2 - 4.0 cm): 2.87 cm LVIVS thickness (0.6 - 1.2 cm): 1.28 cm LVPW thickness (0.5 - 1.0 cm): 1.00 cm e': 0.08 m/s E - e': 7.34 LVOT Max Gradient: 5.10 mm[Hg] LVOT Area (cm2): 1.13 m/s Peak Velocity (LVOT): 1.13 m/s Mean Velocity (LVOT): 0.72 m/s LVOT Diameter 2.22 cm Left Ventricular Ejection Fraction: 55-60 % Left Atrium LA Volume Index (2D A2C): 37.59 ml/m2 Left Atrium Systolic Dimension: 3.35 cm Mitral Valve MV E to A Ratio: 0.85 Mitral Valve A-Wave Peak Velocity: 0.70 m/s Mitral Valve E-Wave Peak Velocity: 0.60 m/s Right Ventricle RV Internal Diastolic Dimension: 3.23 cm Aorta AO Root Diam: 3.14 cm Ascending Ao Diam: 3.36 cm Aortic Valve AoV Area (Peak Manas): 2.76 cm2, 2.76 cm2 AoV Area (VTI): 2.76 cm2, 2.76 cm2 Peak Velocity(Antegrade Flow): 1.58 m/s Peak Gradient(Antegrade Flow): 10.04 mm[Hg] Mean Velocity(Antegrade Flow): 1.06 m/s Mean Gradient(Antegrade Flow): 5.21 mm[Hg] Velocity Time Integral: 33.56 cm Tricuspid Valve Peak Velocity (Regurgitant Flow): 2.31 m/s, 2.24 m/s, 2.33 m/s Pulmonic Valve Mean Gradient: 2.86 mm[Hg], 3.14 mm[Hg] Mean Velocity: 0.78 m/s, 0.82 m/s Peak Velocity: 1.22 m/s Peak Gradient: 5.78 mm[Hg], 6.16 mm[Hg] Right Atrium Right Atrium Systolic Pressure: 41.64 ml, 41.64 ml Dictated by: Edna Barboza M.D. on 10/21/2023 at 19:04 Approved by: Edna Barboza M.D. on 10/21/2023 at 19:09 Dictated By: EDNA BARBOZA Signed By: 10/21/231909 DD/ 08 TD/TT: Watch Parts Inspector: Procedure Note Radiology, Radiologist, MD - 10/21/2023 [place] [address] Cardiology Report Signed Patient: PRERNA GASCAMR#: [id number] : 1955cct:[id number] Age/Sex: 68 / FADM Date: 10/21/23 Loc: CARD Attending Dr: Jenny Lawrence M.D. Ordering Physician: Jenny Lawrence M.D. Date of Service: 10/21/23 Procedure(s): CA echo doppler complete Accession Number(s): [id number] cc: Jenny Lawrence M.D.; Ti Blackburn M.D. Patient Name: PRERNA GASCA MR#: [id number] : 1955 Exam Date: 10/21/2023 Ordering Doctor: DR JENNY LAWRENCE M.D. ECHOCARDIOGRAM REPORT PROCEDURE: CA ECHO DOPPLER COMPLETE INDICATIONS: Chronic systolic heart failure, Cardiomyopathy COMPARISON: None. DESCRIPTION: COMPLETE ECHOCARDIOGRAM Real-time transthoracic echocardiography with 2D, M-mode, spectral and color flow Dopplerperformed. QUALITY: Technical quality was good. LEFT VENTRICLE: Normal chamber size. Thickened septal wall. Globalleft ventricular systolic function is normal. Abnormal septal motion may be related to bundle branch block. LV EF: Estimated left ventricular ejection fraction is 55-60 %. DIASTOLIC: Diastolic function is indeterminate. ATRIAL SEPTUM: LEFT ATRIUM: Mild dilatation. RIGHT ATRIUM: Normal chamber size. RIGHT VENTRICLE: Normal chamber size. Normal right ventricularsystolic function. TRICUSPID VALVE: Normal mobility and thickness. No stenosis with mild regurgitation. No evidence of pulmonary hypertension. RVSP 24 mmHg MITRAL VALVE: Normal mobility and thickness. No evidence of mitralvalve stenosis. There is no mitral annular calcification. Trivial mitral regurgitation. AORTIC VALVE: Normal trileaflet appearance. No visible sclerosis.Normal leaflet mobility. No evidence of aortic valve stenosis. No aortic regurgitation. AORTIC ROOT: Normal diameter and appearance. Normal size aortic arch measuring 3.2 cm and ascending aortameasuring 3.4 cm. PULMONIC VALVE: Normal thickness and mobility. No stenosis. Trivial regurgitation. PERICARDIUM: Small mostly anterior pericardial effusion. No evidenceof cardiac tamponade. IVC: Collapses with inspirations. Normal size. PLEURA: CONCLUSION: 1. Normal ventricular systolic function. LVEF is 55 to 60%. 2. No significant valvular dysfunction. 3. Normal right-sided pressures. 4. Small mostly anterior pericardial effusion. Adult Echocardiography Procedure Report Left Ventricle LVEDD (3.7 - 5.6 cm): 4.07 cm LVESD (2.2 - 4.0 cm): 2.87 cm LVIVS thickness (0.6 - 1.2 cm): 1.28 cm LVPW thickness (0.5 - 1.0 cm): 1.00 cm e': 0.08 m/s E - e': 7.34 LVOT Max Gradient: 5.10 mm[Hg] LVOT Area (cm2): 1.13 m/s Peak Velocity (LVOT): 1.13 m/s Mean Velocity (LVOT): 0.72 m/s LVOT Diameter 2.22 cm Left Ventricular Ejection Fraction: 55-60 % Left Atrium LA Volume Index (2D A2C): 37.59 ml/m2 Left Atrium Systolic Dimension: 3.35 cm Mitral Valve MV E to A Ratio: 0.85 Mitral Valve A-Wave Peak Velocity: 0.70 m/s Mitral Valve E-Wave Peak Velocity: 0.60 m/s Right Ventricle RV Internal Diastolic Dimension: 3.23 cm Aorta AO Root Diam: 3.14 cm Ascending Ao Diam: 3.36 cm Aortic Valve AoV Area (Peak Manas): 2.76 cm2, 2.76 cm2 AoV Area (VTI): 2.76 cm2, 2.76 cm2 Peak Velocity(Antegrade Flow): 1.58 m/s Peak Gradient(Antegrade Flow): 10.04 mm[Hg] Mean Velocity(Antegrade Flow): 1.06 m/s Mean Gradient(Antegrade Flow): 5.21 mm[Hg] Velocity Time Integral: 33.56 cm Tricuspid Valve Peak Velocity (Regurgitant Flow): 2.31 m/s, 2.24 m/s, 2.33 m/s Pulmonic Valve Mean Gradient: 2.86 mm[Hg], 3.14 mm[Hg] Mean Velocity: 0.78 m/s, 0.82 m/s Peak Velocity: 1.22 m/s Peak Gradient: 5.78 mm[Hg], 6.16 mm[Hg] Right Atrium Right Atrium Systolic Pressure: 41.64 ml, 41.64 ml Dictated by: Edna Barboza M.D. on 10/21/2023 at 19:04 Approved by: Edna Barboza M.D. on 10/21/2023 at 19:09 Dictated By: EDNA BARBOZA Signed By:10/21/231909 DD/ 08 TD/TT: Watch Parts Inspector: Generic External Data Provider [facility] Final Result documented in this encounter Visit Diagnoses Not on filedocumented in this encounter Care Teams Nurse Quality Relationship Specialty Start Date End Date Ti Blackburn MD PCP - General Family Medicine 09/10/23 03/13/24 Ti Blackburn MD [address] [place] [address] PCP - General Family Medicine 03/14/24 documented as of this encounter
--- OUTSIDE RECORDS SUMMARY | 2025-05-23 07:25 | XMS_ITS | Clinical Summary ---
Author Organization [facility] Address [address] [place] [address] Care Team Providers Care Chemical Dependency Professional Name Role Phone Ti Blackburn MD Primary Care Provider [phone] Medications aspirin 81 MG chewable tablet Chew 81 mg 1 (one) time 03/10/2024 Active atorvastatin (Lipitor) 80 MG tablet Take 80 mg by mouth in the evening 03/10/2024 Active carvedilol (Coreg) 6.25 MG tablet Take 6.25 mg by mouth in the morning and 6.25 mg in the evening. Take with meals. 03/10/2024 Active hydrOXYzine HCl (Atarax) 10 MG tablet Take 10 mg by mouth every 8 (eight) hours if needed for anxiety 03/10/2024 Active lisinopril 2.5 MG tablet Take 2.5 mg by mouth Daily 03/10/2024 Active omeprazole (PriLOSEC) [address] capsule Take 20 mg by mouth in the morning. Active Xarelto 15 MG tablet Take 15 mg by mouth in the evening. Take with meals 03/10/2024 Active spironolactone (Aldactone) 25 MG tablet Take 12.5 mg by mouth Daily 03/10/2024 Active Social History Tobacco Use Types Packs/Day Years Used Date Smoking Tobacco: Never Assessed Comments Unknown Sex and Gender Information Value Date Recorded Sex Assigned at Not on file Legal Sex Female 6:37 PM EDT Gender Identity Not on file Sexual Orientation Not on file Last Filed Vital Signs Vital Sign Reading Time Taken Comments Blood Pressure 140/90 03/31/2021 12:00 PM EDT Pulse - - Temperature - - Respiratory Rate - - Oxygen Saturation - - Inhaled Oxygen Concentration - - Weight 83 kg (183 lb) 05/29/2021 12:00 PM EDT Height 163.8 cm (5' 4.5 ) 06/12/2021 12:00 PM ED T Body Mass Index 30.93 05/29/2021 12:00 PM EDT Plan of Treatment Health Maintenance Due Date Last Done Comments CT Colonography 1955 Colonoscopy 1955 Colorectal Cancer Screening 1955 FIT-DNA 1955 FIT 1955 FOBT 1955 Sigmoidoscopy 1955 Pneumococcal Vaccine: 65+ Years (1 of 1 - PCV) 007 Mammogram 05/15/2025 05/15/2024 Influenza Vaccine (#1) 2025 Procedures Procedure Name Priority Date/Time Associated Diagnosis Comments MM TOMOSYNTHESIS SCREENING BI 05/15/2024 11:55 AM EDT from Last 3 Months or Most Recently Relevant to Health Maintenance Results * MM TOMOSYNTHESIS SCREENING BI (05/15/2024 11:55 AM EDT) Anatomical Region Laterality Modality Other 05/15/2024 11:5 5 AM EDT Narrative 05/15/2024 11:56 [place] [address] Mammography Report Signed Patient: PRERNA GASCA MR#: [id number] : 1955 Acct:[id number] Age/Sex: 68 / F ADM Date: 05/15/24 Loc: MAMMO Attending Dr: MENA MEJIA Ordering Physician: MENA MEJIA Results: Date of Service: 05/15/24 Follow Up: Procedure(s): MM tomosynthesis screening BI Accession Number(s): [id number] cc: Ti Blackburn M.D.; MENA MEJIA Patient Name: PRERNA GASCA MR#: [id number] : 1955 Exam Date: 05/15/2024 Ordering Doctor: [...] bladder cancer at age 77. LOCATION: The [facility] BREAST COMPOSITION: The breasts are heterogeneously [...] Signed By: 05/15/24 1156 DD/ 1155 TD/TT: Adult Live In Caregiver: Procedure Note Radiology, Radiologist, - 05/15/2024 The [place] [id number] Mammography Report Signed Patient: PRERNA GASCAMR#: [id number] : 1955cct:[id number] Age/Sex: 68 / FADM Date: 05/15/24 Loc: MAMMO Attending Dr: MENA MEJIA Ordering Physician: MENA MEJIA LResults: Date of Service: 05/15/24Follow Up: Procedure(s): MM tomosynthesis screening BI Accession Number(s): [id number] cc: Ti Blackburn M.D.; MENA MEJIA Patient Name: PRERNA GASCA MR#: [id number] : 1955 Exam Date: 05/15/2024 Ordering Doctor: MENA MEJIA . RADIOLOGY REPORT PROCEDURE: MM TOMOSYNTHESIS SCREENING BI COMPARISON: MM TOMOSYNTHESIS SCREENING BI, 05/04/2023. MG MAMM [id number] CRISTOFER CAD, 04/28/2022. INDICATIONS: Screening for malignant neoplasm Calculator Name NCI Breast Cancer Risk Assessment Tool 5 Year Breast Cancer Risk 3.80% Lifetime Breast Cancer Risk 13.20% Personal Breast Cancer No Personal Ovarian Cancer No Treatments None Family Cancers Sister with breast cancer at age 57; Mother withleukemia cancer at age 66; Father with bladder cancer at age 75. LOCATION: [facility] BREAST COMPOSITION: The breasts are heterogeneously [...] M.D. Signed By:05/15/24 1156 DD/ 1155 TD/TT: Adult Live In Caregiver: Generic External Data Provider [facility] Final Result from Last 3 Months or Most Recently Relevant to Health Maintenance Insurance [facility] [place] [address] Care Teams Chemical Dependency Professional Relationship Specialty Start Date End Date Ti Blackburn MD [address] [place] [phone] PCP - General Family Medicine 03/14/24
== END 2025-05-23 07:24 | disposition home or self-care (01) ==
LOC: MAMMO 07:23
PROVIDERS: PCP Nurse Practitioner; Visit Provider Nurse Practitioner
DX: Z12.31 Encounter for screening mammogram for malignant neoplasm of breast (principal); Z80.3 Family history of malignant neoplasm of breast; Z80.52 Family history of malignant neoplasm of bladder; Z80.6 Family history of leukemia
CPT/HCPCS: 77063; 77067